=== PATIENT | female | born 1985 ===

== ENCOUNTER 2017-04-08 16:30 | Inpatient (IN) | payer OTHER ==
[2017-04-08 16:41] VITALS: BMI 35.6
[2017-04-08] MEDS ORDERED: Sodium Chloride 0.9% 1,000 ML IV STA ×2 (16:49→20:13)
--- NOTE | 2017-04-08 16:54 | ED PDOC ---
Arrival/HPI - General Chief Complaint: Abdominal Pain Time Seen by Provider: 04/08/17 16:32 Historian: Patient - History of Present Illness Narrative History of Present Illness (Text): 04/08/17 16:52 31 year old female whose past medical history includes diabetes, hypertension, and gastroparesis presents to the emergency department with abdominal pain and nausea, vomiting, diarrhea since this morning. Denies fevers. No other complaints. PMD: Dr. Wang Time/Duration: 24 hours Symptom Onset: Gradual Symptom Course: Unchanged Associated Symptoms (Text): None Past Medical History - Provider Review Nursing Documentation Reviewed: Yes - Infectious Disease Hx of Infectious Diseases: None - Cardiac Hx Cardiac Disorders: Yes Hx Hypertension: Yes - Pulmonary Hx Respiratory Disorders: Yes Hx Asthma: Yes - Neurological Hx Neurological Disorder: No - HEENT Hx HEENT Disorder: No - Renal Hx Renal Disorder: No - Endocrine/Metabolic Hx Endocrine Disorders: Yes Hx Diabetes Mellitus Type 2: Yes - Hematological/Oncological Hx Blood Disorders: No - Integumentary Hx Dermatological Disorder: No - Musculoskeletal/Rheumatological Hx Musculoskeletal Disorders: Yes Hx Falls: Yes (when having chest pain) - Gastrointestinal Hx Gastrointestinal Disorders: Yes Hx Pancreatitis: Yes Other/Comment: gastroparesis - Genitourinary/Gynecological Hx Genitourinary Disorders: No - Psychiatric Hx Psychophysiologic Disorder: No Hx Substance Use: No - Surgical History Other/Comment: bartholenes cyst I and D - Anesthesia Hx Anesthesia: No Hx Anesthesia Reactions: No Family/Social History - Physician Review Nursing Documentation Reviewed: Yes Family/Social History: Unknown Family HX Smoking Status: Current Some Days Smoker Hx Alcohol Use: No (social) Hx Substance Use: No Allergies/Home Meds Allergies/Adverse Reactions: Allergies No Known Allergies Allergy (Verified 05/12/13 09:32) Home Medications: Home Meds Medication Instructions Recorded Confirmed Insulin Human Regular [HumuLIN R] 0 units SC DAILY 08/06/16 04/08/17 Review of Systems - Physician Review All systems were reviewed & negative as marked: Yes - Review of Systems Constitutional: absent: Fevers Respiratory: absent: SOB Cardiovascular: absent: Chest Pain Gastrointestinal: Abdominal Pain, Diarrhea, Nausea, Vomiting Physical Exam Vital Signs Temp Pulse Resp BP Pulse Ox 04/08/17 20:25 98.3 F 97 H 18 133/89 97 04/08/17 17:20 84 18 128/86 100 Medical Decision Making ED Course and Treatment: Impression: 31 year old female whose past medical history includes diabetes, hypertension, and gastroparesis presents to the emergency department with abdominal pain and nausea, vomiting, diarrhea since this morning. Differential Diagnosis included but are not limited to: Plan: -- Zofran, Protonix -- Labs -- Reassess and disposition Prior Visits: Notes and results from previous visits were reviewed. Patient last seen in the ED on 11/03/16 for abdominal pain and discharged home. Progress Notes: 04/08/17 16:58 - Lab Interpretations Lab Results: 04/08/17 17:00 04/08/17 17:00 Lab Results 04/08/17 18:10: pCO2 31 L, pO2 116.0 H, HCO3 17.1 L, ABG pH 7.35, ABG Total CO2 18.1 L, ABG O2 Saturation 98.6 H, ABG Base Excess -7.4 L, ABG Potassium 3.5 L, Glucose 379 H, Lactate 1.1, FiO2 21.0, Sodium 136.0, Chloride 103.0, Arterial Blood Potassium 3.5 L 04/08/17 17:00: Serum Osmolality 300 H 04/08/17 17:00: Urine HCG, Qual Negative 04/08/17 17:00: Sodium 133, Potassium 4.6, Chloride 98, Carbon Dioxide 19 L, Anion Gap 21 H, BUN 7, Creatinine 0.5, Est GFR ( Amer) > 60, Est GFR (Non -Af Amer) > 60, Random Glucose 386 H* D, Calcium 9.1, Total Bilirubin 1.2, AST 29, ALT 34, Alkaline Phosphatase 151 H, Total Protein 8.4 H, Albumin 3.9, Globulin 4.4, Albumin/Globulin Ratio 0.9 L, Lipase 961 H 04/08/17 17:00: Urine Color Yellow, Urine Appearance Clear, Urine pH 6.0, Ur Specific [place] 1.020, Urine Protein Negative, Urine Glucose (UA) >=1000, Urine Ketones >=80, Urine Blood Trace-lysed H, Urine Nitrate Negative, Urine Bilirubin Negative, Urine Urobilinogen 0.2, Ur Leukocyte Esterase Negative, Urine RBC 1 - 3, Urine WBC 1 - 3, Ur Epithelial Cells 1 - 3, Urine Bacteria Few 04/08/17 17:00: PT Cancelled, INR Cancelled, APTT Cancelled 04/08/17 17:00: WBC 14.1 H D, RBC 4.59, Hgb 14.4, Hct 39.8, MCV 86.7, MCH 31.4, MCHC 36.2, RDW 12.6, Plt Count 263, MPV 12.2 H, Gran % 81.7 H, Lymph % (Auto) 13.9 L, [place] % (Auto) 3.3, Eos % (Auto) 0.8 L, Baso % (Auto) 0.3, Gran # 11.53 H , Lymph # 2.0, [place] # 0.5, Eos # 0.1, Baso # 0.04 - RAD Interpretation Radiology Orders: 04/08/17 17:37 ABD & PELVIS IV CONTRAST ONLY [CT] Stat - EKG Interpretation EKG Interpretation (Text): EKG shows sinus tachycardia at 101 BPM otherwise normal. Interpreted by me. Interpreted by ED Physician: Yes Type: 12 lead EKG - Medication Orders Current Medication Orders: Enoxaparin Sodium (Lovenox) 40 mg SC DAILY [facility] PRN Reason: Protocol Last Admin: 04/10/17 09:28 Dose: 40 mg Hydromorphone HCl (Dilaudid) 1 mg IVP Q4H PRN PRN Reason: Pain, severe (8-10) Last Admin: 04/10/17 04:47 Dose: 1 mg Metronidazole (Flagyl) 500 mg in 100 mls @ 100 mls/hr IVPB Q8 [facility] PRN Reason: Protocol Last Admin: 04/10/17 05:01 Dose: 100 mls/hr Ceftriaxone Sodium (Rocephin 1 Gram Ivpb) 1 gm in 100 mls @ 100 mls/hr IVPB DAILY [facility] PRN Reason: Protocol Last Admin: 04/10/17 09:28 Dose: 100 mls/hr Sodium Chloride (Sodium Chloride 0.45%) 1,000 mls @ 150 mls/hr IV .Q6H40M [facility] Last Admin: 04/10/17 05:00 Dose: 150 mls/hr Insulin Detemir (Levemir) 10 unit SC BID [facility] Last Admin: 04/10/17 09:28 Dose: 10 unit Insulin Human Lispro (Humalog Med) 0 units SC ACHS [facility] PRN Reason: Protocol Last Admin: 04/10/17 08:17 Dose: 3 units Ketorolac Tromethamine (Toradol) 30 mg IVP Q6H PRN PRN Reason: Pain, moderate (4-7) Last Admin: 04/10/17 08:17 Dose: 30 mg Ondansetron HCl (Zofran Inj) 4 mg IVP Q4H PRN PRN Reason: Nausea/Vomiting Last Admin: 04/09/17 00:01 Dose: 4 mg Pantoprazole Sodium (Protonix Inj) 40 mg IVP DAILY [facility] Last Admin: 04/10/17 09:28 Dose: 40 mg Discontinued Medications Acetaminophen (Tylenol 325mg Tab) Confirm Administered Dose 975 mg .ROUTE .STK- MED ONE Stop: 04/08/17 20:29 Last Admin: 04/08/17 20:31 Dose: Acetaminophen (Tylenol 325mg Tab) 975 mg PO STAT STA Stop: 04/08/17 20:32 Last Admin: 04/08/17 20:39 Dose: 975 mg Re-Assess: [facility] Pain/Vitals Document 04/08/17 21:39 RR (Rec: 04/08/17 23:34 RR [id number]) Pain Reassessment Is This A Pain ReAssessment? Yes Sleep Is patient sleeping during reassessment? No Presence of Pain Presence of Pain Yes Pain Scale Used Pain Scale Used Numeric Hydromorphone HCl (Dilaudid) 0.5 mg IVP STAT STA Stop: 04/09/17 00:19 Last Admin: 04/09/17 01:00 Dose: 0.5 mg Re-Assess: [facility] Pain Assessment Document 04/09/17 02:00 RR (Rec: 04/09/17 03:09 RR [id number]) Pain Reassessment Is this a pain reassessment? Yes Sleep Is patient sleeping during reassessment? Yes Pain Scale Used Pain Scale Used FLACC Sodium Chloride (Sodium Chloride 0.9%) 1,000 mls @ 1,000 mls/hr IV .Q1H STA Stop: 04/08/17 17:48 Last Admin: 04/08/17 17:07 Dose: 1,000 mls/hr Sodium Chloride (Sodium Chloride 0.9%) 1,000 mls @ 999 mls/hr IV .Q1H1M STA Stop: 04/08/17 21:13 Last Admin: 04/08/17 20:17 Dose: 999 mls/hr Sodium Chloride (Sodium Chloride 0.45%) 1,000 mls @ 80 mls/hr IV .[id number] [facility] Last Admin: 04/09/17 10:37 Dose: 80 mls/hr Insulin Human Regular (Humulin R) 6 units IV STAT STA Stop: 04/08/17 17:51 Last Admin: 04/08/17 18:00 Dose: 6 units Insulin Human Regular (Humulin R) 3 units IV STAT STA Stop: 04/08/17 20:33 Last Admin: 04/08/17 20:45 Dose: 3 units Insulin Human Regular (Humulin R Low) 0 units SC ACHS [facility] PRN Reason: Protocol Last Admin: 04/09/17 11:53 Dose: 4 units Iohexol (Omnipaque 350 100 Ml) Confirm Administered Dose 350 mg .ROUTE .STK-MED ONE Stop: 04/08/17 19:00 Ketorolac Tromethamine (Toradol) Confirm Administered Dose 30 mg .ROUTE .STK- MED ONE Stop: 04/08/17 17:45 Last Admin: 04/08/17 17:46 Dose: Ketorolac Tromethamine (Toradol) 30 mg IVP STAT STA Stop: 04/08/17 17:46 Ketorolac Tromethamine (Toradol) 30 mg IVP STAT STA Stop: 04/08/17 17:46 Last Admin: 04/08/17 17:57 Dose: 30 mg Re-Assess: [facility] Pain Assessment Document 04/08/17 18:57 RR (Rec: 04/08/17 23:34 RR [id number]) Pain Reassessment Is this a pain reassessment? Yes Sleep Is patient sleeping during reassessment? Yes Pain Scale Used Pain Scale Used FLACC Ketorolac Tromethamine (Toradol) 30 mg IVP STAT STA Stop: 04/09/17 03:01 Last Admin: 04/09/17 03:10 Dose: 30 mg Re-Assess: [facility] Pain Assessment Document 04/09/17 04:10 RR (Rec: 04/09/17 05:51 RR [id number]) Pain Reassessment Is this a pain reassessment? Yes Sleep Is patient sleeping during reassessment? Yes Pain Scale Used Pain Scale Used FLACC Ondansetron HCl (Zofran Inj) 4 mg IVP STAT STA Stop: 04/08/17 16:50 Last Admin: 04/08/17 17:07 Dose: 4 mg Ondansetron HCl (Zofran Inj) 4 mg IVP STAT STA Stop: 04/08/17 17:46 Last Admin: 04/08/17 17:57 Dose: 4 mg Ondansetron HCl (Zofran Inj) 4 mg IVP STAT STA Stop: 04/08/17 17:46 Last Admin: 04/08/17 17:46 Dose: Ondansetron HCl (Zofran Inj) 4 mg IVP STAT STA Stop: 04/09/17 00:38 Last Admin: 04/09/17 03:11 Dose: Pantoprazole Sodium (Protonix Inj) 40 mg IVP STAT STA Stop: 04/08/17 16:51 Last Admin: 04/08/17 17:07 Dose: 40 mg Pantoprazole Sodium (Protonix Inj) 40 mg IVP STAT STA Stop: 04/09/17 00:38 Last Admin: 04/09/17 01:01 Dose: 40 mg - Carole Statement The provider has reviewed the documentation as recorded by the Carole Castro Provider Scribe Attestation: All medical record entries made by the Carole were at my direction and personally dictated by me. I have reviewed the chart and agree that the record accurately reflects my personal performance of the history, physical exam, medical decision making, and the department course for this patient. I have also personally directed, reviewed, and agree with the discharge instructions and disposition. Disposition/Present on Arrival - Present on Arrival Any Indicators Present on Arrival: No History of DVT/PE: No History of Uncontrolled Diabetes: Yes Urinary Catheter: No History of Decub. Ulcer: No History Surgical Site Infection Following: None - Disposition Have Diagnosis and Disposition been Completed?: Yes Diagnosis: Pancreatitis, Hyperglycemia Disposition: HOSPITALIZED Disposition Time: 11:08 Condition: FAIR
[2017-04-08 17:17] LABS: ADD MANUAL DIFF? NO
[2017-04-08 17:28] LABS: ALB/GLOB RATIO 0.9 (1.1-1.8); ALKALINE PHOSPHATASE 151 U/L (38-133); ALT/SGPT 34 U/L (7-56); AST/SGOT 29 U/L (15-39); BILIRUBIN,TOTAL 1.2 mg/dL (0.2-1.3); BLOOD UREA NITROGEN 7 mg/dL (7-21); CALCIUM 9.1 mg/dL (8.4-10.5); CARBON DIOXIDE 19 mmol/L (21-33); CHLORIDE 98 mmol/L (98-107); GFR AFRICAN-AMERICAN > 60; LIPASE 961 U/L (23-300); POTASSIUM 4.6 mmol/L (3.6-5.0); SODIUM 133 mmol/L (132-148); TOTAL PROTEIN 8.4 g/dL (5.8-8.3); URINE BILIRUBIN NEGATIVE (NEGATIVE); URINE BLOOD TRACE-LYSED (NEGATIVE); URINE GLUCOSE (UA) >=1000 mg/dL (NEGATIVE); URINE KETONE >=80 mg/dL (NEGATIVE); URINE LEUKOCYTE ESTERASE NEGATIVE Leu/uL (NEGATIVE); URINE PROTEIN NEGATIVE mg/dL (<30 mg/dL); URINE UROBILINOGEN 0.2 E.U./dL (<1 E.U./dL)
[2017-04-08 17:34] LABS: BASO # 0.04 K/mm3 (0.0-2.0); BASO % 0.3 % (0.0-3.0); EOS # 0.1 (0.0-0.7); EOS % 0.8 % (1.5-5.0); GRAN # 11.53 (1.4-6.5); GRAN % 81.7 % (50.0-68.0); HEMATOCRIT 39.8 % (36.0-48.0); LYMPH % 13.9 % (22.0-35.0); MEAN CELL VOLUME 86.7 fL (80.0-105.0); MEAN CORPUSCULAR HEMOGLOBIN 31.4 pg (25.0-35.0); MEAN CORPUSCULAR HGB CONC 36.2 g/dl (31.0-37.0); MEAN PLATELET VOLUME 12.2 fl (7.0-11.0); MONO # 0.5 (0.1-0.6); MONO % 3.3 % (1.0-6.0); PLATELET COUNT 263 10^3/uL (120.0-450.0); RED CELL DISTRIBUTION WIDTH 12.6 % (11.5-14.5); WHITE BLOOD COUNT 14.1 10^3/ul (4.5-11.0)
[2017-04-08 17:37] LABS: URINE APPEARANCE CLEAR (CLEAR); URINE COLOR YELLOW (YELLOW)
[2017-04-08 17:48] LABS: GLUCOSE,RANDOM 386 mg/dL (70-110)
[2017-04-08] MEDS ORDERED: Insulin Regular 1 UNITS/0.01 ML ML IV STA ×2 (17:50→20:32)
[2017-04-08 17:57] LABS: URINE BACTERIA FEW (NEG)
[2017-04-08 18:18] LABS: ARTERIAL BLOOD GAS HCO3 17.1 mmol/L (21-28); ARTERIAL BLOOD GAS PH 7.35 (7.35-7.45)
[2017-04-08] MEDS ORDERED: Iohexol 350 MG/100 ML VIAL ONE (18:59)
[2017-04-08] MEDS: Insulin Reg-LOW-Coverage SC SCH (23:00)
--- NOTE | 2017-04-08 23:56 | CP.PCM.PN ---
Subjective - Date & Time of Evaluation Date of Evaluation: 04/08/17 Time of Evaluation: 23:53 - Subjective Subjective: Nurse Pedrito calls and tells me that She received toradol x 2,given one and half hour ago and 45 minutes ago, threw up,Toradol not helping for pain.(Patient) Did not want strong pain medicine before ,now ready to get medicine stronger than tylenol. I evaluated patient by bedside. She complains of left shoulder pain for one hour, burning pain, also has sharp pain in left side of abdomen which is radiating to back. Feels nauseous. Threw up a little. No sob , no sweating, no palpitation. States that she does not like morphine but will take little morphine. This 31 year old woman with history of DM, HTH, HLD, gastroparesis, obesity, asthma, Bartholin cyst I & D, is admitted with abdominal pain, nausea , vomiting/ pancreatitis. Objective - Vital Signs/Intake and Output Vital Signs (last 24 hours): Temp Pulse Resp BP Pulse Ox 98.8 F 104 H 20 126/86 97 04/08/17 22:31 04/08/17 22:31 04/08/17 22:31 04/08/17 22:31 04/08/17 20:25 - Medications Medications: Current Medications Sodium Chloride (Sodium Chloride 0.45%) 1,000 mls @ 80 mls/hr IV .[id number] [facility] Insulin Human Regular (Humulin R Low) 0 units SC ACHS [facility] PRN Reason: Protocol Ketorolac Tromethamine (Toradol) 30 mg IVP Q6H PRN PRN Reason: Pain, moderate (4-7) Ondansetron HCl (Zofran Inj) 4 mg IVP Q4H PRN PRN Reason: Nausea/Vomiting Pantoprazole Sodium (Protonix Inj) 40 mg IVP DAILY [facility] - Labs Labs: PT Cancelled 04/08/17 17:00 INR Cancelled 04/08/17 17:00 APTT Cancelled 04/08/17 17:00 - Constitutional Appears: Well, No Acute Distress - Head Exam Head Exam: ATRAUMATIC, NORMAL INSPECTION, NORMOCEPHALIC Additional comments: Obese person. - Eye Exam Eye Exam: Normal appearance - ENT Exam ENT Exam: Normal External Ear Exam - Neck Exam Neck Exam: Normal Inspection - Respiratory Exam Respiratory Exam: NORMAL BREATHING PATTERN. absent: Accessory Muscle Use, Rales , Rhonchi, Wheezes, Respiratory Distress, Stridor - Cardiovascular Exam Cardiovascular Exam: REGULAR RHYTHM, +S1 (Normal.), +S2 (Normal.). absent: JVD - GI/Abdominal Exam GI & Abdominal Exam: Tenderness (Mild LUQ tenderness positive.), Normal Bowel Sounds - Rectal Exam Rectal Exam: Deferred - Extremities Exam Extremities Exam: Normal Inspection - Back Exam Back Exam: NORMAL INSPECTION - Neurological Exam Neurological Exam: Alert, Oriented x3 - Psychiatric Exam Psychiatric exam: Normal Affect, Normal Mood - Skin Skin Exam: Normal Color Assessment and Plan - Assessment and Plan (Free Text) Assessment: Left shoulder pain. LUQ abdominal pain. Pancreatitis. DM II. Asthma. HTN. HLD. Obesity. Plan: Dilaudid 0.5 mg IV x 1. Continue present medications. Protonix 40 mg IV x 1. Zofrnan 4 mg IV x 1. If left shoulder pain and LUQ pain not subsided , will get EKG and cardiac enzymes. Will discuss with Dr.Saleeb bridges.
[2017-04-09] MEDS ORDERED: HYDROmorphone 0.5 mg/0.5 ml ISec IVP STA (00:18)
[2017-04-09] MEDS: HYDROmorphone 1 mg/ml ISec IVP PRN ×4 (06:08→19:53)
[2017-04-09] MEDS: Insulin Reg-LOW-Coverage SC SCH ×2 (08:37→11:53)
--- NOTE | 2017-04-09 08:45 | CT ---
PROCEDURE: CT Abdomen and Pelvis with contrast HISTORY: abd pain, vomiting COMPARISON: 11/03/2016 TECHNIQUE: Contrast dose: 100 cc of Omnipaque 300 Radiation dose: Total exam DLP = 848 mGy-cm. This CT exam was performed using one or more of the following dose reduction techniques: Automated exposure control, adjustment of the mA and/or kV according to patient size, and/or use of iterative reconstruction technique. FINDINGS: LOWER THORAX: Unremarkable. LIVER: Unremarkable. No gross lesion or ductal dilatation. GALLBLADDER AND BILE DUCTS: Unremarkable. PANCREAS: Pancreatic hypertrophy with peripancreatic edema and inflammation consistent with acute pancreatitis. SPLEEN: Unremarkable. ADRENALS: Unremarkable. No mass. KIDNEYS AND URETERS: Unremarkable. No hydronephrosis. No solid mass. VASCULATURE: Unremarkable. No aortic aneurysm. BOWEL: Unremarkable. No obstruction. No gross mural thickening. APPENDIX: Normal appendix. PERITONEUM: Unremarkable. No free fluid. No free air. LYMPH NODES: Unremarkable. No enlarged lymph nodes. BLADDER: Unremarkable. REPRODUCTIVE: Unremarkable. BONES: No acute fracture. OTHER FINDINGS: None. IMPRESSION: Acute uncomplicated pancreatitis.
[2017-04-09] MEDS: Insulin Detemir 100 units/ml Vial (Levemir) SC SCH ×2 (09:41→17:47)
[2017-04-09] MEDS: Sodium Chloride 0.45% 1,000 ML IV SCH ×4 (10:37→21:51)
[2017-04-09 12:12] LABS: HEMATOCRIT 40.4 % (36.0-48.0); MEAN CELL VOLUME 86.1 fL (80.0-105.0); MEAN CORPUSCULAR HEMOGLOBIN 30.3 pg (25.0-35.0); MEAN CORPUSCULAR HGB CONC 35.1 g/dl (31.0-37.0); MEAN PLATELET VOLUME 11.9 fl (7.0-11.0); RED CELL DISTRIBUTION WIDTH 12.9 % (11.5-14.5); WHITE BLOOD COUNT 8.3 10^3/ul (4.5-11.0)
--- NOTE | 2017-04-09 13:19 | CP.PCM.CON ---
History of Present Illness - History of Present Illness History of Present Illness: General Surgery Consult: Dr. Felton 31F w/ PMHx HTN, DM, duodenal ulcer, gastritis, presented to the ED on 04/08 w/ complaints of abdominal pain. Patient states abdominal pain began yesterday, she reports pain began along epigastric region and radiated to the back. Patient reports having 2 bouts of non-bloody emesis and diarrhea. Patient mentioned she experienced a similar type of pain about 2 weeks ago that was not as severe. Patient states she has experienced these types of symptoms before. At time of examination patient denied headache/dizziness, fever/chills, chest pain, dysuria. Denies sick contacts. PMHx: as stated above PSurgHx: x1 Social Hx: reports smoking 5 cigs/day for ~18 years. Denies EtOH use. Denies illicit drug use. Review of Systems - Review of Systems Review of Systems: 12pt ROS carried out, unremarkable; except as stated in HPI Past Patient History - Infectious Disease Hx of Infectious Diseases: None - Past Social History Smoking Status: Current Some Days Smoker - CARDIAC Hx Cardiac Disorders: Yes Hx Hypertension: Yes - PULMONARY Hx Respiratory Disorders: Yes Hx Asthma: Yes - NEUROLOGICAL Hx Neurological Disorder: No - HEENT Hx HEENT Problems: No - RENAL Hx Chronic Kidney Disease: No - ENDOCRINE/METABOLIC Hx Endocrine Disorders: Yes Hx Diabetes Mellitus Type 2: Yes - HEMATOLOGICAL/ONCOLOGICAL Hx Blood Disorders: No - INTEGUMENTARY Hx Dermatological Problems: No - MUSCULOSKELETAL/RHEUMATOLOGICAL Hx Musculoskeletal Disorders: Yes Hx Falls: Yes (Syncope Episodes) - GASTROINTESTINAL Hx Gastrointestinal Disorders: Yes Hx Pancreatitis: Yes Other/Comment: gastroparesis - GENITOURINARY/GYNECOLOGICAL Hx Genitourinary Disorders: No - PSYCHIATRIC Hx Psychophysiologic Disorder: No - SURGICAL HISTORY Other/Comment: bartholenes cyst I and D - ANESTHESIA Hx Anesthesia: No Hx Anesthesia Reactions: No Meds Allergies/Adverse Reactions: Allergies Allergy/AdvReac Type Severity Reaction Status Date / Time No Known Allergies Allergy Verified 05/12/13 09:32 - Medications Medications: Current Medications Enoxaparin Sodium (Lovenox) 40 mg SC DAILY [facility] PRN Reason: Protocol Hydromorphone HCl (Dilaudid) 1 mg IVP Q4H PRN PRN Reason: Pain, severe (8-10) Last Admin: 04/09/17 10:31 Dose: 1 mg Sodium Chloride (Sodium Chloride 0.45%) 1,000 mls @ 80 mls/hr IV .[id number] [facility] Last Admin: 04/09/17 10:37 Dose: 80 mls/hr Metronidazole (Flagyl) 500 mg in 100 mls @ 100 mls/hr IVPB Q8 [facility] PRN Reason: Protocol Ceftriaxone Sodium (Rocephin 1 Gram Ivpb) 1 gm in 100 mls @ 100 mls/hr IVPB DAILY [facility] PRN Reason: Protocol Insulin Detemir (Levemir) 10 unit SC BID [facility] Last Admin: 04/09/17 09:41 Dose: 10 unit Insulin Human Lispro (Humalog Med) 0 units SC ACHS [facility] PRN Reason: Protocol Ketorolac Tromethamine (Toradol) 30 mg IVP Q6H PRN PRN Reason: Pain, moderate (4-7) Last Admin: 04/09/17 00:00 Dose: 30 mg Ondansetron HCl (Zofran Inj) 4 mg IVP Q4H PRN PRN Reason: Nausea/Vomiting Last Admin: 04/09/17 00:01 Dose: 4 mg Pantoprazole Sodium (Protonix Inj) 40 mg IVP DAILY [facility] Last Admin: 04/09/17 09:41 Dose: 40 mg Physical Exam - Constitutional Appears: No Acute Distress - Head Exam Head Exam: NORMOCEPHALIC - Eye Exam Eye Exam: EOMI, Normal appearance - ENT Exam ENT Exam: Mucous Membranes Moist - Respiratory Exam Respiratory Exam: NORMAL BREATHING PATTERN - Cardiovascular Exam Cardiovascular Exam: +S1, +S2 - GI/Abdominal Exam GI & Abdominal Exam: Distended, Guarding, Tenderness. absent: Rigid Additional comments: +epigastric tenderness to palpation - Neurological Exam Neurological exam: Alert, Oriented x3 - Skin Skin Exam: Dry, Intact, Warm Results - Vital Signs Recent Vital Signs: Last Vital Signs Temp 98 F 04/09/17 08:06 Pulse 120 H 04/09/17 08:06 Resp 20 04/09/17 08:06 BP 130/85 04/09/17 08:06 Pulse Ox 97 04/09/17 08:06 - Labs Result Diagrams: 04/09/17 11:48 04/08/17 17:00 Labs: Laboratory Results - last 24 hr 04/08/17 04/09/17 04/09/17 22:05 07:09 11:13 WBC RBC Hgb Hct MCV MCH MCHC RDW Plt Count MPV POC Glucose (mg/dL) 298 H 296 H 307 H 04/09/17 11:48 WBC 8.3 D RBC 4.69 Hgb 14.2 Hct 40.4 MCV 86.1 MCH 30.3 MCHC 35.1 RDW 12.9 Plt Count 245 MPV 11.9 H POC Glucose (mg/dL) Assessment & Plan - Assessment and Plan (Free Text) Assessment: 31F w/ acute pancreatitis Plan: -NPO -IVF -Abx as per primary -Analgesic -Anti-emetic -DVT/GI ppx -F/u Abd U/S -Further recs per Dr. Felton
[2017-04-09] MEDS: Enoxaparin 40 mg Syringe SC SCH (13:36)
[2017-04-09] MEDS: cefTRIAXone 1 gm 1 GM/100 ML BAG IVPB SCH (13:36)
[2017-04-09] MEDS: metroNIDAZOLE IV 500 mg/100 ml 500 MG/100 ML BAG IVPB SCH ×2 (14:28→21:51)
[2017-04-09] MEDS: Insulin Lispro (humaLOG) MEDIUM Coverage SC SCH ×2 (17:46→22:56)
--- NOTE | 2017-04-09 18:53 | CARD ---
APPROVED REPORT EKG Measurement Heart [id number] CO 174P57 [id number] <Conclusion> Sinus tachycardia Possible Left atrial enlargement Borderline ECG
--- NOTE | 2017-04-09 21:28 | PN ---
DATE: 04/09/2017 The patient is lying supine in the bed, comfortable; however, when I wake her up, she wakes up and sh e complains of pain, but does not seem to be in pain at this time. No respiratory distress. No naus ea or vomiting. PHYSICAL EXAMINATION: VITAL SIGNS: Temperature 98, heart rate is 124, blood pressure 129/86, respirations 20, saturation 9 7% on room air. HEAD AND NECK: Normal. No JVD, no thyromegaly. CHEST: Clear, good entry. CARDIAC: First sound and second sound normal. ABDOMEN: There is tenderness all over, mainly in the upper. EXTREMITIES: No edema. NEUROLOGIC: Normal. LABORATORY DATA: Shows the following: CBC shows white count down, better at 8.3, hemoglobin 14.2, h ematocrit 40.4, platelets 245. Chemistry noted for sugar of 298. IMPRESSION AND PLAN: 1. Acute pancreatitis, idiopathic, unclear etiology. 2. Diabetes, insulin-dependent. We will increase her insulin coverage to moderate insulin coverage. The patient is n.p.o., give IV fluids, will increase IV fluids surgical consult on the case. 3. Abdominal pain. Unclear if she has gallstones. CT negative for stones; however, will cover the patient with IV antibiotic. Getting surgical consult, Dr. Felton and follow his recommendations . Also still waiting for GI, Dr. Polo, for his input. Continue hydration. Continue insulin the rapy. Continue Levemir. Follow up clinically. IV antibiotics. The patient currently getting IV Ro cephin and metronidazole. Eddi Wang MD cc: [phone] TT: 04/09/2017 21:27:05 Confirmation # [id number] Dictation # [id number] mn
--- NOTE | 2017-04-09 21:39 | HP ---
The patient seen on 04/08/2017. The patient seen in ER. Main complaint of abdominal pain, vomiting and diarrhea for 2 days. HISTORY OF PRESENT ILLNESS: This is a 31-year-old diabetic, insulin-dependent, obese female who came into the Emergency Room because of persistent pain and vomiting for the last 24-48 hours. She denie d any fever, any chills. She came in because of pain, could not take it, came to the ER for further evaluation. No vomiting blood. No melena. No other complaint. No history of similar symptoms in t he past. The patient does take insulin, otherwise no other meds. No history of any foods that she r ecently took. No other members have any illnesses like this. PAST MEDICAL HISTORY: As I mentioned, she is an insulin-dependent diabetic, questionable compliance. She is morbidly obese. ALLERGIES: No known allergy. SOCIAL HISTORY: She smokes some days on and off. No drugs. No alcohol. REVIEW OF SYSTEMS: Negative. PHYSICAL EXAMINATION: GENERAL: The patient seems to be in pain. She has no respiratory distress. She is able to talk, co mplained about her symptoms. VITAL SIGNS: Temperature 98.3, heart rate 97, blood pressure 133/89, respiration 18, saturation 97% on room air. HEAD AND NECK: Normal. No JVD, no thyromegaly. CHEST: Clear, good entry. CARDIAC: First sound and second sound normal. ABDOMEN: Obese. Generalized tenderness all over, more in the upper abdomen than lower. Bowel sound s intact. EXTREMITIES: No edema. NEUROLOGIC: Normal. LABORATORY DATA: Noted for white count of 14.1, hemoglobin 14.4, hematocrit 39.8, platelets 263. Ch emistry shows sodium 133, potassium 4.6, chloride 98, bicarb 19, BUN 7, creatinine 0.5, blood sugar i s 386. Liver function test is normal. Alk phos 151, total protein 8.4 and lipase is elevated at 961 . The patient also had a blood gas which shows pO2 of 116, pCO2 of 31, pH 7.35. Urinalysis was nega tive for any infection or any blood. test was negative. The patient also had a CAT scan o f the abdomen done in the Emergency Room, which was noted for acute uncomplicated pancreatitis. IMPRESSION AND PLAN: This is a 31-year-old obese female diabetic, who came in with abdominal pain an d acute pancreatitis. Admit the patient, IV fluid, IV Protonix, Dilaudid. GI consult, Dr. Polo, surgical, Dr. . Continue current therapy for now. Zofran for nausea and vomiting. Follow up clinically. Eddi Wang MD cc: [phone] TT: 04/09/2017 21:38:49 mn
[2017-04-10] MEDS: HYDROmorphone 1 mg/ml ISec IVP PRN ×5 (00:11→21:18)
[2017-04-10] MEDS: Sodium Chloride 0.45% 1,000 ML IV SCH ×3 (05:00→21:18)
[2017-04-10] MEDS: metroNIDAZOLE IV 500 mg/100 ml 500 MG/100 ML BAG IVPB SCH ×3 (05:01→21:19)
--- NOTE | 2017-04-10 07:23 | CON ---
DATE: 04/09/2017 This patient was seen and evaluated earlier today. This 31-year-old patient with a past medical hist ory of diabetes mellitus, hypertension, admitted with an abdominal pain for 1 day duration. She said pain was more severe in the epigastric and right upper quadrant area. Denies taking any alcohol. The patient she states only smokes; never had a drink of alcohol. Did discuss the patient as a const ant boring pain in the upper abdominal area. OTHER PAST MEDICAL HISTORY: Significant as above. History of diabetes mellitus since the age of 10. The patient had an endoscopy in 09/[address] [facility] by Dr. Henson; found to have acute gastri tis and duodenal ulcer which was clean based, and also H. pylori positive. SOCIAL HISTORY: ____. REVIEW OF SYSTEMS: Positive as above. Other systems reviewed. PHYSICAL EXAMINATION: GENERAL: The patient is lying on the bed, not in acute distress. VITAL SIGNS: Temperature is 98.5, blood pressure is 129/86, pulse 120, respirations 20. HEENT: Atraumatic, anicteric. NECK: Supple. HEART: S1, S2 heard. LUNGS: Bilateral air entry present. ABDOMEN: Soft. There is tenderness present in the epigastric and right upper quadrant area. EXTREMITIES: No edema. No cyanosis. LABORATORY DATA: Hemoglobin is 14.2, hematocrit 40.4, WBC is 8.3, platelets 249. Chemistries: Lexi line phosphatase 151, lipase 961. No repeat labs today. IMPRESSION: This 31-year-old patient with a long history of diabetes mellitus, peptic ulcer disease, history of Helicobacter pylori gastritis, admitted with acute onset of abdominal pain, has elevated pancreatic enzymes. CT also showed evidence of pancreatitis with peripancreatic inflammatory changes , especially body and tail area, clinically acute pancreatitis; the etiology is unclear. RECOMMENDATIONS: Would recommend at this point: 1. IV hydration. 2. Will consider MRI of the pancreas with and without contrast, with MRCP to further evaluate. 3. Will continue to closely follow up her care and suggest further management based on the clinical course. Bobby Polo MD cc: [id number] TT: 04/10/2017 07:22:30 Confirmation # [id number] Dictation # [id number] mn
--- NOTE | 2017-04-10 07:37 | CP.PCM.PN ---
Subjective - Date & Time of Evaluation Date of Evaluation: 04/10/17 Time of Evaluation: 06:40 - Subjective Subjective: Sagar Manuel D.O. PGY-1, General Surgery Progress Note: Dr. Felton 31 year old female with a PMH of HTN, DM, duodenal ulcer, and gastritis who presented to [facility] [place] [facility] on 04/08/17 with complaints of abdominal pain. Patient was seen and examined at bedside with surgical team. Patient at this time continues to complain of pain which her pain regimen is alleviating, states that she has not had any nausea or vomiting but currently does not have an appetite. Patient admits to passing gas and having a bowel movement. Currently her pain is still located in the epigastrium and radiates to her back. No other acute complaints. Objective - Vital Signs/Intake and Output Vital Signs (last 24 hours): Temp Pulse Resp BP Pulse Ox 98.5 F 124 H 20 129/86 96 04/09/17 17:29 04/09/17 17:29 04/09/17 17:29 04/09/17 17:29 04/09/17 17:29 Intake and Output: 04/10/17 04/10/17 06:59 18:59 Intake Total 3600 Balance 3600 - Medications Medications: Current Medications Enoxaparin Sodium (Lovenox) 40 mg SC DAILY [facility] PRN Reason: Protocol Last Admin: 04/09/17 13:36 Dose: 40 mg Hydromorphone HCl (Dilaudid) 1 mg IVP Q4H PRN PRN Reason: Pain, severe (8-10) Last Admin: 04/10/17 04:47 Dose: 1 mg Metronidazole (Flagyl) 500 mg in 100 mls @ 100 mls/hr IVPB Q8 [facility] PRN Reason: Protocol Last Admin: 04/10/17 05:01 Dose: 100 mls/hr Ceftriaxone Sodium (Rocephin 1 Gram Ivpb) 1 gm in 100 mls @ 100 mls/hr IVPB DAILY [facility] PRN Reason: Protocol Last Admin: 04/09/17 13:36 Dose: 100 mls/hr Sodium Chloride (Sodium Chloride 0.45%) 1,000 mls @ 150 mls/hr IV .Q6H40M [facility] Last Admin: 04/10/17 05:00 Dose: 150 mls/hr Insulin Detemir (Levemir) 10 unit SC BID [facility] Last Admin: 04/09/17 17:47 Dose: 10 unit Insulin Human Lispro (Humalog Med) 0 units SC ACHS [facility] PRN Reason: Protocol Last Admin: 04/09/17 22:56 Dose: Not Given Ketorolac Tromethamine (Toradol) 30 mg IVP Q6H PRN PRN Reason: Pain, moderate (4-7) Last Admin: 04/09/17 14:24 Dose: 30 mg Ondansetron HCl (Zofran Inj) 4 mg IVP Q4H PRN PRN Reason: Nausea/Vomiting Last Admin: 04/09/17 00:01 Dose: 4 mg Pantoprazole Sodium (Protonix Inj) 40 mg IVP DAILY [facility] Last Admin: 04/09/17 09:41 Dose: 40 mg - Labs Labs: 04/09/17 11:48 PT Cancelled 04/08/17 17:00 INR Cancelled 04/08/17 17:00 APTT Cancelled 04/08/17 17:00 - Constitutional Appears: Well, Non-toxic - Head Exam Head Exam: ATRAUMATIC, NORMOCEPHALIC - Eye Exam Eye Exam: EOMI, PERRL - ENT Exam ENT Exam: Mucous Membranes Moist - Neck Exam Neck Exam: Normal Inspection - Respiratory Exam Respiratory Exam: Clear to Ausculation Bilateral. absent: Accessory Muscle Use , Rales, Rhonchi, Wheezes - Cardiovascular Exam Cardiovascular Exam: RRR, +S1, +S2 - GI/Abdominal Exam GI & Abdominal Exam: Distended (mild), Soft, Tenderness (epigastric), Hypoactive Bowel Sounds - Extremities Exam Extremities Exam: absent: Tenderness - Neurological Exam Neurological Exam: Alert, Awake, Oriented x3 - Skin Skin Exam: Dry, Intact, Warm Assessment and Plan - Assessment and Plan (Free Text) Assessment: 31 year old female with a PMH of HTN, DM, duodenal ulcer, and gastritis who presented with complaints of abdominal pain, found to have acute pancreatitis. Plan: Acute pancreatitis Cont NS @ 150 Abd US pending official read, however appears to show some hepatomegaly likely 2 /2 obesity, no CBD dilation, no GB polyps or wall thickening Added IS Added SCDs GI ppx Encouraged OOB 2 chair, ambulation NPO Pending lipid panel Cont PRN pain regimen Discussed with attending physician. Thank you for the pleasure of participating in the care of this patient.
[2017-04-10 07:49] LABS: BLOOD UREA NITROGEN 8 mg/dL (7-21); CARBON DIOXIDE 16 mmol/L (21-33); CHLORIDE 103 mmol/L (98-107); GFR AFRICAN-AMERICAN > 60; GLUCOSE,RANDOM 207 mg/dL (70-110); POTASSIUM 3.6 mmol/L (3.6-5.0); SODIUM 131 mmol/L (132-148)
[2017-04-10] MEDS: Insulin Lispro (humaLOG) MEDIUM Coverage SC SCH ×4 (08:17→21:48)
[2017-04-10 08:42] LABS: CHOLESTEROL 429 mg/dL (130-200)
[2017-04-10] MEDS: Enoxaparin 40 mg Syringe SC SCH (09:28)
[2017-04-10] MEDS: Insulin Detemir 100 units/ml Vial (Levemir) SC SCH ×2 (09:28→17:16)
[2017-04-10] MEDS: cefTRIAXone 1 gm 1 GM/100 ML BAG IVPB SCH (09:28)
--- NOTE | 2017-04-10 10:36 | US ---
HISTORY: pancreatitis, r/o gallstones COMPARISON: CT abdomen and pelvis from 04/08/2017 TECHNIQUE: Grayscale imaging was performed. FINDINGS: LIVER: Measures 16.3 cm. There is diffuse increased echogenicity of the liver parenchyma. No mass. No intrahepatic bile duct dilatation. GALLBLADDER: Unremarkable. No gallstones. COMMON BILE DUCT: Measures 4.0 mm. No stones. No dilatation. PANCREAS: Unremarkable as visualized. No mass. No ductal dilatation. RIGHT KIDNEY: Measures 13.2cm. Normal echogenicity. No calculus, mass, or hydronephrosis. LEFT KIDNEY: Measures 12.5cm. Normal echogenicity. No calculus, mass, or hydronephrosis. SPLEEN: Normal in size and contour. No mass. AORTA: No aneurysmal dilatation. IVC: Unremarkable. OTHER FINDINGS: None. IMPRESSION: Mild hepatomegaly and hepatic steatosis. No evidence of cholelithiasis or biliary dilatation.
--- NOTE | 2017-04-10 12:10 | PN ---
DATE: 04/10/2017 GI FOLLOWUP NOTE Seen and examined at the bedside this morning. The patient complains still of abdominal pain and abd ominal distention. Remains n.p.o. She complains of lower abdominal pain that radiates to her back. No reports of any vomiting thus far. VITAL SIGNS: Temperature is 99.2, blood pressure 128/87, pulse rate 12____, respirations 20, 96 on r oom air. CURRENT LABORATORY DATA: BMP - her sodium is 131, K 3.6. BUN is 8, creatinine 0.6. She had lipid p kavita done. Triglyceride is 1231. Cholesterol is 429. LDL is less than 30, and HDL cholesterol is 3 2. Lipase is pending. Abdominal ultrasound was done yesterday, and that is negative for gallstones. The common bile duct m easures 4.0. No stones or dilatation. Mild hepatomegaly with hepatic steatosis. PHYSICAL EXAMINATION: HEENT: Sclerae are anicteric. NECK: Supple. CARDIAC: S1, S2. LUNGS: Lung sounds are clear. ABDOMEN: With bowel sounds, softly distended with positive tenderness to mid abdomen, mostly on righ t to back. EXTREMITIES: No edema. NEUROLOGIC: Awake, alert, and oriented. ASSESSMENT: A 31-year-old obese female with history of duodenal ulcers, hypertension, and diabetes, came in with complaints of abdominal pain, and found to have acute pancreatitis. The patient also wi th hyperlipidemia, fatty liver. PLAN: The patient remains n.p.o. Continue IV fluids. She is on normal saline at 150. Continue GI prophylaxis - Protonix. She is on Zofran p.r.n., Toradol for pain, and on Flagyl IV antibiotic, and DVT prophylaxis, as well as ceftriaxone. We will follow up the lipase and request for MRCP and MRI with and without contrast. Discussed with the patient, and ____. The patient is also being followed by surgery. The patient was seen and case discussed with Dr. Polo. Miranda Rupal SUPA cc: [id number] TT: 04/10/2017 12:09:13 Confirmation # [id number] Dictation # [id number] jn
[2017-04-10] MEDS ORDERED: Gadodiamide 287 MG/ML VIAL (20ML) IV ONE (17:12)
[2017-04-11] MEDS: Sodium Chloride 0.45% 1,000 ML IV SCH ×2 (00:48→05:29)
[2017-04-11] MEDS: HYDROmorphone 1 mg/ml ISec IVP PRN ×6 (00:48→22:13)
--- NOTE | 2017-04-11 05:03 | PN ---
DATE: 04/10/2017 ADDENDUM This is an addendum to the GI progress report dictated by Miranda Goldsmith APN. The patient still complains of abdominal discomfort. The patient has some increased abdominal distent ion. We will continue n.p.o. We will follow MRCP. Her triglyceride level is elevated a t 1231. This could be secondary hypertriglyceridemia. would also repeat the triglycerides whe n the acute episode of pancreatitis improves. Thank you very much for allowing us to participate in the care of the patient. Bobby Polo MD cc: [id number] TT: 04/11/2017 05:03:19 Confirmation # [id number] Dictation # [id number] tn
[2017-04-11] MEDS: metroNIDAZOLE IV 500 mg/100 ml 500 MG/100 ML BAG IVPB SCH (05:25)
[2017-04-11 07:12] LABS: ADD MANUAL DIFF? NO
[2017-04-11 07:22] LABS: BASO # 0.02 K/mm3 (0.0-2.0); BASO % 0.2 % (0.0-3.0); EOS # 0.3 (0.0-0.7); EOS % 2.6 % (1.5-5.0); GRAN # 8.82 (1.4-6.5); GRAN % 78.3 % (50.0-68.0); HEMATOCRIT 33.6 % (36.0-48.0); LYMPH # 1.6 (1.2-3.4); LYMPH % 14.1 % (22.0-35.0); MEAN CORPUSCULAR HEMOGLOBIN 29.5 pg (25.0-35.0); MEAN CORPUSCULAR HGB CONC 33.9 g/dl (31.0-37.0); MEAN PLATELET VOLUME 11.4 fl (7.0-11.0); MONO # 0.5 (0.1-0.6); MONO % 4.8 % (1.0-6.0); PLATELET COUNT 234 10^3/uL (120.0-450.0); RED CELL DISTRIBUTION WIDTH 13.1 % (11.5-14.5); WHITE BLOOD COUNT 11.3 10^3/ul (4.5-11.0)
--- NOTE | 2017-04-11 07:44 | CP.PCM.PN ---
Subjective - Date & Time of Evaluation Date of Evaluation: 04/11/17 Time of Evaluation: 07:30 - Subjective Subjective: General surgery progress note for Dr. Felton Patient seen and examined at bedside. No acute events overnight. Patient still complains of having epigastric and back pain, stating that the pain is no better than yesterday. Patient is aware of her high triglyceride level and was started on Fenofibrate yesterday. Patient started to ambulate from bed to restroom. Patient denies headache, dizziness, fever, chills, nausea, vomiting, or other complaints. Objective - Vital Signs/Intake and Output Vital Signs (last 24 hours): Temp Pulse Resp BP Pulse Ox 98.3 F 111 H 20 122/85 97 04/10/17 16:00 04/10/17 16:00 04/10/17 16:00 04/10/17 16:00 04/10/17 16:00 Intake and Output: 04/11/17 04/11/17 06:59 18:59 Intake Total 0 Output Total 200 Balance -200 - Medications Medications: Current Medications Enoxaparin Sodium (Lovenox) 40 mg SC DAILY [facility] PRN Reason: Protocol Last Admin: 04/10/17 09:28 Dose: 40 mg Fenofibrate (Tricor) 145 mg PO DAILY [facility] Last Admin: 04/10/17 21:18 Dose: 145 mg Hydromorphone HCl (Dilaudid) 1 mg IVP Q4H PRN PRN Reason: Pain, severe (8-10) Last Admin: 04/11/17 05:26 Dose: 1 mg Metronidazole (Flagyl) 500 mg in 100 mls @ 100 mls/hr IVPB Q8 [facility] PRN Reason: Protocol Last Admin: 04/11/17 05:25 Dose: 100 mls/hr Ceftriaxone Sodium (Rocephin 1 Gram Ivpb) 1 gm in 100 mls @ 100 mls/hr IVPB DAILY [facility] PRN Reason: Protocol Last Admin: 04/10/17 09:28 Dose: 100 mls/hr Sodium Chloride (Sodium Chloride 0.45%) 1,000 mls @ 150 mls/hr IV .Q6H40M [facility] Last Admin: 04/11/17 05:29 Dose: 150 mls/hr Insulin Detemir (Levemir) 10 unit SC BID [facility] Last Admin: 04/10/17 17:16 Dose: 10 unit Insulin Human Lispro (Humalog Med) 0 units SC ACHS [facility] PRN Reason: Protocol Last Admin: 04/10/17 21:48 Dose: Not Given Ketorolac Tromethamine (Toradol) 30 mg IVP Q6H PRN PRN Reason: Pain, moderate (4-7) Last Admin: 04/10/17 14:30 Dose: 30 mg Ondansetron HCl (Zofran Inj) 4 mg IVP Q4H PRN PRN Reason: Nausea/Vomiting Last Admin: 04/09/17 00:01 Dose: 4 mg Pantoprazole Sodium (Protonix Inj) 40 mg IVP DAILY [facility] Last Admin: 04/10/17 09:28 Dose: 40 mg - Labs Labs: 04/11/17 07:00 04/10/17 07:00 PT Cancelled 04/08/17 17:00 INR Cancelled 04/08/17 17:00 APTT Cancelled 04/08/17 17:00 - Constitutional Appears: Well, Non-toxic, No Acute Distress - Head Exam Head Exam: ATRAUMATIC, NORMAL INSPECTION - Eye Exam Eye Exam: EOMI, Normal appearance - ENT Exam ENT Exam: Mucous Membranes Moist - Neck Exam Neck Exam: Normal Inspection - Respiratory Exam Respiratory Exam: Clear to Ausculation Bilateral, NORMAL BREATHING PATTERN. absent: Respiratory Distress - Cardiovascular Exam Cardiovascular Exam: RRR, +S1, +S2 - GI/Abdominal Exam GI & Abdominal Exam: Distended, Tenderness (epicgastric tenderness) - Extremities Exam Extremities Exam: Normal Inspection. absent: Tenderness - Neurological Exam Neurological Exam: Alert, Awake, Oriented x3 - Psychiatric Exam Psychiatric exam: Normal Affect, Normal Mood - Skin Skin Exam: Dry, Intact, Warm Assessment and Plan - Assessment and Plan (Free Text) Assessment: 31 year old female with past medical history of HTN, DM, duodenal ulcer, and gastritis presents with abdominal pain and was found to have acute pancreatitis Plan: Acute pancreatitis -Likely secondary to hypertriglyceridemia -Ok to started diet from surgery standpoint -Start incentive spirometry -C/w IVF NS @150ml/hr -Pending MRCP results -C/w ISS med -Continue to OOB 2 chair, ambulation more -Cont PRN pain regimen -GI ppx, SCD ppx -d/w with attending
[2017-04-11] MEDS: Insulin Lispro (humaLOG) MEDIUM Coverage SC SCH ×3 (07:50→17:22)
--- NOTE | 2017-04-11 08:05 | PN ---
DATE: 04/10/2017 Admitted with acute abdominal pain, found to have pancreatitis. The patient is still having abdomina l pain, uncomfortable. No nausea, no vomiting. Nothing by mouth yet. She is otherwise stable. PHYSICAL EXAMINATION: VITAL SIGNS: Temperature 99.2, heart rate 123, blood pressure 128/87, respirations 20, saturation 96 %. HEAD AND NECK: Normal. No JVD, no thyromegaly. CHEST: Clear, good air entry. CARDIAC: First sound, second sound normal. ABDOMEN: Soft, tender all over, mainly epigastric. EXTREMITIES: No edema. NEUROLOGIC: Normal. LABORATORY DATA: White count is 8.3 on 04/09/2017, hemoglobin 14.2, hematocrit 40.4, platelets 245. Chemistry noted for her triglycerides 1231, cholesterol 425 and high lipase 624. Blood sugar 207. IMPRESSION AND PLAN: 1. Acute pancreatitis, probably secondary to hypertriglyceridemia. Will get a dietary consult for t he patient's better control of diabetes. I put her on Tricor 145 mg p.o. daily. Will follow up clin ically. 2. Uncontrolled diabetes. Continue insulin coverage. The patient is n.p.o. Blood sugar runs in th e 200s now. Will continue to monitor. Continue IV fluid. 3. Continue GI and DVT prophylaxis. The patient may try to discuss with the GI consult. She still has significant pain. We may try clear liquids and maybe will consider ID consult and repeat CT scan . She still has significant pain. Continue current treatment. Eddi Wang MD cc: [phone] TT: 04/11/2017 08:04:50 Confirmation # [id number] Dictation # [id number] mn
[2017-04-11 08:08] LABS: ALB/GLOB RATIO 0.9 (1.1-1.8); ALKALINE PHOSPHATASE 93 U/L (38-133); ALT/SGPT 23 U/L (7-56); AST/SGOT 40 U/L (15-39); BILIRUBIN,TOTAL 0.7 mg/dL (0.2-1.3); BLOOD UREA NITROGEN 10 mg/dL (7-21); CALCIUM 8.7 mg/dL (8.4-10.5); CARBON DIOXIDE 19 mmol/L (21-33); CHLORIDE 102 mmol/L (98-107); GFR AFRICAN-AMERICAN > 60; GLUCOSE,RANDOM 131 mg/dL (70-110); LIPASE 217 U/L (23-300); POTASSIUM 3.4 mmol/L (3.6-5.0); SODIUM 132 mmol/L (132-148); TOTAL PROTEIN 6.1 g/dL (5.8-8.3)
[2017-04-11] MEDS: Enoxaparin 40 mg Syringe SC SCH (09:26)
[2017-04-11] MEDS: Insulin Detemir 100 units/ml Vial (Levemir) SC SCH ×2 (09:27→17:22)
[2017-04-11] MEDS: cefTRIAXone 1 gm 1 GM/100 ML BAG IVPB SCH (09:28)
--- NOTE | 2017-04-11 10:53 | CT ---
PROCEDURE: CT Abdomen and Pelvis without intravenous contrast HISTORY: pancreatitis COMPARISON: 04/08/2017 TECHNIQUE: Without contrast. Contrast Dose: Radiation dose: Total exam DLP = 1187 mGy-cm. This CT exam was performed using one or more of the following dose reduction techniques: Automated exposure control, adjustment of the mA and/or kV according to patient size, and/or use of iterative reconstruction technique. FINDINGS: LOWER THORAX: Small pleural effusions and bibasilar atelectasis LIVER: Unremarkable. No gross lesion or ductal dilatation. GALLBLADDER AND BILE DUCTS: Contrast material excreted in the gallbladder PANCREAS: There is a slight increase in the fluid collections adjacent to the pancreas. There is now a moderate amount of fluid that surrounds the spleen. Fluid now extends into the pericolic gutter. There is a moderate amount of ascites in the pelvis. There is swelling and edema of the pancreas consistent with pancreatitis similar to the previous study. There is no evidence of pseudocyst formation. SPLEEN: Unremarkable. ADRENALS: Unremarkable. No mass. KIDNEYS AND URETERS: Unremarkable. No hydronephrosis. No solid mass. VASCULATURE: Unremarkable. No aortic aneurysm. BOWEL: Unremarkable. No obstruction. No gross mural thickening. APPENDIX: Unremarkable. Normal appendix. PERITONEUM: Unremarkable. No free fluid. No free air. LYMPH NODES: Unremarkable. No enlarged lymph nodes. BLADDER: Unremarkable. REPRODUCTIVE: Unremarkable. BONES: No acute fracture. OTHER FINDINGS: None. IMPRESSION: There is a slight increase in the fluid collections adjacent to the pancreas. There is now a moderate amount of fluid that surrounds the spleen. Fluid now extends into the pericolic gutter. There is a moderate amount of ascites in the pelvis. There is swelling and edema of the pancreas consistent with pancreatitis similar to the previous study. There is no evidence of pseudocyst formation.
--- NOTE | 2017-04-11 13:43 | MRI ---
PROCEDURE: Magnetic Resonance Cholangiopancreatography HISTORY: Pancreatitis COMPARISON: CT 04/08/2017. TECHNIQUE: Multiplanar, multisequence MR images of the abdomen were obtained, including heavily T2 weighted MRCP images of the biliary system. Rotating maximum intensity projection images of the biliary system were generated. FINDINGS: MRCP: The common bile duct is of a normal caliber. No evidence of choledocholithiasis. No intrahepatic biliary ductal dilatation. LIVER: Hepatomegaly and fatty infiltration of the liver GALLBLADDER: Small gallstones SPLEEN: Unremarkable. PANCREAS: There is swelling of the pancreas and peripancreatic fluid and infiltration. This was also seen on CT. ADRENALS: Unremarkable. KIDNEYS: Unremarkable. AORTA: No aneurysm. ASCITES: There is pelvic ascites OTHER FINDINGS: Bilateral pleural effusions and compressive atelectasis. The report concurs with the preliminary [facility] report IMPRESSION: Hepatomegaly with fatty infiltration. Normal caliber common duct with no obvious stones. Small gallstones Pancreatitis with adjacent mesenteric edema. Moderate ascites
--- NOTE | 2017-04-11 14:44 | CP.PCM.CON ---
History of Present Illness - History of Present Illness History of Present Illness: 31 year old female with PMH of HTN, DM, obesity with BMI 36, gastritis and duodenal ulcer initially came in to [facility] because of abdominal pain associated with nausea and vomiting. The pain was also noted to have radiation to the back area as well. The initial CT scan of the patient showed acute pancreatitis and is being treated for this. Currently the patient continues to have abdominal pain, and persistent leukocytosis. Infectious Diseases consult is requested to further evaluate and manage. Currently the patient denies fever or chills, has occasional nausea, no diarrhea, no SOB, no chest pain, no cough or colds, no dysphagia, no headache or dizziness. Review of Systems - Review of Systems All systems: reviewed and no additional remarkable complaints except (as per HPI ) Past Patient History - Infectious Disease Hx of Infectious Diseases: None - Past Social History Smoking Status: Current Some Days Smoker - CARDIAC Hx Cardiac Disorders: Yes Hx Hypertension: Yes - PULMONARY Hx Respiratory Disorders: Yes Hx Asthma: Yes - NEUROLOGICAL Hx Neurological Disorder: No - HEENT Hx HEENT Problems: No - RENAL Hx Chronic Kidney Disease: No - ENDOCRINE/METABOLIC Hx Endocrine Disorders: Yes Hx Diabetes Mellitus Type 2: Yes - HEMATOLOGICAL/ONCOLOGICAL Hx Blood Disorders: No - INTEGUMENTARY Hx Dermatological Problems: No - MUSCULOSKELETAL/RHEUMATOLOGICAL Hx Musculoskeletal Disorders: Yes Hx Falls: Yes (when having chest pain) - GASTROINTESTINAL Hx Gastrointestinal Disorders: Yes Hx Pancreatitis: Yes Other/Comment: gastroparesis - GENITOURINARY/GYNECOLOGICAL Hx Genitourinary Disorders: No - PSYCHIATRIC Hx Psychophysiologic Disorder: No Hx Substance Use: No - SURGICAL HISTORY Other/Comment: bartholenes cyst I and D - ANESTHESIA Hx Anesthesia: No Hx Anesthesia Reactions: No Meds Allergies/Adverse Reactions: Allergies Allergy/AdvReac Type Severity Reaction Status Date / Time No Known Allergies Allergy Verified 05/12/13 09:32 - Medications Medications: Current Medications Atorvastatin Calcium (Lipitor) 20 mg PO DIN [facility] Enoxaparin Sodium (Lovenox) 40 mg SC DAILY [facility] PRN Reason: Protocol Last Admin: 04/10/17 09:28 Dose: 40 mg Fenofibrate (Tricor) 145 mg PO DAILY [facility] Last Admin: 04/10/17 21:18 Dose: 145 mg Hydromorphone HCl (Dilaudid) 1 mg IVP Q4H PRN PRN Reason: Pain, severe (8-10) Last Admin: 04/11/17 05:26 Dose: 1 mg Metronidazole (Flagyl) 500 mg in 100 mls @ 100 mls/hr IVPB Q8 [facility] PRN Reason: Protocol Last Admin: 04/11/17 05:25 Dose: 100 mls/hr Ceftriaxone Sodium (Rocephin 1 Gram Ivpb) 1 gm in 100 mls @ 100 mls/hr IVPB DAILY [facility] PRN Reason: Protocol Last Admin: 04/10/17 09:28 Dose: 100 mls/hr Sodium Chloride (Sodium Chloride 0.45%) 1,000 mls @ 150 mls/hr IV .Q6H40M [facility] Last Admin: 04/11/17 05:29 Dose: 150 mls/hr Insulin Detemir (Levemir) 10 unit SC BID [facility] Last Admin: 04/10/17 17:16 Dose: 10 unit Insulin Human Lispro (Humalog Med) 0 units SC ACHS [facility] PRN Reason: Protocol Last Admin: 04/11/17 07:50 Dose: Not Given Ketorolac Tromethamine (Toradol) 30 mg IVP Q6H PRN PRN Reason: Pain, moderate (4-7) Last Admin: 04/10/17 14:30 Dose: 30 mg Ondansetron HCl (Zofran Inj) 4 mg IVP Q4H PRN PRN Reason: Nausea/Vomiting Last Admin: 04/09/17 00:01 Dose: 4 mg Pantoprazole Sodium (Protonix Inj) 40 mg IVP DAILY [facility] Last Admin: 04/10/17 09:28 Dose: 40 mg Physical Exam - Constitutional Appears: Non-toxic, No Acute Distress - Head Exam Head Exam: NORMAL INSPECTION - ENT Exam ENT Exam: Mucous Membranes Moist - Neck Exam Neck exam: Negative for: Lymphadenopathy, Meningismus - Respiratory Exam Respiratory Exam: Decreased Breath Sounds - Cardiovascular Exam Cardiovascular Exam: +S1, +S2 - GI/Abdominal Exam GI & Abdominal Exam: Soft, Tenderness (epigastric area). absent: Distended, Firm, Guarding, Rebound, Rigid Results - Vital Signs Recent Vital Signs: Last Vital Signs Temp 98.3 F 04/10/17 16:00 Pulse 111 H 04/10/17 16:00 Resp 20 04/10/17 16:00 BP 122/85 04/10/17 16:00 Pulse Ox 97 06/05/17 16:00 - Labs Result Diagrams: 04/11/17 07:00 04/11/17 07:00 Labs: Laboratory Results - last 24 hr 04/10/17 04/10/17 04/10/17 07:00 07:00 11:41 WBC RBC Hgb Hct MCV MCH MCHC RDW Plt Count MPV Gran % Lymph % (Auto) [place] % (Auto) Eos % (Auto) Baso % (Auto) Gran # Lymph # [place] # Eos # Baso # Sodium Potassium Chloride Carbon Dioxide Anion Gap BUN Creatinine Est GFR ( Amer) Est GFR (Non-Af Amer) POC Glucose (mg/dL) 212 H Random Glucose Calcium Total Bilirubin AST ALT Alkaline Phosphatase Total Protein Albumin Globulin Albumin/Globulin Ratio Triglycerides 1231 H Cholesterol 429 H LDL Cholesterol Direct < 30 HDL Cholesterol 32 Lipase 624 H 04/10/17 04/10/17 04/11/17 16:07 21:48 07:00 WBC 11.3 H D RBC 3.86 Hgb 11.4 L Hct 33.6 L MCV 87.0 MCH 29.5 MCHC 33.9 RDW 13.1 Plt Count 234 MPV 11.4 H Gran % 78.3 H Lymph % (Auto) 14.1 L [place] % (Auto) 4.8 Eos % (Auto) 2.6 Baso % (Auto) 0.2 Gran # 8.82 H Lymph # 1.6 [place] # 0.5 Eos # 0.3 Baso # 0.02 Sodium Potassium Chloride Carbon Dioxide Anion Gap BUN Creatinine Est GFR ( Amer) Est GFR (Non-Af Amer) POC Glucose (mg/dL) 167 H 147 H Random Glucose Calcium Total Bilirubin AST ALT Alkaline Phosphatase Total Protein Albumin Globulin Albumin/Globulin Ratio Triglycerides Cholesterol LDL Cholesterol Direct HDL Cholesterol Lipase 04/11/17 04/11/17 07:00 07:30 WBC RBC Hgb Hct MCV MCH MCHC RDW Plt Count MPV Gran % Lymph % (Auto) [place] % (Auto) Eos % (Auto) Baso % (Auto) Gran # Lymph # [place] # Eos # Baso # Sodium 132 Potassium 3.4 L Chloride 102 Carbon Dioxide 19 L Anion Gap 14 BUN 10 Creatinine 0.6 Est GFR ( Amer) > 60 Est GFR (Non-Af Amer) > 60 POC Glucose (mg/dL) 141 H Random Glucose 131 H Calcium 8.7 Total Bilirubin 0.7 AST 40 H ALT 23 Alkaline Phosphatase 93 Total Protein 6.1 Albumin 2.9 L Globulin 3.2 Albumin/Globulin Ratio 0.9 L Triglycerides Cholesterol LDL Cholesterol Direct HDL Cholesterol Lipase 217 Assessment & Plan - Assessment and Plan (Free Text) Plan: Assessment Systemic Inflammatory Response syndrome probably due to acute pancreatitis, possibly due to hypertriglyceridemia, R/O gallstone pancreatitis; patient with fluid collections around the pancreas, consider due to related edema from the pancreatitis R/O infectious collections HTN DM obesity with BMI 36 gastritis and duodenal ulcer Plan Follow up MRCP results; ordered blood cx today; patient had a repeat CT scan of the abdomen and pelvis which shows increased size of fluid collections - patient has been on Rocephin and Flagyl and we will change to Zosyn Will monitor clinically Follow up further GI recommendations
[2017-04-11] MEDS: Albuterol-Ipratrop 3 mg / 0.5 (3 ml) UD IH PRN (15:55)
[2017-04-11] MEDS: Piperacillin/Tazobact 3.375 gm 100 ML IVPB SCH (17:22)
--- NOTE | 2017-04-11 17:59 | CP.PCM.PN ---
Subjective - Date & Time of Evaluation Date of Evaluation: 04/11/17 Time of Evaluation: 10:50 - Subjective Subjective: Seen and examined earlier today. Still has abdominal pain and feels more distended. NPO with IVF at 150 cc/hr. No reports of vomiting. Went for Ct scan A &P and MRCP. ct scan A&P: increase fluid collection adjacent to pancreas, mod fluid around spleen, now extend to the pericolic gutter. MRCP: GB stones, no dilation CBD or stone, hepatomegaly with fatty infiltration , pancreatitis with mesenteric edema, moderate ascites Objective - Vital Signs/Intake and Output Vital Signs (last 24 hours): Temp Pulse Resp BP Pulse Ox 98.4 F 108 H 20 120/79 97 04/11/17 16:00 04/11/17 16:00 04/11/17 16:00 04/11/17 16:00 04/11/17 16:00 Intake and Output: 04/11/17 04/11/17 06:59 18:59 Intake Total 0 3600 Output Total 200 600 Balance -200 3000 - Medications Medications: Current Medications Albuterol/Ipratropium (Duoneb 3 Mg/0.5 Mg (3 Ml) Ud) 3 ml IH [id number] PRN PRN Reason: Shortness of Breath Last Admin: 04/11/17 15:55 Dose: 3 ml Atorvastatin Calcium (Lipitor) 20 mg PO DIN [facility] Last Admin: 04/11/17 17:22 Dose: 20 mg Enoxaparin Sodium (Lovenox) 40 mg SC DAILY [facility] PRN Reason: Protocol Last Admin: 04/11/17 09:26 Dose: 40 mg Fenofibrate (Tricor) 145 mg PO DAILY [facility] Last Admin: 04/11/17 09:26 Dose: 145 mg Hydromorphone HCl (Dilaudid) 1 mg IVP Q4H PRN PRN Reason: Pain, severe (8-10) Last Admin: 04/11/17 17:23 Dose: 1 mg Sodium Chloride (Sodium Chloride 0.45%) 1,000 mls @ 150 mls/hr IV .Q6H40M [facility] Last Admin: 04/11/17 05:29 Dose: 150 mls/hr Piperacillin Sod/Tazobactam Sod (Zosyn 3.375 In Ns 100ml) 100 mls @ 200 mls/hr IVPB Q6 [facility] PRN Reason: Protocol Stop: 04/18/17 18:01 Last Admin: 04/11/17 17:22 Dose: 200 mls/hr Insulin Detemir (Levemir) 10 unit SC BID [facility] Last Admin: 04/11/17 17:22 Dose: 10 unit Insulin Human Lispro (Humalog Med) 0 units SC ACHS [facility] PRN Reason: Protocol Last Admin: 04/11/17 17:22 Dose: 1 units Ketorolac Tromethamine (Toradol) 30 mg IVP Q6H PRN PRN Reason: Pain, moderate (4-7) Last Admin: 04/10/17 14:30 Dose: 30 mg Ondansetron HCl (Zofran Inj) 4 mg IVP Q4H PRN PRN Reason: Nausea/Vomiting Last Admin: 04/09/17 00:01 Dose: 4 mg Pantoprazole Sodium (Protonix Inj) 40 mg IVP DAILY [facility] Last Admin: 04/11/17 09:26 Dose: 40 mg - Labs Labs: 04/11/17 07:00 04/11/17 07:00 PT Cancelled 04/08/17 17:00 INR Cancelled 04/08/17 17:00 APTT Cancelled 04/08/17 17:00 - Constitutional Appears: No Acute Distress - Head Exam Head Exam: NORMOCEPHALIC - Eye Exam Eye Exam: Normal appearance. absent: Scleral icterus - ENT Exam ENT Exam: Mucous Membranes Moist - Neck Exam Neck Exam: Normal Inspection - Respiratory Exam Respiratory Exam: Clear to Ausculation Bilateral, NORMAL BREATHING PATTERN. absent: Respiratory Distress - Cardiovascular Exam Cardiovascular Exam: +S1, +S2 - GI/Abdominal Exam GI & Abdominal Exam: Distended, Soft, Tenderness (diffuse right upper quaderant) , Normal Bowel Sounds. absent: Guarding, Rebound - Extremities Exam Extremities Exam: absent: Calf Tenderness, Pedal Edema - Neurological Exam Neurological Exam: Alert, Awake, Oriented x3 - Skin Skin Exam: Dry, Warm Assessment and Plan - Assessment and Plan (Free Text) Assessment: ASSESSEMENT: Acute Pancreatitis maybe secondary to Hypertriglyceridemia Gallstones Obesity Fatty Liver DM PLAN: NPO, continue IVF 150 cc/hr reviewed ct scan and MRCP films w/ Dr. oPlo, discussed with patient PPI monitor electrolytes Zofran prn nausea pain mgt. DVT prophylaxsis on Liptor and Tricor Seen and discussed with Dr. Polo.
--- NOTE | 2017-04-11 19:31 | PN ---
DATE: 04/11/2017 SUBJECTIVE: This patient was seen and evaluated earlier today. The patient still complains of signi ficant abdominal distention and abdominal pain. PHYSICAL EXAMINATION: Abdomen appears to be distended. LABORATORY DATA: Were reviewed. A CT scan ad MRI were reviewed. The patient has a significant amou nt of pelvic ascites and also inflammatory changes in the tail and the body of the pancreas. I did r eview the MRI; there was no common bile duct stones . The questionable stones were suspected in the gallbladder; however, close evaluation of the ultrasound scan did not reveal any gallstones. Th e patient had 2 ultrasound scans done so far. In the system I could find one was in 09/2016, it show ed no stones and another ultrasound done was recently on admission and this also showed no stones. At the moment, will continue to closely the patient with IV fluid hydration and n.p.o. The pat ient has been seen by ID and now has been started on Zosyn. Follow up of the LFTs. Thank you very much for allowing us to participate in the care of the patient. Bobby Polo MD cc: [id number] TT: 04/11/2017 19:31:19 Confirmation # [id number] Dictation # [id number] dn
[2017-04-12] MEDS: Insulin Lispro (humaLOG) MEDIUM Coverage SC SCH ×5 (00:48→21:59)
[2017-04-12] MEDS: Piperacillin/Tazobact 3.375 gm 100 ML IVPB SCH ×4 (00:53→17:40)
[2017-04-12] MEDS: HYDROmorphone 1 mg/ml ISec IVP PRN ×4 (02:57→18:46)
--- NOTE | 2017-04-12 08:06 | CP.PCM.HP ---
Past Patient History - Infectious Disease Hx of Infectious Diseases: None - Past Social History Smoking Status: Current Some Days Smoker - CARDIAC Hx Cardiac Disorders: Yes Hx Hypertension: Yes - PULMONARY Hx Respiratory Disorders: Yes Hx Asthma: Yes - NEUROLOGICAL Hx Neurological Disorder: No - HEENT Hx HEENT Problems: No - RENAL Hx Chronic Kidney Disease: No - ENDOCRINE/METABOLIC Hx Endocrine Disorders: Yes Hx Diabetes Mellitus Type 2: Yes - HEMATOLOGICAL/ONCOLOGICAL Hx Blood Disorders: No - INTEGUMENTARY Hx Dermatological Problems: No - MUSCULOSKELETAL/RHEUMATOLOGICAL Hx Musculoskeletal Disorders: Yes Hx Falls: Yes (when having chest pain) - GASTROINTESTINAL Hx Gastrointestinal Disorders: Yes Hx Pancreatitis: Yes Other/Comment: gastroparesis - GENITOURINARY/GYNECOLOGICAL Hx Genitourinary Disorders: No - PSYCHIATRIC Hx Psychophysiologic Disorder: No Hx Substance Use: No - SURGICAL HISTORY Other/Comment: bartholenes cyst I and D - ANESTHESIA Hx Anesthesia: No Hx Anesthesia Reactions: No Meds Allergies/Adverse Reactions: Allergies Allergy/AdvReac Type Severity Reaction Status Date / Time No Known Allergies Allergy Verified 05/12/13 09:32 Results - Vital Signs Recent Vital Signs: Last Vital Signs Temp 98.4 F 04/11/17 16:00 Pulse 108 H 04/11/17 16:00 Resp 20 04/11/17 16:00 BP 120/79 04/11/17 16:00 Pulse Ox 97 04/11/17 16:00 - Labs Result Diagrams: 04/11/17 07:00 04/11/17 07:00 Labs: Laboratory Results - last 24 hr 04/11/17 04/11/17 04/11/17 07:00 11:30 16:24 Sodium 132 Potassium 3.4 L Chloride 102 Carbon Dioxide 19 L Anion Gap 14 BUN 10 Creatinine 0.6 Est GFR ( Amer) > 60 Est GFR (Non-Af Amer) > 60 POC Glucose (mg/dL) 163 H 158 H Random Glucose 131 H Calcium 8.7 Total Bilirubin 0.7 AST 40 H ALT 23 Alkaline Phosphatase 93 Total Protein 6.1 Albumin 2.9 L Globulin 3.2 Albumin/Globulin Ratio 0.9 L Lipase 217 04/11/17 04/12/17 21:07 07:31 Sodium Potassium Chloride Carbon Dioxide Anion Gap BUN Creatinine Est GFR ( Amer) Est GFR (Non-Af Amer) POC Glucose (mg/dL) 149 H 186 H Random Glucose Calcium Total Bilirubin AST ALT Alkaline Phosphatase Total Protein Albumin Globulin Albumin/Globulin Ratio Lipase
--- NOTE | 2017-04-12 08:11 | CP.PCM.PN ---
Subjective - Date & Time of Evaluation Date of Evaluation: 04/12/17 Time of Evaluation: 08:00 - Subjective Subjective: General surgery progress note for Dr. Felton Patient seen and examined at bedside. No acute events overnight. Patient reports her epigastric and back pain improved. Abdominal distention improved as well. Patient ambulated from bed to restroom. Patient denies headache, dizziness , fever, chills, nausea, vomiting, or other complaints. Objective - Vital Signs/Intake and Output Vital Signs (last 24 hours): Temp Pulse Resp BP Pulse Ox 98.4 F 108 H 20 120/79 97 04/11/17 16:00 04/11/17 16:00 04/11/17 16:00 04/11/17 16:00 04/11/17 16:00 Intake and Output: 04/12/17 04/12/17 06:59 18:59 Intake Total 0 0 Balance 0 0 - Medications Medications: Current Medications Albuterol/Ipratropium (Duoneb 3 Mg/0.5 Mg (3 Ml) Ud) 3 ml IH [id number] PRN PRN Reason: Shortness of Breath Last Admin: 04/11/17 15:55 Dose: 3 ml Atorvastatin Calcium (Lipitor) 20 mg PO DIN [facility] Last Admin: 04/11/17 17:22 Dose: 20 mg Enoxaparin Sodium (Lovenox) 40 mg SC DAILY [facility] PRN Reason: Protocol Last Admin: 04/11/17 09:26 Dose: 40 mg Fenofibrate (Tricor) 145 mg PO DAILY [facility] Last Admin: 04/11/17 09:26 Dose: 145 mg Hydromorphone HCl (Dilaudid) 1 mg IVP Q4H PRN PRN Reason: Pain, severe (8-10) Last Admin: 04/12/17 02:57 Dose: 1 mg Sodium Chloride (Sodium Chloride 0.45%) 1,000 mls @ 150 mls/hr IV .Q6H40M [facility] Last Admin: 04/11/17 05:29 Dose: 150 mls/hr Piperacillin Sod/Tazobactam Sod (Zosyn 3.375 In Ns 100ml) 100 mls @ 200 mls/hr IVPB Q6 [facility] PRN Reason: Protocol Stop: 04/18/17 18:01 Last Admin: 04/12/17 06:26 Dose: 200 mls/hr Insulin Detemir (Levemir) 10 unit SC BID [facility] Last Admin: 04/11/17 17:22 Dose: 10 unit Insulin Human Lispro (Humalog Med) 0 units SC ACHS [facility] PRN Reason: Protocol Last Admin: 04/12/17 00:48 Dose: Not Given Ketorolac Tromethamine (Toradol) 30 mg IVP Q6H PRN PRN Reason: Pain, moderate (4-7) Last Admin: 04/10/17 14:30 Dose: 30 mg Ondansetron HCl (Zofran Inj) 4 mg IVP Q4H PRN PRN Reason: Nausea/Vomiting Last Admin: 04/09/17 00:01 Dose: 4 mg Pantoprazole Sodium (Protonix Inj) 40 mg IVP DAILY [facility] Last Admin: 04/11/17 09:26 Dose: 40 mg - Labs Labs: 04/11/17 07:00 04/11/17 07:00 PT Cancelled 04/08/17 17:00 INR Cancelled 04/08/17 17:00 APTT Cancelled 04/08/17 17:00 - Constitutional Appears: Non-toxic, No Acute Distress - Head Exam Head Exam: ATRAUMATIC, NORMAL INSPECTION, NORMOCEPHALIC - Eye Exam Eye Exam: EOMI, Normal appearance - ENT Exam ENT Exam: Mucous Membranes Moist - Neck Exam Neck Exam: Normal Inspection - Respiratory Exam Respiratory Exam: Clear to Ausculation Bilateral, NORMAL BREATHING PATTERN. absent: Respiratory Distress - Cardiovascular Exam Cardiovascular Exam: REGULAR RHYTHM, +S1, +S2. absent: Murmur - GI/Abdominal Exam GI & Abdominal Exam: Distended (less distended compared to yesterday), Tenderness (epigastric). absent: Hernia, Mass - Extremities Exam Extremities Exam: Normal Capillary Refill, Normal Inspection. absent: Joint Swelling, Pedal Edema - Neurological Exam Neurological Exam: Alert, Awake, Oriented x3 - Psychiatric Exam Psychiatric exam: Normal Affect, Normal Mood - Skin Skin Exam: Dry, Normal Color, Warm Assessment and Plan - Assessment and Plan (Free Text) Assessment: 31 year old female with past medical history of HTN, DM, duodenal ulcer, and gastritis presents with abdominal pain and was found to have acute pancreatitis Plan: Acute pancreatitis -Likely secondary to hypertriglyceridemia -Ok to started diet from surgery standpoint -C/w ISS med -C/w IVF NS @150ml/hr -CT abd showed increased fluid collection adjacent to pancreas (see report) -MRCP showed GB stone, pancreatitis with mesenteric edema and ascities, no CBD dilation (see report) -Continue to OOB 2 chair, ambulation, incentive spirometrymore -Cont PRN pain regimen -GI ppx, SCD ppx -d/w with attending
[2017-04-12 08:23] LABS: CHOLESTEROL 272 mg/dL (130-200); LIPASE 393 U/L (23-300)
[2017-04-12] MEDS: Sodium Chloride 0.45% 1,000 ML IV SCH ×2 (08:35→17:39)
[2017-04-12] MEDS: Insulin Detemir 100 units/ml Vial (Levemir) SC SCH ×2 (09:57→17:39)
[2017-04-12] MEDS: Enoxaparin 40 mg Syringe SC SCH (09:57)
--- NOTE | 2017-04-12 10:22 | PN ---
DATE: 04/12/2017 GI FOLLOWUP NOTE Seen and examined at the bedside this morning. The patient denies nausea, vomiting, abdominal pain - she reports has improved today, is still there, but with some improvement. The patient ambulates t o bathroom. No acute overnight events reported. VITAL SIGNS: Stable. LABORATORY DATA: Triglycerides have improved to 350. Cholesterol is 272. Her lipase is 393. PHYSICAL EXAMINATION: HEENT: Sclerae are anicteric. NECK: Supple. CARDIAC: S1, S2. LUNGS: Clear. ABDOMEN: With bowel sounds, soft. It is distended. There is still tenderness to right quadrant, bu t there is some improvement. EXTREMITIES: No edema. NEUROLOGIC: Awake, alert, and oriented. ASSESSMENT: Acute pancreatitis may be secondary to hypertriglyceridemia. Her levels are improved. Gallstones, obesity, fatty liver, diabetes mellitus. PLAN: Discussed with the patient to continue n.p.o. status for today, do not recommend to start any clear liquids at this time. Continue IV hydration. She is getting half normal saline at 150 mL an h our. Continue GI prophylaxis. She is on Protonix. Getting Zofran p.r.n. and also on pain managemen t. Continue DVT prophylaxis. The patient is on Lovenox, and continues on Lipitor and fenofibrate. The patient was started on IV antibiotics of Zosyn per ID. The patient was seen and case discussed with Dr. Polo. Miranda COWART cc: [id number] TT: 04/12/2017 10:21:49 Confirmation # [id number] Dictation # [id number] jaida
--- NOTE | 2017-04-12 16:18 | CP.PCM.PN ---
Subjective - Date & Time of Evaluation Date of Evaluation: 04/12/17 Time of Evaluation: 10:20 - Subjective Subjective: Comfortable, still with epigastric pain but a little less, less nausea, no fevers overnight. Objective - Vital Signs/Intake and Output Vital Signs (last 24 hours): Temp Pulse Resp BP Pulse Ox 98.4 F 108 H 20 120/79 97 04/11/17 16:00 04/11/17 16:00 04/11/17 16:00 04/11/17 16:00 04/11/17 16:00 Intake and Output: 04/12/17 04/12/17 06:59 18:59 Intake Total 0 0 Balance 0 0 - Medications Medications: Current Medications Albuterol/Ipratropium (Duoneb 3 Mg/0.5 Mg (3 Ml) Ud) 3 ml IH [id number] PRN PRN Reason: Shortness of Breath Last Admin: 04/11/17 15:55 Dose: 3 ml Atorvastatin Calcium (Lipitor) 20 mg PO DIN [facility] Last Admin: 04/11/17 17:22 Dose: 20 mg Enoxaparin Sodium (Lovenox) 40 mg SC DAILY [facility] PRN Reason: Protocol Last Admin: 04/11/17 09:26 Dose: 40 mg Fenofibrate (Tricor) 145 mg PO DAILY [facility] Last Admin: 04/11/17 09:26 Dose: 145 mg Hydromorphone HCl (Dilaudid) 1 mg IVP Q4H PRN PRN Reason: Pain, severe (8-10) Last Admin: 04/12/17 02:57 Dose: 1 mg Sodium Chloride (Sodium Chloride 0.45%) 1,000 mls @ 150 mls/hr IV .Q6H40M [facility] Last Admin: 04/12/17 08:35 Dose: 150 mls/hr Piperacillin Sod/Tazobactam Sod (Zosyn 3.375 In Ns 100ml) 100 mls @ 200 mls/hr IVPB Q6 [facility] PRN Reason: Protocol Stop: 04/18/17 18:01 Last Admin: 04/12/17 06:26 Dose: 200 mls/hr Insulin Detemir (Levemir) 10 unit SC BID [facility] Last Admin: 04/11/17 17:22 Dose: 10 unit Insulin Human Lispro (Humalog Med) 0 units SC ACHS [facility] PRN Reason: Protocol Last Admin: 04/12/17 08:33 Dose: 1 units Ketorolac Tromethamine (Toradol) 30 mg IVP Q6H PRN PRN Reason: Pain, moderate (4-7) Last Admin: 04/10/17 14:30 Dose: 30 mg Ondansetron HCl (Zofran Inj) 4 mg IVP Q4H PRN PRN Reason: Nausea/Vomiting Last Admin: 04/09/17 00:01 Dose: 4 mg Pantoprazole Sodium (Protonix Inj) 40 mg IVP DAILY [facility] Last Admin: 04/11/17 09:26 Dose: 40 mg - Labs Labs: 04/11/17 07:00 04/11/17 07:00 PT Cancelled 04/08/17 17:00 INR Cancelled 04/08/17 17:00 APTT Cancelled 04/08/17 17:00 - Constitutional Appears: Non-toxic, No Acute Distress - Head Exam Head Exam: NORMAL INSPECTION - ENT Exam ENT Exam: Mucous Membranes Moist - Neck Exam Neck Exam: absent: Lymphadenopathy, Meningismus - Respiratory Exam Respiratory Exam: Decreased Breath Sounds - Cardiovascular Exam Cardiovascular Exam: +S1, +S2 - GI/Abdominal Exam GI & Abdominal Exam: Soft. absent: Tenderness Assessment and Plan - Assessment and Plan (Free Text) Plan: Assessment Systemic Inflammatory Response syndrome probably due to acute pancreatitis, possibly due to hypertriglyceridemia, R/O gallstone pancreatitis; patient with fluid collections around the pancreas, consider due to related edema from the pancreatitis R/O infectious collections HTN DM obesity with BMI 36 gastritis and duodenal ulcer Plan MRCP does not show common bile duct stones; follow up blood cx done yesterday; patient had a repeat CT scan of the abdomen and pelvis which shows increased size of fluid collections - will continue Zosyn (day 2) Will continue to monitor clinically Follow up further GI recommendations
--- NOTE | 2017-04-12 17:33 | PN ---
DATE: 04/11/2017 A 31-year-old female. Still complained of abdominal pain. The patient still kept n.p.o. Seen by GI and surgical consult. ID consult was requested. Currently, patient getting IV fluid, IV antibiotic s and will follow up clinically in here for now at the time being. PHYSICAL EXAMINATION: VITAL SIGNS: Temperature 98.6, heart rate is 108, blood pressure 120/79, respirations 20, saturating 97%. HEAD AND NECK: Normal. No JVD, no thyromegaly. CHEST: Clear, good air entry. CARDIAC: First sound, second sound normal. ABDOMEN: General tenderness all over. Bowel sounds are . EXTREMITIES: No edema. NEUROLOGIC: Normal. LABORATORY STUDIES: White count 11.3, hemoglobin 11.4, hematocrit 33.6, platelets 234. Her blood skinner gar 150s. Her repeat cholesterol 54, her triglycerides repeated 350 came down. Her chemistry shows sodium 132, potassium 3.4, chloride 102, bicarb 19, BUN 10, creatinine 0.6, blood sugar 131. Liver e nzymes seems normal except an AST 40, albumin 2.9, a little low, globulin 3.2 and lipase 217. IMPRESSION AND PLAN: 1. Abdominal pain, acute pancreatitis and patient on a CT shows acute pancreatitis. We will repeat her CAT scan because the symptoms she has more of diffuse abdominal pain. Concerned about any worsen ing of her pancreatitis and also going to get ID consultation with Dr. Rivas or Dr. Worthington and wi ll follow up with the GI consult and surgical consult. Continue pain medicine as it is. Continue IV fluid, insulin coverage and will follow up clinically. 2. Insulin-dependent diabetes. Continue insulin coverage. The patient's sugar 150s. She is still n.p.o. 3. Morbid obesity. Sleep apnea precautions. The patient ambulates. She is going to the bathroom f or urine. However, we will continue gastrointestinal and deep venous thrombosis prophylaxis, Lovenox and Protonix. Continue current treatment. Follow up clinically. Eddi Wang MD cc: 223 TT: 04/12/2017 17:33:17 Confirmation # [id number] Dictation # [id number] en
[2017-04-12] MEDS ORDERED: HYDROmorphone 2 mg/ml ISec IVP STA (20:19)
[2017-04-12] MEDS: Albuterol-Ipratrop 3 mg / 0.5 (3 ml) UD IH PRN (20:58)
[2017-04-13] MEDS: Piperacillin/Tazobact 3.375 gm 100 ML IVPB SCH ×4 (00:17→17:18)
[2017-04-13] MEDS: HYDROmorphone 1 mg/ml ISec IVP PRN ×6 (00:17→21:43)
--- NOTE | 2017-04-13 07:45 | PN ---
DATE: 04/12/2017 ADDENDUM: This is an addendum to the GI progress report dictated by Miranda Goldsmith APN. The patient had triglycer madeline come down. White cell count is elevated to 11.4. I do not find any chemistries today. The aryan ent's CT and the MRI were reviewed with radiologist. Presently on IV antibiotics. The patient's CBD in MR showed normal, questionable stones noticed in the MRI, but could not in the ultrasounds done i n the past, feels slightly improved clinically. On examination abdomen is softly distended. Some tenderness present in the left side of the abdomen and epigastric area. Would continue to follow the patient. We will continue to keep the patient n.p.o. The patient is pr esently on thrombosis prophylaxis. Repeat labs in a.m. Thank you very much for allowing us to participate in the care of the patient. Bobby Polo MD cc: [phone] TT: 04/12/2017 19:15:26 Confirmation # [id number] Dictation # [id number] jn
[2017-04-13] MEDS: Insulin Lispro (humaLOG) MEDIUM Coverage SC SCH ×4 (08:44→21:46)
[2017-04-13] MEDS: Sodium Chloride 0.45% 1,000 ML IV SCH ×2 (08:45→14:24)
[2017-04-13] MEDS: Enoxaparin 40 mg Syringe SC SCH (09:11)
[2017-04-13] MEDS: Insulin Detemir 100 units/ml Vial (Levemir) SC SCH ×2 (09:11→17:19)
--- NOTE | 2017-04-13 09:20 | PN ---
DATE: 04/12/2017 The patient has less pain. She wants to eat. She wants to go home. However, she is asking for more pain meds. There is no respiratory distress, no chest pain, no other complaints. PHYSICAL EXAMINATION: VITAL SIGNS: Temperature 98.1, heart rate 104, blood pressure 109/71, respirations 20, saturation 94 %. HEAD AND NECK: Normal. No JVD or thyromegaly. CHEST: Clear, good air entry. CARDIAC: First sound, second sound normal. ABDOMEN: Obese, decreased tenderness, still generalized tenderness, and bowel sounds intact. EXTREMITIES: No edema. NEUROLOGIC: Normal. IMPRESSION AND PLAN: 1. Acute pancreatitis, probably triglycerides related or poorly controlled diabetes secondary to hyp ertriglyceridemia is also a possibility. The patient clinically feels better, although CT finding sh ows collection of fluid. The patient currently on IV Zosyn. Seen by gastroenterology, Dr. Polo. Repeat triglyceride is 350. Her cholesterol is 272. The patient has poor compliance with diabetes and ____. Advised to follow up appropriately on her other risk factors including morbid obesity and poorly controlled diabetes. 2. Morbid obesity. Continue GI and DVT prophylaxis. 3. Diabetes, insulin dependent. Continue insulin coverage. Currently, she is n.p.o. Will try liqui d diet in the morning, see how she does, if okay with gastroenterology. At this time, continue curre nt treatment, continue GI and DVT prophylaxis, sleep apnea precautions, head of the bed at 45 degrees . Eddi Wang MD cc: 223 TT: 04/13/2017 09:19:31 Confirmation # [id number] Dictation # [id number] mn
--- NOTE | 2017-04-13 11:33 | CP.PCM.PN ---
Subjective - Date & Time of Evaluation Date of Evaluation: 04/13/17 Time of Evaluation: 09:35 - Subjective Subjective: General surgery progress note for Dr. Felton Patient seen and examined at bedside. No acute events overnight. Patient reports improving epigastric pain and her abdominal distention is improving as well. Patient states she is actively ambulating and using incentive spirometry. Patient denies headache, dizziness, fever, chills, nausea, vomiting, or other complaints. Objective - Vital Signs/Intake and Output Vital Signs (last 24 hours): Temp Pulse Resp BP Pulse Ox 98.1 F 91 H 20 128/84 95 04/13/17 08:44 04/13/17 08:44 04/13/17 08:44 04/13/17 08:44 04/13/17 08:44 Intake and Output: 04/13/17 04/13/17 06:59 18:59 Intake Total 0 Balance 0 - Medications Medications: Current Medications Albuterol/Ipratropium (Duoneb 3 Mg/0.5 Mg (3 Ml) Ud) 3 ml IH [id number] PRN PRN Reason: Shortness of Breath Last Admin: 04/12/17 20:58 Dose: 3 ml Atorvastatin Calcium (Lipitor) 20 mg PO DIN [facility] Last Admin: 04/12/17 18:46 Dose: 20 mg Enoxaparin Sodium (Lovenox) 40 mg SC DAILY [facility] PRN Reason: Protocol Last Admin: 04/13/17 09:11 Dose: 40 mg Fenofibrate (Tricor) 145 mg PO DAILY [facility] Last Admin: 04/13/17 09:11 Dose: 145 mg Hydromorphone HCl (Dilaudid) 1 mg IVP Q4H PRN PRN Reason: Pain, severe (8-10) Last Admin: 04/13/17 09:12 Dose: 1 mg Sodium Chloride (Sodium Chloride 0.45%) 1,000 mls @ 150 mls/hr IV .Q6H40M [facility] Last Admin: 04/13/17 08:45 Dose: 150 mls/hr Piperacillin Sod/Tazobactam Sod (Zosyn 3.375 In Ns 100ml) 100 mls @ 200 mls/hr IVPB Q6 [facility] PRN Reason: Protocol Stop: 04/18/17 18:01 Last Admin: 04/13/17 05:03 Dose: 200 mls/hr Insulin Detemir (Levemir) 10 unit SC BID [facility] Last Admin: 04/13/17 09:11 Dose: 10 unit Insulin Human Lispro (Humalog Med) 0 units SC ACHS [facility] PRN Reason: Protocol Last Admin: 04/13/17 08:44 Dose: 1 units Ketorolac Tromethamine (Toradol) 30 mg IVP Q6H PRN PRN Reason: Pain, moderate (4-7) Last Admin: 04/10/17 14:30 Dose: 30 mg Ondansetron HCl (Zofran Inj) 4 mg IVP Q4H PRN PRN Reason: Nausea/Vomiting Last Admin: 04/09/17 00:01 Dose: 4 mg Pantoprazole Sodium (Protonix Inj) 40 mg IVP DAILY [facility] Last Admin: 04/13/17 09:11 Dose: 40 mg - Labs Labs: 04/11/17 07:00 04/11/17 07:00 PT Cancelled 04/08/17 17:00 INR Cancelled 04/08/17 17:00 APTT Cancelled 04/08/17 17:00 - Constitutional Appears: Non-toxic, No Acute Distress - Head Exam Head Exam: ATRAUMATIC, NORMAL INSPECTION - Eye Exam Eye Exam: EOMI, Normal appearance - ENT Exam ENT Exam: Mucous Membranes Moist - Neck Exam Neck Exam: Normal Inspection - Respiratory Exam Respiratory Exam: Clear to Ausculation Bilateral, NORMAL BREATHING PATTERN. absent: Respiratory Distress - Cardiovascular Exam Cardiovascular Exam: REGULAR RHYTHM, +S1, +S2. absent: Murmur - GI/Abdominal Exam GI & Abdominal Exam: Distended (improving distention compared to yesterday), Soft, Normal Bowel Sounds. absent: Tenderness, Hernia, Rebound - Extremities Exam Extremities Exam: Normal Capillary Refill - Neurological Exam Neurological Exam: Alert, Awake, Oriented x3 - Psychiatric Exam Psychiatric exam: Normal Affect, Normal Mood - Skin Skin Exam: Dry, Intact, Normal Color, Warm Assessment and Plan - Assessment and Plan (Free Text) Assessment: 31 year old female with past medical history of HTN, DM, duodenal ulcer, and gastritis presents with abdominal pain and was found to have acute pancreatitis Plan: Acute pancreatitis -Likely secondary to hypertriglyceridemia -OK to start diet from surgery standpoint. Patient is currently NPO per GI, will consider PPN if patient reminds NPO -C/w ISS med -C/w IVF NS @150ml/hr -Continue to OOB 2 chair, ambulation, incentive spirometry -Cont PRN pain regimen -GI ppx, SCD ppx -d/w with attending
[2017-04-13 12:29] LABS: ALB/GLOB RATIO 0.9 (1.1-1.8); ALKALINE PHOSPHATASE 93 U/L (38-133); ALT/SGPT 19 U/L (7-56); AST/SGOT 22 U/L (15-39); BILIRUBIN,TOTAL 0.5 mg/dL (0.2-1.3); BLOOD UREA NITROGEN 5 mg/dL (7-21); CALCIUM 8.9 mg/dL (8.4-10.5); CARBON DIOXIDE 18 mmol/L (21-33); CHLORIDE 104 mmol/L (95-110); GFR AFRICAN-AMERICAN > 60; GLUCOSE,RANDOM 143 mg/dL (70-110); POTASSIUM 3.3 mmol/L (3.6-5.0); SODIUM 133 mmol/L (132-148); TOTAL PROTEIN 6.3 g/dL (5.8-8.3)
--- NOTE | 2017-04-13 12:57 | PN ---
DATE: 04/13/2017 Seen and examined at the bedside earlier this morning. Abdominal pain is better. No reports of naus ea, vomiting or acute overnight events. The patient is asking if she can eat. VITAL SIGNS: Temperature is 98.1, blood pressure 128/84, pulse rate 91, respirations 20, 95% room ai r. LABORATORIES: Her lipase today is 425. POC glucose 159. PHYSICAL EXAMINATION: HEENT: Sclera is anicteric. NECK: Supple. CARDIAC: S1, S2. LUNG SOUNDS: With decreased breath sounds, but good aeration, no rebound or guarding. EXTREMITIES: Positive pedal pulses, no edema or calf tenderness. NEUROLOGIC: Awake, alert, oriented. ABDOMEN: With bowel sounds, soft, still distended, but looks better. No rebound or guarding. ASSESSMENT: A 31-year-old female with history of hypertension, diabetes, duodenal ulcer, came to the Emergency Room with abdominal pain, found to have acute pancreatitis, likely secondary to hypertrigl yceridemia. PLAN: We will start clear liquid diet, see how patient tolerates this. She is on IV fluids of half normal saline at 150 mL an hour. The patient is on Lipitor and Tricor, on deep venous thrombosis pro phylaxis, Lovenox, is on Dilaudid for pain and continue PPI. The patient is also on IV antibiotics. Her blood cultures were negative. We will continue to follow closely. Repeat labs in a.m. The patient was seen and case discussed with Dr. Polo. Miranda COWART cc: [phone] TT: 04/13/2017 12:56:35 Confirmation # [id number] Dictation # [id number] en
--- NOTE | 2017-04-13 20:12 | PN ---
DATE: 04/13/2017 HISTORY OF PRESENT ILLNESS: The patient is in bed in no acute distress, nontoxic. PHYSICAL EXAMINATION: VITAL SIGNS: Temperature is 98, blood pressure is 128/80, respiratory rate of 20, heart rate of 104. HEENT: Unremarkable. NECK: Supple. LUNGS: Have decreased breath sounds. HEART: Normal S1, S2. ABDOMEN: Soft, nontender. LABORATORY DATA: Reveals a white count of 11,300, hemoglobin of 11, platelets of 234. Chemistries r eveal the BUN of 5, creatinine of 0.6. Lipase is 4.5. Urinalysis is noted. Microbiology reveals th e blood cultures are no growth at 48 hours. Review of the orders reveals the patient to be on Zosyn. ASSESSMENT AND PLAN: A 31-year-old female with SIRS (systemic inflammatory response syndrome), acute pancreatitis due to hypertriglyceridemia, currently on Zosyn day #3. Workup in progress. Dr. Celso valles's note is reviewed. Dr. Polo's note is reviewed. We will check on the final cultures. Ady Worthington MD cc: [phone] TT: 04/13/2017 20:11:17 Confirmation # [id number] Dictation # [id number] ln
[2017-04-13] MEDS ORDERED: Potassium Chloride 20 mEq ER Tab PO STA (21:01)
--- NOTE | 2017-04-13 22:56 | PN ---
DATE: 04/13/2017 ADDENDUM This is an addendum to the GI progress report dictated by Miranda Goldsmith APN. The patient was seen and evaluated earlier today. The patient is feeling better with regards to the pain symptoms. Her lipas e is still slightly on the higher side, but more concerning is the severity of the pancreatitis. It is reasonable to keep the patient again for n.p.o. today. We will start the patient on clear liquid diet in a.m. if the patient continues to show progress. I have discussed with Dr. Wang earlier latrice ay. The patient's triglycerides appear to be less likely the etiology for the pancreatitis in this p atient, as we have the baseline not elevated. The patient's hypertriglyceridemia may be secondary to the pancreatitis. The reasonable approach is to follow up the triglycerides once the acute episode resolves. The other etiology to be considered is biliary sludge. The patient's MRI reported as smal l stones. However, reviewed, it did not show any stones and the common bile duct also is jl l. Thank you very much for allowing us to participate in the care of the patient. Bobby Polo MD cc: [phone] TT: 04/13/2017 22:56:42 Confirmation # [id number] Dictation # [id number] ln
[2017-04-14] MEDS: Piperacillin/Tazobact 3.375 gm 100 ML IVPB SCH ×5 (00:53→23:11)
[2017-04-14] MEDS: HYDROmorphone 1 mg/ml ISec IVP PRN ×6 (02:17→22:37)
[2017-04-14 07:40] LABS: ADD MANUAL DIFF? NO
[2017-04-14 07:50] LABS: BASO # 0.03 K/mm3 (0.0-2.0); BASO % 0.3 % (0.0-3.0); EOS # 0.3 (0.0-0.7); EOS % 3.9 % (1.5-5.0); GRAN # 4.88 (1.4-6.5); GRAN % 56.8 % (50.0-68.0); HEMATOCRIT 34.2 % (36.0-48.0); LYMPH # 2.2 (1.2-3.4); LYMPH % 25.4 % (22.0-35.0); MEAN CELL VOLUME 87.2 fL (80.0-105.0); MEAN CORPUSCULAR HEMOGLOBIN 29.3 pg (25.0-35.0); MEAN CORPUSCULAR HGB CONC 33.6 g/dl (31.0-37.0); MEAN PLATELET VOLUME 10.3 fl (7.0-11.0); MONO # 1.2 (0.1-0.6); MONO % 13.6 % (1.0-6.0); PLATELET COUNT 324 10^3/uL (120.0-450.0); RED CELL DISTRIBUTION WIDTH 13.4 % (11.5-14.5); WHITE BLOOD COUNT 8.6 10^3/ul (4.5-11.0)
[2017-04-14 08:01] LABS: ALB/GLOB RATIO 0.9 (1.1-1.8); ALKALINE PHOSPHATASE 98 U/L (38-133); ALT/SGPT 25 U/L (7-56); AST/SGOT 17 U/L (15-39); BILIRUBIN,TOTAL 0.5 mg/dL (0.2-1.3); CALCIUM 9.1 mg/dL (8.4-10.5); CARBON DIOXIDE 22 mmol/L (21-33); CHLORIDE 102 mmol/L (95-110); GFR AFRICAN-AMERICAN > 60; GLUCOSE,RANDOM 172 mg/dL (70-110); LIPASE 420 U/L (23-300); SODIUM 137 mmol/L (132-148); TOTAL PROTEIN 6.5 g/dL (5.8-8.3)
[2017-04-14] MEDS: Insulin Lispro (humaLOG) MEDIUM Coverage SC SCH ×4 (08:14→22:23)
[2017-04-14 08:17] LABS: BLOOD UREA NITROGEN 4 mg/dL (7-21)
--- NOTE | 2017-04-14 08:33 | CP.PCM.PN ---
Subjective - Date & Time of Evaluation Date of Evaluation: 04/14/17 Time of Evaluation: 07:30 - Subjective Subjective: General surgery progress note for Dr. Felton Patient seen and examined at bedside. No acute events overnight. Patient complains of back pain, which she attributes to laying in bed for prolonged time. She reports her epigastric pain is improving. Patient tolerated liquid diet well. She has not pass any gas yet. Patient denies headache, dizziness, fever, chills, nausea, vomiting, or other complaints. Objective - Vital Signs/Intake and Output Vital Signs (last 24 hours): Temp Pulse Resp BP Pulse Ox 97.9 F 90 20 131/76 98 04/13/17 16:00 04/13/17 16:00 04/13/17 16:00 04/13/17 16:00 04/13/17 16:00 Intake and Output: 04/14/17 04/14/17 06:59 18:59 Intake Total 120 Output Total 1000 Balance -880 - Medications Medications: Current Medications Albuterol/Ipratropium (Duoneb 3 Mg/0.5 Mg (3 Ml) Ud) 3 ml IH [id number] PRN PRN Reason: Shortness of Breath Last Admin: 04/12/17 20:58 Dose: 3 ml Atorvastatin Calcium (Lipitor) 20 mg PO DIN [facility] Last Admin: 04/13/17 17:18 Dose: 20 mg Enoxaparin Sodium (Lovenox) 40 mg SC DAILY [facility] PRN Reason: Protocol Last Admin: 04/13/17 09:11 Dose: 40 mg Fenofibrate (Tricor) 145 mg PO DAILY [facility] Last Admin: 04/13/17 09:11 Dose: 145 mg Hydromorphone HCl (Dilaudid) 1 mg IVP Q4H PRN PRN Reason: Pain, severe (8-10) Last Admin: 04/14/17 06:43 Dose: 1 mg Sodium Chloride (Sodium Chloride 0.45%) 1,000 mls @ 150 mls/hr IV .Q6H40M [facility] Last Admin: 04/13/17 14:24 Dose: 150 mls/hr Piperacillin Sod/Tazobactam Sod (Zosyn 3.375 In Ns 100ml) 100 mls @ 200 mls/hr IVPB Q6 [facility] PRN Reason: Protocol Stop: 04/18/17 18:01 Last Admin: 04/14/17 05:53 Dose: 200 mls/hr Insulin Detemir (Levemir) 10 unit SC BID [facility] Last Admin: 04/13/17 17:19 Dose: 10 unit Insulin Human Lispro (Humalog Med) 0 units SC ACHS [facility] PRN Reason: Protocol Last Admin: 04/14/17 08:14 Dose: 3 units Ketorolac Tromethamine (Toradol) 30 mg IVP Q6H PRN PRN Reason: Pain, moderate (4-7) Last Admin: 04/10/17 14:30 Dose: 30 mg Ondansetron HCl (Zofran Inj) 4 mg IVP Q4H PRN PRN Reason: Nausea/Vomiting Last Admin: 04/09/17 00:01 Dose: 4 mg Pantoprazole Sodium (Protonix Inj) 40 mg IVP DAILY [facility] Last Admin: 04/13/17 09:11 Dose: 40 mg - Labs Labs: 04/14/17 07:00 04/13/17 07:30 PT Cancelled 04/08/17 17:00 INR Cancelled 04/08/17 17:00 APTT Cancelled 04/08/17 17:00 - Constitutional Appears: Non-toxic, No Acute Distress - Head Exam Head Exam: ATRAUMATIC, NORMAL INSPECTION - Eye Exam Eye Exam: EOMI, Normal appearance - ENT Exam ENT Exam: Mucous Membranes Moist - Neck Exam Neck Exam: Normal Inspection - Respiratory Exam Respiratory Exam: Clear to Ausculation Bilateral, NORMAL BREATHING PATTERN. absent: Respiratory Distress - Cardiovascular Exam Cardiovascular Exam: +S1, +S2. absent: Murmur - GI/Abdominal Exam GI & Abdominal Exam: Soft, Tenderness (epigastric tenderness) - Extremities Exam Extremities Exam: Full ROM, Normal Capillary Refill, Normal Inspection. absent : Joint Swelling, Pedal Edema - Neurological Exam Neurological Exam: Alert, Awake, Oriented x3 - Psychiatric Exam Psychiatric exam: Normal Affect, Normal Mood - Skin Skin Exam: Dry, Intact, Normal Color, Warm Assessment and Plan - Assessment and Plan (Free Text) Assessment: 31 year old female with past medical history of HTN, DM, duodenal ulcer, and gastritis presents with abdominal pain and was found to have acute pancreatitis Plan: Acute pancreatitis -Likely secondary to hypertriglyceridemia -Started liquid diet -C/w ISS med -C/w IVF NS @150ml/hr -Encouraged patient to ambulate more often -Continue to OOB to chair and incentive spirometry -Cont PRN pain regimen -GI ppx, SCD ppx -d/w with attending
[2017-04-14 08:58] LABS: POTASSIUM 2.9 mmol/L (3.6-5.0)
[2017-04-14] MEDS: Insulin Detemir 100 units/ml Vial (Levemir) SC SCH ×2 (09:29→17:59)
[2017-04-14] MEDS: Enoxaparin 40 mg Syringe SC SCH (09:29)
--- NOTE | 2017-04-14 10:59 | PN ---
DATE: 04/14/2017 Seen and examined at the bedside this morning. The patient reports she is tolerating the clear liqui ds. It does not contribute to her abdominal pain, but she is still requiring pain medication q. 4 ho urs, but is also complaining that her dose was supposed to be increased. No nausea, vomiting. Denie s shortness of breath, chest pain and is requesting for increase in diet. VITAL SIGNS: Temperature is 98.5, blood pressure 127/85, pulse 97, respirations 20, 98% room air. LABORATORIES: Today, sodium is 137, K 2.9, BUN is 4, creatinine is 0.6. LFTs are all within normal limits. Her lipase is 420. Not much change compared to yesterday. CBC: WBC is 8.6, white count is improved, H and H is 11.5 and 34.2, platelets is 324. PHYSICAL EXAMINATION: HEENT: Sclera is anicteric. NECK: Supple. CARDIAC: S1, S2. LUNG SOUNDS: Clear. ABDOMEN: With bowel sounds, soft, is distended. She does have some epigastric tenderness, but looks improved. No rebound or guarding. EXTREMITIES: Positive pedal pulses, no edema. NEUROLOGIC: Awake, alert, and oriented. ASSESSMENT: A 31-year-old female with past medical history of hypertension, diabetes mellitus, duode nal ulcer, came with abdominal pain, found to have acute pancreatitis. She also had mild leukocytosi s, which is improved. Her blood cultures were negative. She is now hypokalemic. PLAN: We are replacing her potassium. Discussed with the patient that we will keep on clear liquids at this point. She is still requiring frequent pain medication and is actually requesting increase in her pain medication. She is already on IV antibiotics. Continue PPI. She is on IV fluids of fredy f normal saline at 150 mL an hour. She is also on Tricor and Lipitor. She has hypertriglyceridemia, which is thought may be causing the pancreatitis. She did go for MRCP, which was negative for any c ommon bile duct stones or dilatation, did show fatty liver and small gallstones. The pancreas was in flamed with mesenteric edema. We will continue to follow closely. Repeat labs in the a.m. and follo w up the magnesium level today. The patient was seen and case discussed with Dr. Polo. ADDENDUM: The patient is on deep venous thrombosis prophylaxis, Lovenox, but states that she is ambu lating and getting out of bed. Miranda COWART cc: [phone] TT: 04/14/2017 10:58:42 Confirmation # [id number] Dictation # [id number] en
--- NOTE | 2017-04-14 12:25 | CP.PCM.PN ---
Subjective - Date & Time of Evaluation Date of Evaluation: 04/14/17 Time of Evaluation: 09:45 - Subjective Subjective: Still with some abdominal pain but a little better, no fevers overnight, tolerating liquids. Objective - Vital Signs/Intake and Output Vital Signs (last 24 hours): Temp Pulse Resp BP Pulse Ox 97.9 F 90 20 131/76 98 04/13/17 16:00 04/13/17 16:00 04/13/17 16:00 04/13/17 16:00 04/13/17 16:00 Intake and Output: 04/14/17 04/14/17 06:59 18:59 Intake Total 120 Output Total 1000 Balance -880 - Medications Medications: Current Medications Albuterol/Ipratropium (Duoneb 3 Mg/0.5 Mg (3 Ml) Ud) 3 ml IH [id number] PRN PRN Reason: Shortness of Breath Last Admin: 04/12/17 20:58 Dose: 3 ml Atorvastatin Calcium (Lipitor) 20 mg PO DIN [facility] Last Admin: 04/13/17 17:18 Dose: 20 mg Enoxaparin Sodium (Lovenox) 40 mg SC DAILY [facility] PRN Reason: Protocol Last Admin: 04/13/17 09:11 Dose: 40 mg Fenofibrate (Tricor) 145 mg PO DAILY [facility] Last Admin: 04/13/17 09:11 Dose: 145 mg Hydromorphone HCl (Dilaudid) 1 mg IVP Q4H PRN PRN Reason: Pain, severe (8-10) Last Admin: 04/14/17 06:43 Dose: 1 mg Sodium Chloride (Sodium Chloride 0.45%) 1,000 mls @ 150 mls/hr IV .Q6H40M [facility] Last Admin: 04/13/17 14:24 Dose: 150 mls/hr Piperacillin Sod/Tazobactam Sod (Zosyn 3.375 In Ns 100ml) 100 mls @ 200 mls/hr IVPB Q6 [facility] PRN Reason: Protocol Stop: 04/18/17 18:01 Last Admin: 04/14/17 05:53 Dose: 200 mls/hr Insulin Detemir (Levemir) 10 unit SC BID [facility] Last Admin: 04/13/17 17:19 Dose: 10 unit Insulin Human Lispro (Humalog Med) 0 units SC ACHS [facility] PRN Reason: Protocol Last Admin: 04/14/17 08:14 Dose: 3 units Ketorolac Tromethamine (Toradol) 30 mg IVP Q6H PRN PRN Reason: Pain, moderate (4-7) Last Admin: 04/10/17 14:30 Dose: 30 mg Ondansetron HCl (Zofran Inj) 4 mg IVP Q4H PRN PRN Reason: Nausea/Vomiting Last Admin: 04/09/17 00:01 Dose: 4 mg Pantoprazole Sodium (Protonix Inj) 40 mg IVP DAILY [facility] Last Admin: 04/13/17 09:11 Dose: 40 mg - Labs Labs: 04/14/17 07:00 04/13/17 07:30 PT Cancelled 04/08/17 17:00 INR Cancelled 04/08/17 17:00 APTT Cancelled 04/08/17 17:00 - Constitutional Appears: Non-toxic, No Acute Distress - Head Exam Head Exam: NORMAL INSPECTION - Respiratory Exam Respiratory Exam: Decreased Breath Sounds - Cardiovascular Exam Cardiovascular Exam: +S1, +S2 - GI/Abdominal Exam GI & Abdominal Exam: Soft. absent: Tenderness Assessment and Plan - Assessment and Plan (Free Text) Plan: Assessment Systemic Inflammatory Response syndrome probably due to acute pancreatitis, R/O gallstone pancreatitis (although no stone was found in the CBD on MRCP); patient with fluid collections around the pancreas, consider due to related edema from the pancreatitis R/O infectious collections HTN DM obesity with BMI 36 gastritis and duodenal ulcer Plan MRCP does not show common bile duct stones; patient had a repeat CT scan of the abdomen and pelvis which shows increased size of fluid collections - will continue Zosyn (day 4) Will continue to monitor clinically Follow up further GI recommendations
--- NOTE | 2017-04-14 13:07 | PN ---
DATE: 04/13/2017 A 31-year-old female who admitted with acute pancreatitis today. She still complains of pain, but sh e feels less pain than before. Seen by gastroenterology, Dr. Polo. She has no nausea and no vom iting. She does have a bowel movement before, but no diarrhea. PHYSICAL EXAMINATION: VITAL SIGNS: Her temperature 98.1, heart rate 91, blood pressure 128/84, respirations 20, saturation 95% on room air. HEAD AND NECK: Normal. No JVD, no thyromegaly. CHEST: Clear, good air entry. CARDIAC: First sound, second sound normal. ABDOMEN: Soft. There is decreased general tenderness in the abdomen. EXTREMITIES: No edema. NEUROLOGIC: Normal. LABORATORY STUDIES: Shows last white count 11.3, hemoglobin 11.4, hematocrit 33.6, platelets 234. C hemistry noted for sodium 133, potassium 3.3, chloride 104, bicarb 18, BUN 5, creatinine 0.6, blood s ugar 143. AST, ALT is normal. Lipase has come down 425. IMPRESSION AND PLAN: 1. Acute pancreatitis with fluid collections in the pelvis. At this time, continue pain management. Continue IV fluid. Keep n.p.o. Discuss with Dr. Polo. He may start liquid tomorrow on 017. At this time, continue current therapy. 2. Morbid obesity, diabetes. Continue insulin. Discussed with the patient about outpatient managem ent for her underlying diabetes and obesity. 3. Hypertriglyceridemia, which could be secondary to acute pancreatitis. Her repeat triglycerides c richard down significantly. At this time, we will continue to observe. We will put on Tricor anyway and continue current therapy. Continue gastrointestinal and deep venous thrombosis prophylaxis. Keep the head elevated at 45 degre es. Eddi Wang MD cc: [phone] TT: 04/14/2017 13:07:40 Confirmation # [id number] Dictation # [id number] en
[2017-04-14] MEDS: Magnesium Oxide 400 mg Tab UD PO SCH (17:59)
--- NOTE | 2017-04-14 23:31 | PN ---
DATE: 04/14/2017 ADDENDUM: SUBJECTIVE: This patient was seen and evaluated earlier. This is an addendum to the GI progress rep ort dictated by Miranda Goldsmith APN. The patient is feeling slightly better, still complains of the abd ominal discomfort. The patient has been on IV hydration. Will slowly cut the dose down of the fluid . The patient has an ascites. PHYSICAL EXAMINATION: He has tenderness present in the epigastric and left upper quadrant area. IMPRESSION: The patient has been on the clear liquid diet. The patient would benefit from the endos copic ultrasound to further evaluate. The patient did have . Previous studies were reviewed an d nonconclusive of the etiology of the pancreatitis. We will consider repeating the ultrasound of th e abdomen. Thank you very much for allowing me to participate in the care of the patient. Bobby Polo MD cc: [phone] TT: 04/14/2017 23:30:25 Confirmation # [id number] Dictation # [id number] mn
[2017-04-15] MEDS: HYDROmorphone 1 mg/ml ISec IVP PRN ×2 (02:36→06:26)
[2017-04-15] MEDS: Piperacillin/Tazobact 3.375 gm 100 ML IVPB SCH ×3 (06:24→17:58)
[2017-04-15 07:47] LABS: ALB/GLOB RATIO 0.9 (1.1-1.8); ALKALINE PHOSPHATASE 85 U/L (38-133); ALT/SGPT 22 U/L (7-56); AST/SGOT 17 U/L (15-39); BILIRUBIN,TOTAL 0.5 mg/dL (0.2-1.3); BLOOD UREA NITROGEN 2 mg/dL (7-21); CALCIUM 8.6 mg/dL (8.4-10.5); CARBON DIOXIDE 24 mmol/L (21-33); CHLORIDE 101 mmol/L (95-110); GFR AFRICAN-AMERICAN > 60; GLUCOSE,RANDOM 187 mg/dL (70-110); LIPASE 423 U/L (23-300); SODIUM 137 mmol/L (132-148); TOTAL PROTEIN 6.5 g/dL (5.8-8.3)
[2017-04-15 08:00] LABS: POTASSIUM 2.9 mmol/L (3.6-5.0)
[2017-04-15] MEDS: Insulin Lispro (humaLOG) MEDIUM Coverage SC SCH ×4 (08:37→22:07)
[2017-04-15] MEDS ORDERED: SODIUM CHLORIDE IV SCH (08:45)
[2017-04-15] MEDS ORDERED: D5W IV SCH (08:45)
[2017-04-15] MEDS ORDERED: POTASSIUM CH IV SCH (08:45)
[2017-04-15] MEDS: Insulin Detemir 100 units/ml Vial (Levemir) SC SCH ×2 (10:22→17:56)
[2017-04-15] MEDS: Enoxaparin 40 mg Syringe SC SCH (10:22)
[2017-04-15] MEDS: Potassium Chloride 20 mEq ER Tab PO SCH (10:23)
[2017-04-15] MEDS: Magnesium Oxide 400 mg Tab UD PO SCH ×2 (10:23→17:57)
[2017-04-15] MEDS: HYDROmorphone 2 mg/ml ISec IVP PRN ×3 (10:56→20:18)
--- NOTE | 2017-04-15 18:00 | PN ---
DATE: 04/15/2017 SUBJECTIVE: This patient is feeling clinically better, but she states pain is still there and recent ly her pain medication has been increased. She wants to increase her diet and she wants to eat solid food. PHYSICAL EXAMINATION: VITAL SIGNS: Temperature is 98.4, pulse 87, blood pressure 126/83. HEENT: Atraumatic, anicteric. NECK: Supple. HEART: S1, S2 heard. LUNGS: Bilateral air entry present. ABDOMEN: Soft. Distended. There is tenderness present in the epigastric area. EXTREMITIES: No cyanosis, no clubbing. LABORATORY DATA: Hemoglobin 11.5, hematocrit 34.2, WBC is 8.6, platelets 324. Sodium 137, potassium 2.9, BUN 2, creatinine 0.5. Chemistry, LFTs normal. Lipase is 423. IMPRESSION: Acute pancreatitis with CT grade III-IV pancreatitis. There is a large amount of ascites present. T he etiology is unclear. The MRCP showed normal common bile duct. Questionable stones on one of the CAT scans . However, the repeat ultrasound was negative. The real concern is the patient is r equiring increased pain medication. Abdomen has significant abdominal tenderness present. The reaso nable approach in this patient is to do a CT with pancreatic protocol before increasing the diet. Th is was explained to the patient who fully understood. We will also consider endoscopic ultrasound to further evaluate on Monday. Thank you very much for allowing us to participate in the care of the patient. Bobby Polo MD cc: [phone] TT: 04/15/2017 17:59:13 Confirmation # [id number] Dictation # [id number] dn
--- NOTE | 2017-04-15 18:33 | PN ---
DATE: 04/15/2017 The patient is in bed in no acute distress, nontoxic. PHYSICAL EXAMINATION: VITAL SIGNS: Temperature is 98, blood pressure is 126/80, respiratory rate of 18. HEENT: Unremarkable. NECK: Supple. LUNGS: Have decreased breath sounds. HEART: Normal S1, S2. ABDOMEN: Soft, nontender. LABORATORY DATA: Reveals the patient's white count is 8.6 and hemoglobin is noted. Chemistries are reviewed. Lipase is 423. Blood cultures are negative. Dr. Polo's note is reviewed from yesterday. ASSESSMENT AND PLAN: This is a 31-year-old female with systemic inflammatory response syndrome, acut e pancreatitis. The patient with fluid collection around the pancreas and currently on day #5 of Zos yn, appears to be somewhat improving. GI workup in progress. The Zosyn is active in the orders. Ady Worthington MD cc: [id number] TT: 04/15/2017 18:32:21 Confirmation # [id number] Dictation # [id number] jn
[2017-04-15] MEDS ORDERED: Iohexol 240 (50 ml) ONE (18:51)
[2017-04-15] MEDS ORDERED: Potassium Chloride 20 mEq ER Tab PO ONE ×2 (19:25→20:03)
[2017-04-15] MEDS ORDERED: Iohexol 350 MG/100 ML VIAL ONE (21:11)
--- NOTE | 2017-04-15 22:37 | CT ---
EXAM: CT Abdomen and Pelvis With Intravenous Contrast CLINICAL HISTORY: 31 years old, female; Pain; Abdominal pain; Patient HX: Pancreatic protocol-acute pancreatitis followup TECHNIQUE: Axial computed tomography images of the abdomen and pelvis with intravenous contrast. This CT exam was performed using one or more of the following dose reduction techniques: automated exposure control, adjustment of the mA and/or kV according to patient size, and/or use of iterative reconstruction technique. Coronal and sagittal reformatted images were created and reviewed. CONTRAST: 96 mL of OMNIPAQUE 350 administered intravenously. COMPARISON: CT - ABDOMEN PELVIS W/O CONT (DIRECTOR OF CORPORATE STRATEGY) 04/11/2017 8:13:56 AM FINDINGS: Lower thorax: There is small left and trace right pleural effusions. There is dependent air space opacity at both bases which most probably reflects atelectasis. It is difficult to exclude a component of pneumonia or aspiration, particularly at the left base. ABDOMEN: Liver: There is a diffuse decrease in hepatic parenchymal density, consistent with fatty infiltration. Gallbladder and bile ducts: Gallbladder demonstrates dependent increased density which may represent sludge or tiny stones. No ductal dilation. Pancreas: There is peripancreatic fluid and stranding most compatible with acute pancreatitis. This appears slightly improved as compared with 04/11/2017. Spleen: The spleen is normal. Adrenals: The adrenal glands are normal. Kidneys and ureters: The kidneys are normal. No hydronephrosis. Stomach and bowel: Stomach is predominantly decompressed. There is no evidence of intestinal obstruction. No mucosal thickening. Appendix: A normal appendix is identified. PELVIS: Bladder: Bladder is predominantly decompressed. Reproductive: The uterus is normal. ABDOMEN and PELVIS: Intraperitoneal space: There is small pelvic ascites, nonspecific. There is no free intraperitoneal air. Bones/joints: There are mild degenerative changes present. No acute fracture. No dislocation. Soft tissues: Unremarkable. Vasculature: The aorta is normal. No abdominal aortic aneurysm. Lymph nodes: There is no evidence of lymphadenopathy. There are some borderline bilateral inguinal nodes without gogo adenopathy. IMPRESSION: 1. There is small left and trace right pleural effusions. 2. There is dependent air space opacity at both bases which most probably reflects atelectasis. It is difficult to exclude a component of pneumonia or aspiration, particularly at the left base. 3. There is peripancreatic fluid and stranding most compatible with acute pancreatitis. This appears slightly improved as compared with 04/11/2017.
[2017-04-16] MEDS: Piperacillin/Tazobact 3.375 gm 100 ML IVPB SCH ×5 (00:12→23:03)
[2017-04-16] MEDS: HYDROmorphone 2 mg/ml ISec IVP PRN ×6 (00:12→21:24)
--- NOTE | 2017-04-16 07:32 | PN ---
DATE: 04/14/2017 The patient complained of insomnia, could not sleep. She still complained of pain. However, she sta rted eating liquid diet, tolerated. No vomiting. Also, patient seems according to her, she does hav e bipolar and she takes medication like Depakote. PHYSICAL EXAMINATION: VITAL SIGNS: Temperature is 98.2, heart rate 93, blood pressure 117/80, respirations 20, saturation 98%. HEAD AND NECK: Normal. No JVD, no thyromegaly. CHEST: Clear, good air entry. CARDIAC: First sound, second sound normal. ABDOMEN: Soft, tender, less tender than before. Bowel sounds intact. EXTREMITIES: No edema. NEUROLOGIC: Normal. LABORATORY STUDIES: Shows white count 8.6, hemoglobin 11.5, hematocrit 34.2, platelets 324. Line O Scribe Operator ry: Sodium 137, potassium 2.9, chloride 102, bicarb 22, BUN 4, creatinine 0.6, blood sugar ____. Li cassidy function test is normal. IMPRESSION AND PLAN: 1. Acute pancreatitis with fluid collections in the pelvis. The patient is clinically better. Tole rated diet. Her pain level still there but she is less tender and she is asking for ____. She still complains of pain. No vomiting. Tolerating diet well. We will continue followup. Advance diet as tolerated, as per gastrointestinal consult. 2. Bipolar disorder. The patient takes Depakote. Has complained of insomnia, we will give her Ambi en every night p.r.n. The patient is obese, may have obstructive sleep apnea. Keep the head of the bed at 45 degree. Advised for weight reduction, sleep studies as outpatient. 3. Insulin-dependent diabetes. The patient poorly controlled. Continue insulin coverage here. Blo od sugar 180, 172. Will follow up clinically. Continue gastrointestinal and deep venous thrombosis prophylaxis. Follow up clinically. 4. Electrolyte abnormalities. Potassium 2.9. Continue magnesium. Replace potassium. Repeat lab i n the morning. Eddi Wang MD cc: [phone] TT: 04/16/2017 07:31:21 Confirmation # [id number] Dictation # [id number] sn
--- NOTE | 2017-04-16 07:47 | PN ---
DATE: 04/15/2017 The patient tolerating breakfast/liquid diet today well. No vomiting. She still complained of abdom inal pain, although she seems to look better. She slept well. No other complaints. PHYSICAL EXAMINATION: VITAL SIGNS: Temperature 98.6, heart rate 90, blood pressure 118/77, respirations 20, saturation 96% on room air. HEAD AND NECK: Normal. No JVD, no thyromegaly. CHEST: Clear, good air entry. CARDIAC: First sound, second sound normal. ABDOMEN: Soft. There is tenderness (less tender in the lower abdomen) only on the epigastric/upper abdomen area. Bowel sounds intact. NEUROLOGIC: Normal. LABORATORY DATA: 04/15/2017. Sodium 137, potassium 2.9, chloride 101, bicarb 24, BUN 2, creatinine 0.5, blood sugar 187. Liver enzymes are normal. IMPRESSION AND PLAN: 1. Acute pancreatitis with pelvic fluid collections. Clinically, patient better. Tolerated diet. Will advance diet as per GI. Continue current therapy. 2. Bipolar disorder, insomnia. Continue Ambien. Depakote will be resumed; however we are going to check the medicine for drug-induced pancreatitis. 3. Hypokalemia. Will continue replacement. ____ will give 40 mEq potassium. Will give IV fluids w ith potassium and extra potassium later on. Repeat labs in the morning. Continue current therapy. 4. Diabetes, insulin-dependent. Continue insulin coverage. Follow up clinically. 5. Continue GI and DVT prophylaxis. Sleep apnea precautions. The patient advised about compliance with diabetes and weight reduction for triglycerides control and diabetes control and reduce risk mor bidity and mortality. Eddi Wang MD cc: [phone] TT: 04/16/2017 07:46:35 Confirmation # [id number] Dictation # [id number] mn
[2017-04-16] MEDS: Insulin Lispro (humaLOG) MEDIUM Coverage SC SCH ×4 (07:51→22:30)
[2017-04-16 08:13] LABS: ALB/GLOB RATIO 0.9 (1.1-1.8); ALKALINE PHOSPHATASE 77 U/L (38-133); ALT/SGPT 27 U/L (7-56); AST/SGOT 18 U/L (15-39); BILIRUBIN,TOTAL 0.3 mg/dL (0.2-1.3); BLOOD UREA NITROGEN < 2 mg/dL (7-21); CALCIUM 8.2 mg/dL (8.4-10.5); CARBON DIOXIDE 27 mmol/L (21-33); CHLORIDE 101 mmol/L (95-110); GFR AFRICAN-AMERICAN > 60; GLUCOSE,RANDOM 163 mg/dL (70-110); POTASSIUM 3.4 mmol/L (3.6-5.0); SODIUM 137 mmol/L (132-148); TOTAL PROTEIN 5.8 g/dL (5.8-8.3)
[2017-04-16] MEDS: Enoxaparin 40 mg Syringe SC SCH ×2 (10:28→10:34)
[2017-04-16] MEDS: Potassium Chloride 20 mEq ER Tab PO SCH (10:28)
[2017-04-16] MEDS: Magnesium Oxide 400 mg Tab UD PO SCH ×2 (10:28→17:07)
[2017-04-16] MEDS: Insulin Detemir 100 units/ml Vial (Levemir) SC SCH ×2 (12:11→17:06)
--- NOTE | 2017-04-16 17:26 | PN ---
DATE: 04/16/2017 SUBJECTIVE: This patient feels slightly better. PHYSICAL EXAMINATION: VITAL SIGNS: Temperature is 98.1, pulse 90, blood pressure 110/73. HEENT: Atraumatic, anicteric. NECK: Supple. HEART: S1, S2 heard. LUNGS: Bilateral air entry present. ABDOMEN: Softly distended. There was tenderness present in the epigastric and left upper quadrant a ike. There is no rebound or guarding. LABORATORY DATA: Hemoglobin 11. The potassium is 3.4, sodium 137. The patient did have a CT scan o f the abdomen and pelvis which was reviewed. Sludge in the gallbladder and mild pleural effusion pre sent. There is dependent airspace opacity at both bases. There is also a peripancreatic fluid colle ction noticed. The likely cause in her case to be considered is also gallstone pancreatitis. Becaus e of significant sludge, patient is also now n. p.o. The sludge could be also partially related to t he fasting state. The patient is very adamant to have diet increased to a soft diet, but however, will increase to low fat, so full liquid diet now. The patient is scheduled for an with examination in a.m. tomorro w. We will continue to closely follow up her care and also recommend to supplement the potassium. W e will cut down the IV fluids also. The patient has been on Zosyn now. Thank you very much for allowing us to participate in the care of the patient. Bobby Polo MD cc: [phone] TT: 04/16/2017 17:25:17 Confirmation # [id number] Dictation # [id number] marce
--- NOTE | 2017-04-16 17:38 | PN ---
DATE: 04/16/2017 The patient is in bed in no acute distress, nontoxic. PHYSICAL EXAMINATION: VITAL SIGNS: Temperature is 98, blood pressure is 110/70, respiratory rate of 18. HEENT: Unremarkable. NECK: Supple. LUNGS: Have decreased breath sounds. HEART: Normal S1, S2. ABDOMEN: Soft, nontender. LABORATORY DATA: Reveals the patient to have a white count of 8.6, hemoglobin of 11, platelets of 32 4. Chemistries reveals the BUN of less than 2, creatinine of 0.6. Urinalysis is noted. Microbiolog y reveals the blood cultures are no growth. Review of orders reveals the patient to be on Zosyn, whi ch requires renewal, which we will do so. ASSESSMENT AND PLAN: A 31-year-old female seen earlier this morning in room 370 with systemic inflam matory response syndrome, acute pancreatitis, questionable fluid collection on the CAT scan. On day #6 of Zosyn, which I will reorder. The patient had a repeat CAT scan of the abdomen and pelvis yeste rday, which is described peripancreatic fluid and stranding compatible with acute pancreatitis and ap pears slightly improved. Will review the CAT scan and if no fluid collection may consider discontinu ing the Zosyn. Awaiting for further GI input. Ady Worthington MD cc: [phone] TT: 04/16/2017 17:37:19 Confirmation # [id number] Dictation # [id number] mn
[2017-04-17] MEDS: HYDROmorphone 2 mg/ml ISec IVP PRN ×4 (02:17→17:56)
[2017-04-17] MEDS: Piperacillin/Tazobact 3.375 gm 100 ML IVPB SCH ×3 (05:56→18:01)
[2017-04-17] MEDS: Insulin Lispro (humaLOG) MEDIUM Coverage SC SCH ×3 (08:34→17:33)
--- NOTE | 2017-04-17 09:02 | PN ---
DATE: 04/16/2017 SUBJECTIVE: The patient is stable. She is tolerating soft diet. No vomiting. The patient going fo r EUS tomorrow morning. PHYSICAL EXAMINATION: VITAL SIGNS: Today, temperature 98.2, heart rate 90, blood pressure 109/71, respirations 19, saturat ion 95%. HEAD AND NECK: Normal. No JVD, no thyromegaly. CHEST: Clear, good entry. CARDIAC: First sound, second sound normal. ABDOMEN: Soft, tender in the epigastric area only. EXTREMITIES: No edema. NEUROLOGIC: Normal. LABORATORY DATA: I have sodium 137, potassium 3.4, chloride 101, bicarb 27, BUN 12, creatinine 0.6, BUN less than 2, creatinine 0.6, blood sugar 163, calcium 8.2. Liver function test is normal, includ ing alk phos. IMPRESSION AND PLAN: 1. Acute pancreatitis with fluid collection in the pelvis, probably secondary to sludge or possible drug . Will discuss with Dr. Polo. Going for endoscopic ultrasound tomorrow to evaluate any ston es in the common bile duct. If it is negative, Dr. Polo recommends to remove the gallbladder bec ause of the presence of the sludge on the previous studies. 2. Diabetes, poorly controlled. Continue insulin. Continue current therapy. The patient noncompli ant with a diet. 3. Morbid obesity. Spoke with the patient about diet at length and weight loss, and possibly also g astric surgery. 4. Continue obstructive sleep apnea precautions. 5. Continue pain management as it is. The patient currently getting Dilaudid p.r.n. 6. Continue gastrointestinal and deep venous thrombosis prophylaxis. 7. Hypertriglyceridemia, probably related to her poor diabetes control. Continue TriCor for now, Li pitor 20, and potassium every day, 40 mEq. Continue IV Zosyn. Eddi Wang MD cc: [phone] TT: 04/17/2017 00:26:08 Confirmation # [id number] Dictation # [id number] carmenza
[2017-04-17 10:39] LABS: INR 1.07 (0.93-1.08); PARTIAL THROMBOPLASTIN TIME 27.4 Seconds (23.7-30.8)
[2017-04-17 10:41] LABS: ALB/GLOB RATIO 0.9 (1.1-1.8); ALKALINE PHOSPHATASE 70 U/L (38-133); ALT/SGPT 29 U/L (7-56); AST/SGOT 31 U/L (15-39); BILIRUBIN,TOTAL 0.3 mg/dL (0.2-1.3); BLOOD UREA NITROGEN < 2 mg/dL (7-21); CALCIUM 8.3 mg/dL (8.4-10.5); CARBON DIOXIDE 29 mmol/L (21-33); CHLORIDE 102 mmol/L (98-107); GFR AFRICAN-AMERICAN > 60; GLUCOSE,RANDOM 128 mg/dL (70-110); POTASSIUM 3.7 mmol/L (3.6-5.0); SODIUM 137 mmol/L (132-148); TOTAL PROTEIN 5.8 g/dL (5.8-8.3)
[2017-04-17] MEDS: Insulin Detemir 100 units/ml Vial (Levemir) SC SCH ×2 (12:23→17:48)
[2017-04-17] MEDS ORDERED: Lactated Ringer's 1,000 ML IV SCH (15:26)
[2017-04-17 15:30] VITALS: RESP 16; TEMP 98.4
[2017-04-17] MEDS ORDERED: Propofol 10 mg/ml Inj (20 ML) ONE (15:34)
[2017-04-17] MEDS ORDERED: Midazolam 2 MG/2 ML VIAL ONE (15:35)
[2017-04-17] MEDS ORDERED: Albuterol HFA 90 mcg/actuation (8 g) ONE (15:40)
[2017-04-17 16:49] VITALS: PULSE 81; O2SAT 94
[2017-04-17 17:05] VITALS: BP 147/90
--- NOTE | 2017-04-17 17:32 | CP.PCM.PN ---
Subjective - Date & Time of Evaluation Date of Evaluation: 04/17/17 Time of Evaluation: 11:35 - Subjective Subjective: Comfortable in bed, not in distress, less abdominal pain. Objective - Vital Signs/Intake and Output Vital Signs (last 24 hours): Temp Pulse Resp BP Pulse Ox 98.2 F 90 19 109/71 95 04/16/17 17:00 04/16/17 17:00 04/16/17 17:00 04/16/17 17:00 04/16/17 16:47 Intake and Output: 04/17/17 04/17/17 06:59 18:59 Intake Total 1460 Balance 1460 - Medications Medications: Current Medications Albuterol/Ipratropium (Duoneb 3 Mg/0.5 Mg (3 Ml) Ud) 3 ml IH [id number] PRN PRN Reason: Shortness of Breath Last Admin: 04/12/17 20:58 Dose: 3 ml Atorvastatin Calcium (Lipitor) 20 mg PO DIN [facility] Last Admin: 04/16/17 17:06 Dose: 20 mg Enoxaparin Sodium (Lovenox) 40 mg SC DAILY [facility] PRN Reason: Protocol Last Admin: 04/16/17 10:34 Dose: Not Given Fenofibrate (Tricor) 145 mg PO DAILY [facility] Last Admin: 04/16/17 10:27 Dose: 145 mg Hydromorphone HCl (Dilaudid) 1.5 mg IVP Q4H PRN PRN Reason: Pain, severe (8-10) Last Admin: 04/17/17 06:12 Dose: 1.5 mg Piperacillin Sod/Tazobactam Sod (Zosyn 3.375 In Ns 100ml) 100 mls @ 200 mls/hr IVPB Q6 [facility] PRN Reason: Protocol Stop: 04/18/17 18:01 Last Admin: 04/17/17 05:56 Dose: 200 mls/hr Potassium Chloride 20 meq/ (Sodium Chloride) 1,010 mls @ 100 mls/hr IV .Q10H6M [facility] Last Admin: 04/16/17 00:15 Dose: 100 mls/hr Insulin Detemir (Levemir) 10 unit SC BID [facility] Last Admin: 04/16/17 17:06 Dose: 10 unit Insulin Human Lispro (Humalog Med) 0 units SC ACHS [facility] PRN Reason: Protocol Last Admin: 04/17/17 08:34 Dose: Not Given Magnesium Oxide (Mag-Ox) 400 mg PO BID [facility] Last Admin: 04/16/17 17:07 Dose: 400 mg Ondansetron HCl (Zofran Inj) 4 mg IVP Q4H PRN PRN Reason: Nausea/Vomiting Last Admin: 04/09/17 00:01 Dose: 4 mg Pantoprazole Sodium (Protonix Inj) 40 mg IVP DAILY [facility] Last Admin: 04/16/17 10:27 Dose: 40 mg Potassium Chloride (K-Dur 20 Meq Er Tab) 40 meq PO DAILY [facility] Last Admin: 04/16/17 10:28 Dose: 40 meq Zolpidem Tartrate (Ambien) 5 mg PO HS PRN; Protocol PRN Reason: Insomnia Last Admin: 04/16/17 22:47 Dose: 5 mg - Labs Labs: 04/14/17 07:00 04/16/17 07:10 PT Cancelled 04/08/17 17:00 INR Cancelled 04/08/17 17:00 APTT Cancelled 04/08/17 17:00 - Constitutional Appears: Non-toxic, No Acute Distress - Head Exam Head Exam: NORMAL INSPECTION - ENT Exam ENT Exam: Mucous Membranes Moist - Neck Exam Neck Exam: absent: Lymphadenopathy, Meningismus - Respiratory Exam Respiratory Exam: Decreased Breath Sounds - Cardiovascular Exam Cardiovascular Exam: +S1, +S2 - GI/Abdominal Exam GI & Abdominal Exam: Soft. absent: Tenderness Assessment and Plan - Assessment and Plan (Free Text) Plan: Assessment Systemic Inflammatory Response syndrome probably due to acute pancreatitis, R/O gallstone pancreatitis (although no stone was found in the CBD on MRCP); patient with fluid collections around the pancreas, consider due to related edema from the pancreatitis R/O infectious collections HTN DM obesity with BMI 36 gastritis and duodenal ulcer Plan MRCP does not show common bile duct stones; patient had a repeat CT scan of the abdomen and pelvis which shows decreased size of peripancreatic fluid will continue Zosyn (day 7) but should be able to d/c in the next 24-48 hours Will continue to monitor clinically Follow up further GI recommendations
[2017-04-17] MEDS: Magnesium Oxide 400 mg Tab UD PO SCH ×2 (17:35→17:48)
[2017-04-17] MEDS: Potassium Chloride 20 mEq ER Tab PO SCH (17:48)
[2017-04-17] MEDS: Enoxaparin 40 mg Syringe SC SCH (17:59)
--- NOTE | 2017-04-17 19:55 | CP.PCM.PN ---
Subjective - Date & Time of Evaluation Date of Evaluation: 04/17/17 Time of Evaluation: 19:53 - Subjective Subjective: Patient was seen at bedside. she wants to sign out AMA. was called and notified as per whom patient should go to see him tomorrow in his office. Patient has no complaints. Medical record was reviewed. This 31 year old woman was admitted abdominal pain and vomiting Has PMH of obesity, IDDM, non compliance. Objective - Vital Signs/Intake and Output Vital Signs (last 24 hours): Temp Pulse Resp BP Pulse Ox 98.4 F 81 16 147/90 94 L 04/17/17 17:02 04/17/17 17:02 04/17/17 17:02 04/17/17 17:02 04/17/17 17:02 Intake and Output: 04/17/17 04/18/17 18:59 06:59 Intake Total 0 Balance 0 - Medications Medications: Current Medications Albuterol/Ipratropium (Duoneb 3 Mg/0.5 Mg (3 Ml) Ud) 3 ml IH [id number] PRN PRN Reason: Shortness of Breath Last Admin: 04/12/17 20:58 Dose: 3 ml Atorvastatin Calcium (Lipitor) 20 mg PO DIN [facility] Last Admin: 04/17/17 17:48 Dose: 20 mg Fenofibrate (Tricor) 145 mg PO DAILY [facility] Last Admin: 04/17/17 17:47 Dose: 145 mg Hydromorphone HCl (Dilaudid) 1.5 mg IVP Q4H PRN PRN Reason: Pain, severe (8-10) Last Admin: 04/17/17 17:56 Dose: 1.5 mg Piperacillin Sod/Tazobactam Sod (Zosyn 3.375 In Ns 100ml) 100 mls @ 200 mls/hr IVPB Q6 [facility] PRN Reason: Protocol Stop: 04/18/17 18:01 Last Admin: 04/17/17 18:01 Dose: 200 mls/hr Potassium Chloride 20 meq/ (Sodium Chloride) 1,010 mls @ 100 mls/hr IV .Q10H6M [facility] Last Admin: 04/17/17 12:23 Dose: 100 mls/hr Insulin Detemir (Levemir) 10 unit SC BID [facility] Last Admin: 04/17/17 17:48 Dose: 10 unit Insulin Human Lispro (Humalog Med) 0 units SC ACHS [facility] PRN Reason: Protocol Last Admin: 04/17/17 17:33 Dose: Not Given Magnesium Oxide (Mag-Ox) 400 mg PO BID [facility] Last Admin: 04/17/17 17:48 Dose: 400 mg Ondansetron HCl (Zofran Inj) 4 mg IVP Q4H PRN PRN Reason: Nausea/Vomiting Last Admin: 04/09/17 00:01 Dose: 4 mg Pantoprazole Sodium (Protonix Inj) 40 mg IVP DAILY [facility] Last Admin: 04/17/17 12:18 Dose: 40 mg Potassium Chloride (K-Dur 20 Meq Er Tab) 40 meq PO DAILY [facility] Last Admin: 04/17/17 17:48 Dose: 40 meq Zolpidem Tartrate (Ambien) 5 mg PO HS PRN; Protocol PRN Reason: Insomnia Last Admin: 04/16/17 22:47 Dose: 5 mg - Labs Labs: 04/14/17 07:00 04/17/17 10:00 PT 11.6 Seconds (9.9-11.8) 04/17/17 10:00 INR 1.07 (0.93-1.08) 04/17/17 10:00 APTT 27.4 Seconds (23.7-30.8) 04/17/17 10:00 - Constitutional Appears: Well, No Acute Distress - Head Exam Head Exam: ATRAUMATIC, NORMAL INSPECTION, NORMOCEPHALIC Additional comments: Obese. - Eye Exam Eye Exam: Normal appearance - ENT Exam ENT Exam: Normal External Ear Exam - Neck Exam Neck Exam: Normal Inspection - Respiratory Exam Respiratory Exam: NORMAL BREATHING PATTERN - Cardiovascular Exam Cardiovascular Exam: absent: JVD - GI/Abdominal Exam GI & Abdominal Exam: absent: Distended - Rectal Exam Rectal Exam: Deferred - Extremities Exam Extremities Exam: Normal Inspection - Back Exam Back Exam: NORMAL INSPECTION - Neurological Exam Neurological Exam: Alert, Oriented x3 - Psychiatric Exam Psychiatric exam: Normal Affect, Normal Mood - Skin Skin Exam: Normal Color Assessment and Plan - Assessment and Plan (Free Text) Assessment: Left against medical advice. Non compliance. Insulin dependent diabetes mellitus. Obesity. Acute pancreatitis. Plan: Patient signed AMA form in presence of primary nurse who witnessed her signing refusal form. She will go to see tomorrow.
--- NOTE | 2017-04-18 08:13 | PN ---
DATE: 04/17/2017 ADDENDUM: This is an addendum to the GI progress report dictated by Miranda Goldsmith APN. SUBJECTIVE: This patient was seen and evaluated earlier, still complains of some mild abdominal pain , abdominal pain . PHYSICAL EXAMINATION: VITAL SIGNS: Temperature is afebrile, pulse 101, blood pressure 116/ , respirations 16, O2 satur ation %. HEENT: Atraumatic, anicteric. NECK: Supple. HEART: S1, S2 heard. LUNGS: Slightly reduced in the base air entry. ABDOMEN: Soft. There was diffuse tenderness present in the epigastric and right upper quadrant area . There is no rebound or guarding. LABORATORY DATA: Hemoglobin 11.5, hematocrit 34.2. Review of the labs showed the chemistry is essen tially unremarkable, except glucose is 128. LFTs normal. IMPRESSION: This is a 31-year-old patient with acute pancreatitis, history of diabetes mellitus, fou nd to have questionable stones on the MRI in the gallbladder, CBD was normal. The patient is schedul ed for an EGD, it was today. The patient underwent an upper GI endoscopy today and was found to have duodenitis, antral biopsies were taken to rule out H. pylori. The patient revealed a normal c ommon bile duct. There are no stones. Gallbladder has sludge. Pancreas has peripancreatic fluid, o therwise no focal pancreatic lesion noticed. RECOMMENDATIONS: 1. The patient can be started on Actigall. 2. The patient will be followed up for surgical followup for possible cholecystectomy. I have discussed with Dr. Wang regarding the patient post-procedure and also with the patient at [facility]. The patient will be advanced the diet to low fat, diabetic diet. Thank you very much for allowing us to participate in the care of the patient. Bobby Polo MD cc: [id number] TT: 04/17/2017 19:08:51 Confirmation # [id number] Dictation # [id number] mn
== END 2017-04-17 19:55 | disposition left against medical advice (07) | DRG 557 ==
LOC: ED 16:30 → ERH 20:27 → 3RSO 21:04
PROVIDERS: ADMIT Internal Medicine; ATTEND Internal Medicine
PROC: 0DJ08ZZ Inspection of Upper Intestinal Tract, Via Natural or Artificial Opening Endoscopic (ICD-10-PCS; principal; 2017-04-17 14:30)
PROC: 0DB68ZX Excision of Stomach, Via Natural or Artificial Opening Endoscopic, Diagnostic (ICD-10-PCS; 2017-04-17 14:30)
DX: K85.90 Acute pancreatitis without necrosis or infection, unspecified (principal); R65.10 Systemic inflammatory response syndrome (SIRS) of non-infectious origin without acute organ dysfunction; R18.8 Other ascites; K31.84 Gastroparesis; K26.9 Duodenal ulcer, unspecified as acute or chronic, without hemorrhage or perforation; E11.65 Type 2 diabetes mellitus with hyperglycemia; K76.0 Fatty (change of) liver, not elsewhere classified; E11.43 Type 2 diabetes mellitus with diabetic autonomic (poly)neuropathy; E87.6 Hypokalemia; K80.20 Calculus of gallbladder without cholecystitis without obstruction; E66.01 Morbid (severe) obesity due to excess calories; K29.80 Duodenitis without bleeding; K29.70 Gastritis, unspecified, without bleeding; E78.1 Pure hyperglyceridemia; E78.5 Hyperlipidemia, unspecified; F17.200 Nicotine dependence, unspecified, uncomplicated; F31.9 Bipolar disorder, unspecified; G47.00 Insomnia, unspecified; I10 Essential (primary) hypertension; J45.909 Unspecified asthma, uncomplicated; Z68.36 Body mass index [BMI] 36.0-36.9, adult; Z79.4 Long term (current) use of insulin; Z86.19 Personal history of other infectious and parasitic diseases; Z91.11 Patient's noncompliance with dietary regimen; R00.0 Tachycardia, unspecified; Z91.81 History of falling; M54.9 Dorsalgia, unspecified

== ENCOUNTER 2017-06-08 00:29 | Observation (INO) | payer OTHER ==
[2017-06-08] MEDS ORDERED: Sodium Chloride 0.9% 1,000 ML IV STA ×2 (00:44→01:59)
[2017-06-08] MEDS ORDERED: Pantoprazole 40 MG in Sodium Chloride 0.9% 100 ML IV STA (00:44)
--- NOTE | 2017-06-08 00:48 | ED PDOC ---
Arrival/HPI - General Chief Complaint: Abdominal Pain Time Seen by Provider: 06/08/17 00:36 Historian: Patient - History of Present Illness Narrative History of Present Illness (Text): 06/08/17 00:44 Bethanie Bettencourt is a 31 year old female, whose past medical history includes hypertension, asthma, diabetes, gastritis, gastroparesis, and pancreatitis, who presents to the Emergency department complaining of epigastric/RUQ pain for 1 week. Patient states symptoms are similar to previous episodes of pancreatitis. Patient states she originally attributed symptoms to gas but states pain has gradually worsened. Patient denies any fever, chills, chest pain, shortness of breath, urinary symptoms, back pain, neck pain, headache, dizziness, or any other complaints. Time/Duration: 1 week Symptom Onset: Gradual Symptom Course: Unchanged Quality: Gas Like Activities at Onset: Light Context: Home Past Medical History - Provider Review Nursing Documentation Reviewed: Yes - Infectious Disease Hx of Infectious Diseases: None - Cardiac Hx Cardiac Disorders: Yes Hx Hypertension: Yes - Pulmonary Hx Respiratory Disorders: Yes Hx Asthma: Yes - Neurological Hx Neurological Disorder: No - HEENT Hx HEENT Disorder: No - Renal Hx Renal Disorder: No - Endocrine/Metabolic Hx Endocrine Disorders: Yes Hx Diabetes Mellitus Type 2: Yes - Hematological/Oncological Hx Blood Disorders: No Hx Blood Transfusions: No Hx Blood Transfusion Reaction: No - Integumentary Hx Dermatological Disorder: No - Musculoskeletal/Rheumatological Hx Musculoskeletal Disorders: Yes - Gastrointestinal Hx Gastrointestinal Disorders: Yes Hx Pancreatitis: Yes Other/Comment: gastroparesis - Genitourinary/Gynecological Hx Genitourinary Disorders: No - Psychiatric Hx Psychophysiologic Disorder: No Hx Substance Use: No - Surgical History Other/Comment: bartholenes cyst I and D - Anesthesia Hx Anesthesia Reactions: No Hx Malignant Hyperthermia: No Family/Social History - Physician Review Nursing Documentation Reviewed: Yes Family/Social History: Unknown Family HX Smoking Status: Current Some Days Smoker Hx Alcohol Use: No (social) Hx Substance Use: No Allergies/Home Meds Allergies/Adverse Reactions: Allergies No Known Allergies Allergy (Verified 06/08/17 00:44) Home Medications: Home Meds Medication Instructions Recorded Confirmed Osseo Citrate [Osseo] 25 mg PO BID 06/08/17 06/08/17 Sertraline [Zoloft] 50 mg PO BID 08/03/17 08/03/17 Review of Systems - Physician Review All systems were reviewed & negative as marked: Yes - Review of Systems Constitutional: Normal. absent: Fevers Eyes: Normal ENT: Normal Respiratory: Normal. absent: SOB, Cough Cardiovascular: Normal. absent: Chest Pain Gastrointestinal: Abdominal Pain Genitourinary Female: Normal. absent: Dysuria, Frequency, Hematuria, Urine Output Changes Musculoskeletal: Normal. absent: Back Pain, Neck Pain Skin: Normal. absent: Rash Neurological: Normal. absent: Headache, Dizziness Endocrine: Normal Hemo/Lymphatic: Normal Psychiatric: Normal Physical Exam Vital Signs Reviewed: Yes Vital Signs Temp Pulse Resp BP Pulse Ox 06/08/17 03:03 81 14 126/70 98 06/08/17 00:45 102 H 16 122/79 99 06/08/17 00:40 98.2 F 112 H 20 98 Temperature: Afebrile Blood Pressure: Normal Pulse: Regular Respiratory Rate: Normal Appearance: Positive for: Well-Appearing, Non-Toxic, Comfortable Pain Distress: None Mental Status: Positive for: Alert and Oriented X 3 - Systems Exam Head: Present: Atraumatic, Normocephalic Pupils: Present: PERRL Extroacular Muscles: Present: EOMI Conjunctiva: Present: Normal Mouth: Present: Moist Mucous Membranes Neck: Present: Normal Range of Motion Respiratory/Chest: Present: Clear to Auscultation, Good Air Exchange. No: Respiratory Distress, Accessory Muscle Use Cardiovascular: Present: Regular Rate and Rhythm, Normal S1, S2. No: Murmurs Abdomen: Present: Tenderness (RUQ tenderness), Normal Bowel Sounds. No: Distention, Peritoneal Signs Back: Present: Normal Inspection Upper Extremity: Present: Normal Inspection. No: Cyanosis, Edema Lower Extremity: Present: Normal Inspection. No: Edema Neurological: Present: GCS=15, CN II-XII Intact, Speech Normal Skin: Present: Warm, Dry, Normal Color. No: Rashes Psychiatric: Present: Alert, Oriented x 3, Normal Insight, Normal Concentration Medical Decision Making ED Course and Treatment: 06/08/17 00:44 Impression: 31 year old female complaining of epigastric/RUQ abdominal pain for 1 week. Differential Diagnosis included but are not limited to: pancreatitis vs. biliary colic vs. gastritis vs. gastroparesis vs. abdominal pain Plan: -- CT Abdomen and Pelvis w/o contrast -- EKG -- Labs, cardiac enzymes, amylase, lipase, blood cultures -- Urinalysis -- IV fluids -- Zofran -- Protonix -- Reassess and disposition Prior Visits: Notes and results from previous visits were reviewed. On 04/08/2017, pt was seen in the Emergency department for abdominal pain, nausea, vomiting, and diarrhea. Pt was admitted to the hospital for further evaluation. Progress Notes: 06/08/17 01:13 Reviewed EKG, sinus tachycardia at 101 bpm. Non-specific ST/T wave changes. 06/08/17 01:52 Reviewed radiology, CT Abdomen and Pelvis shows: No acute findings. 06/08/17 01:[address] Wang, who is aware and agrees with plan. Accepts pt in to his service. Pt will go to [facility] observation for abdominal pain. Pt is no acute distress. Discussed results and hospital observation plan with pt , who is aware and verbalizes understanding. - Lab Interpretations Microbiology Results: Microbiology Results 06/08/17 01:25 Blood-Venous Blood Culture - Preliminary NO GROWTH AFTER 3 DAYS 06/08/17 01:08 Blood-Venous Blood Culture - Preliminary NO GROWTH AFTER 3 DAYS Lab Results: 06/08/17 00:58 06/08/17 00:58 Lab Results 06/08/17 01:08: Urine Color Yellow, Urine Appearance Sl cloudy, Urine pH 6.0, Ur Specific [place] 1.015, Urine Protein 30 H, Urine Glucose (UA) >=1000, Urine Ketones Negative, Urine Blood Large H, Urine Nitrate Negative, Urine Bilirubin Negative, Urine Urobilinogen 0.2, Ur Leukocyte Esterase Negative, Urine RBC 2 - 5, Urine WBC 0 - 2, Ur Epithelial Cells 3 - 4 06/08/17 00:58: Sodium 133, Potassium 4.1, Chloride 95 L, Carbon Dioxide 22, Anion Gap 20, BUN 12, Creatinine 0.7, Est GFR ( Amer) > 60, Est GFR (Non- Af Amer) > 60, Random Glucose 468 H* D, Calcium 9.7, Total Bilirubin 0.7, AST 18 , ALT 20, Alkaline Phosphatase 141 H, Lactate Dehydrogenase 429, Total Creatine Kinase 43, Troponin I < 0.01 D, Total Protein 8.3, Albumin 4.1, Globulin 4.1, Albumin/Globulin Ratio 1.0 L, Amylase 77, Lipase 184 06/08/17 00:58: PT 10.6, INR 0.98, APTT 27.2 06/08/17 00:58: WBC 10.7 D, RBC 4.34, Hgb 13.3, Hct 37.3, MCV 85.9, MCH 30.6, MCHC 35.7, RDW 12.4, Plt Count 303, MPV 11.5 H, Gran % 58.0, Lymph % (Auto) 32.0 , [place] % (Auto) 5.4, Eos % (Auto) 4.3, Baso % (Auto) 0.3, Gran # 6.19, Lymph # 3.4, [place] # 0.6, Eos # 0.5, Baso # 0.03 I have reviewed the lab results: Yes - RAD Interpretation Narrative RAD Interpretations (Text): CT Abdomen and Pelvis shows: Lower thorax: No acute findings. ABDOMEN: Liver: No acute findings. Gallbladder and bile ducts: No acute findings. No calcified stones. No ductal dilation. Pancreas: No acute findings. No ductal dilation. Spleen: No acute findings. No splenomegaly. Adrenals: No acute findings. No mass. Kidneys and ureters: No acute findings. No obstructing stones. No hydronephrosis. Stomach and bowel: No acute findings. No obstruction. No mucosal thickening. Appendix: No findings to suggest acute appendicitis. PELVIS: Bladder: No acute findings. No stones. Reproductive: No acute findings. ABDOMEN and PELVIS: Intraperitoneal space: No acute findings. No free air. No significant fluid collection. Bones/joints: No acute fracture. No dislocation. Soft tissues: No acute findings. Vasculature: No acute findings. No abdominal aortic aneurysm. Lymph nodes: No acute findings. No enlarged lymph nodes. IMPRESSION: No acute findings. Radiology Orders: 06/08/17 00:44 ABD & PELVIS W/O PO OR IV CONT [CT] Stat Commercial Intelligence Manager: Radiologist - EKG Interpretation Interpreted by ED Physician: Yes Type: 12 lead EKG - Medication Orders Current Medication Orders: Discontinued Medications Diphenhydramine HCl (Benadryl) 25 mg PO Q6 PRN PRN Reason: Itching / Pruritus Last Admin: 06/10/17 16:55 Dose: 25 mg Fenofibrate (Tricor) 145 mg PO HS LILIANA Hydromorphone HCl (Dilaudid) 2 mg IVP STAT STA Stop: 06/08/17 01:15 Last Admin: 06/08/17 01:41 Dose: 2 mg Hydromorphone HCl (Dilaudid) 1 mg IVP Q4H PRN PRN Reason: Pain, moderate (4-7) Last Admin: 06/10/17 16:54 Dose: 1 mg Hydroxyzine Pamoate (Vistaril) 25 mg PO Q8 STA PRN Reason: Protocol Stop: 06/08/17 23:08 Last Admin: 06/08/17 23:15 Dose: 25 mg Re-Assess: Reassess Psych Meds Document 06/09/17 00:15 (Rec: 06/09/17 03:53 KP [id number]) Reassess Psych Med Effective Sodium Chloride (Sodium Chloride 0.9%) 1,000 mls @ 100 mls/hr IV .Q10H STA Stop: 06/08/17 10:43 Last Admin: 06/08/17 01:42 Dose: 100 mls/hr Sodium Chloride (Sodium Chloride 0.9%) 1,000 mls @ 100 mls/hr IV .Q10H STA Stop: 06/08/17 11:58 Last Admin: 06/08/17 02:09 Dose: Sodium Chloride (Sodium Chloride 0.9%) 1,000 mls @ 150 mls/hr IV .Q6H40M [facility] Last Admin: 06/09/17 15:23 Dose: 150 mls/hr Sodium Chloride (Sodium Chloride 0.9%) 1,000 mls @ 100 mls/hr IV .Q10H [facility] Last Admin: 06/10/17 13:55 Dose: 100 mls/hr Insulin Detemir (Levemir) 10 unit SC HS [facility] Insulin Detemir (Levemir) 12 unit SC Q12H [facility] Last Admin: 06/09/17 22:44 Dose: 12 unit Insulin Detemir (Levemir) 20 unit SC HS LILIANA Insulin Human Lispro (Humalog) 6 units SC AC [facility] Last Admin: 06/10/17 16:56 Dose: Insulin Human Lispro (Humalog Low) 0 units SC ACHS LILIANA PRN Reason: Protocol Last Admin: 06/10/17 16:56 Dose: Not Given Non-Admin Reason: Blood Sugar Parameter Insulin Human Regular (Humulin R) 8 units SC STAT STA Stop: 06/08/17 01:51 Last Admin: 06/08/17 02:58 Dose: Not Given Non-Admin Reason: Blood Sugar Parameter Comments: BS 350, patient NPO. notified and cancelled insulin. Insulin Human Regular (Humulin R) Confirm Administered Dose 8 units .ROUTE .STK- MED ONE Stop: 06/08/17 01:56 Last Admin: 06/08/17 02:09 Dose: Insulin Human Regular (Humulin R Low) 0 units SC ACHS [facility] PRN Reason: Protocol Last Admin: 06/10/17 08:55 Dose: 3 units Iohexol (Omnipaque 350 150 Ml) Confirm Administered Dose 150 ml .ROUTE .STK-MED ONE Stop: 06/09/17 09:47 Iohexol (Omnipaque 240 (50 Ml)) Confirm Administered Dose 50 ml .ROUTE .[facility]-MED ONE Stop: 06/09/17 10:00 Magnesium Citrate (Citrate Of Mag) 300 ml PO ONCE ONE Stop: 06/09/17 16:48 Last Admin: 06/09/17 16:55 Dose: 300 ml Magnesium Citrate (Citrate Of Mag) 300 ml PO ONCE ONE Stop: 06/10/17 06:01 Last Admin: 06/10/17 05:48 Dose: Not Given Non-Admin Reason: Patient Refused Morphine Sulfate (Morphine) 2 mg SC Q4H PRN PRN Reason: Pain, moderate (4-7) Morphine Sulfate (Morphine) 2 mg IVP Q4H PRN PRN Reason: Pain, moderate (4-7) Last Admin: 06/08/17 03:25 Dose: 2 mg Morphine Sulfate (Morphine) 2 mg IVP STAT STA Stop: 06/08/17 05:53 Last Admin: 06/08/17 06:00 Dose: 2 mg Non-Formulary Medication (Osseo Citrate [Osseo]) 25 mg PO BID [facility] Last Admin: 06/09/17 01:27 Dose: Kiacr-2-Ustq Ethyl Esters (Lovaza) 1 gm PO BID [facility] Ondansetron HCl (Zofran Inj) 4 mg IVP STAT STA Stop: 06/08/17 00:45 Last Admin: 06/08/17 01:41 Dose: 4 mg Ondansetron HCl (Zofran Inj) 4 mg IVP Q6H PRN PRN Reason: Nausea/Vomiting Last Admin: 06/09/17 17:49 Dose: 4 mg Pantoprazole Sodium (Protonix Inj) 40 mg IVP STAT STA Stop: 06/08/17 00:53 Last Admin: 06/08/17 01:41 Dose: 40 mg Pantoprazole Sodium (Protonix Inj) 40 mg IVP DAILY [facility] Last Admin: 06/10/17 10:50 Dose: 40 mg Polyethylene Glycol (Miralax) 17 gm PO BID LILIANA Polyethylene Glycol (Miralax) 17 gm PO QID [facility] Last Admin: 06/10/17 13:55 Dose: 17 gm Sertraline HCl (Zoloft) 50 mg PO BID [facility] Last Admin: 06/10/17 10:50 Dose: 50 mg - Scribe Statement The provider has reviewed the documentation as recorded by the Carole Horn Provider Scribe Attestation: All medical record entries made by the Scribe were at my direction and personally dictated by me. I have reviewed the chart and agree that the record accurately reflects my personal performance of the history, physical exam, medical decision making, and the department course for this patient. I have also personally directed, reviewed, and agree with the discharge instructions and disposition. Disposition/Present on Arrival - Present on Arrival Any Indicators Present on Arrival: No History of DVT/PE: No History of Uncontrolled Diabetes: Yes Urinary Catheter: No History of Decub. Ulcer: No History Surgical Site Infection Following: None - Disposition Have Diagnosis and Disposition been Completed?: Yes Diagnosis: Abdominal pain Disposition: HOSPITALIZED Disposition Time: :55 Condition: GOOD
[2017-06-08] MEDS ORDERED: HYDROmorphone 2 mg/ml ISec IVP STA (01:14)
[2017-06-08 01:23] LABS: BASO # 0.03 K/mm3 (0.0-2.0); BASO % 0.3 % (0.0-3.0); EOS # 0.5 (0.0-0.7); EOS % 4.3 % (1.5-5.0); GRAN # 6.19 (1.4-6.5); HEMOGLOBIN 13.3 gm/dL (12.0-16.0); LYMPH # 3.4 (1.2-3.4); MEAN CELL VOLUME 85.9 fL (80.0-105.0); MEAN CORPUSCULAR HEMOGLOBIN 30.6 pg (25.0-35.0); MEAN CORPUSCULAR HGB CONC 35.7 g/dl (31.0-37.0); MEAN PLATELET VOLUME 11.5 fl (7.0-11.0); MONO # 0.6 (0.1-0.6); MONO % 5.4 % (1.0-6.0); PLATELET COUNT 303 10^3/uL (120.0-450.0); RBC 4.34 10^6/uL (3.5-6.1); RED CELL DISTRIBUTION WIDTH 12.4 % (11.5-14.5); WHITE BLOOD COUNT 10.7 10^3/ul (4.5-11.0)
[2017-06-08 01:31] LABS: INR 0.98 (0.93-1.08); PARTIAL THROMBOPLASTIN TIME 27.2 Seconds (23.7-30.8); PROTHROMBIN TIME 10.6 Seconds (9.9-11.8)
[2017-06-08 01:32] LABS: ALBUMIN 4.1 g/dL (3.0-4.8); ALT/SGPT 20 U/L (7-56); AMYLASE 77 U/L (35-125); AST/SGOT 18 U/L (15-39); BLOOD UREA NITROGEN 12 mg/dL (7-21); CALCIUM 9.7 mg/dL (8.4-10.5); GFR AFRICAN-AMERICAN > 60; GFR NON-AFRICAN AMERICAN > 60; LIPASE 184 U/L (23-300)
[2017-06-08 01:39] LABS: URINE APPEARANCE SL CLOUDY (CLEAR); URINE BILIRUBIN NEGATIVE (NEGATIVE); URINE BLOOD LARGE (NEGATIVE); URINE COLOR YELLOW (YELLOW); URINE GLUCOSE (UA) >=1000 mg/dL (NEGATIVE); URINE LEUKOCYTE ESTERASE NEGATIVE Leu/uL (NEGATIVE); URINE NITRATE NEGATIVE (NEGATIVE); URINE PROTEIN 30 mg/dL (<30 mg/dL); URINE UROBILINOGEN 0.2 E.U./dL (<1 E.U./dL)
[2017-06-08 01:42] LABS: URINE WBC 0 - 2 /hpf (0-6)
[2017-06-08 01:44] LABS: TROPONIN I < 0.01 ng/mL
[2017-06-08] MEDS ORDERED: Insulin Regular 1 UNITS/0.01 ML ML SC STA (01:50)
[2017-06-08] MEDS ORDERED: Insulin Regular 1 UNITS/0.01 ML ML ONE (01:55)
[2017-06-08] MEDS ORDERED: Morphine 2 mg/ml ISec SC PRN (02:00)
[2017-06-08 02:31] LABS: ALBUMIN 3.8 g/dL (3.0-4.8); ALT/SGPT 23 U/L (7-56); AST/SGOT 16 U/L (15-39); BLOOD UREA NITROGEN 11 mg/dL (7-21); CALCIUM 9.2 mg/dL (8.4-10.5); GFR AFRICAN-AMERICAN > 60; GFR NON-AFRICAN AMERICAN > 60
[2017-06-08] MEDS ORDERED: Morphine 2 mg/ml ISec IVP PRN (02:33)
[2017-06-08 05:26] VITALS: RESP 20; BMI 32.1
[2017-06-08] MEDS ORDERED: Morphine 2 mg/ml ISec IVP STA (05:52)
--- NOTE | 2017-06-08 06:01 | CP.PCM.PN ---
Subjective - Date & Time of Evaluation Date of Evaluation: 06/08/17 Time of Evaluation: 05:58 - Subjective Subjective: Patient was seen at bedside for abdominal pain. She has epigastric and LUQ pain. Has no other complaints now. Denies chest pain, nausea, vomiting ,diarrhoea,constipation. Medical record was reviewed. This 31 year old woman was admitted with epigastric and RUQ pain of one week duration. Has PMH of Asthma,obesity,DM, HTN,gastritis,gastroparesis, pancreatitis. She received Morphine 2 mg IV about 3:30 -4 AM. Objective - Vital Signs/Intake and Output Vital Signs (last 24 hours): Temp Pulse Resp BP Pulse Ox 97.7 F 96 H 20 121/89 98 06/08/17 05:01 06/08/17 05:01 06/08/17 05:01 06/08/17 05:01 06/08/17 03:03 Intake and Output: 06/07/17 06/08/17 18:59 06:59 Intake Total 0 Balance 0 - Medications Medications: Current Medications Sodium Chloride (Sodium Chloride 0.9%) 1,000 mls @ 100 mls/hr IV .Q10H STA Stop: 06/08/17 10:43 Last Admin: 06/08/17 01:42 Dose: 100 mls/hr Sodium Chloride (Sodium Chloride 0.9%) 1,000 mls @ 100 mls/hr IV .Q10H STA Stop: 06/08/17 11:58 Last Admin: 06/08/17 02:09 Dose: Not Given Insulin Human Regular (Humulin R Low) 0 units SC ACHS LILIANA PRN Reason: Protocol Morphine Sulfate (Morphine) 2 mg IVP Q4H PRN PRN Reason: Pain, moderate (4-7) Last Admin: 06/08/17 03:25 Dose: 2 mg - Labs Labs: 06/08/17 02:03 PT 10.6 Seconds (9.9-11.8) 06/08/17 00:58 INR 0.98 (0.93-1.08) 06/08/17 00:58 APTT 27.2 Seconds (23.7-30.8) 06/08/17 00:58 Laboratory Last Values WBC 10.7 10^3/ul (4.5-11.0) D 06/08/17 00:58 RBC 4.34 10^6/uL (3.5-6.1) 06/08/17 00:58 Hgb 13.3 gm/dL (12.0-16.0) 06/08/17 00:58 Hct 37.3 % (36.0-48.0) 06/08/17 00:58 MCV 85.9 fL (80.0-105.0) 06/08/17 00:58 MCH 30.6 pg (25.0-35.0) 06/08/17 00:58 MCHC 35.7 g/dl (31.0-37.0) 06/08/17 00:58 RDW 12.4 % (11.5-14.5) 06/08/17 00:58 Plt Count 303 10^3/uL (120.0-450.0) 06/08/17 00:58 MPV 11.5 fl (7.0-11.0) H 06/08/17 00:58 Gran % 58.0 % (50.0-68.0) 06/08/17 00:58 Lymph % (Auto) 32.0 % (22.0-35.0) 06/08/17 00:58 [place] % (Auto) 5.4 % (1.0-6.0) 06/08/17 00:58 Eos % (Auto) 4.3 % (1.5-5.0) 06/08/17 00:58 Baso % (Auto) 0.3 % (0.0-3.0) 06/08/17 00:58 Gran # 6.19 (1.4-6.5) 06/08/17 00:58 Lymph # 3.4 (1.2-3.4) 06/08/17 00:58 [place] # 0.6 (0.1-0.6) 06/08/17 00:58 Eos # 0.5 (0.0-0.7) 06/08/17 00:58 Baso # 0.03 K/mm3 (0.0-2.0) 06/08/17 00:58 PT 10.6 Seconds (9.9-11.8) 06/08/17 00:58 INR 0.98 (0.93-1.08) 06/08/17 00:58 APTT 27.2 Seconds (23.7-30.8) 06/08/17 00:58 Sodium 134 mmol/L (132-148) 06/08/17 02:03 Potassium 4.0 mmol/L (3.6-5.0) 06/08/17 02:03 Chloride 99 mmol/L (98-107) 06/08/17 02:03 Carbon Dioxide 22 mmol/L (21-33) 06/08/17 02:03 Anion Gap 17 (10-20) 06/08/17 02:03 BUN 11 mg/dL (7-21) 06/08/17 02:03 Creatinine 0.6 mg/dL (0.5-1.4) 06/08/17 02:03 Est GFR ( Amer) > 60 06/08/17 02:03 Est GFR (Non-Af Amer) > 60 06/08/17 02:03 POC Glucose (mg/dL) 324 mg/dL (65-110) H 06/08/17 01:58 Random Glucose 354 mg/dL (70-110) H* D 06/08/17 02:03 Calcium 9.2 mg/dL (8.4-10.5) 06/08/17 02:03 Total Bilirubin 0.5 mg/dL (0.2-1.3) 06/08/17 02:03 AST 16 U/L (15-39) 06/08/17 02:03 ALT 23 U/L (7-56) 06/08/17 02:03 Alkaline Phosphatase 130 U/L (38-133) 06/08/17 02:03 Lactate Dehydrogenase 429 U/L (333-699) 06/08/17 00:58 Total Creatine Kinase 43 U/L (35-230) 06/08/17 00:58 Troponin I < 0.01 ng/mL D 06/08/17 00:58 Total Protein 7.7 g/dL (5.8-8.3) 06/08/17 02:03 Albumin 3.8 g/dL (3.0-4.8) 06/08/17 02:03 Globulin 3.9 gm/dL 06/08/17 02:03 Albumin/Globulin Ratio 1.0 (1.1-1.8) L 06/08/17 02:03 Amylase 77 U/L (35-125) 06/08/17 00:58 Lipase 184 U/L (23-300) 06/08/17 00:58 Urine Color Yellow (YELLOW) 06/08/17 01:08 Urine Appearance Sl cloudy (CLEAR) 06/08/17 01:08 Urine pH 6.0 (4.7-8.0) 06/08/17 01:08 Ur Specific [place] 1.015 (1.005-1.035) 06/08/17 01:08 Urine Protein 30 mg/dL (<30 mg/dL) H 06/08/17 01:08 Urine Glucose (UA) >=1000 mg/dL (NEGATIVE) 06/08/17 01:08 Urine Ketones Negative mg/dL (NEGATIVE) 06/08/17 01:08 Urine Blood Large (NEGATIVE) H 06/08/17 01:08 Urine Nitrate Negative (NEGATIVE) 06/08/17 01:08 Urine Bilirubin Negative (NEGATIVE) 06/08/17 01:08 Urine Urobilinogen 0.2 E.U./dL (<1 E.U./dL) 06/08/17 01:08 Ur Leukocyte Esterase Negative [place]/uL (NEGATIVE) 06/08/17 01:08 Urine RBC 2 - 5 /hpf (0-2) 06/08/17 01:08 Urine WBC 0 - 2 /hpf (0-6) 06/08/17 01:08 Ur Epithelial Cells 3 - 4 /hpf (0-5) 06/08/17 01:08 - Constitutional Appears: Well, No Acute Distress - Head Exam Head Exam: ATRAUMATIC, NORMAL INSPECTION, NORMOCEPHALIC - Eye Exam Eye Exam: Normal appearance - ENT Exam ENT Exam: Mucous Membranes Dry - Neck Exam Neck Exam: Normal Inspection - Respiratory Exam Respiratory Exam: NORMAL BREATHING PATTERN - Cardiovascular Exam Cardiovascular Exam: absent: JVD - GI/Abdominal Exam GI & Abdominal Exam: Soft (Yes.), Tenderness (Mild in epigastric and LUQ area.RUQ is non tender.), Normal Bowel Sounds. absent: Bruit, Distended, Firm, Guarding, Rigid, Hernia, Mass, Organomegaly, Pulsatile Mass, Rebound - Rectal Exam Rectal Exam: Deferred - Exam Additional comments: Deferred. - Extremities Exam Extremities Exam: Normal Inspection - Back Exam Back Exam: NORMAL INSPECTION - Neurological Exam Neurological Exam: Alert, Oriented x3 - Psychiatric Exam Psychiatric exam: Normal Affect, Normal Mood - Skin Skin Exam: Normal Color Assessment and Plan - Assessment and Plan (Free Text) Assessment: Epigastric/LUQ pain. Gastritis. Gastroparesis. DM II. HTN. Obesity. History of pancreatitis. Hyperglycemia. Elevated alkaline phosphatase level. Plan: Morphine 2 mg IV stat. Continue present management as per PMD.
[2017-06-08] MEDS: Insulin Reg-LOW-Coverage SC SCH ×5 (08:09→23:36)
--- NOTE | 2017-06-08 09:28 | CT ---
PROCEDURE: CT Abdomen and Pelvis without intravenous contrast HISTORY: abd pain COMPARISON: None. TECHNIQUE: Without contrast.. Contrast Dose: Radiation dose: Total exam DLP = 801 mGy-cm. This CT exam was performed using one or more of the following dose reduction techniques: Automated exposure control, adjustment of the mA and/or kV according to patient size, and/or use of iterative reconstruction technique. FINDINGS: LOWER THORAX: Unremarkable. LIVER: Unremarkable. No gross lesion or ductal dilatation. GALLBLADDER AND BILE DUCTS: Unremarkable. PANCREAS: Unremarkable. No gross lesion or ductal dilatation. SPLEEN: Unremarkable. ADRENALS: Unremarkable. No mass. KIDNEYS AND URETERS: Unremarkable. No hydronephrosis. No solid mass. VASCULATURE: Unremarkable. No aortic aneurysm. BOWEL: Unremarkable. No obstruction. No gross mural thickening. APPENDIX: Unremarkable. Normal appendix. PERITONEUM: Unremarkable. No free fluid. No free air. LYMPH NODES: Unremarkable. No enlarged lymph nodes. BLADDER: Unremarkable. REPRODUCTIVE: Unremarkable. BONES: No acute fracture. OTHER FINDINGS: None. IMPRESSION: No acute intra-abdominal findings
--- NOTE | 2017-06-08 09:54 | CARD ---
APPROVED REPORT EKG Measurement Heart [id number] MA [id number] <Conclusion> Sinus tachycardia Q in 3 No change
[2017-06-08] MEDS: HYDROmorphone 1 mg/ml ISec IVP PRN ×3 (10:36→20:41)
[2017-06-08] MEDS: Sodium Chloride 0.9% 1,000 ML IV SCH (10:37)
--- NOTE | 2017-06-08 10:42 | CP.PCM.HP ---
History of Present Illness - History of Present Illness History of Present Illness: Patient is a 31 yo F with a PMHx of asthma,obesity, DM, htn, gastritis, gastroparesis, pancreatitis who is being evaluated and treated for epigastric pain of one week duration with no provoking event. The pain is characterized as a pressure which radiates to her back and intermittently becomes sharp while radiating to her legs. Admits to approximately ten bouts of nonbloody diarrhea and ten bouts of nonbloody emesis in the past 24 hours. Admits to her abdomen being more distended then normal. Admits to 3 months ago and has followed up with her weigher alloy thereafter. Denies fever, chills, chest pain, SOB, and urinary symptoms. PMHx: of Asthma,obesity,DM, HTN,gastritis,gastroparesis, pancreatitis PSHx: none Allergies: NKDA Family Hx: Both parents- AIDS, maternal grandmother- pancreatic cancer, sister- cervical cancer, cousin- breast cancer Present on Admission - Present on Admission Any Indicators Present on Admission: No Review of Systems - Review of Systems Review of Systems: 12 point review of systems negative except as indicated in HPI. Past Patient History - Infectious Disease Hx of Infectious Diseases: None - Past Social History Smoking Status: Light Smoker < 10 Cigarettes Daily - CARDIAC Hx Cardiac Disorders: Yes Hx Hypertension: Yes - PULMONARY Hx Respiratory Disorders: Yes Hx Asthma: Yes - NEUROLOGICAL Hx Neurological Disorder: No - HEENT Hx HEENT Problems: No - RENAL Hx Chronic Kidney Disease: No - ENDOCRINE/METABOLIC Hx Endocrine Disorders: Yes Hx Diabetes Mellitus Type 2: Yes - HEMATOLOGICAL/ONCOLOGICAL Hx Blood Disorders: No - INTEGUMENTARY Hx Dermatological Problems: No - MUSCULOSKELETAL/RHEUMATOLOGICAL Hx Musculoskeletal Disorders: Yes Hx Falls: No - GASTROINTESTINAL Hx Gastrointestinal Disorders: Yes Hx Pancreatitis: Yes Other/Comment: gastroparesis - GENITOURINARY/GYNECOLOGICAL Hx Genitourinary Disorders: No - PSYCHIATRIC Hx Psychophysiologic Disorder: No Hx Substance Use: No - SURGICAL HISTORY Other/Comment: bartholenes cyst I and D - ANESTHESIA Hx Anesthesia Reactions: No Hx Malignant Hyperthermia: No Meds Allergies/Adverse Reactions: Allergies Allergy/AdvReac Type Severity Reaction Status Date / Time No Known Allergies Allergy Verified 06/08/17 00:44 Physical Exam - Constitutional Appears: Well, No Acute Distress - Head Exam Head Exam: ATRAUMATIC, NORMAL INSPECTION - Eye Exam Eye Exam: EOMI, Normal appearance - ENT Exam ENT Exam: Mucous Membranes Moist - Neck Exam Neck exam: Positive for: Normal Inspection, Tenderness - Respiratory Exam Respiratory Exam: Clear to Auscultation Bilateral, NORMAL BREATHING PATTERN. absent: Rales, Rhonchi, Wheezes - Cardiovascular Exam Cardiovascular Exam: +S1, +S2 - GI/Abdominal Exam GI & Abdominal Exam: Soft. absent: Guarding, Rebound, Rigid - Back Exam Back exam: CVA tenderness (L), CVA tenderness (R) - Neurological Exam Neurological exam: CN II-XII Intact, Oriented x3 - Psychiatric Exam Psychiatric exam: Normal Affect, Normal Mood - Skin Skin Exam: Normal Color, Warm Results - Vital Signs Recent Vital Signs: Last Vital Signs Temp 97.7 F 06/08/17 07:52 Pulse 94 H 06/08/17 07:52 Resp 20 06/08/17 07:52 BP 109/71 06/08/17 07:52 Pulse Ox 94 L 06/08/17 07:52 - Labs Result Diagrams: 06/08/17 00:58 06/08/17 02:03 Labs: Laboratory Results - last 24 hr 06/08/17 06/08/17 06/08/17 02:03 03:13 07:09 Sodium 134 Potassium 4.0 Chloride 99 Carbon Dioxide 22 Anion Gap 17 BUN 11 Creatinine 0.6 Est GFR ( Amer) > 60 Est GFR (Non-Af Amer) > 60 POC Glucose (mg/dL) 288 H 235 H Random Glucose 354 H* D Calcium 9.2 Total Bilirubin 0.5 AST 16 ALT 23 Alkaline Phosphatase 130 Total Protein 7.7 Albumin 3.8 Globulin 3.9 Albumin/Globulin Ratio 1.0 L Assessment & Plan - Assessment and Plan (Free Text) Assessment: Patient is a 31 yo F with a PMHx of asthma,obesity, DM, htn, gastritis, gastroparesis, pancreatitis who is being evaluated and treated for epigastric pain. 1. Abdominal Pain - NPO - IVF - Zofran - Pain control - Rule out nephrolithiasis - recommend consulting urology - recommend repeating TAGs
--- NOTE | 2017-06-08 17:11 | CP.PCM.CON ---
<Miranda Goldsmith - Last Filed: 06/08/17 17:14> History of Present Illness - History of Present Illness History of Present Illness: Seen and examined and chart reviewed. Request for consult is for abdominal pain. HPI: This is a 31 year old obses female with PMH of pancreatitis, obesity, asthma, came to the hospital with c/o worsening epigastric pain. 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 During admission had EGD/EUS and found to have duodenitis, gastritis and sludge in CBD, no bilairy dilation (see full report in [facility]). Also had MRCP on 04/10/2017 and report fatty liver, CBD was ok, no stone, saw small gallstone, pancratitis. She reports that she has been having abdominal pain for a week and was getting worse, felt more lie a "pressure", most pain is in the epigastric and radiates to her back. She did have nausea, no fever or chills. She was able to eat at one point but ended up vomiting, no bleeding. She had BM but had multiple loose, prior was having formed stool. Denies post prandial pain, denies contributing foods, has been watching her diet. Denies hematuria, frequency, hematuriaShe was taking tylenol for the pain. Had ct scan A7P w/no contrast and was negative for acute findings. 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 FHX: Grandmother: pancreatic cancer, sister: cervical cancer, parents: AIDS Social HX: denies smoking, etoh, drugs MEDS: reviewed as per MAR ROS: systems reviewed with positive findings, see HPI Past Patient History - Infectious Disease Hx of Infectious Diseases: None - Past Social History Smoking Status: Light Smoker < 10 Cigarettes Daily - CARDIAC Hx Cardiac Disorders: Yes Hx Hypertension: Yes - PULMONARY Hx Respiratory Disorders: Yes Hx Asthma: Yes - NEUROLOGICAL Hx Neurological Disorder: No - HEENT Hx HEENT Problems: No - RENAL Hx Chronic Kidney Disease: No - ENDOCRINE/METABOLIC Hx Endocrine Disorders: Yes Hx Diabetes Mellitus Type 2: Yes - HEMATOLOGICAL/ONCOLOGICAL Hx Blood Disorders: No - INTEGUMENTARY Hx Dermatological Problems: No - MUSCULOSKELETAL/RHEUMATOLOGICAL Hx Musculoskeletal Disorders: Yes Hx Falls: No - GASTROINTESTINAL Hx Gastrointestinal Disorders: Yes Hx Pancreatitis: Yes Other/Comment: gastroparesis - GENITOURINARY/GYNECOLOGICAL Hx Genitourinary Disorders: No - PSYCHIATRIC Hx Psychophysiologic Disorder: No Hx Substance Use: No - SURGICAL HISTORY Other/Comment: bartholenes cyst I and D - ANESTHESIA Hx Anesthesia Reactions: No Hx Malignant Hyperthermia: No Meds Allergies/Adverse Reactions: Allergies Allergy/AdvReac Type Severity Reaction Status Date / Time No Known Allergies Allergy Verified 06/08/17 00:44 - Medications Medications: Current Medications Diphenhydramine HCl (Benadryl) 25 mg PO Q6 PRN PRN Reason: Itching / Pruritus Last Admin: 06/08/17 16:14 Dose: 25 mg Hydromorphone HCl (Dilaudid) 1 mg IVP Q4H PRN PRN Reason: Pain, moderate (4-7) Last Admin: 06/08/17 15:05 Dose: 1 mg Sodium Chloride (Sodium Chloride 0.9%) 1,000 mls @ 150 mls/hr IV .Q6H40M COUNT INCLUDES THE [facility] Last Admin: 06/08/17 10:37 Dose: 150 mls/hr Insulin Detemir (Levemir) 12 unit SC Q12H [facility] Insulin Human Regular (Humulin R Low) 0 units SC ACHS [facility] PRN Reason: Protocol Last Admin: 06/08/17 12:06 Dose: Not Given Ondansetron HCl (Zofran Inj) 4 mg IVP Q6H PRN PRN Reason: Nausea/Vomiting Pantoprazole Sodium (Protonix Inj) 40 mg IVP DAILY COUNT INCLUDES THE [facility] Physical Exam - Constitutional Appears: No Acute Distress - Head Exam Head Exam: NORMOCEPHALIC - Eye Exam Eye Exam: Normal appearance. absent: Scleral icterus - ENT Exam ENT Exam: Mucous Membranes Moist - Neck Exam Neck exam: Positive for: Normal Inspection - Respiratory Exam Respiratory Exam: NORMAL BREATHING PATTERN. absent: Respiratory Distress - Cardiovascular Exam Cardiovascular Exam: +S1, +S2 - GI/Abdominal Exam GI & Abdominal Exam: Distended, Normal Bowel Sounds, Soft, Tenderness ( epigastric diffuse to RUQ). absent: Guarding, Rebound - Extremities Exam Extremities exam: Positive for: pedal pulses present. Negative for: calf tenderness, pedal edema - Neurological Exam Neurological exam: Alert, Oriented x3 - Skin Skin Exam: Dry, Warm Results - Vital Signs Recent Vital Signs: Last Vital Signs Temp 97.7 F 06/08/17 07:52 Pulse 94 H 06/08/17 07:52 Resp 20 06/08/17 07:52 BP 109/71 06/08/17 07:52 Pulse Ox 94 L 06/08/17 07:52 - Labs Result Diagrams: 06/08/17 00:58 06/08/17 02:03 Labs: Laboratory Results - last 24 hr 06/08/17 06/08/17 06/08/17 02:03 03:13 07:09 Sodium 134 Potassium 4.0 Chloride 99 Carbon Dioxide 22 Anion Gap 17 BUN 11 Creatinine 0.6 Est GFR ( Amer) > 60 Est GFR (Non-Af Amer) > 60 POC Glucose (mg/dL) 288 H 235 H Random Glucose 354 H* D Calcium 9.2 Total Bilirubin 0.5 AST 16 ALT 23 Alkaline Phosphatase 130 Total Protein 7.7 Albumin 3.8 Globulin 3.9 Albumin/Globulin Ratio 1.0 L Assessment & Plan - Assessment and Plan (Free Text) Assessment: ASSESSMENT: Abdominal pain, mainly epigastric/RUQ, unclear etiology, had recent EGD 04/2017 Gallstone H/O Pancreatitis Uncontrolled DM Obesity Gastritis PLAN: clears as tolerated continue PPI abdominal US continue IVF hydration , consider pancreatic protocol after hydration, FU in AM surgical FU endocrinology eval Thank you for this consult and for allowing us to participate in your patient , will make further recommendation based upon clinical course. Seen and discussed w/ Dr. Polo. <Bobby Polo V - Last Filed: 06/08/17 23:24> Meds - Medications Medications: Current Medications Diphenhydramine HCl (Benadryl) 25 mg PO Q6 PRN PRN Reason: Itching / Pruritus Last Admin: 06/08/17 20:49 Dose: 25 mg Hydromorphone HCl (Dilaudid) 1 mg IVP Q4H PRN PRN Reason: Pain, moderate (4-7) Last Admin: 06/08/17 20:41 Dose: 1 mg Sodium Chloride (Sodium Chloride 0.9%) 1,000 mls @ 150 mls/hr IV .Q6H40M [facility] Last Admin: 06/08/17 10:37 Dose: 150 mls/hr Insulin Detemir (Levemir) 12 unit SC Q12H [facility] Insulin Human Regular (Humulin R Low) 0 units SC ACHS [facility] PRN Reason: Protocol Last Admin: 06/08/17 22:24 Dose: Not Given Non-Formulary Medication (Winigan Citrate [Winigan]) 25 mg PO BID [facility] Ondansetron HCl (Zofran Inj) 4 mg IVP Q6H PRN PRN Reason: Nausea/Vomiting Pantoprazole Sodium (Protonix Inj) 40 mg IVP DAILY [facility] Sertraline HCl (Zoloft) 50 mg PO BID [facility] Last Admin: 06/08/17 21:00 Dose: 50 mg Results - Vital Signs Recent Vital Signs: Last Vital Signs Temp 97.7 F 06/08/17 16:00 Pulse 74 06/08/17 16:00 Resp 20 06/08/17 16:00 BP 117/85 06/08/17 16:00 Pulse Ox 98 06/08/17 16:00 - Labs Result Diagrams: 06/08/17 00:58 06/08/17 02:03 Labs: Laboratory Results - last 24 hr 06/08/17 06/08/17 06/08/17 02:03 03:13 07:09 Sodium 134 Potassium 4.0 Chloride 99 Carbon Dioxide 22 Anion Gap 17 BUN 11 Creatinine 0.6 Est GFR ( Amer) > 60 Est GFR (Non-Af Amer) > 60 POC Glucose (mg/dL) 288 H 235 H Random Glucose 354 H* D Calcium 9.2 Total Bilirubin 0.5 AST 16 ALT 23 Alkaline Phosphatase 130 Total Protein 7.7 Albumin 3.8 Globulin 3.9 Albumin/Globulin Ratio 1.0 L Attending/Attestation - Attestation I have personally seen and examined this patient.: Yes I have fully participated in the care of the patient.: Yes I have reviewed all pertinent clinical information: Yes Notes (Text): this is an addendum to the GI consultation report dictated by Miranda Goldsmith APN. CT scan reviewed previous records reviewed. Would encourage weight, close monitoring of the intake output IV hydration and repeat CAT scan with pancreatic protocol.
[2017-06-08] MEDS ORDERED: LITHIUM CITRATE PO SCH (20:15)
--- NOTE | 2017-06-08 20:15 | CP.PCM.HP ---
History of Present Illness - History of Present Illness History of Present Illness: c/o abdominal pain x 1 week 31 y female c/o abdominal pain similar to prvious admission with pancreatitis x 1 week getting worse in epigastric and right upper abdomen , no fever. no vomiting Present on Admission - Present on Admission Any Indicators Present on Admission: No History of Uncontrolled Diabetes: No Urinary Catheter: No History Surgical Site Infection Following: None Past Patient History - Infectious Disease Hx of Infectious Diseases: None - Past Social History Smoking Status: Light Smoker < 10 Cigarettes Daily - CARDIAC Hx Cardiac Disorders: Yes Hx Hypertension: Yes - PULMONARY Hx Respiratory Disorders: Yes Hx Asthma: Yes - NEUROLOGICAL Hx Neurological Disorder: No - HEENT Hx HEENT Problems: No - RENAL Hx Chronic Kidney Disease: No - ENDOCRINE/METABOLIC Hx Endocrine Disorders: Yes Hx Diabetes Mellitus Type 2: Yes - HEMATOLOGICAL/ONCOLOGICAL Hx Blood Disorders: No - INTEGUMENTARY Hx Dermatological Problems: No - MUSCULOSKELETAL/RHEUMATOLOGICAL Hx Musculoskeletal Disorders: Yes Hx Falls: No - GASTROINTESTINAL Hx Gastrointestinal Disorders: Yes Hx Pancreatitis: Yes Other/Comment: gastroparesis - GENITOURINARY/GYNECOLOGICAL Hx Genitourinary Disorders: No - PSYCHIATRIC Hx Psychophysiologic Disorder: No Hx Substance Use: No - SURGICAL HISTORY Other/Comment: bartholenes cyst I and D - ANESTHESIA Hx Anesthesia Reactions: No Hx Malignant Hyperthermia: No Meds Allergies/Adverse Reactions: Allergies Allergy/AdvReac Type Severity Reaction Status Date / Time No Known Allergies Allergy Verified 06/08/17 00:44 Physical Exam - Constitutional Appears: Well - Head Exam Head Exam: ATRAUMATIC, NORMAL INSPECTION, NORMOCEPHALIC - Eye Exam Eye Exam: EOMI, Normal appearance, PERRL Pupil Exam: NORMAL ACCOMODATION, PERRL - ENT Exam ENT Exam: Mucous Membranes Moist, Normal Exam - Neck Exam Neck exam: Positive for: Normal Inspection - Respiratory Exam Respiratory Exam: Clear to Auscultation Bilateral, NORMAL BREATHING PATTERN - Cardiovascular Exam Cardiovascular Exam: REGULAR RHYTHM - GI/Abdominal Exam GI & Abdominal Exam: Tenderness Additional comments: epigastric and ruq tender very sensitive to touch - Rectal Exam Rectal Exam: Deferred - Extremities Exam Extremities exam: Positive for: normal inspection - Back Exam Back exam: NORMAL INSPECTION - Neurological Exam Neurological exam: Alert, Altered, CN II-XII Intact, Normal Gait, Oriented x3, Reflexes Normal - Psychiatric Exam Psychiatric exam: Normal Affect, Normal Mood - Skin Skin Exam: Dry, Intact, Normal Color, Warm Results - Vital Signs Recent Vital Signs: Last Vital Signs Temp 97.7 F 06/08/17 16:00 Pulse 74 06/08/17 16:00 Resp 20 06/08/17 16:00 BP 117/85 06/08/17 16:00 Pulse Ox 98 06/08/17 16:00 - Labs Result Diagrams: 06/08/17 00:58 06/08/17 02:03 Labs: Laboratory Results - last 24 hr 06/08/17 06/08/17 06/08/17 02:03 03:13 07:09 Sodium 134 Potassium 4.0 Chloride 99 Carbon Dioxide 22 Anion Gap 17 BUN 11 Creatinine 0.6 Est GFR ( Amer) > 60 Est GFR (Non-Af Amer) > 60 POC Glucose (mg/dL) 288 H 235 H Random Glucose 354 H* D Calcium 9.2 Total Bilirubin 0.5 AST 16 ALT 23 Alkaline Phosphatase 130 Total Protein 7.7 Albumin 3.8 Globulin 3.9 Albumin/Globulin Ratio 1.0 L Assessment & Plan (1) Abdominal pain Status: Acute (2) Hyperglycemia Status: Acute (3) Morbid obesity Status: Acute (4) Bipolar 1 disorder Status: Acute - Assessment and Plan (Free Text) Plan: admitt . gi,surgery , consults , iv fluid, insulin, endocrine consult , non compliance, morbid obese diabetes uncontrolled. bipolar see orders resume psych meds.
--- NOTE | 2017-06-08 20:36 | US ---
EXAM: US Abdomen Complete CLINICAL HISTORY: The patient age is 31 years old and is female; Pain; Abdominal pain; Epigastric; Additional info: Abd pain, h/o gallstones Facility exam id and description: Us abd abdomen complete TECHNIQUE: Real-time ultrasound of the abdomen (complete) with image documentation. EXAM DATE/TIME: 06/08/2017 3:59 PM COMPARISON: CT - ABD PELVIS W/O PO OR IV CONT 06/08/2017 1:14:08 AM FINDINGS: Liver: The liver is increased in echogenicity, most commonly due to fatty infiltration, but other chronic liver diseases may have a similar appearance. The liver measures 16.2 x 14.5 cm. Gallbladder: No discrete gallstones are visualized. There is no significant gallbladder wall thickening. The sonographic Casey sign is negative. Common bile duct: The common bile duct measures 0.4 cm in diameter, which is within normal limits. Pancreas: There is a limited evaluation of the pancreas. Kidneys: The right kidney measures 11.8 x 4.3 x 5.8 cm. The left kidney measures 11.7 x 6.0 x 6.1 cm. There is no hydronephrosis or shadowing nephrolithiasis of the kidneys bilaterally. Spleen: There is a limited evaluation of the spleen. The spleen measures approximately 9.5 cm in length. Aorta: There is a limited evaluation of the abdominal aorta. The proximal abdominal aorta is patent. Inferior vena cava: The visualized segment of the IVC is patent. IMPRESSION: 1. The liver is increased in echogenicity, most commonly due to fatty infiltration, but other chronic liver diseases may have a similar appearance. 2. No sonographic evidence of cholecystitis. 3. Additional findings described above.
[2017-06-08] MEDS ORDERED: Insulin Detemir 100 units/ml Vial (Levemir) SC SCH (22:00)
[2017-06-08] MEDS: Insulin Detemir 100 units/ml Vial (Levemir) SC SCH (23:37)
--- NOTE | 2017-06-09 01:22 | CP.PCM.PN ---
Subjective - Date & Time of Evaluation Date of Evaluation: 06/09/17 Time of Evaluation: 01:21 - Subjective Subjective: Patient was seen at bedside. She has an order of benadryl which was given. Still has itching. Itching is generalized, mostly in upper left breast area and posterior aspect of chest wall on left side. Has no other complaints. ROS:Negative except as mentioned above. 31 year old woman was admitted with RUQ pain and epigastric pain of one week duration. PMH of DM, HTN, asthma,obesity,gastritis,gastroparesis, pancreatitis. Objective - Vital Signs/Intake and Output Vital Signs (last 24 hours): Temp Pulse Resp BP Pulse Ox 97.7 F 74 20 117/85 98 06/08/17 16:00 06/08/17 16:00 06/08/17 16:00 06/08/17 16:00 06/08/17 16:00 Intake and Output: 06/08/17 06/09/17 18:59 06:59 Intake Total 0 360 Output Total 0 Balance 0 360 - Medications Medications: Current Medications Diphenhydramine HCl (Benadryl) 25 mg PO Q6 PRN PRN Reason: Itching / Pruritus Last Admin: 06/08/17 20:49 Dose: 25 mg Hydromorphone HCl (Dilaudid) 1 mg IVP Q4H PRN PRN Reason: Pain, moderate (4-7) Last Admin: 06/08/17 20:41 Dose: 1 mg Sodium Chloride (Sodium Chloride 0.9%) 1,000 mls @ 150 mls/hr IV .Q6H40M [facility] Last Admin: 06/08/17 10:37 Dose: 150 mls/hr Insulin Detemir (Levemir) 12 unit SC Q12H [facility] Last Admin: 06/08/17 23:37 Dose: 12 unit Insulin Human Regular (Humulin R Low) 0 units SC ACHS [facility] PRN Reason: Protocol Last Admin: 06/08/17 23:36 Dose: 4 units Non-Formulary Medication (Rose[place]ad Citrate [Rose[place]ad]) 25 mg PO BID [facility] Ondansetron HCl (Zofran Inj) 4 mg IVP Q6H PRN PRN Reason: Nausea/Vomiting Pantoprazole Sodium (Protonix Inj) 40 mg IVP DAILY [facility] Sertraline HCl (Zoloft) 50 mg PO BID [facility] Last Admin: 06/08/17 21:00 Dose: 50 mg - Labs Labs: 06/08/17 02:03 PT 10.6 Seconds (9.9-11.8) 06/08/17 00:58 INR 0.98 (0.93-1.08) 06/08/17 00:58 APTT 27.2 Seconds (23.7-30.8) 06/08/17 00:58 Microbiology Studies 06/08/17 01:25 Blood Culture - Preliminary Blood-Venous NO GROWTH AFTER 24 HOURS 06/08/17 01:08 Blood Culture - Preliminary Blood-Venous NO GROWTH AFTER 24 HOURS Lab Studies 06/08/17 06/08/17 06/08/17 Range/Units 21:38 11:44 07:09 POC Glucose (mg/dL) 160 H 247 H 235 H (65-110) mg/dL 06/08/17 Range/Units 03:13 POC Glucose (mg/dL) 288 H (65-110) mg/dL Laboratory Last Values WBC 10.7 10^3/ul (4.5-11.0) D 06/08/17 00:58 RBC 4.34 10^6/uL (3.5-6.1) 06/08/17 00:58 Hgb 13.3 gm/dL (12.0-16.0) 06/08/17 00:58 Hct 37.3 % (36.0-48.0) 06/08/17 00:58 MCV 85.9 fL (80.0-105.0) 06/08/17 00:58 MCH 30.6 pg (25.0-35.0) 06/08/17 00:58 MCHC 35.7 g/dl (31.0-37.0) 06/08/17 00:58 RDW 12.4 % (11.5-14.5) 06/08/17 00:58 Plt Count 303 10^3/uL (120.0-450.0) 06/08/17 00:58 MPV 11.5 fl (7.0-11.0) H 06/08/17 00:58 Gran % 58.0 % (50.0-68.0) 06/08/17 00:58 Lymph % (Auto) 32.0 % (22.0-35.0) 06/08/17 00:58 Hood % (Auto) 5.4 % (1.0-6.0) 06/08/17 00:58 Eos % (Auto) 4.3 % (1.5-5.0) 06/08/17 00:58 Baso % (Auto) 0.3 % (0.0-3.0) 06/08/17 00:58 Gran # 6.19 (1.4-6.5) 06/08/17 00:58 Lymph # 3.4 (1.2-3.4) 06/08/17 00:58 Hood # 0.6 (0.1-0.6) 06/08/17 00:58 Eos # 0.5 (0.0-0.7) 06/08/17 00:58 Baso # 0.03 K/mm3 (0.0-2.0) 06/08/17 00:58 PT 10.6 Seconds (9.9-11.8) 06/08/17 00:58 INR 0.98 (0.93-1.08) 06/08/17 00:58 APTT 27.2 Seconds (23.7-30.8) 06/08/17 00:58 Sodium 134 mmol/L (132-148) 06/08/17 02:03 Potassium 4.0 mmol/L (3.6-5.0) 06/08/17 02:03 Chloride 99 mmol/L (98-107) 06/08/17 02:03 Carbon Dioxide 22 mmol/L (21-33) 06/08/17 02:03 Anion Gap 17 (10-20) 06/08/17 02:03 BUN 11 mg/dL (7-21) 06/08/17 02:03 Creatinine 0.6 mg/dL (0.5-1.4) 06/08/17 02:03 Est GFR ( Amer) > 60 06/08/17 02:03 Est GFR (Non-Af Amer) > 60 06/08/17 02:03 POC Glucose (mg/dL) 160 mg/dL (65-110) H 06/08/17 21:38 Random Glucose 354 mg/dL (70-110) H* D 06/08/17 02:03 Calcium 9.2 mg/dL (8.4-10.5) 06/08/17 02:03 Total Bilirubin 0.5 mg/dL (0.2-1.3) 06/08/17 02:03 AST 16 U/L (15-39) 06/08/17 02:03 ALT 23 U/L (7-56) 06/08/17 02:03 Alkaline Phosphatase 130 U/L (38-133) 06/08/17 02:03 Lactate Dehydrogenase 429 U/L (333-699) 06/08/17 00:58 Total Creatine Kinase 43 U/L (35-230) 06/08/17 00:58 Troponin I < 0.01 ng/mL D 06/08/17 00:58 Total Protein 7.7 g/dL (5.8-8.3) 06/08/17 02:03 Albumin 3.8 g/dL (3.0-4.8) 06/08/17 02:03 Globulin 3.9 gm/dL 06/08/17 02:03 Albumin/Globulin Ratio 1.0 (1.1-1.8) L 06/08/17 02:03 Amylase 77 U/L (35-125) 06/08/17 00:58 Lipase 184 U/L (23-300) 06/08/17 00:58 Urine Color Yellow (YELLOW) 06/08/17 01:08 Urine Appearance Sl cloudy (CLEAR) 06/08/17 01:08 Urine pH 6.0 (4.7-8.0) 06/08/17 01:08 Ur Specific Norman 1.015 (1.005-1.035) 06/08/17 01:08 Urine Protein 30 mg/dL (<30 mg/dL) H 06/08/17 01:08 Urine Glucose (UA) >=1000 mg/dL (NEGATIVE) 06/08/17 01:08 Urine Ketones Negative mg/dL (NEGATIVE) 06/08/17 01:08 Urine Blood Large (NEGATIVE) H 06/08/17 01:08 Urine Nitrate Negative (NEGATIVE) 06/08/17 01:08 Urine Bilirubin Negative (NEGATIVE) 06/08/17 01:08 Urine Urobilinogen 0.2 E.U./dL (<1 E.U./dL) 06/08/17 01:08 Ur Leukocyte Esterase Negative Bernard/uL (NEGATIVE) 06/08/17 01:08 Urine RBC 2 - 5 /hpf (0-2) 06/08/17 01:08 Urine WBC 0 - 2 /hpf (0-6) 06/08/17 01:08 Ur Epithelial Cells 3 - 4 /hpf (0-5) 06/08/17 01:08 - Constitutional Appears: Well, No Acute Distress - Head Exam Head Exam: ATRAUMATIC, NORMAL INSPECTION, NORMOCEPHALIC - Eye Exam Eye Exam: Normal appearance - Neck Exam Neck Exam: Normal Inspection - Respiratory Exam Respiratory Exam: NORMAL BREATHING PATTERN - Cardiovascular Exam Cardiovascular Exam: absent: JVD - GI/Abdominal Exam GI & Abdominal Exam: absent: Distended - Rectal Exam Rectal Exam: Deferred - Exam Additional comments: Deferred. - Extremities Exam Extremities Exam: Normal Inspection - Back Exam Additional comments: multiple erythematous patches on posterior aspect of left side of chest wall. - Neurological Exam Neurological Exam: Alert, Oriented x3 - Psychiatric Exam Psychiatric exam: Normal Affect, Normal Mood - Skin Additional comments: Left breast upper aspect has multiple erythematous lesions. Assessment and Plan - Assessment and Plan (Free Text) Assessment: Skin rash. Itching. DM. HTN. Asthma. Obesity. Gastritis. Gastroparesis. Plan: Vistaril 25 mg PO stat. Continue present management.
[2017-06-09] MEDS: HYDROmorphone 1 mg/ml ISec IVP PRN ×6 (01:30→22:44)
--- NOTE | 2017-06-09 02:01 | CON ---
ENDOCRINOLOGY CONSULTATION LOCATION: Room 574. HISTORY OF PRESENT ILLNESS: This is a 31-year-old female with known history of type 2 insulin-requiring diabetes presenting here with intractable vomiting and diarrhea with diffuse abdominal pain and is now being admitted for further GI workup and management and is also being referred for diabetic evaluation and management. PAST MEDICAL HISTORY: As mentioned above, history of type 2 insulin-requiring diabetes on a combination of Levemir taken as 15 units subcutaneously at bedtime daily with metformin at 500 mg b.i.d., history of hypertension and dyslipidemia, history of generalized anxiety and depression, currently on lithium and Zoloft medications, history of diabetic polyneuropathy with painful lower extremity paresthesias. FAMILY HISTORY: Positive for parents having both AIDS and also possible hypertension and diabetes. SOCIAL HISTORY: The patient has a supportive family. No known substance use. REVIEW OF SYSTEMS: As mentioned above admits to generalized body weakness with easy fatigability and tiredness and suboptimal energy level. No chest pain, palpitations, or PND. Her oral intake is variable and suboptimal with nausea, dyspepsia, and diffuse abdominal pain and supervening intractable vomiting episodes with loose watery diarrhea, and also admits to painful lower extremity paresthesias. PHYSICAL EXAMINATION: GENERAL: This is an overweight female, in no apparent distress. VITAL SIGNS: Blood pressure of 150/90, pulse of 70 beats per minute and regular, temperature 98, and respirations of 20, height is 5 feet 1 inches, and weight is 170 pounds. HEENT: Head is normocephalic. Eyes; anicteric with pink conjunctivae. Funduscopy not possible at this time. Ears, nose and throat otherwise normal. NECK: Supple. Thyroid gland is normal in size. No carotid bruits or any cervical adenopathy. CARDIOPULMONARY: Adynamic precordium. S1 and S2 is rapid and regular. LUNGS: Show scattered rhonchi. ABDOMEN: Flat and soft with positive bowel sounds. There is positive direct tenderness, no evidence of rebound tenderness. Bowel sounds are present. EXTREMITIES: No peripheral edema. Pulses are +2 bilaterally. LABORATORY DATA: The initial chemistry shows a BUN of 12, sodium 133, potassium 4.1, chloride 95, CO2 of 22, glucose 468, and creatinine 0.7. Her LDH is 429. ASSESSMENT: This is a 31-year-old female with uncontrolled and decompensated type 2 insulin-requiring diabetes, presenting here with diffuse abdominal pain and associated intractable vomiting and diarrhea and currently undergoing gastrointestinal workup to ascertain the exact etiology of the above and is now also being followed closely and is now being referred for diabetic evaluation and management. PLAN OF MANAGEMENT: She is n.p.o. at this time. We will start her on basal insulin with Levemir given as 12 units subcutaneously at the 12 hours at 10 a.m. and 10 p.m. daily to start tonight. We will continue the low-dose correction scale using regular insulin as given. We will obtain hemoglobin A1c to confirm her glycemic control and baseline thyroid function studies will be ordered. We will obtain lipid and lipase level also at this time. We will obtain baseline thyroid studies and serum cortisol level also as ordered. We will continue IV hydration as given and once the GI workup is completed, then we will switch her over to basal and bolus insulin regimen to optimize metabolic control. We will follow. Cecilia Neumann MD
[2017-06-09] MEDS: Sodium Chloride 0.9% 1,000 ML IV SCH ×2 (06:47→15:23)
[2017-06-09] MEDS: Insulin Reg-LOW-Coverage SC SCH ×4 (07:48→22:44)
[2017-06-09] MEDS: Insulin Detemir 100 units/ml Vial (Levemir) SC SCH ×2 (09:00→22:44)
[2017-06-09] MEDS ORDERED: Iohexol 240 (50 ml) ONE (09:59)
[2017-06-09 11:16] LABS: BASO # 0.01 K/mm3 (0.0-2.0); BASO % 0.1 % (0.0-3.0); EOS # 0.2 (0.0-0.7); EOS % 2.4 % (1.5-5.0); GRAN # 3.16 (1.4-6.5); HEMOGLOBIN 11.8 gm/dL (12.0-16.0); MEAN CELL VOLUME 87.2 fL (80.0-105.0); MEAN CORPUSCULAR HEMOGLOBIN 29.6 pg (25.0-35.0); MEAN CORPUSCULAR HGB CONC 33.9 g/dl (31.0-37.0); MEAN PLATELET VOLUME 10.9 fl (7.0-11.0); MONO # 0.4 (0.1-0.6); MONO % 5.5 % (1.0-6.0); PLATELET COUNT 251 10^3/uL (120.0-450.0); RBC 3.99 10^6/uL (3.5-6.1); RED CELL DISTRIBUTION WIDTH 12.5 % (11.5-14.5); WHITE BLOOD COUNT 6.7 10^3/ul (4.5-11.0)
[2017-06-09 11:28] LABS: ALBUMIN 3.3 g/dL (3.0-4.8); ALT/SGPT 25 U/L (7-56); AST/SGOT 16 U/L (15-39); BLOOD UREA NITROGEN 9 mg/dL (7-21); CALCIUM 8.5 mg/dL (8.4-10.5); GFR AFRICAN-AMERICAN > 60; GFR NON-AFRICAN AMERICAN > 60
--- NOTE | 2017-06-09 12:20 | CT ---
PROCEDURE: CT Abdomen with and without intravenous contrast HISTORY: abdominal pain/h/o pancreatitis COMPARISON: None. TECHNIQUE: Axial images of the abdomen from lung bases to iliac crest with and without intravenous contrast enhancement. Coronal and sagittal reformats generated. Oral contrast also administered. This CT exam was performed using one or more of the following dose reduction techniques: Automated exposure control, adjustment of the mA and/or kV according to patient size, and/or use of iterative reconstruction technique. Contrast dose: 150 cc of Omni 350 Radiation dose: Total exam DLP = 2189 mGy-cm. FINDINGS: LOWER THORAX: Unremarkable. LIVER: Unremarkable. No gross lesion or ductal dilatation. GALLBLADDER AND BILE DUCTS: Unremarkable. PANCREAS: Unremarkable. No gross lesion or ductal dilatation. SPLEEN: Unremarkable. ADRENALS: Unremarkable. No mass. KIDNEYS AND URETERS: Unremarkable. No hydronephrosis. No solid mass. VASCULATURE: Unremarkable. No aortic aneurysm. BOWEL: Unremarkable. No obstruction. No gross mural thickening. APPENDIX: Normal appendix. PERITONEUM: Unremarkable. No free fluid. No free air. LYMPH NODES: Unremarkable. No enlarged lymph nodes. BONES: No acute fracture. OTHER FINDINGS: None. IMPRESSION: Unremarkable pre and post contrast enhanced CT of the abdomen.
--- NOTE | 2017-06-09 15:51 | CP.PCM.PN ---
<Miranda Goldsmith - Last Filed: 06/09/17 16:42> Subjective - Date & Time of Evaluation Date of Evaluation: 06/09/17 Time of Evaluation: 09:40 - Subjective Subjective: Seen and examined at bedside earlier today.patient still complains of abdominal pain, nausea is getting pain medication although has been complaining of feeling itchy and getting Benadryl. Denies any shortness of breath chest pain, no fever, no chills. He hasn't had a bowel movement for a few days now. Able to take some clear liquid. Objective - Vital Signs/Intake and Output Vital Signs (last 24 hours): Temp Pulse Resp BP Pulse Ox 97.6 F 59 L 20 160/88 H 97 06/09/17 08:00 06/09/17 08:00 06/09/17 08:00 06/09/17 08:00 06/09/17 08:00 Intake and Output: 06/09/17 06/09/17 06:59 18:59 Intake Total 600 720 Balance 600 720 - Medications Medications: Current Medications Diphenhydramine HCl (Benadryl) 25 mg PO Q6 PRN PRN Reason: Itching / Pruritus Last Admin: 06/09/17 10:54 Dose: 25 mg Hydromorphone HCl (Dilaudid) 1 mg IVP Q4H PRN PRN Reason: Pain, moderate (4-7) Last Admin: 06/09/17 15:21 Dose: 1 mg Sodium Chloride (Sodium Chloride 0.9%) 1,000 mls @ 150 mls/hr IV .Q6H40M [facility] Last Admin: 06/09/17 15:23 Dose: 150 mls/hr Insulin Detemir (Levemir) 12 unit SC Q12H [facility] Last Admin: 06/08/17 23:37 Dose: 12 unit Insulin Human Regular (Humulin R Low) 0 units SC ACHS [facility] PRN Reason: Protocol Last Admin: 06/09/17 07:48 Dose: Not Given Non-Formulary Medication (Manter Citrate [Manter]) 25 mg PO BID [facility] Last Admin: 06/09/17 01:27 Dose: Not Given Ondansetron HCl (Zofran Inj) 4 mg IVP Q6H PRN PRN Reason: Nausea/Vomiting Pantoprazole Sodium (Protonix Inj) 40 mg IVP DAILY [facility] Last Admin: 06/09/17 10:54 Dose: 40 mg Sertraline HCl (Zoloft) 50 mg PO BID [facility] Last Admin: 06/09/17 10:54 Dose: 50 mg - Labs Labs: 06/09/17 11:00 06/09/17 11:00 PT 10.6 Seconds (9.9-11.8) 06/08/17 00:58 INR 0.98 (0.93-1.08) 06/08/17 00:58 APTT 27.2 Seconds (23.7-30.8) 06/08/17 00:58 - Constitutional Appears: No Acute Distress - Eye Exam Eye Exam: Normal appearance (11). absent: Scleral icterus - Respiratory Exam Respiratory Exam: NORMAL BREATHING PATTERN. absent: Respiratory Distress - Cardiovascular Exam Cardiovascular Exam: +S1, +S2 - GI/Abdominal Exam GI & Abdominal Exam: Distended, Soft, Tenderness, Normal Bowel Sounds. absent: Guarding, Rebound - Neurological Exam Neurological Exam: Alert, Awake, Oriented x3 - Skin Skin Exam: Dry, Warm Assessment and Plan - Assessment and Plan (Free Text) Assessment: ASSESSMENT: Abdominal pain, mainly epigastric/RUQ, unclear etiology, had recent EGD 04/2017 Gallstone/Sludge H/O Pancreatitis Uncontrolled DM Obesity Gastritis Constipation PLAN: clears as tolerated continue PPI pancreatic protocol continue IVF hydration Miralax BID surgical FU endocrinology FU Seen and discussed w/ Dr. Polo. <Bobby Polo V - Last Filed: 06/09/17 23:51> Objective - Vital Signs/Intake and Output Vital Signs (last 24 hours): Temp Pulse Resp BP Pulse Ox 98.1 F 80 20 127/86 97 06/09/17 16:00 06/09/17 16:00 06/09/17 16:00 06/09/17 16:00 06/09/17 16:00 Intake and Output: 06/09/17 06/10/17 18:59 06:59 Intake Total 720 120 Balance 720 120 - Medications Medications: Current Medications Diphenhydramine HCl (Benadryl) 25 mg PO Q6 PRN PRN Reason: Itching / Pruritus Last Admin: 06/09/17 19:14 Dose: 25 mg Hydromorphone HCl (Dilaudid) 1 mg IVP Q4H PRN PRN Reason: Pain, moderate (4-7) Last Admin: 06/09/17 22:44 Dose: 1 mg Sodium Chloride (Sodium Chloride 0.9%) 1,000 mls @ 150 mls/hr IV .Q6H40M [facility] Last Admin: 06/09/17 15:23 Dose: 150 mls/hr Insulin Detemir (Levemir) 12 unit SC Q12H [facility] Last Admin: 06/09/17 22:44 Dose: 12 unit Insulin Human Regular (Humulin R Low) 0 units SC ACHS [facility] PRN Reason: Protocol Last Admin: 06/09/17 22:44 Dose: 2 units Magnesium Citrate (Citrate Of Mag) 300 ml PO ONCE ONE Stop: 06/10/17 06:01 Non-Formulary Medication (Manter Citrate [Manter]) 25 mg PO BID [facility] Last Admin: 06/09/17 01:27 Dose: Not Given Ondansetron HCl (Zofran Inj) 4 mg IVP Q6H PRN PRN Reason: Nausea/Vomiting Last Admin: 06/09/17 17:49 Dose: 4 mg Pantoprazole Sodium (Protonix Inj) 40 mg IVP DAILY [facility] Last Admin: 06/09/17 10:54 Dose: 40 mg Polyethylene Glycol (Miralax) 17 gm PO QID [facility] Last Admin: 06/09/17 22:35 Dose: Not Given Sertraline HCl (Zoloft) 50 mg PO BID [facility] Last Admin: 06/09/17 20:46 Dose: 50 mg - Labs Labs: 06/09/17 11:00 06/09/17 11:00 PT 10.6 Seconds (9.9-11.8) 06/08/17 00:58 INR 0.98 (0.93-1.08) 06/08/17 00:58 APTT 27.2 Seconds (23.7-30.8) 06/08/17 00:58 Assessment and Plan - Assessment and Plan (Free Text) Plan: p
[2017-06-09] MEDS ORDERED: Magnesium Citrate Oral SOL (300 ml) PO ONE (16:47)
--- NOTE | 2017-06-09 17:05 | PN ---
ENDO FOLLOWUP NOTE LOCATION: Room 574. This is a 31-year-old female with known history of type 2 insulin-requiring diabetes and previous history of pancreatitis and gastroparesis, who is present here with intractable nausea, dyspepsia, and vomiting, and supervening diffuse abdominal pain and is now undergoing GI workup as noted thereof. She is still on the clear liquid diet as noted today and the latest glucose levels have ranged from 160 to 247 mg/dL. The latest chemistry showed a BUN of 9, sodium 133, potassium 3.9, chloride 99, CO2 of 25, glucose 206, creatinine 0.6. So at this time, we will continue the basal insulin given at the low dose level of 12 units subQ at 12 hours for the Levemir to be given at 10 a.m and 10 p.m. daily as ordered. We will continue the low dose correction scale using regular insulin as ordered. After the completion of the GI workup, then we will switch over to a more physiologic basal and bolus insulin regimen as indicated. We will obtain serial chemistries and supplement accordingly as needed. We will follow with you. Cecilia Neumann MD
[2017-06-09] MEDS ORDERED: POLYETHYLENE GLYCOL 3350 17 GM/Dose PACKET PO SCH (18:00)
[2017-06-09] MEDS: POLYETHYLENE GLYCOL 3350 17 GM/Dose PACKET PO SCH ×2 (19:14→22:35)
[2017-06-10] MEDS: HYDROmorphone 1 mg/ml ISec IVP PRN ×4 (04:04→16:54)
[2017-06-10] MEDS ORDERED: Magnesium Citrate Oral SOL (300 ml) PO ONE (06:00)
[2017-06-10 08:20] VITALS: BP 121/85; PULSE 84; TEMP 98.2; O2SAT 95
[2017-06-10] MEDS: Insulin Reg-LOW-Coverage SC SCH (08:55)
[2017-06-10] MEDS ORDERED: Sodium Chloride 0.9% 1,000 ML IV SCH (10:30)
[2017-06-10] MEDS: POLYETHYLENE GLYCOL 3350 17 GM/Dose PACKET PO SCH ×2 (10:49→13:55)
--- NOTE | 2017-06-10 11:50 | PN ---
DATE: ENDO FOLLOWUP NOTE LOCATION: Room 574. SUBJECTIVE: This is a 31-year-old female with recent uncontrolled type 2 insulin-requiring diabetes presenting here with severe diffuse upper abdominal pain, and was initially n.p.o. and on a liquid diet, and then has been advanced now to solid food as noted. Her glycemic levels are fluctuating, but improved and she asks been only by taking a small suboptimal portions of her meals as per the nursing staff. She continues to have nausea and dyspepsia and also abdominal pain, and IV Dilaudid p.r.n. for pain relief as noted. LABORATORY DATA: Her glycemic levels to be have ranged from 238 to 269 mg/dL. 373 at bedtime last night. The latest chemistry shows a BUN of 9, sodium 133, potassium 3.9, chloride 99, CO2 of 25, glucose 206 and creatinine is 0.6. Her triglyceride levels are extremely elevated at 1304. ASSESSMENT AND PLAN: So at this time, we will modify once again her basal and bolus insulin regimen and increase the basal insulin with Levemir to be given as 20 units subcutaneous at bedtime daily to start tonight. We will discontinue the morning Levemir as she is now taking a solid food as noted. So, we will also add Humalog, given as a small dose of 6 units subcutaneous q.i.d. before meals to start at lunchtime today as ordered. We will modify the coverage scale to avoid hypoglycemia and detailed orders have been given, and now, we have given a very low dose Humalog coverage scale as ordered. We will also modify the IV infusion rate and lower the normal saline infusion to 100 mL per hour as ordered. We will obtain serial chemistries and supplement accordingly as needed. We will also be adding fenofibrate given as 145 mg at bedtime daily to start tonight. We will titrate incrementally as indicated to optimize metabolic control. We will also be adding [place]-3 fatty acids with a dose of 1 g b.i.d. as ordered. We will titrate incrementally as indicated to optimize metabolic control. We will follow and advice accordingly. Cecilia Neumann MD
[2017-06-10] MEDS: Insulin Lispro (humaLOG) LOW Coverage SC SCH ×2 (12:30→16:56)
[2017-06-10] MEDS: Insulin Lispro 1 UNITS/0.01 ML SC SCH ×2 (12:30→16:56)
[2017-06-10] MEDS ORDERED: Omega-3-Acid Ethyl Esters 1 GM Cap PO SCH (18:00)
[2017-06-10] MEDS ORDERED: Insulin Detemir 100 units/ml Vial (Levemir) SC SCH (22:00)
== END 2017-06-10 18:24 | disposition home or self-care (01) ==
LOC: ED 00:29 → ERH 01:58 → 5RSO 03:07
PROVIDERS: ADMIT Internal Medicine; ATTEND Internal Medicine
DX: R10.11 Right upper quadrant pain (principal); R10.13 Epigastric pain; E11.43 Type 2 diabetes mellitus with diabetic autonomic (poly)neuropathy; K31.84 Gastroparesis; K29.70 Gastritis, unspecified, without bleeding; I10 Essential (primary) hypertension; F31.9 Bipolar disorder, unspecified; E11.65 Type 2 diabetes mellitus with hyperglycemia; K80.20 Calculus of gallbladder without cholecystitis without obstruction; Z79.4 Long term (current) use of insulin; E78.5 Hyperlipidemia, unspecified; E11.42 Type 2 diabetes mellitus with diabetic polyneuropathy; F41.9 Anxiety disorder, unspecified; J45.909 Unspecified asthma, uncomplicated; R21 Rash and other nonspecific skin eruption; K59.00 Constipation, unspecified; K86.1 Other chronic pancreatitis; E66.01 Morbid (severe) obesity due to excess calories; Z83.0 Family history of human immunodeficiency virus [HIV] disease; Z80.49 Family history of malignant neoplasm of other genital organs; Z80.0 Family history of malignant neoplasm of digestive organs
CPT/HCPCS: 36415; 74176; 74177; 76700; 80053; 81001; 82150; 82550; 82948; 83615; 83690; 84478; 84484; 85025; 85610; 85730; 87040; 93005; 96374; 96375; 96376; 99284; C9113; G0378; J1170; J2270; J2405; J7040; Q0177; Q9966; Q9967

== ENCOUNTER 2017-10-19 22:16 | Emergency (ER) | payer OTHER ==
[2017-10-19 22:19] VITALS: BMI 34.0
[2017-10-19] MEDS ORDERED: Albuterol-Ipratrop 3 mg / 0.5 (3 ml) UD IH STA ×2 (22:22→22:27)
--- NOTE | 2017-10-19 22:23 | ED PDOC ---
Arrival/HPI - General Time Seen by Provider: 10/19/17 22:19 Historian: Patient - History of Present Illness Narrative History of Present Illness (Text): 10/19/17 22:19 32 y/o female, pmh including asthma/pancreatitis/dm, psychiatric history including bipolar/anxiety, nkda, biba c/o coughing and shortness of breath started tonight. Pt stated that she was coughing tonight, suddenly she feel shortness of breath with anxiety, use advair diskus with limited relief, no chest pain, no palpitation, no numbness or tingling, no rash, no night sweat, no change in vision, no other medical or psychological complaints. Pt. has no headache or sore throat which the patient disagreed with the triage. Past Medical History - Provider Review Nursing Documentation Reviewed: Yes - Infectious Disease Hx of Infectious Diseases: None - Cardiac Hx Cardiac Disorders: Yes Hx Hypertension: Yes - Pulmonary Hx Respiratory Disorders: Yes Hx Asthma: Yes - Neurological Hx Neurological Disorder: No - HEENT Hx HEENT Disorder: No - Renal Hx Renal Disorder: No - Endocrine/Metabolic Hx Endocrine Disorders: Yes Hx Diabetes Mellitus Type 2: Yes - Hematological/Oncological Hx Blood Disorders: No Hx Blood Transfusions: No Hx Blood Transfusion Reaction: No - Integumentary Hx Dermatological Disorder: No - Musculoskeletal/Rheumatological Hx Musculoskeletal Disorders: Yes - Gastrointestinal Hx Gastrointestinal Disorders: Yes Hx Pancreatitis: Yes Other/Comment: gastroparesis - Genitourinary/Gynecological Hx Genitourinary Disorders: No - Psychiatric Hx Psychophysiologic Disorder: No Hx Substance Use: No - Surgical History Other/Comment: bartholenes cyst I and D - Anesthesia Hx Anesthesia Reactions: No Hx Malignant Hyperthermia: No Family/Social History - Physician Review Nursing Documentation Reviewed: Yes Family/Social History: Unknown Family HX Smoking Status: Current Some Days Smoker Hx Alcohol Use: No (social) Hx Substance Use: No Allergies/Home Meds Allergies/Adverse Reactions: Allergies No Known Allergies Allergy (Verified 10/19/17 22:19) Home Medications: Home Meds Medication Instructions Recorded Confirmed Sertraline [Zoloft] 50 mg PO BID 06/08/17 10/19/17 Albuterol HFA [Ventolin HFA 90 1 puff IH DAILY 10/19/17 10/19/17 mcg/actuation (8 g)] Clonazepam [Klonopin] 0.5 mg PO PRN PRN 10/19/17 10/19/17 MetFORMIN [glucOPHAGE] 850 mg PO BID 10/19/17 10/19/17 Ranitidine HCl [Zantac 300] 300 mg PO DAILY 10/19/17 10/19/17 traZODone [trazodone Hydrochloride] 100 mg PO DAILY 10/19/17 10/19/17 Review of Systems - Review of Systems Constitutional: absent: Fatigue, Fevers Eyes: absent: Vision Changes ENT: absent: Hearing Changes Respiratory: SOB, Cough. absent: Sputum, Wheezing Cardiovascular: absent: Chest Pain Gastrointestinal: absent: Abdominal Pain, Nausea, Vomiting Musculoskeletal: absent: Arthralgias, Back Pain Skin: absent: Rash, Pruritis Neurological: absent: Headache, Dizziness Psychiatric: Anxiety. absent: Depression, Suicidal Ideation Physical Exam Vital Signs Temp Pulse Resp BP Pulse Ox 10/20/17 01:11 96 H 18 116/72 99 10/19/17 23:14 22 98 10/19/17 22:37 98.2 F 111 H 20 124/87 97 - Systems Exam Head: Present: Atraumatic, Normocephalic. No: Tenderness, Contusion, Swelling, Ecchymosis, Abrasion, Laceration Pupils: Present: PERRL Extroacular Muscles: Present: EOMI Conjunctiva: Present: Normal Ears: Present: NORMAL TM, Normal Canal. No: Erythema Mouth: Present: Moist Mucous Membranes Pharnyx: No: ERYTHEMA, EXUDATE, TONSILS ENLARGED, Peritonsilar Swelling, Uvular Deviation, Muffled/Hoarse Voice, Strider, Soft Palate/Uvular Edema Neck: Present: Normal Range of Motion Respiratory/Chest: Present: Clear to Auscultation, Decreased Breath Sounds ( bilaterally). No: Respiratory Distress, Accessory Muscle Use, Wheezes, Rales, Retracting, Rhonchi, Tachypneic Cardiovascular: Present: Regular Rate and Rhythm, Normal S1, S2. No: Murmurs Abdomen: Present: Normal Bowel Sounds. No: Tenderness, Distention, Peritoneal Signs Back: Present: Normal Inspection Upper Extremity: Present: Normal Inspection. No: Cyanosis, Edema Lower Extremity: Present: Normal Inspection. No: Edema Neurological: Present: GCS=15, Speech Normal, Motor Func Grossly Intact, Gait Normal, Memory Normal Skin: Present: Warm, Dry, Normal Color. No: Rashes Psychiatric: Present: Alert, Oriented x 3, Normal Insight, Normal Concentration Medical Decision Making ED Course and Treatment: 10/19/17 22:23 -labs -ekg -chest xray -IVF/ativan/duoneb -Observe and reassess 10/20/17 00:14 -Pt. complaining about lower back pain due to the sitting position, toradol IV 30mg ordered. Pt. has no midline tenderness or step off/paraspinal tenderness from cervical to the lumbar spine. 10/20/17 01:12 -Urine hcg negative. -EKG: Sinus Tachycardia @ 108 BPM, no ST elevation or depression, no T wave inversion. -Labs are non-significant except Glucose 411 (IVF ordered), Mg 1.3 (magnesium IV ordered). -Negative d-dimer. -Pt. feels relief, asymptomatic now, bilateral is clear to auscultate. -Discharge home with albuterol MDI, prednisone, stay hydrated, bed rest, follow up with your own pmd and pulmonlogist within 2 days, return to the ER for any new or worsening signs or symptoms. - Lab Interpretations Lab Results: 10/19/17 22:55 10/19/17 22:55 Lab Results 10/19/17 23:44: Urine Color Yellow, Urine Appearance Clear, Urine pH 6.0, Ur Specific [place] 1.010, Urine Protein Negative, Urine Glucose (UA) >=1000, Urine Ketones Negative, Urine Blood Negative, Urine Nitrate Negative, Urine Bilirubin Negative, Urine Urobilinogen 0.2, Ur Leukocyte Esterase Negative 10/19/17 23:28: POC Glucose (mg/dL) 292 H 10/19/17 22:55: Beta HCG, Quant < 2.39 10/19/17 22:55: D-Dimer, Quantitative < 200 10/19/17 22:55: WBC 9.4 D, RBC 4.33, Hgb 13.4, Hct 38.2, MCV 88.2, MCH 30.9, MCHC 35.1, RDW 12.2, Plt Count 280, MPV 11.1 H, Gran % 53.3, Lymph % (Auto) 34.4 , Parmer % (Auto) 6.1 H, Eos % (Auto) 5.9 H, Baso % (Auto) 0.3, Gran # 5.02, Lymph # 3.2, [place]mer # 0.6, Eos # 0.6, Baso # 0.03 10/19/17 22:55: Sodium 132, Potassium 4.2, Chloride 96 L, Carbon Dioxide 25, Anion Gap 15, BUN 9, Creatinine 0.7, Est GFR ( Amer) > 60, Est GFR (Non- Af Amer) > 60, Random Glucose 411 H* D, Calcium 10.2, Magnesium 1.3 L, Total Bilirubin 0.4, AST 21, ALT 33, Alkaline Phosphatase 139 H, Total Protein 7.5, Albumin 4.1, Globulin 3.4, Albumin/Globulin Ratio 1.2 I have reviewed the lab results: Yes - RAD Interpretation Radiology Orders: 10/19/17 22:22 CHEST PORTABLE [RAD] Stat no active disease Site Physician: Radiologist - EKG Interpretation EKG Interpretation (Text): 10/19/17 22:37 -EKG: Sinus Tachycardia @ 108 BPM, no ST elevation or depression, no T wave inversion. Interpreted by ED Physician: Yes Type: 12 lead EKG - Medication Orders Current Medication Orders: Discontinued Medications Albuterol/Ipratropium (Duoneb 3 Mg/0.5 Mg (3 Ml) Ud) 3 ml IH STAT STA Stop: 10/19/17 22:23 Last Admin: 10/19/17 22:49 Dose: 3 ml Albuterol/Ipratropium (Duoneb 3 Mg/0.5 Mg (3 Ml) Ud) 3 ml IH STAT STA Stop: 10/19/17 22:28 Last Admin: 10/19/17 22:44 Dose: 3 ml Sodium Chloride (Sodium Chloride 0.9%) 500 mls @ 999 mls/hr IV .Q31M STA Stop: 10/19/17 22:57 Last Admin: 10/19/17 22:49 Dose: 999 mls/hr eMAR Start Stop Document 10/19/17 22:49 SS (Rec: 10/19/17 22:49 SS [id number]) Intravenous Solution Start Date 10/19/17 Start Time 22:49 End Date 10/19/17 Magnesium Sulfate/Dextrose (Magnesium Sulfate 1 Gm/100 Ml D5w) 1 gm in 100 mls @ 100 mls/hr IVPB ONCE ONE Stop: 10/20/17 00:21 Last Admin: 10/19/17 23:40 Dose: 100 mls/hr eMAR Start Stop Document 10/19/17 23:40 SS (Rec: 10/19/17 23:40 SS [id number]) Intravenous Solution Start Date 10/19/17 Start Time 23:40 End Date 10/20/17 End time 00:40 Total Infusion Time 60 Sodium Chloride (Sodium Chloride 0.9%) 1,000 mls @ 250 mls/hr IV .Q4H LILIANA Lorazepam (Ativan) 1 mg IVP ONCE ONE PRN Reason: Protocol Stop: 10/19/17 22:23 Last Admin: 10/19/17 23:16 Dose: 1 mg IVP Administration Document 10/19/17 23:16 SS (Rec: 10/19/17 23:16 SS [id number]) Charges for Administration # of IVP Administrations 1 - PA / GROUP CAPTAIN / Resident Statement MD/DO has reviewed & agrees with the documentation as recorded. Disposition/Present on Arrival - Present on Arrival Any Indicators Present on Arrival: No History of DVT/PE: No History of Uncontrolled Diabetes: Yes Urinary Catheter: No History Surgical Site Infection Following: None - Disposition Have Diagnosis and Disposition been Completed?: Yes Diagnosis: Asthmaticus, status, Hyperglycemia Disposition: HOME/ ROUTINE Disposition Time: 01:13 Patient Plan: Discharge Condition: IMPROVED Additional Instructions: -Discharge home with albuterol MDI, prednisone, stay hydrated, bed rest, follow up with your own pmd and pulmonlogist within 2 days, return to the ER for any new or worsening signs or symptoms. Prescriptions: Albuterol HFA [Ventolin HFA 90 mcg/actuation (8 g)] 2 puff IH [id number] PRN #1 inhaler PRN Reason: Cough Prednisone 50 mg PO DAILY #5 tablet Referrals: Kennedi Nicole MD [Staff Provider] - Follow up with primary [facility] [place] [Outside] - Follow up with primary Forms: WORK NOTE
[2017-10-19] MEDS ORDERED: Sodium Chloride 0.9% 500 ML IV STA (22:27)
[2017-10-19 22:38] VITALS: TEMP 98.2
[2017-10-19 23:09] LABS: BASO # 0.03 K/mm3 (0.0-2.0); BASO % 0.3 % (0.0-3.0); EOS # 0.6 (0.0-0.7); EOS % 5.9 % (1.5-5.0); GRAN # 5.02 (1.4-6.5); GRAN % 53.3 % (50.0-68.0); HEMATOCRIT 38.2 % (36.0-48.0); LYMPH # 3.2 (1.2-3.4); LYMPH % 34.4 % (22.0-35.0); MEAN CELL VOLUME 88.2 fl (80.0-105.0); MEAN CORPUSCULAR HEMOGLOBIN 30.9 pg (25.0-35.0); MEAN CORPUSCULAR HGB CONC 35.1 g/dl (31.0-37.0); MEAN PLATELET VOLUME 11.1 fl (7.0-11.0); MONO # 0.6 (0.1-0.6); MONO % 6.1 % (1.0-6.0); RED CELL DISTRIBUTION WIDTH 12.2 % (11.5-14.5); WHITE BLOOD COUNT 9.4 10^3/ul (4.5-11.0)
[2017-10-19 23:17] LABS: ALB/GLOB RATIO 1.2 (1.1-1.8); ALKALINE PHOSPHATASE 139 U/L (38-126); ALT/SGPT 33 U/L (7-56); AST/SGOT 21 U/L (14-36); BILIRUBIN,TOTAL 0.4 mg/dL (0.2-1.3); BLOOD UREA NITROGEN 9 mg/dL (7-21); CALCIUM 10.2 mg/dL (8.4-10.5); CARBON DIOXIDE 25 mmol/L (21-33); CHLORIDE 96 mmol/L (98-107); GFR AFRICAN-AMERICAN > 60; MAGNESIUM 1.3 mg/dL (1.7-2.2); POTASSIUM 4.2 mmol/L (3.6-5.0); SODIUM 132 mmol/L (132-148); TOTAL PROTEIN 7.5 g/dL (5.8-8.3)
[2017-10-19 23:18] LABS: GLUCOSE,RANDOM 411 mg/dL (70-110)
[2017-10-19] MEDS ORDERED: Insulin Regular 1 UNITS/0.01 ML ML IV STA (23:21)
[2017-10-19] MEDS ORDERED: Magnesium Sulfate 1 gm in D5W 1 GM/100 ML BAG IVPB ONE (23:22)
[2017-10-19 23:56] LABS: URINE BILIRUBIN NEGATIVE (NEGATIVE); URINE BLOOD NEGATIVE (NEGATIVE); URINE GLUCOSE (UA) >=1000 mg/dL (NEGATIVE); URINE KETONE NEGATIVE (NEGATIVE); URINE LEUKOCYTE ESTERASE NEGATIVE Leu/uL (NEGATIVE); URINE PROTEIN NEGATIVE mg/dL (<30 mg/dL); URINE UROBILINOGEN 0.2 E.U./dL (<1 E.U./dL)
[2017-10-20 00:01] LABS: URINE APPEARANCE CLEAR (CLEAR); URINE COLOR YELLOW (YELLOW)
[2017-10-20] MEDS ORDERED: Sodium Chloride 0.9% 1,000 ML IV SCH (00:45)
[2017-10-20 01:11] VITALS: PULSE 96; O2SAT 99
[2017-10-20 01:17] VITALS: BP 116/72; RESP 18
--- NOTE | 2017-10-20 09:10 | RAD ---
HISTORY: cough and shortness of breath COMPARISON: 09/16/2016 FINDINGS: LUNGS: No active pulmonary disease. PLEURA: No significant pleural effusion identified, no pneumothorax apparent. CARDIOVASCULAR: Normal. OSSEOUS STRUCTURES: No significant abnormalities. VISUALIZED UPPER ABDOMEN: Normal. OTHER FINDINGS: None. IMPRESSION: No active disease.
--- NOTE | 2017-10-20 18:26 | CARD ---
APPROVED REPORT EKG Measurement Heart [id number] <Conclusion> Sinus tachycardia Otherwise normal ECG
== END 2017-10-20 01:24 | disposition home or self-care (01) ==
LOC: ED 22:16
DX: J45.902 Unspecified asthma with status asthmaticus (principal); E11.65 Type 2 diabetes mellitus with hyperglycemia; I10 Essential (primary) hypertension; F17.210 Nicotine dependence, cigarettes, uncomplicated
CPT/HCPCS: 71010; 80053; 81003; 82948; 83735; 84702; 85025; 85378; 93005; 94640; 96365; 96375; 99284; J2060; J3475; J7040

== ENCOUNTER 2017-11-19 20:58 | Emergency (ER) | payer OTHER ==
[2017-11-19 20:58] VITALS: BMI 34.0
[2017-11-19] MEDS ORDERED: Morphine 2 mg/ml ISec IVP STA (21:17)
[2017-11-19] MEDS ORDERED: Sodium Chloride 0.9% 1,000 ML IV STA (21:17)
--- NOTE | 2017-11-19 21:25 | ED PDOC ---
Arrival/HPI - General Time Seen by Provider: 11/19/17 21:04 Historian: Patient - History of Present Illness Narrative History of Present Illness (Text): 11/19/17 21:25 A 32 year old female, whose past medical history includes diabetes, hypertension , gastritis, gastroparesis and pancreatitis, presents to the emergency department complaining of left sided flank pain and left upper quadrant abdominal pain since yesterday. Patient reports pain is associated with multiple episodes of vomiting. Patient denies any history of fever. Denies any diarrhea, chest pain, shortness of breath, urinary complaints or any other complaints at this time. Time/Duration: Other (yesterday) Symptom Onset: Sudden Symptom Course: Unchanged Activities at Onset: Rest Context: Home Past Medical History - Provider Review Nursing Documentation Reviewed: Yes - Infectious Disease Hx of Infectious Diseases: None - Cardiac Hx Cardiac Disorders: Yes Hx Hypertension: Yes - Pulmonary Hx Respiratory Disorders: Yes Hx Asthma: Yes - Neurological Hx Neurological Disorder: No - HEENT Hx HEENT Disorder: No - Renal Hx Renal Disorder: No - Endocrine/Metabolic Hx Endocrine Disorders: Yes Hx Diabetes Mellitus Type 2: Yes - Hematological/Oncological Hx Blood Disorders: No Hx Blood Transfusions: No Hx Blood Transfusion Reaction: No - Integumentary Hx Dermatological Disorder: No - Musculoskeletal/Rheumatological Hx Musculoskeletal Disorders: Yes - Gastrointestinal Hx Gastrointestinal Disorders: Yes Hx Pancreatitis: Yes Other/Comment: gastroparesis - Genitourinary/Gynecological Hx Genitourinary Disorders: No - Psychiatric Hx Psychophysiologic Disorder: No Hx Substance Use: No - Surgical History Other/Comment: bartholenes cyst I and D - Anesthesia Hx Anesthesia Reactions: No Hx Malignant Hyperthermia: No Family/Social History - Physician Review Nursing Documentation Reviewed: Yes Family/Social History: No Known Family HX Smoking Status: Current Some Days Smoker Hx Alcohol Use: No (social) Hx Substance Use: No Allergies/Home Meds Allergies/Adverse Reactions: Allergies No Known Allergies Allergy (Verified 10/19/17 22:19) Home Medications: Home Meds Medication Instructions Recorded Confirmed Sertraline [Zoloft] 50 mg PO BID 06/08/17 10/19/17 Albuterol HFA [Ventolin HFA 90 1 puff IH DAILY 10/19/17 10/19/17 mcg/actuation (8 g)] Clonazepam [Klonopin] 0.5 mg PO PRN PRN 10/19/17 10/19/17 MetFORMIN [glucOPHAGE] 850 mg PO BID 10/19/17 10/19/17 Ranitidine HCl [Zantac 300] 300 mg PO DAILY 10/19/17 10/19/17 traZODone [trazodone Hydrochloride] 100 mg PO DAILY 10/19/17 10/19/17 Review of Systems - Physician Review All systems were reviewed & negative as marked: Yes - Review of Systems Constitutional: absent: Fevers Respiratory: absent: SOB Cardiovascular: absent: Chest Pain Gastrointestinal: Abdominal Pain (LUQ ), Vomiting. absent: Diarrhea Genitourinary Female: absent: Dysuria, Frequency, Hematuria, Urine Output Changes, Vaginal Bleeding, Vaginal Discharge Musculoskeletal: Other (left sided flank pain) Physical Exam Vital Signs Reviewed: Yes Vital Signs Temp Pulse Resp BP Pulse Ox 11/19/17 21:12 98.5 F 99 H 18 129/81 100 Appearance: Positive for: Well-Appearing, Non-Toxic, Comfortable Pain Distress: Mild Mental Status: Positive for: Alert and Oriented X 3 - Systems Exam Head: Present: Atraumatic, Normocephalic Pupils: Present: PERRL Extroacular Muscles: Present: EOMI Conjunctiva: Present: Normal Mouth: Present: Moist Mucous Membranes Neck: Present: Normal Range of Motion Respiratory/Chest: Present: Clear to Auscultation, Good Air Exchange. No: Respiratory Distress, Accessory Muscle Use Cardiovascular: Present: Regular Rate and Rhythm, Normal S1, S2. No: Murmurs Abdomen: Present: Tenderness (LUQ tenderness, with voluntary guarding), Normal Bowel Sounds. No: Distention, Peritoneal Signs Back: Present: Normal Inspection. No: CVA Tenderness Upper Extremity: Present: Normal Inspection. No: Cyanosis, Edema Lower Extremity: Present: Normal Inspection. No: Edema Neurological: Present: GCS=15, CN II-XII Intact, Speech Normal Skin: Present: Warm, Dry, Normal Color. No: Rashes Psychiatric: Present: Alert, Oriented x 3, Normal Insight, Normal Concentration Medical Decision Making ED Course and Treatment: 11/19/17 21:22 Impression: A 32 year old female with left sided flank pain, left upper quadrant abdominal pain and vomiting. Plan: -- CT abd/pelvis -- labs -- Urinalysis -- Morphine, IV fluids, Zofran, Dilaudid -- Reassess and disposition Prior Visits: Notes and results from previous visits were reviewed. Patient was last seen in the emergency department on 10/19/17 for evaluation of shortness of breath and cough. Progress Notes: CT Abdomen and Pelvis Without Intravenous Contrast IMPRESSION: Enlarged fatty liver, no acute solid visceral or bowel abnormality; no renal or ureteral stones Additional nonemergent findings as described above. Dictated and Authenticated by: Leatha Lester MD 11/20/2017 12:52 AM Eastern Time ([place] & [place]) 11/20/17 01:38 On re-evaluation, patient feels better and is in no acute distress. I have discussed the results and plan with the patient, who expresses understanding. Patient in agreement with plan to be discharged home. Patient is stable for discharge. Patient was instructed to follow up with physician or return if symptoms worsen or new concerning symptoms arise. - Lab Interpretations Lab Results: 11/19/17 21:50 11/19/17 21:50 Lab Results 11/19/17 21:50: WBC 8.2, RBC 4.34, Hgb 12.9, Hct 38.4, MCV 88.5, MCH 29.7, MCHC 33.6, RDW 12.6, Plt Count 235, MPV 11.2 H 11/19/17 21:50: Sodium 133, Potassium 4.0, Chloride 97 L, Carbon Dioxide 27, Anion Gap 12, BUN 7, Creatinine 0.6 L, Est GFR ( Amer) > 60, Est GFR (Non -Af Amer) > 60, Random Glucose 306 H* D, Calcium 9.3, Total Bilirubin 0.6, AST 40 H D, ALT 40, Alkaline Phosphatase 117, Total Protein 7.6, Albumin 3.9, Globulin 3.7, Albumin/Globulin Ratio 1.1, Lipase 41 11/19/17 21:50: Urine Color Yellow, Urine Appearance Sl cloudy, Urine pH 6.0, Ur Specific [place] >= 1.030, Urine Protein 30 H, Urine Glucose (UA) 250 H, Urine Ketones Trace H, Urine Blood Negative, Urine Nitrate Negative, Urine Bilirubin Small H, Urine Urobilinogen 0.2, Ur Leukocyte Esterase Negative, Urine RBC 2 - 5, Urine WBC 5 - 10, Ur Epithelial Cells 3 - 4, Urine Bacteria Many, Urine HCG, Qual Negative I have reviewed the lab results: Yes - RAD Interpretation Radiology Orders: 11/19/17 23:34 ABD & PELVIS W/O PO OR IV CONT [CT] Stat - Medication Orders Current Medication Orders: Discontinued Medications Hydromorphone HCl (Dilaudid) 1 mg IVP STAT STA Stop: 11/19/17 23:35 Last Admin: 11/20/17 00:35 Dose: Sodium Chloride (Sodium Chloride 0.9%) 1,000 mls @ 999 mls/hr IV .Q1H1M STA Stop: 11/19/17 22:17 Last Admin: 11/19/17 22:03 Dose: 999 mls/hr eMAR Start Stop Document 11/19/17 22:03 [facility] (Rec: 11/19/17 22:03 [id number]) Intravenous Solution Start Date 11/19/17 Start Time 22:03 Morphine Sulfate (Morphine) 4 mg IVP STAT STA Stop: 11/19/17 21:18 Last Admin: 11/19/17 22:03 Dose: 4 mg MAR Pain Assessment Document 11/19/17 22:03 [facility] (Rec: 11/19/17 22:04 [id number]) Pain Reassessment Is this a pain reassessment? No Sleep Is patient sleeping during reassessment? No Presence of Pain Presence of Pain Yes Pain Scale Used Pain Scale Used Numeric Location Left, Right or Bilateral Left Upper or Lower Lower Pain Location Body Site Back Description Description Acute Intensity of Pain at present 10 Acceptable Level of Pain 0 Pain Behavior Moaning Irritability Rubbing Site Aggravating Factors ADL's IVP Administration Document 11/19/17 22:03 [facility] (Rec: 11/19/17 22:04 [id number]) Charges for Administration # of IVP Administrations 1 Ondansetron HCl (Zofran Inj) 4 mg IVP ONCE ONE Stop: 11/19/17 21:18 Last Admin: 11/19/17 22:03 Dose: 4 mg IVP Administration Document 11/19/17 22:03 [facility] (Rec: 11/19/17 22:03 [id number]) Charges for Administration # of IVP Administrations 1 - Scribe Statement The provider has reviewed the documentation as recorded by the Carole Dover Provider Scribe Attestation: All medical record entries made by the Scribe were at my direction and personally dictated by me. I have reviewed the chart and agree that the record accurately reflects my personal performance of the history, physical exam, medical decision making, and the department course for this patient. I have also personally directed, reviewed, and agree with the discharge instructions and disposition. Disposition/Present on Arrival - Present on Arrival Any Indicators Present on Arrival: No History of DVT/PE: No History of Uncontrolled Diabetes: Yes Urinary Catheter: No History of Decub. Ulcer: No History Surgical Site Infection Following: None - Disposition Have Diagnosis and Disposition been Completed?: Yes Diagnosis: Abdominal pain, Gastritis Disposition: HOME/ ROUTINE Disposition Time: 01:38 Patient Plan: Discharge Patient Problems: Current Active Problems Problem Status Onset Abdominal pain Acute Gastritis Acute Condition: GOOD Discharge Instructions (ExitCare): Gastritis (ED) Additional Instructions: Small amounts of liquids at a time/advance diet slowly as tolerated/meds as prescribed/follow up with your doctor this week Prescriptions: traMADol/Acetaminophen [Ultracet 325 MG-37.5 MG] 1 tab PO Q6 PRN #12 tab PRN Reason: Pain Ondansetron [Zofran Odt] 4 mg PO Q6 PRN #12 odt PRN Reason: Nausea/Vomiting Referrals: Eddi Wang MD [Primary Care Provider] - Follow up with primary
[2017-11-19 21:33] VITALS: RESP 18
[2017-11-19 22:13] LABS: URINE BILIRUBIN SMALL (NEGATIVE); URINE BLOOD NEGATIVE (NEGATIVE); URINE GLUCOSE (UA) 250 mg/dL (NEGATIVE); URINE LEUKOCYTE ESTERASE NEGATIVE Leu/uL (NEGATIVE); URINE NITRATE NEGATIVE (NEGATIVE); URINE PROTEIN 30 mg/dL (<30 mg/dL); URINE UROBILINOGEN 0.2 E.U./dL (<1 E.U./dL)
[2017-11-19 22:14] LABS: HEMOGLOBIN 12.9 g/dL (12.0-16.0); MEAN CELL VOLUME 88.5 fl (80.0-105.0); MEAN CORPUSCULAR HEMOGLOBIN 29.7 pg (25.0-35.0); MEAN CORPUSCULAR HGB CONC 33.6 g/dl (31.0-37.0); MEAN PLATELET VOLUME 11.2 fl (7.0-11.0); RBC 4.34 10^6/uL (3.5-6.1); RED CELL DISTRIBUTION WIDTH 12.6 % (11.5-14.5); WHITE BLOOD COUNT 8.2 10^3/ul (4.5-11.0)
[2017-11-19 22:17] LABS: URINE APPEARANCE SL CLOUDY (CLEAR); URINE COLOR YELLOW (YELLOW)
[2017-11-19 22:22] LABS: HCG,QUALITATIVE URINE NEGATIVE (NEGATIVE)
[2017-11-19 22:26] LABS: ALB/GLOB RATIO 1.1 (1.1-1.8); ALBUMIN 3.9 g/dL (3.0-4.8); ALT/SGPT 40 U/L (7-56); AST/SGOT 40 U/L (14-36); BLOOD UREA NITROGEN 7 mg/dL (7-21); CALCIUM 9.3 mg/dL (8.4-10.5); GFR AFRICAN-AMERICAN > 60; GFR NON-AFRICAN AMERICAN > 60; LIPASE 41 U/L (23-300)
[2017-11-19 23:07] LABS: URINE BACTERIA MANY (NEG)
[2017-11-19] MEDS ORDERED: HYDROmorphone 0.5 mg/0.5 ml ISec IVP STA (23:34)
[2017-11-20] MEDS ORDERED: HYDROmorphone 2 mg/ml ISec ONE (00:34)
--- NOTE | 2017-11-20 00:52 | CT ---
EXAM: CT Abdomen and Pelvis Without Intravenous Contrast EXAM DATE/TIME: 11/19/2017 11:34 PM CLINICAL HISTORY: 32 years old, female; Pain; Abdominal pain; Flank; Left; Additional info: Left flank pain TECHNIQUE: Axial computed tomography images of the abdomen and pelvis without intravenous contrast. All CT scans at this facility use one or more dose reduction techniques, viz.: automated exposure control; ma/kV adjustment per patient size (including targeted exams where dose is matched to indication; i.e. head); or iterative reconstruction technique. Coronal and sagittal reformatted images were created and reviewed. COMPARISON: CT - ABD PELVIS W/O PO OR IV CONT 2017-06-08 01:14 FINDINGS: Lower thorax: Heart size is normal. There is a small ventral hernia. There is dependent atelectasis at the lung bases ABDOMEN: Liver: There is fatty infiltration of the liver. The liver is enlarged. Gallbladder and bile ducts: unremarkable Pancreas: unremarkable Spleen: unremarkable Adrenals: unremarkable Kidneys and ureters: Kidneys and ureters are unchanged compared to the prior study. There are no renal or ureteral stones. Stomach and bowel: Stomach is partially distended. Rotation is normal. There is no small bowel obstruction. Ileocecal region is unremarkable. Appendix and terminal ileum are unremarkable. Colon is incompletely distended which limits evaluation. There is minimal diverticulosis. Appendix: See stomach and bowel PELVIS: Bladder: unremarkable Reproductive: Uterus and adnexal structures are unremarkable. ABDOMEN and PELVIS: Intraperitoneal space: There is no significant fluid.There is no free air. Bones/joints: There are degenerative changes in the osseus structures. Soft tissues: unremarkable Vasculature: There are multiple phleboliths. Vascular structures are unremarkable. Lymph nodes: There is shotty adenopathy. IMPRESSION: Enlarged fatty liver, no acute solid visceral or bowel abnormality; no renal or ureteral stones Additional nonemergent findings as described above.
[2017-11-20 01:57] VITALS: BP 130/77; PULSE 81; TEMP 97.9; O2SAT 97
== END 2017-11-20 02:01 | disposition home or self-care (01) ==
LOC: ED 20:58
DX: K29.70 Gastritis, unspecified, without bleeding (principal); I10 Essential (primary) hypertension; E11.9 Type 2 diabetes mellitus without complications; F17.210 Nicotine dependence, cigarettes, uncomplicated
CPT/HCPCS: 74176; 80053; 81001; 83690; 84703; 85027; 87086; 96374; 96375; 99282; J1170; J2270; J2405; J7040

== ENCOUNTER 2018-01-24 17:14 | Emergency (ER) | payer OTHER ==
[2018-01-24 17:14] VITALS: BMI 34.0
[2018-01-24 17:48] VITALS: BP 122/93; O2SAT 98
--- NOTE | 2018-01-24 18:32 | ED PDOC ---
Arrival/HPI - General Chief Complaint: Lower Extremity Problem/Injury Time Seen by Provider: 01/24/18 18:15 Historian: Patient - History of Present Illness Narrative History of Present Illness (Text): 01/24/18 18:15 A 32 year old female, whose past medical history includes diabetes, hypertension , gastritis, gastroparesis and pancreatitis, presents to the emergency department complaining of right lower back pain that radiates to right buttock and leg x 7 days. Patient stated pain has been progressively worsen. Patient denies sob, cp, abdominal pain, pelvic pain, urinary symptoms, fever, skin rash , leg swelling, calf pain, recent travel, trauma, hormonal replacement therapy, control pill, tobacco use, recent surgical procedure, or dizziness. Time/Duration: Other (see hpi) Context: Home Past Medical History - Provider Review Nursing Documentation Reviewed: Yes - Infectious Disease Hx of Infectious Diseases: None - Cardiac Hx Cardiac Disorders: Yes Hx Hypertension: Yes - Pulmonary Hx Respiratory Disorders: Yes Hx Asthma: Yes - Neurological Hx Neurological Disorder: No - HEENT Hx HEENT Disorder: No - Renal Hx Renal Disorder: No - Endocrine/Metabolic Hx Endocrine Disorders: Yes Hx Diabetes Mellitus Type 2: Yes - Hematological/Oncological Hx Blood Disorders: No Hx Blood Transfusions: No Hx Blood Transfusion Reaction: No - Integumentary Hx Dermatological Disorder: No - Musculoskeletal/Rheumatological Hx Musculoskeletal Disorders: Yes Hx Back Pain: Yes - Gastrointestinal Hx Gastrointestinal Disorders: Yes Hx Pancreatitis: Yes Other/Comment: gastroparesis - Genitourinary/Gynecological Hx Genitourinary Disorders: No - Psychiatric Hx Psychophysiologic Disorder: Yes Hx Bipolar Disorder: Yes Hx Substance Use: No - Surgical History Other/Comment: bartholenes cyst I and D - Anesthesia Hx Anesthesia Reactions: No Hx Malignant Hyperthermia: No Family/Social History - Physician Review Nursing Documentation Reviewed: Yes Family/Social History: Other (noncontributory) Smoking Status: Current Some Days Smoker Hx Alcohol Use: No (social) Hx Substance Use: No Allergies/Home Meds Allergies/Adverse Reactions: Allergies No Known Allergies Allergy (Verified 01/24/18 17:41) Home Medications: Home Meds Medication Instructions Recorded Confirmed Sertraline [Zoloft] 50 mg PO BID 06/08/17 01/24/18 Clonazepam [Klonopin] 0.5 mg PO PRN PRN 10/19/17 01/24/18 Ranitidine HCl [Zantac 300] 300 mg PO DAILY 10/19/17 01/24/18 traZODone [trazodone Hydrochloride] 100 mg PO DAILY 10/19/17 01/24/18 Insulin Glargine,Hum.rec.anlog 35 unit SC BID 01/24/18 01/24/18 [Lantus Solostar] Review of Systems - Review of Systems Constitutional: Normal. absent: Fatigue, Weight Change, Fevers Eyes: Normal ENT: Normal Respiratory: Normal Cardiovascular: Normal Gastrointestinal: Normal Genitourinary Female: Normal Musculoskeletal: Other (right lower back pain, radiates to right buttock and leg ) Skin: Normal Neurological: Normal Endocrine: Normal Hemo/Lymphatic: Normal Psychiatric: Normal Physical Exam Vital Signs Temp Pulse Resp BP Pulse Ox 01/24/18 17:43 98.5 F 105 H 16 122/93 H 98 Temperature: Afebrile Blood Pressure: Normal Pulse: Regular Respiratory Rate: Normal Appearance: Positive for: Well-Appearing, Non-Toxic, Comfortable Pain Distress: None Mental Status: Positive for: Alert and Oriented X 3 - Systems Exam Head: Present: Atraumatic, Normocephalic Pupils: Present: PERRL Extroacular Muscles: Present: EOMI Conjunctiva: Present: Normal Mouth: Present: Moist Mucous Membranes Neck: Present: Normal Range of Motion Respiratory/Chest: Present: Clear to Auscultation, Good Air Exchange. No: Respiratory Distress, Accessory Muscle Use Cardiovascular: Present: Regular Rate and Rhythm, Normal S1, S2. No: Murmurs Abdomen: Present: Normal Bowel Sounds. No: Tenderness, Distention, Peritoneal Signs, Rebound, Guarding Back: Present: Normal Inspection, Paraspinal Tenderness (mild right paravertebral tenderness. No vertebral point tenderness. No vertebral step off ). No: CVA Tenderness, Midline Tenderness, Pain with Leg Raise Upper Extremity: Present: Normal Inspection, Normal ROM. No: Cyanosis, Edema Lower Extremity: Present: Normal Inspection, NORMAL PULSES, Normal ROM, Neurovascularly Intact, Capillary Refill < 2 s, Other (No palpable cord. No edema. ). No: Edema, CALF TENDERNESS, Cyanosis, Saman's Sign, Tenderness, Swelling, Erythema, Deformity, Temperature Abnormalties Neurological: Present: GCS=15, CN II-XII Intact, Speech Normal Skin: Present: Warm, Dry, Normal Color. No: Rashes Psychiatric: Present: Alert, Oriented x 3, Normal Insight, Normal Concentration Medical Decision Making ED Course and Treatment: 01/24/18 19:31 Re-evaluation. Patient feels better. Discussed results and plan with patient who expresses understanding. All questions answered and there is agreement with the plan to discharge home with instructions. Patient stable for discharge. Return if symptoms persist or worsen. Patient has a normal gait. No neuro focal deficits. Re-evaluation Time: 19:31 Reassessment Condition: Re-examined, Improved - Lab Interpretations Lab Results: Lab Results 01/24/18 19:31: POC Glucose (mg/dL) 217 H Interpretation: No clinic. lab abnormalty (FS 217) - Medication Orders Current Medication Orders: Discontinued Medications Ketorolac Tromethamine (Toradol) 30 mg IM STAT STA Stop: 01/24/18 18:44 Last Admin: 01/24/18 18:58 Dose: 30 mg MAR Pain Assessment Document 01/24/18 18:58 [facility] (Rec: 01/24/18 18:[id number]) Pain Reassessment Is this a pain reassessment? No Sleep Is patient sleeping during reassessment? No Presence of Pain Presence of Pain Yes Pain Scale Used Pain Scale Used Numeric Location Left, Right or Bilateral Right Upper or Lower Lower Pain Location Body Site Back Leg Description Description Constant Intensity of Pain at present 7 Pain Behavior Facial Grimacing Aggravating Factors Changing Position Alleviating Factors/Management Medication Techniques Alleviating Factors Medication IM Administration Charges Document 01/24/18 18:58 [email or web address] (Rec: 01/24/18 18:[id number]) Injection Site MAR Injection Site Right Deltoid Charges for Administration # of IM Administrations 1 Ondansetron HCl (Zofran Odt) 4 mg PO STAT STA Stop: 01/24/18 18:44 Last Admin: 01/24/18 18:58 Dose: 4 mg Oxycodone/Acetaminophen (Percocet 5/325 Mg Tab) 1 tab PO STAT STA Stop: 01/24/18 18:44 Last Admin: 01/24/18 18:58 Dose: 1 tab MAR Pain Assessment Document 01/24/18 18:58 [email or web address] (Rec: 01/24/18 18:[id number]) Pain Reassessment Is this a pain reassessment? No Sleep Is patient sleeping during reassessment? No Presence of Pain Presence of Pain Yes Pain Scale Used Pain Scale Used Numeric Location Left, Right or Bilateral Right Upper or Lower Lower Pain Location Body Site Back Leg Description Description Constant Intensity of Pain at present 7 Pain Behavior Facial Grimacing Aggravating Factors Changing Position Alleviating Factors/Management Position Change Techniques Alleviating Factors Medication Disposition/Present on Arrival - Present on Arrival Any Indicators Present on Arrival: No History of DVT/PE: No History of Uncontrolled Diabetes: Yes Urinary Catheter: No History of Decub. Ulcer: No History Surgical Site Infection Following: None - Disposition Have Diagnosis and Disposition been Completed?: Yes Diagnosis: Lumbar radiculopathy, right Disposition: HOME/ ROUTINE Disposition Time: 19:32 Patient Plan: Discharge Patient Problems: Current Active Problems Problem Status Onset Lumbar radiculopathy, right Acute Condition: GOOD Discharge Instructions (ExitCare): Sciatica (DC) Additional Instructions: Call private doctor for follow up visit in 1-2 days. Take medication as instructed. Drink a lot of fluids, and rest. Call Dr. Culver Orthopedist for further evaluation of your back pain. Prescriptions: Naproxen 500 mg PO BID PRN #14 tablet PRN Reason: Pain, Severe (8-10) oxyCODONE/Acetaminophen [Percocet 5/325 mg Tab] 1 ea PO Q4H PRN #5 tab PRN Reason: Pain, Severe (8-10) Referrals: Eddi Wang MD [Primary Care Provider] - Follow up with primary Marisela Culver MD [Staff Provider] - Follow up with primary Forms: [employer] (Uzbek)
[2018-01-24] MEDS ORDERED: Oxycodone/Acetaminophen 5/325 mg Tab PO STA (18:43)
[2018-01-24 19:42] VITALS: PULSE 79; RESP 18; TEMP 97.9
== END 2018-01-24 19:46 | disposition home or self-care (01) ==
LOC: ED 17:14
DX: M54.16 Radiculopathy, lumbar region (principal); I10 Essential (primary) hypertension; E11.9 Type 2 diabetes mellitus without complications
CPT/HCPCS: 81025; 82948; 96372; 99283; J1885

== ENCOUNTER 2018-02-14 21:04 | Emergency (ER) | payer OTHER ==
[2018-02-14 21:05] VITALS: BMI 34.0
--- NOTE | 2018-02-14 21:22 | ED PDOC ---
Arrival/HPI - General Chief Complaint: Abdominal Pain Time Seen by Provider: 02/14/18 21:18 Historian: Patient - History of Present Illness Narrative History of Present Illness (Text): 02/14/18 21:22 Bethanie Bettencourt is a 32 year old female, whose past medical history includes asthma, diabetes, hypertension, gastritis, gastroparesis, and pancreatitis, who presents to the ED complaining of abdominal pain. Patient states she has been experiencing left-sided abdominal pain with associated nausea and vomiting. Patient states symptoms are similar to previous episodes of pancreatitis, denies any alcohol abuse. Patient denies any fever, chills, chest pain, shortness of breath, diarrhea, urinary symptoms, back pain, neck pain, headache , dizziness, or any other complaints. Time/Duration: < week Symptom Onset: Gradual Symptom Course: Unchanged Activities at Onset: Light Context: Home Past Medical History - Provider Review Nursing Documentation Reviewed: Yes - Infectious Disease Hx of Infectious Diseases: None - Cardiac Hx Cardiac Disorders: Yes Hx Hypertension: Yes - Pulmonary Hx Respiratory Disorders: Yes Hx Asthma: Yes - Neurological Hx Neurological Disorder: No - HEENT Hx HEENT Disorder: No - Renal Hx Renal Disorder: No - Endocrine/Metabolic Hx Endocrine Disorders: Yes Hx Diabetes Mellitus Type 2: Yes - Hematological/Oncological Hx Blood Disorders: No Hx Blood Transfusions: No Hx Blood Transfusion Reaction: No - Integumentary Hx Dermatological Disorder: No - Musculoskeletal/Rheumatological Hx Musculoskeletal Disorders: Yes Hx Back Pain: Yes - Gastrointestinal Hx Gastrointestinal Disorders: Yes Hx Pancreatitis: Yes Other/Comment: gastroparesis - Genitourinary/Gynecological Hx Genitourinary Disorders: No - Psychiatric Hx Psychophysiologic Disorder: Yes Hx Bipolar Disorder: Yes Hx Substance Use: No - Surgical History Other/Comment: bartholenes cyst I and D - Anesthesia Hx Anesthesia Reactions: No Hx Malignant Hyperthermia: No Family/Social History - Physician Review Nursing Documentation Reviewed: Yes Family/Social History: Unknown Family HX Smoking Status: Current Some Days Smoker Hx Alcohol Use: No (social) Hx Substance Use: No Allergies/Home Meds Allergies/Adverse Reactions: Allergies No Known Allergies Allergy (Verified 02/14/18 21:07) Home Medications: Home Meds Medication Instructions Recorded Confirmed Sertraline [Zoloft] 50 mg PO BID 06/08/17 02/14/18 Clonazepam [Klonopin] 0.5 mg PO PRN PRN 10/19/17 02/14/18 traZODone [trazodone Hydrochloride] 100 mg PO DAILY 10/19/17 02/14/18 Insulin Glargine,Hum.rec.anlog 35 unit SC BID 01/24/18 02/14/18 [Lantus Solostar] Review of Systems - Physician Review All systems were reviewed & negative as marked: Yes - Review of Systems Constitutional: Normal. absent: Fevers Eyes: Normal ENT: Normal Respiratory: Normal. absent: SOB, Cough Cardiovascular: Normal. absent: Chest Pain Gastrointestinal: Abdominal Pain, Nausea, Vomiting. absent: Diarrhea Genitourinary Female: Normal. absent: Dysuria, Frequency, Hematuria, Urine Output Changes Musculoskeletal: Normal. absent: Back Pain, Neck Pain Skin: Normal. absent: Rash Neurological: Normal. absent: Headache, Dizziness Endocrine: Normal Hemo/Lymphatic: Normal Psychiatric: Normal Physical Exam Vital Signs Reviewed: Yes Vital Signs Temp Pulse Resp BP Pulse Ox 02/14/18 21:09 97.9 F 124 H 20 118/87 96 Temperature: Afebrile Blood Pressure: Normal Pulse: Regular Respiratory Rate: Normal Appearance: Positive for: Well-Appearing, Non-Toxic, Comfortable Pain Distress: None Mental Status: Positive for: Alert and Oriented X 3 - Systems Exam Head: Present: Atraumatic, Normocephalic Pupils: Present: PERRL Extroacular Muscles: Present: EOMI Conjunctiva: Present: Normal Mouth: Present: Moist Mucous Membranes Neck: Present: Normal Range of Motion Respiratory/Chest: Present: Clear to Auscultation, Good Air Exchange. No: Respiratory Distress, Accessory Muscle Use Cardiovascular: Present: Regular Rate and Rhythm, Normal S1, S2. No: Murmurs Abdomen: Present: Tenderness (LUQ tenderness). No: Distention, Peritoneal Signs Back: Present: Normal Inspection Upper Extremity: Present: Normal Inspection. No: Cyanosis, Edema Lower Extremity: Present: Normal Inspection. No: Edema Neurological: Present: GCS=15, CN II-XII Intact, Speech Normal Skin: Present: Warm, Dry, Normal Color. No: Rashes Psychiatric: Present: Alert, Oriented x 3, Normal Insight, Normal Concentration Medical Decision Making ED Course and Treatment: 02/14/18 21:22 Impression: 32 year old female c/o left-sided abdominal pain, nausea, and vomiting. Plan: -- CT Abdomen and Pelvis with IV contrast -- Labs, lipase -- UA -- IV fluids -- Zofran -- Protonix -- Morphine -- Reassess and disposition Prior Visits: Notes and results from previous visits were reviewed. On 01/24/2018, pt was seen in the Emergency department complaining of right lower back pain radiating to right buttock/leg. Pt was d/c home. Progress Notes: 02/15/18 01:10 Chest X-ray reviewed, shows no acute processes. 02/15/18 02:00 CT Abdomen and Pelvis shows: Lung bases: Mild patchy groundglass density and atelectatic changes are visualized at the lung bases. ABDOMEN: Liver: There is hypodense fatty infiltration of the liver. Hepatomegaly. Artifact limits evaluation of the right hepatic lobe posteriorly. Gallbladder and bile ducts: No calcified stones. No ductal dilation. Pancreas: Normal contour, without acute peripancreatic stranding. Spleen: No splenomegaly. Adrenals: No mass. Kidneys and ureters: There is mild left hydronephrosis, without a definitive obstructing calculus. There is no hydronephrosis of the right kidney. No renal mass. Stomach and bowel: No obstruction. No mucosal thickening. Appendix: No findings to suggest acute appendicitis. PELVIS: Bladder: No mass. Reproductive: There is a new hypodense probable left ovarian cyst measuring 1.7 x 1.2 cm. There is a hypodense dominant follicle or small cyst within the right ovary, which has decreased in size. ABDOMEN and PELVIS: Intraperitoneal space: No free air. Bones/joints: Degenerative changes are visualized within the lower thoracic spine. Vasculature: No abdominal aortic aneurysm. Lymph nodes: No enlarged lymph nodes. IMPRESSION: 1. There is hypodense fatty infiltration of the liver. Hepatomegaly. 2. There is mild left hydronephrosis, without a definitive obstructing calculus. 3. There is a hypodense probable left ovarian cyst measuring 1.7 x 1.2 cm. There is a hypodense dominant follicle or small cyst within the right ovary. This can be further evaluated with ultrasound. 4. Incidental/non-acute findings are described above. Case discussed with Dr. Wang, requests pt go to hospitalist service. 02/15/18 02:08 Case discussed with medical legal investigator education dean, who is aware and agrees with plan. 02/15/18 02:[address] Raymundo Nieves, who is aware and agrees with plan. Accepts pt in to hospitalist service. Pt will go to [facility] observation for abdominal pain. 02/15/18 02:20 Leaving Against Medical Advice (AMA): The patient is choosing to leave against medical advice. I have personally explained to the patient that choosing to do so may result in permanent bodily harm or . I have discussed at great length that without further evaluation and monitoring there may be unforeseen circumstances and/or deterioration causing permanent bodily harm or as a result of their choice. The patient is alert, oriented, and shows the mental capacity to make clear decisions regarding the patients health care at this time. The patient continues to wish to leave against medical advice. In light of the patients decision to leave against medical advice, the patient is aware of the importance to following up as instructed. The patient has been advised that they should return to the emergency room immediately if they change their mind at any time, or if their condition begins to change or worsen in any way.> - Lab Interpretations Lab Results: 02/14/18 21:40 02/14/18 21:40 Lab Results 02/14/18 21:48: POC Glucose (mg/dL) 311 H 02/14/18 21:47: Urine Color Yellow, Urine Appearance Clear, Urine pH 6.0, Ur Specific [place] 1.015, Urine Protein Negative, Urine Glucose (UA) >=1000, Urine Ketones Negative, Urine Blood Negative, Urine Nitrate Negative, Urine Bilirubin Negative, Urine Urobilinogen 0.2, Ur Leukocyte Esterase Negative, Urine HCG, Qual Negative 02/14/18 21:40: Sodium 134, Potassium 3.9, Chloride 96 L, Carbon Dioxide 26, Anion Gap 16, BUN 8, Creatinine 0.5 L, Est GFR ( Amer) > 60, Est GFR (Non -Af Amer) > 60, Random Glucose 395 H* D, Calcium 10.5, Total Bilirubin 0.6, AST 29, ALT 30, Alkaline Phosphatase 131 H, Total Protein 7.8, Albumin 4.0, Globulin 3.7, Albumin/Globulin Ratio 1.1, Lipase 80 02/14/18 21:40: PT 10.4, INR 0.91 L, APTT 34.3 02/14/18 21:40: WBC 10.8 D, RBC 4.47, Hgb 13.5, Hct 39.1, MCV 87.5, MCH 30.2, MCHC 34.5, RDW 12.4, Plt Count 308, MPV 10.7, Gran % 59.2, Lymph % (Auto) 29.7, Parker % (Auto) 4.6, Eos % (Auto) 6.1 H, Baso % (Auto) 0.4, Gran # 6.38, Lymph # ( Auto) 3.2, Parker # (Auto) 0.5, Eos # (Auto) 0.7, Baso # (Auto) 0.04 I have reviewed the lab results: Yes - RAD Interpretation Radiology Orders: 02/14/18 22:53 ABD & PELVIS IV CONTRAST ONLY [CT] Stat 02/14/18 23:55 CHEST TWO VIEWS (PA/LAT) [RAD] Stat Wool Grower: ED Physician, Radiologist - Medication Orders Current Medication Orders: Discontinued Medications Albuterol/Ipratropium (Duoneb 3 Mg/0.5 Mg (3 Ml) Ud) 3 ml IH STAT STA Stop: 02/14/18 23:57 Last Admin: 02/15/18 00:04 Dose: 3 ml Sodium Chloride (Sodium Chloride 0.9%) 1,000 mls @ 100 mls/hr IV .Q10H STA Stop: 02/15/18 07:30 Last Admin: 02/14/18 21:51 Dose: 100 mls/hr eMAR Start Stop Document 02/14/18 21:51 SS (Rec: 02/14/18 21:51 SS [id number]) Intravenous Solution Start Date 02/14/18 Start Time 21:51 Insulin Human Regular (Humulin R) 10 units SC STAT STA Stop: 02/15/18 02:10 Last Admin: 02/15/18 02:25 Dose: Not Given Non-Admin Reason: Patient Refused MAR Blood Glucose Document 02/15/18 02:25 SS (Rec: 02/15/18 02:25 SS [id number]) Blood Glucose Finger Stick Blood Glucose (70-120) 311 Subcutaneous Administrations Document 02/15/18 02:25 SS (Rec: 02/15/18 02:25 SS [id number]) Charges for Administration # of Subcutaneous Administrations 1 Morphine Sulfate (Morphine) 4 mg IVP STAT STA Stop: 02/14/18 21:32 Last Admin: 02/14/18 21:51 Dose: 4 mg MAR Pain Assessment Document 02/14/18 21:51 SS (Rec: 02/14/18 21:51 SS [id number]) Pain Reassessment Is this a pain reassessment? No Sleep Is patient sleeping during reassessment? No Presence of Pain Presence of Pain Yes Pain Scale Used Pain Scale Used Numeric Location Left, Right or Bilateral Left Upper or Lower Upper Pain Location Body Site Abdomen IVP Administration Document 02/14/18 21:51 SS (Rec: 02/14/18 21:51 SS [id number]) Charges for Administration # of IVP Administrations 1 Morphine Sulfate (Morphine) 2 mg IVP Q4H PRN PRN Reason: Pain, moderate (4-7) Last Admin: 02/15/18 02:06 Dose: 2 mg MAR Pain Assessment Document 02/15/18 02:06 SS (Rec: 02/15/18 02:07 SS [id number]) Pain Reassessment Is this a pain reassessment? Yes Sleep Is patient sleeping during reassessment? No Presence of Pain Presence of Pain Yes Pain Scale Used Pain Scale Used Numeric Location Left, Right or Bilateral Left Upper or Lower Upper Pain Location Body Site Abdomen Description Description Constant IVP Administration Document 02/15/18 02:06 SS (Rec: 02/15/18 02:07 SS [id number]) Charges for Administration # of IVP Administrations 1 Ondansetron HCl (Zofran Inj) 4 mg IVP STAT STA Stop: 02/14/18 21:32 Last Admin: 02/14/18 21:47 Dose: 4 mg IVP Administration Document 02/14/18 21:47 SS (Rec: 02/14/18 21:51 SS [id number]) Charges for Administration # of IVP Administrations 1 Pantoprazole Sodium (Protonix Inj) 40 mg IVP STAT STA Stop: 02/14/18 21:32 Last Admin: 02/14/18 21:51 Dose: 40 mg IVP Administration Document 02/14/18 21:51 SS (Rec: 02/14/18 21:51 SS [id number]) Charges for Administration # of IVP Administrations 1 - Scribe Statement The provider has reviewed the documentation as recorded by the Scribe Lakeisha Horn All medical record entries made by the Scribe were at my direction and personally dictated by me. I have reviewed the chart and agree that the record accurately reflects my personal performance of the history, physical exam, medical decision making, and the department course for this patient. I have also personally directed, reviewed, and agree with the discharge instructions and disposition. Disposition/Present on Arrival - Present on Arrival Any Indicators Present on Arrival: No History of DVT/PE: No History of Uncontrolled Diabetes: Yes Urinary Catheter: No History of Decub. Ulcer: No History Surgical Site Infection Following: None - Disposition Have Diagnosis and Disposition been Completed?: Yes Diagnosis: Abdominal pain Disposition: AGAINST MEDICAL ADVICE Disposition Time: 02:20 Condition: UNKNOWN Referrals: Divine Colindres, [Non-Staff] - Follow up with primary Forms: [employer] ([place])
[2018-02-14 21:29] VITALS: BP 118/87; PULSE 124; RESP 20; TEMP 97.9; O2SAT 96
[2018-02-14] MEDS ORDERED: Sodium Chloride 0.9% 1,000 ML IV STA (21:31)
[2018-02-14] MEDS ORDERED: Morphine 4 mg/ml ISec IVP STA (21:31)
[2018-02-14 21:51] LABS: BASO # 0.04 K/mm3 (0.0-2.0); BASO % 0.4 % (0.0-3.0); EOS # 0.7 (0.0-0.7); EOS % 6.1 % (1.5-5.0); GRAN # 6.38 (1.4-6.5); GRAN % 59.2 % (50.0-68.0); HEMOGLOBIN 13.5 g/dL (12.0-16.0); LYMPH # 3.2 (1.2-3.4); LYMPH % 29.7 % (22.0-35.0); MEAN CELL VOLUME 87.5 fl (80.0-105.0); MEAN CORPUSCULAR HEMOGLOBIN 30.2 pg (25.0-35.0); MEAN CORPUSCULAR HGB CONC 34.5 g/dl (31.0-37.0); MEAN PLATELET VOLUME 10.7 fl (7.0-11.0); MONO # 0.5 (0.1-0.6); MONO % 4.6 % (1.0-6.0); RBC 4.47 10^6/uL (3.5-6.1); RED CELL DISTRIBUTION WIDTH 12.4 % (11.5-14.5); WHITE BLOOD COUNT 10.8 10^3/ul (4.5-11.0)
[2018-02-14 21:55] LABS: URINE APPEARANCE CLEAR (CLEAR); URINE BILIRUBIN NEGATIVE (NEGATIVE); URINE BLOOD NEGATIVE (NEGATIVE); URINE COLOR YELLOW (YELLOW); URINE GLUCOSE (UA) >=1000 mg/dL (NEGATIVE); URINE LEUKOCYTE ESTERASE NEGATIVE Leu/uL (NEGATIVE); URINE PROTEIN NEGATIVE mg/dL (<30 mg/dL); URINE UROBILINOGEN 0.2 E.U./dL (<1 E.U./dL)
[2018-02-14 22:01] LABS: INR 0.91 (0.93-1.08); PARTIAL THROMBOPLASTIN TIME 34.3 Seconds (25.1-36.5); PROTHROMBIN TIME 10.4 SECONDS (9.4-12.5)
[2018-02-14 22:02] LABS: HCG,QUALITATIVE URINE NEGATIVE (NEGATIVE)
[2018-02-14 22:12] LABS: ALB/GLOB RATIO 1.1 (1.1-1.8); ALT/SGPT 30 U/L (7-56); AST/SGOT 29 U/L (14-36); BLOOD UREA NITROGEN 8 mg/dL (7-21); CALCIUM 10.5 mg/dL (8.4-10.5); GFR AFRICAN-AMERICAN > 60; GFR NON-AFRICAN AMERICAN > 60; LIPASE 80 U/L (23-300)
[2018-02-14] MEDS ORDERED: Iohexol 350 MG/100 ML VIAL ONE (23:06)
[2018-02-14] MEDS: Morphine 4 mg/ml ISec IVP PRN (23:16)
[2018-02-14] MEDS ORDERED: Albuterol-Ipratrop 3 mg / 0.5 (3 ml) UD ONE (23:40)
[2018-02-14] MEDS ORDERED: Albuterol-Ipratrop 3 mg / 0.5 (3 ml) UD IH STA (23:56)
--- NOTE | 2018-02-15 01:58 | CT ---
EXAM: CT Abdomen and Pelvis With Intravenous Contrast EXAM DATE/TIME: 02/14/2018 10:53 PM CLINICAL HISTORY: The patient age is 32 years old and is female; Pain; Abdominal pain; Flank; Left upper quadrant (luq); Additional info: Luq pain Facility exam id and description: Ct abdpelciv abd pelvis iv contrast only TECHNIQUE: Axial computed tomography images of the abdomen and pelvis with intravenous contrast. All CT scans at this facility use one or more dose reduction techniques, viz.: automated exposure control; ma/kV adjustment per patient size (including targeted exams where dose is matched to indication; i.e. head); or iterative reconstruction technique. Coronal and sagittal reformatted images were created and reviewed. CONTRAST: 96 mL of OMNI 350 administered intravenously. COMPARISON: CT - ABD PELVIS W/O PO OR IV CONT 2017-11-20 00:05 FINDINGS: Lung bases: Mild patchy groundglass density and atelectatic changes are visualized at the lung bases. ABDOMEN: Liver: There is hypodense fatty infiltration of the liver. Hepatomegaly. Artifact limits evaluation of the right hepatic lobe posteriorly. Gallbladder and bile ducts: No calcified stones. No ductal dilation. Pancreas: Normal contour, without acute peripancreatic stranding. Spleen: No splenomegaly. Adrenals: No mass. Kidneys and ureters: There is mild left hydronephrosis, without a definitive obstructing calculus. There is no hydronephrosis of the right kidney. No renal mass. Stomach and bowel: No obstruction. No mucosal thickening. Appendix: No findings to suggest acute appendicitis. PELVIS: Bladder: No mass. Reproductive: There is a new hypodense probable left ovarian cyst measuring 1.7 x 1.2 cm. There is a hypodense dominant follicle or small cyst within the right ovary, which has decreased in size. ABDOMEN and PELVIS: Intraperitoneal space: No free air. Bones/joints: Degenerative changes are visualized within the lower thoracic spine. Vasculature: No abdominal aortic aneurysm. Lymph nodes: No enlarged lymph nodes. IMPRESSION: 1. There is hypodense fatty infiltration of the liver. Hepatomegaly. 2. There is mild left hydronephrosis, without a definitive obstructing calculus. 3. There is a hypodense probable left ovarian cyst measuring 1.7 x 1.2 cm. There is a hypodense dominant follicle or small cyst within the right ovary. This can be further evaluated with ultrasound. 4. Incidental/non-acute findings are described above.
[2018-02-15] MEDS: Morphine 4 mg/ml ISec IVP PRN (02:06)
[2018-02-15] MEDS ORDERED: Insulin Regular 1 UNITS/0.01 ML ML SC STA (02:09)
--- NOTE | 2018-02-15 07:54 | RAD ---
HISTORY: cough COMPARISON: 10/19/2017 TECHNIQUE: Chest PA and lateral FINDINGS: LUNGS: No active pulmonary disease. PLEURA: No significant pleural effusion identified. No pneumothorax apparent. CARDIOVASCULAR: Normal. OSSEOUS STRUCTURES: No significant abnormalities. VISUALIZED UPPER ABDOMEN: Normal. OTHER FINDINGS: None. IMPRESSION: No active disease.
== END 2018-02-15 02:27 | disposition left against medical advice (07) ==
LOC: ED 21:04
DX: R10.9 Unspecified abdominal pain (principal); I10 Essential (primary) hypertension; E11.9 Type 2 diabetes mellitus without complications; F17.210 Nicotine dependence, cigarettes, uncomplicated
CPT/HCPCS: 71046; 74177; 80053; 81003; 82948; 83690; 84703; 85025; 85610; 85730; 96374; 96375; 96376; 99284; C9113; J2270; J2405; J7040; Q9967

== ENCOUNTER 2018-08-20 21:07 | Inpatient (IN) | payer OTHER ==
[2018-08-20] MEDS ORDERED: Sodium Chloride 0.9% 1,000 ML IV STA ×2 (22:02→22:04)
[2018-08-20] MEDS ORDERED: Insulin Regular 1 UNITS/0.01 ML ML IVP STA (22:04)
[2018-08-20 22:21] LABS: BASO # 0.05 K/mm3 (0.0-2.0); BASO % 0.5 % (0.0-3.0); EOS # 0.5 (0.0-0.7); EOS % 5.2 % (1.5-5.0); GRAN # 5.53 (1.4-6.5); GRAN % 54.5 % (50.0-68.0); HEMOGLOBIN 13.4 g/dL (12.0-16.0); LYMPH # 3.6 (1.2-3.4); MEAN CELL VOLUME 86.7 fl (80.0-105.0); MEAN CORPUSCULAR HEMOGLOBIN 30.3 pg (25.0-35.0); MEAN PLATELET VOLUME 11.1 fl (7.0-11.0); MONO # 0.5 (0.1-0.6); MONO % 4.8 % (1.0-6.0); RBC 4.42 10^6/uL (3.5-6.1); RED CELL DISTRIBUTION WIDTH 12.6 % (11.5-14.5); URINE BILIRUBIN NEGATIVE (NEGATIVE); URINE BLOOD NEGATIVE (NEGATIVE); URINE GLUCOSE (UA) >=1000 mg/dL (NEGATIVE); URINE LEUKOCYTE ESTERASE NEGATIVE Leu/uL (NEGATIVE); URINE PROTEIN NEGATIVE mg/dL (<30 mg/dL); URINE UROBILINOGEN 0.2 E.U./dL (<1 E.U./dL); WHITE BLOOD COUNT 10.2 10^3/ul (4.5-11.0)
[2018-08-20 22:26] LABS: URINE APPEARANCE CLEAR (CLEAR); URINE COLOR YELLOW (YELLOW)
--- NOTE | 2018-08-20 22:26 | ED PDOC ---
Arrival/HPI - General Chief Complaint: Back Pain Time Seen by Provider: 08/20/18 21:53 Historian: Patient - History of Present Illness Narrative History of Present Illness (Text): 08/20/18 22:22 33 year old female, whose past medical history includes diabetes, hypertension, gastritis, and pancreatitis, presents to the emergency department with right- side pain, since 6 hours ago. Patient states she has been having similar symp toms for 2 weeks, and they have worsened earlier this afternoon. Patient states she could not feel her right leg at times. Patient also informs of burning pain along her whole right side, radiating up her right arm. Patient states pain is worsened by movement, and she is barely able to move her arm. Patient informs she is a diabetic and has not used insulin for a few months. Patient denies any fevers, chills, headache, dizziness, chest pain, shortness of breath, cough, abdominal pain, nausea, vomiting, diarrhea, neck pain, urinary/bowel changes, or any other complaint. Time/Duration: 4-6 hours Symptom Onset: Gradual Symptom Course: Unchanged Activities at Onset: Light Past Medical History - Provider Review Nursing Documentation Reviewed: Yes - Infectious Disease Hx of Infectious Diseases: None - Cardiac Hx Cardiac Disorders: Yes Hx Hypertension: Yes - Pulmonary Hx Respiratory Disorders: Yes Hx Asthma: Yes - Neurological Hx Neurological Disorder: No - HEENT Hx HEENT Disorder: No - Renal Hx Renal Disorder: No - Endocrine/Metabolic Hx Endocrine Disorders: Yes Hx Diabetes Mellitus Type 2: Yes - Hematological/Oncological Hx Blood Disorders: No Hx Blood Transfusions: No Hx Blood Transfusion Reaction: No - Integumentary Hx Dermatological Disorder: No - Musculoskeletal/Rheumatological Hx Musculoskeletal Disorders: Yes Hx Back Pain: Yes - Gastrointestinal Hx Gastrointestinal Disorders: Yes Hx Pancreatitis: Yes Other/Comment: gastroparesis - Genitourinary/Gynecological Hx Genitourinary Disorders: No - Psychiatric Hx Psychophysiologic Disorder: Yes Hx Bipolar Disorder: Yes Hx Substance Use: No - Surgical History Other/Comment: bartholenes cyst I and D - Anesthesia Hx Anesthesia Reactions: No Hx Malignant Hyperthermia: No Family/Social History - Physician Review Nursing Documentation Reviewed: Yes Family/Social History: No Known Family HX Smoking Status: Current Some Days Smoker Hx Alcohol Use: No (social) Hx Substance Use: No Allergies/Home Meds Allergies/Adverse Reactions: Allergies No Known Allergies Allergy (Verified 02/14/18 21:07) Home Medications: Home Meds Medication Instructions Recorded Confirmed Sertraline [Zoloft] 50 mg PO BID 06/08/17 08/20/18 Clonazepam [Klonopin] 0.5 mg PO PRN PRN 10/19/17 08/20/18 traZODone [trazodone Hydrochloride] 100 mg PO DAILY 10/19/17 08/20/18 Insulin Glargine,Hum.rec.anlog 35 unit SC BID 01/24/18 08/20/18 [Lantus Solostar] Review of Systems - Physician Review All systems were reviewed & negative as marked: Yes - Review of Systems Constitutional: absent: Fevers, Night Sweats Respiratory: absent: SOB, Cough Cardiovascular: absent: Chest Pain Gastrointestinal: absent: Abdominal Pain, Diarrhea, Nausea, Vomiting Genitourinary Female: absent: Urine Output Changes Musculoskeletal: Back Pain (upper right back), Myalgias (right arm). absent: Neck Pain Neurological: absent: Headache, Dizziness Physical Exam - Physical Exam Narrative Physical Exam (Text): 08/20/18 22:28 Gen: VS reviewed, alert, well developed, well nourished, nontoxic, mild distress. ENT: normal pharynx. Eye: EOMI, PERRL. Neck: no JVD, supple, no adenopathy. CV: regular rate, regular rhythm, no rubs, no murmur, no gallops, S1, S2, pulses equal and strong. Pulm: no distress, clear to auscultation, no wheeze, no rhonchi, breath sounds equal, no rales. Abd: soft, nontender, no guarding, no rebound, no rigidity, normal bowel sounds. Ext: no edema. Skin: good color, no rash, no cyanosis. Psych: responds appropriately to questions, normal affect. Neuro: oriented x 3, CN2-12 intact grossly, motor intact, sensation intact. Vital Signs Reviewed: Yes Vital Signs Temp Pulse Resp BP Pulse Ox 08/20/18 21:36 99.4 F 114 H 18 122/92 H 98 Temperature: Afebrile Blood Pressure: Hypertensive Pulse: Tachycardic Respiratory Rate: Normal Appearance: Positive for: Well-Appearing, Non-Toxic, Comfortable Pain Distress: None Mental Status: Positive for: Alert and Oriented X 3 Finger Stick Blood Glucose: 500 Medical Decision Making ED Course and Treatment: 08/20/18 22:29 Impression: 33 year old female presents with right-sided pain. Plan: -- EKG -- Tylenol -- Flexeril -- HumuLIN R -- Toradol -- X-ray cervical spine -- X-ray Lumbar spine -- Urinalysis -- Reassess and disposition Prior Visits: Notes and results from previous visits were reviewed. Progress Notes: 08/21/18 00:29 admit accepted by hospitalist dr. robins. patient to be admitted for hyperglycemic control. patient has been off her medication for approx 3 months. patient physicla complaint of neck and low back pain are most consistent with radiculopathy. there is no neuro deficits to suggest cord compression at this time. - RAD Interpretation Narrative RAD Interpretations (Text): 08/21/18 00:11 xr cervical: suboptimal film, no overt fx, no destructive osseous lesions lumbar xr: no fx, no djd Radiology Orders: 08/20/18 22:05 LS SPINE WITH OBL > 18 YRS OLD [RAD] Stat 08/20/18 22:06 CERVICAL SPINE >18YR W/OBLIQUE [RAD] Stat Auditing Manager: ED Physician - EKG Interpretation EKG Interpretation (Text): 08/20/18 22:38 2223: sinus tachycardia at 108 bpm, nml qrs, nml axis, no acute sttw abn Interpreted by ED Physician: Yes - Medication Orders Current Medication Orders: Sodium Chloride (Sodium Chloride 0.9%) 1,000 mls @ 999 mls/hr IV .Q1H1M STA Stop: 08/20/18 23:02 Last Admin: 08/20/18 22:11 Dose: 999 mls/hr eMAR Start Stop Document 08/20/18 22:11 CNR (Rec: 08/20/18 22:11 CNR [id number]) Intravenous Solution Start Date 08/20/18 Start Time 22:11 End Date 08/20/18 End time 23:11 Total Infusion Time 60 Sodium Chloride (Sodium Chloride 0.9%) 1,000 mls @ 999 mls/hr IV .Q1H1M STA Stop: 08/20/18 23:04 Discontinued Medications Acetaminophen (Tylenol 325mg Tab) 975 mg PO STAT STA Stop: 08/20/18 22:04 Last Admin: 08/20/18 22:11 Dose: 975 mg Cyclobenzaprine HCl (Flexeril) 5 mg PO STAT STA Stop: 08/20/18 22:04 Last Admin: 08/20/18 22:12 Dose: 5 mg Insulin Human Regular (Humulin R) 10 units IVP STAT STA Stop: 08/20/18 22:05 Last Admin: 08/20/18 22:12 Dose: 10 u IVP Administration Document 08/20/18 22:12 CNR (Rec: 08/20/18 22:12 CNR [id number]) Charges for Administration # of IVP Administrations 1 Ketorolac Tromethamine (Toradol) 30 mg IVP STAT STA Stop: 08/20/18 22:04 Last Admin: 08/20/18 22:12 Dose: 30 mg MAR Pain Assessment Document 08/20/18 22:12 CNR (Rec: 08/20/18 22:12 CNR [id number]) Pain Reassessment Is this a pain reassessment? No IVP Administration Document 08/20/18 22:12 CNR (Rec: 08/20/18 22:12 CNR [id number]) Charges for Administration # of IVP Administrations 1 - Scribe Statement The provider has reviewed the documentation as recorded by the Carole Jefferson Provider Scribe Attestation: All medical record entries made by the Scribe were at my direction and personally dictated by me. I have reviewed the chart and agree that the record accurately reflects my personal performance of the history, physical exam, medical decision making, and the department course for this patient. I have also personally directed, reviewed, and agree with the discharge instructions and disposition. Disposition/Present on Arrival - Present on Arrival Any Indicators Present on Arrival: No History of DVT/PE: No History of Uncontrolled Diabetes: Yes Urinary Catheter: No History of Decub. Ulcer: No History Surgical Site Infection Following: None - Disposition Have Diagnosis and Disposition been Completed?: Yes Diagnosis: Hyperglycemia Disposition: HOSPITALIZED Disposition Time: 00:31 Patient Plan: Admission Condition: STABLE Forms: [employer] ([place])
[2018-08-20 22:37] LABS: ALB/GLOB RATIO 1.1 (1.1-1.8); ALBUMIN 3.9 g/dL (3.0-4.8); ALT/SGPT 18 U/L (7-56); AST/SGOT 19 U/L (14-36); BLOOD UREA NITROGEN 9 mg/dL (7-21); CALCIUM 9.2 mg/dL (8.4-10.5); GFR NON-AFRICAN AMERICAN > 60; LIPASE 89 U/L (23-300)
[2018-08-20 22:45] LABS: ARTERIAL BLOOD GAS HCO3 20.6 mmol/L (21-28); ARTERIAL BLOOD GAS HEMOGLOBIN 12.9 g/dL (11.7-17.4); ARTERIAL BLOOD GAS O2 CAPACITY 17.2 mL/dl (16-24); ARTERIAL BLOOD GAS O2 SAT 98.6 % (95-98); ARTERIAL BLOOD GAS PCO2 31 mm/Hg (35-45); ARTERIAL BLOOD GAS PH 7.43 (7.35-7.45); ARTERIAL BLOOD GAS TCO2 21.6 mmol.L (22-28)
[2018-08-20] MEDS ORDERED: Magnesium Oxide 400 mg Tab UD PO STA (23:13)
[2018-08-21] MEDS ORDERED: oxyCODONE 5 mg Immediate Release Tab PO STA (00:09)
[2018-08-21] MEDS ORDERED: Dextrose 50% SYRINGE Inj (50 ml) IV PRN (00:53)
[2018-08-21] MEDS ORDERED: Albuterol-Ipratrop 3 mg / 0.5 (3 ml) UD IH PRN (00:53)
[2018-08-21] MEDS ORDERED: Iohexol 240 (50 ml) ONE (00:59)
--- NOTE | 2018-08-21 01:07 | CP.PCM.HP ---
<Rajat Murphy - Last Filed: 08/21/18 01:56> History of Present Illness - History of Present Illness History of Present Illness: Rajat Murphy, PGY-1 History and Physical for Hospitalist Service CC: R flank pain HPI: Ms. Bettencourt is a 33 F with PMHx of pancreatitis (diagnosed 6 months ago per patient), hyperglycemia, obesity, asthma and DM (diagnosed 17 years ago) who presents with R flank pain and medication noncompliance. Patient states R flank pain began 2 weeks ago and has recently radiated to the top of her shoulder. Patient describes pain as sharp. Patient states she recently has been unable to feel her R leg and has recently developed similar feelings in her right arm. Pain is worsewith movement, and Tylenol has not helped relieve the pain. Patient reports chronic Vision changes in R eye along with dizziness and 4 episodes of watery nonbloody diarrhea daily for past two weeks. Patient denies recent antibiotic use, recent infections, travel and sick contacts. Reports polyuria with frothy "oil-like" urine but denies dysuria and hematuria. Patient has not taken any of her medications other than inhalers multiple times a day for 4 months because she ran out and her PCP no longer takes her insurance. Patient denies chest pain, SOB, nausea, vomiting, palpitations, dysuria, constipation. PMHx: IDDM, Pancreatitis, Asthma PSHx: denies All: NKDA Social Hx: 8 cigs/dx26 years, denies ETOH and substances Fam hx: grandma w pancreatic CA Meds: noncompliance Present on Admission - Present on Admission Any Indicators Present on Admission: Yes History of Uncontrolled Diabetes: Yes Review of Systems - Review of Systems Review of Systems: 12 point ROS completed and negative except as described in HPI. Past Patient History - Infectious Disease Hx of Infectious Diseases: None - Past Social History Smoking Status: Current Some Days Smoker - CARDIAC Hx Cardiac Disorders: Yes Hx Hypertension: Yes - PULMONARY Hx Respiratory Disorders: Yes Hx Asthma: Yes - NEUROLOGICAL Hx Neurological Disorder: No - HEENT Hx HEENT Problems: No - RENAL Hx Chronic Kidney Disease: No - ENDOCRINE/METABOLIC Hx Endocrine Disorders: Yes Hx Diabetes Mellitus Type 2: Yes - HEMATOLOGICAL/ONCOLOGICAL Hx Blood Disorders: No Hx Blood Transfusions: No Hx Blood Transfusion Reaction: No - INTEGUMENTARY Hx Dermatological Problems: No - MUSCULOSKELETAL/RHEUMATOLOGICAL Hx Musculoskeletal Disorders: Yes Hx Back Pain: Yes - GASTROINTESTINAL Hx Gastrointestinal Disorders: Yes Hx Pancreatitis: Yes Other/Comment: gastroparesis - GENITOURINARY/GYNECOLOGICAL Hx Genitourinary Disorders: No - PSYCHIATRIC Hx Psychophysiologic Disorder: Yes Hx Bipolar Disorder: Yes Hx Substance Use: No - SURGICAL HISTORY Other/Comment: bartholenes cyst I and D - ANESTHESIA Hx Anesthesia Reactions: No Hx Malignant Hyperthermia: No Meds Allergies/Adverse Reactions: Allergies Allergy/AdvReac Type Severity Reaction Status Date / Time No Known Allergies Allergy Verified 02/14/18 21:07 Physical Exam - Constitutional Appears: Non-toxic, No Acute Distress Additional comments: Morbidly obese - Head Exam Head Exam: ATRAUMATIC, NORMOCEPHALIC - Eye Exam Eye Exam: EOMI, Normal appearance - ENT Exam ENT Exam: Mucous Membranes Moist - Neck Exam Neck exam: Positive for: Normal Inspection - Respiratory Exam Respiratory Exam: Decreased Breath Sounds, Clear to Auscultation Bilateral, NORMAL BREATHING PATTERN. absent: Rales, Rhonchi, Wheezes - Cardiovascular Exam Cardiovascular Exam: RRR, +S1, +S2 - GI/Abdominal Exam GI & Abdominal Exam: Guarding (RUQ), Soft, Tenderness (RUQ> epigastric). absent: Distended, Rebound - Extremities Exam Extremities exam: Positive for: normal inspection. Negative for: calf tenderness, joint swelling, pedal edema - Back Exam Back exam: FULL ROM, paraspinal tenderness. absent: CVA tenderness (L), CVA tenderness (R), muscle spasm, vertebral tenderness - Neurological Exam Neurological exam: Alert, Oriented x3 - Psychiatric Exam Psychiatric exam: Agitated, Anxious - Skin Skin Exam: Dry, Intact, Normal Color, Warm Results - Vital Signs Recent Vital Signs: Last Vital Signs Temp 99.4 F 08/20/18 21:36 Pulse 89 08/20/18 23:56 Resp 18 08/20/18 23:56 BP 108/53 L 08/20/18 23:56 Pulse Ox 98 08/20/18 23:56 - Labs Result Diagrams: 08/20/18 22:16 08/20/18 22:16 Labs: Laboratory Results - last 24 hr 08/20/18 08/20/18 08/20/18 22:16 22:16 22:16 WBC 10.2 RBC 4.42 Hgb 13.4 Hct 38.3 MCV 86.7 MCH 30.3 MCHC 35.0 RDW 12.6 Plt Count 274 MPV 11.1 H Gran % 54.5 Lymph % (Auto) 35.0 [place] % (Auto) 4.8 Eos % (Auto) 5.2 H Baso % (Auto) 0.5 Gran # 5.53 Lymph # (Auto) 3.[address] [place] # (Auto) 0.5 Eos # (Auto) 0.5 Baso # (Auto) 0.05 pCO2 pO2 HCO3 ABG pH ABG Total CO2 ABG O2 Saturation ABG O2 Content ABG Base Excess ABG Hemoglobin ABG Carboxyhemoglobin POC ABG HHb (Measured) ABG Methemoglobin ABG O2 Capacity Hgb O2 Saturation FiO2 Sodium 130 L Potassium 3.8 Chloride 98 Carbon Dioxide 19 L Anion Gap 18 BUN 9 Creatinine 0.6 L Est GFR ( Amer) > 60 Est GFR (Non-Af Amer) > 60 Random Glucose 526 H* D Calcium 9.2 Magnesium 1.5 L Total Bilirubin 0.5 AST 19 ALT 18 Alkaline Phosphatase 136 H Total Creatine Kinase 37 Total Protein 7.6 Albumin 3.9 Globulin 3.6 Albumin/Globulin Ratio 1.1 Lipase 89 Urine Color Yellow Urine Appearance Clear Urine pH 6.0 Ur Specific [place] 1.010 Urine Protein Negative Urine Glucose (UA) >=1000 Urine Ketones Negative Urine Blood Negative Urine Nitrate Negative Urine Bilirubin Negative Urine Urobilinogen 0.2 Ur Leukocyte Esterase Negative 08/20/18 22:42 WBC RBC Hgb Hct MCV MCH MCHC RDW Plt Count MPV Gran % Lymph % (Auto) [place] % (Auto) Eos % (Auto) Baso % (Auto) Gran # Lymph # (Auto) [place] # (Auto) Eos # (Auto) Baso # (Auto) pCO2 31 L pO2 108.0 H HCO3 20.6 L ABG pH 7.43 ABG Total CO2 21.6 L ABG O2 Saturation 98.6 H ABG O2 Content 17.0 ABG Base Excess -2.8 L ABG Hemoglobin 12.9 ABG Carboxyhemoglobin 4.4 H POC ABG HHb (Measured) 1.3 ABG Methemoglobin 1.2 ABG O2 Capacity 17.2 Hgb O2 Saturation 93.0 L FiO2 21.0 Sodium Potassium Chloride Carbon Dioxide Anion Gap BUN Creatinine Est GFR ( Amer) Est GFR (Non-Af Amer) Random Glucose Calcium Magnesium Total Bilirubin AST ALT Alkaline Phosphatase Total Creatine Kinase Total Protein Albumin Globulin Albumin/Globulin Ratio Lipase Urine Color Urine Appearance Urine pH Ur Specific [place] Urine Protein Urine Glucose (UA) Urine Ketones Urine Blood Urine Nitrate Urine Bilirubin Urine Urobilinogen Ur Leukocyte Esterase Assessment & Plan - Assessment and Plan (Free Text) Assessment: Assessment: 33 F with PMHx of DM, Pancreatitis, obesity and asthma who presents with abdominal pain concerning for cholecystitis. Plan: Abd Pain 2/2 acute [place] vs pancreatitis vs nephrolithiasis IN ED received Duonebs, Tylenol, Flexeril, 10 units Insulin, Toradol 30 mg, oxy 5 mg and 2 L NS X-rays of Cervical Spine and Lumbar Spine - No overt fractures appreciated, no lesions and no DJD as personally read. F/u prelim and final read Alk Phos 136, Lipase 89 No CVA tenderness or dysuria Complete Abdomen U/S pending - f/u results. Will consider CT abd/pel with contrast upon results. f/u UDS Flexeril 5 mg PO TID for pain NPO, IVF NS @ 125 cc/hr Hyperglycemia 2/2 Uncontrolled DM, Medication noncompliance No insulin use in 3-4 months Random sugars 526 on admission ISS - high f/u fingersticks f/u lipid panel, hgb a1c Gabapentin 100 mg TID for neuropathy Endocrine consult placed - Dr. Neumann - recommendations appreciated Diabetes education referral HypoMg 1.5 repleted with Mg Ox 400 mg PO f/u in AM Asthma Duonebs q6 PRN GI/DVT PPx Protonix 40 mg PO daily SCDs Disposition: SW for medication compliance/insurance difficulties, PT for deconditioning and strengthening. Patient seen, case reviewed, and plan approved by Dr. Guido. Rajat Murphy, PGY-1 <Cadence Guido - Last Filed: 08/22/18 06:38> Results - Vital Signs Recent Vital Signs: Last Vital Signs Temp 98.3 F 08/21/18 23:18 Pulse 91 H 08/21/18 23:18 Resp 20 08/21/18 23:18 BP 137/102 H 08/21/18 23:18 Pulse Ox 97 08/21/18 23:18 - Labs Result Diagrams: 08/21/18 06:45 08/21/18 06:45 Labs: Laboratory Results - last 24 hr 08/20/18 08/20/18 08/21/18 21:44 23:55 06:24 WBC RBC Hgb Hct MCV MCH MCHC RDW Plt Count MPV Gran % Lymph % (Auto) [place] % (Auto) Eos % (Auto) Baso % (Auto) Gran # Lymph # (Auto) [place] # (Auto) Eos # (Auto) Baso # (Auto) Sodium Potassium Chloride Carbon Dioxide Anion Gap BUN Creatinine Est GFR ( Amer) Est GFR (Non-Af Amer) POC Glucose (mg/dL) > 500 H* 325 H 288 H Random Glucose Hemoglobin A1c Calcium Magnesium Total Bilirubin AST ALT Alkaline Phosphatase Total Protein Albumin Globulin Albumin/Globulin Ratio Triglycerides Cholesterol LDL Cholesterol Direct HDL Cholesterol 08/21/18 08/21/18 08/21/18 06:45 06:45 06:45 WBC 8.1 D RBC 3.93 Hgb 11.5 L Hct 34.3 L MCV 87.3 MCH 29.3 MCHC 33.5 RDW 12.6 Plt Count 222 MPV 11.2 H Gran % 38.7 L Lymph % (Auto) 50.[address] % (Auto) 4.5 Eos % (Auto) 6.0 H Baso % (Auto) 0.6 Gran # 3.14 Lymph # (Auto) 4.[address] [place] # (Auto) 0.4 Eos # (Auto) 0.5 Baso # (Auto) 0.05 Sodium 134 Potassium 3.9 Chloride 105 Carbon Dioxide 24 Anion Gap 9 L BUN 10 Creatinine 0.6 L Est GFR ( Amer) > 60 Est GFR (Non-Af Amer) > 60 POC Glucose (mg/dL) Random Glucose 293 H Hemoglobin A1c 13.1 H D Calcium 8.2 L Magnesium 1.7 Total Bilirubin 0.3 AST 14 D ALT 23 Alkaline Phosphatase 99 Total Protein 6.1 Albumin 3.1 Globulin 3.0 Albumin/Globulin Ratio 1.0 L Triglycerides 1325 H Cholesterol 271 H LDL Cholesterol Direct < 30 HDL Cholesterol 30 08/21/18 08/21/18 12:24 16:33 WBC RBC Hgb Hct MCV MCH MCHC RDW Plt Count MPV Gran % Lymph % (Auto) [place] % (Auto) Eos % (Auto) Baso % (Auto) Gran # Lymph # (Auto) [place] # (Auto) Eos # (Auto) Baso # (Auto) Sodium Potassium Chloride Carbon Dioxide Anion Gap BUN Creatinine Est GFR ( Amer) Est GFR (Non-Af Amer) POC Glucose (mg/dL) 183 H 148 H Random Glucose Hemoglobin A1c Calcium Magnesium Total Bilirubin AST ALT Alkaline Phosphatase Total Protein Albumin Globulin Albumin/Globulin Ratio Triglycerides Cholesterol LDL Cholesterol Direct HDL Cholesterol Attending/Attestation - Attestation I have personally seen and examined this patient.: Yes I have fully participated in the care of the patient.: Yes I have reviewed all pertinent clinical information: Yes
[2018-08-21 02:05] VITALS: BMI 34.9
[2018-08-21] MEDS: Sodium Chloride 0.9% 1,000 ML IV SCH ×2 (02:25→13:27)
[2018-08-21 02:26] LABS: BARBITURATES, UR NEGATIVE (NEGATIVE); BENZODIAZEPINES, UR NEGATIVE (NEGATIVE); OPIATES, UR NEGATIVE (NEGATIVE); PHENCYCLIDINE, UR NEGATIVE (NEGATIVE)
[2018-08-21 07:19] LABS: BASO # 0.05 K/mm3 (0.0-2.0); BASO % 0.6 % (0.0-3.0); EOS # 0.5 (0.0-0.7); GRAN # 3.14 (1.4-6.5); GRAN % 38.7 % (50.0-68.0); HEMOGLOBIN 11.5 g/dL (12.0-16.0); LYMPH # 4.1 (1.2-3.4); LYMPH % 50.2 % (22.0-35.0); MEAN CELL VOLUME 87.3 fl (80.0-105.0); MEAN CORPUSCULAR HEMOGLOBIN 29.3 pg (25.0-35.0); MEAN CORPUSCULAR HGB CONC 33.5 g/dl (31.0-37.0); MEAN PLATELET VOLUME 11.2 fl (7.0-11.0); MONO # 0.4 (0.1-0.6); MONO % 4.5 % (1.0-6.0); RBC 3.93 10^6/uL (3.5-6.1); RED CELL DISTRIBUTION WIDTH 12.6 % (11.5-14.5); WHITE BLOOD COUNT 8.1 10^3/ul (4.5-11.0)
[2018-08-21 07:42] LABS: ALBUMIN 3.1 g/dL (3.0-4.8); ALT/SGPT 23 U/L (7-56); AST/SGOT 14 U/L (14-36); BLOOD UREA NITROGEN 10 mg/dL (7-21); CALCIUM 8.2 mg/dL (8.4-10.5); GFR NON-AFRICAN AMERICAN > 60; HDL CHOLESTEROL 30 mg/dL (29-60)
[2018-08-21] MEDS: Pantoprazole 40 mg EC Tab PO SCH (07:42)
[2018-08-21] MEDS: Insulin Reg-HIGH-Coverage SC SCH ×4 (07:42→22:06)
[2018-08-21 07:45] LABS: LDL CHOLESTEROL < 30 mg/dL (0-129)
--- NOTE | 2018-08-21 09:16 | CARD ---
APPROVED REPORT Date of service: 08/20/2018 EKG Measurement Heart [id number] <Conclusion> Sinus tachycardia with premature atrial complexes Borderline ECG
--- NOTE | 2018-08-21 09:18 | CP.PCM.CON ---
<JailenemaryluNew mcrae - Last Filed: 08/21/18 16:06> History of Present Illness - History of Present Illness History of Present Illness: Carlos Spann IM Resident - GI Consult Note Consulted Reason: Chronic Abdominal Pain HPI: 33 year old female with past medical history of uncontroleld DM2, HTN, gastritis and pancreatitis who presented to [facility] [place] [facility] complaining of right sided flank pain. Patient admits that her symptoms have been ongoing for 2 weeks and on day of presentation had acute exacerbatuion. She indicates the pain to be constant and rated as 10/10. She reports associated symptoms of pain in her right arm and right leg that is burning and constant. She indicates movement and certain positions worsen her pain. Her pain is relieved with pain medication and sitting still. Patient also reports diarrhea that is non-bloody without mucous for the past two weeks. SHe reports 3-5 episodes a day. She reports that she is able to tolerate some food such as mashed potatoes and most liquids. Patient was previously seen by Dr. Wang in 06/2017 for one week history of pancreatitis with right upper abdominal pain and vomiting. At that time patient was evaluated with abdominal CT showing stable pancreas and was discaharged home after IV hydration. Most recent endososcpy is Upper EUS 04/2017 showing gastritis, duodenitis, and hyperechoic material consistent with sludge visualized endosonographically in the gallbladder. Biopsy of the gastritis was taken and was negative for malignant cells as well as negative for H. Pylori. Last abdominal/pelvis CT with contrast done 02/15/2018 showing: hepatomegaly, hypodense fatty infiltration of the liver, mild left hydronephrosis, possible ovarian cysts PMH: DM2, HTN, Gastritis, Pancreatitis, Bipolar disorder, asthma PSH: Bartholene cyst SOCHx: Tobacco: 1/2 PPD, ETOH: Denies, ID: Denies FMH: Pancreatic Cancer ALL: NKDA MEDS: PMD: Denies Review of Systems - Review of Systems All systems: reviewed and no additional remarkable complaints except (as mentioned in HPI) Past Patient History - Infectious Disease Hx of Infectious Diseases: None - Past Social History Smoking Status: Current Some Days Smoker - CARDIAC Hx Cardiac Disorders: Yes Hx Hypertension: Yes - PULMONARY Hx Respiratory Disorders: Yes Hx Asthma: Yes - NEUROLOGICAL Hx Neurological Disorder: No - HEENT Hx HEENT Problems: No - RENAL Hx Chronic Kidney Disease: No - ENDOCRINE/METABOLIC Hx Endocrine Disorders: Yes Hx Diabetes Mellitus Type 2: Yes - HEMATOLOGICAL/ONCOLOGICAL Hx Blood Disorders: No Hx Blood Transfusions: No Hx Blood Transfusion Reaction: No - INTEGUMENTARY Hx Dermatological Problems: No - MUSCULOSKELETAL/RHEUMATOLOGICAL Hx Musculoskeletal Disorders: Yes Hx Back Pain: Yes - GASTROINTESTINAL Hx Gastrointestinal Disorders: Yes Hx Pancreatitis: Yes Other/Comment: gastroparesis - GENITOURINARY/GYNECOLOGICAL Hx Genitourinary Disorders: No - PSYCHIATRIC Hx Psychophysiologic Disorder: Yes Hx Bipolar Disorder: Yes Hx Substance Use: No - SURGICAL HISTORY Other/Comment: bartholenes cyst I and D - ANESTHESIA Hx Anesthesia Reactions: No Hx Malignant Hyperthermia: No Meds Allergies/Adverse Reactions: Allergies Allergy/AdvReac Type Severity Reaction Status Date / Time No Known Allergies Allergy Verified 02/14/18 21:07 - Medications Medications: Current Medications Albuterol/Ipratropium (Duoneb 3 Mg/0.5 Mg (3 Ml) Ud) 3 ml IH Q6H PRN PRN Reason: Shortness of Breath Cyclobenzaprine HCl (Flexeril) 5 mg PO TID [facility] Last Admin: 08/21/18 09:05 Dose: 5 mg Dextrose (Dextrose 50% Inj) 0 ml IV STAT PRN; Protocol PRN Reason: Hypoglycemia Protocol Gabapentin (Neurontin) 100 mg PO TID [facility]; Protocol Last Admin: 08/21/18 09:05 Dose: 100 mg Sodium Chloride (Sodium Chloride 0.9%) 1,000 mls @ 125 mls/hr IV .Q8H [facility]ILIA[facility] Last Admin: 08/21/18 02:25 Dose: 125 mls/hr Dextrose (Dextrose 5% In Water 1000 Ml) 1,000 mls @ 0 mls/hr IV .Q0M PRN; Protocol PRN Reason: Hypoglycemia Protocol Insulin Human Regular (Humulin R High) 0 units SC ACHS [facility]; Protocol Last Admin: 08/21/18 07:42 Dose: 7 units Pantoprazole Sodium (Protonix Ec Tab) 40 mg PO 0600 [facility] Last Admin: 08/21/18 07:42 Dose: 40 mg Physical Exam - Head Exam Head Exam: ATRAUMATIC, NORMOCEPHALIC - Eye Exam Eye Exam: EOMI, PERRL - ENT Exam ENT Exam: Mucous Membranes Moist, Normal Oropharynx - Neck Exam Neck exam: Positive for: Full Rom - Respiratory Exam Respiratory Exam: Clear to Auscultation Bilateral, NORMAL BREATHING PATTERN. absent: Rhonchi, Wheezes - Cardiovascular Exam Cardiovascular Exam: REGULAR RHYTHM, +S1, +S2 - GI/Abdominal Exam GI & Abdominal Exam: Guarding, Soft, Tenderness (diffuse, most notably RUQ, Right flank ). absent: Hernia, Mass, Rigid - Rectal Exam Rectal Exam: Deferred - Extremities Exam Extremities exam: Positive for: normal inspection - Neurological Exam Neurological exam: Alert, CN II-XII Intact, Normal Gait, Oriented x3 - Psychiatric Exam Psychiatric exam: Anxious - Skin Skin Exam: Dry, Warm Results - Vital Signs Recent Vital Signs: Last Vital Signs Temp 99.4 F 08/20/18 21:36 Pulse 89 08/21/18 01:35 Resp 20 08/21/18 01:54 BP 116/62 08/21/18 01:35 Pulse Ox 98 08/21/18 01:35 - Labs Result Diagrams: 08/21/18 06:45 08/21/18 06:45 Labs: Laboratory Results - last 24 hr 08/20/18 08/20/18 08/20/18 21:44 22:16 22:16 WBC 10.2 RBC 4.42 Hgb 13.4 Hct 38.3 MCV 86.7 MCH 30.3 MCHC 35.0 RDW 12.6 Plt Count 274 MPV 11.1 H Gran % 54.5 Lymph % (Auto) 35.0 Crosby % (Auto) 4.8 Eos % (Auto) 5.2 H Baso % (Auto) 0.5 Gran # 5.53 Lymph # (Auto) 3.6 H Crosby # (Auto) 0.5 Eos # (Auto) 0.5 Baso # (Auto) 0.05 pCO2 pO2 HCO3 ABG pH ABG Total CO2 ABG O2 Saturation ABG O2 Content ABG Base Excess ABG Hemoglobin ABG Carboxyhemoglobin POC ABG HHb (Measured) ABG Methemoglobin ABG O2 Capacity Hgb O2 Saturation FiO2 Sodium 130 L Potassium 3.8 Chloride 98 Carbon Dioxide 19 L Anion Gap 18 BUN 9 Creatinine 0.6 L Est GFR ( Amer) > 60 Est GFR (Non-Af Amer) > 60 POC Glucose (mg/dL) > 500 H* Random Glucose 526 H* D Calcium 9.2 Magnesium 1.5 L Total Bilirubin 0.5 AST 19 ALT 18 Alkaline Phosphatase 136 H Total Creatine Kinase 37 Total Protein 7.6 Albumin 3.9 Globulin 3.6 Albumin/Globulin Ratio 1.1 Triglycerides Cholesterol LDL Cholesterol Direct HDL Cholesterol Lipase 89 Urine Color Urine Appearance Urine pH Ur Specific [place] Urine Protein Urine Glucose (UA) Urine Ketones Urine Blood Urine Nitrate Urine Bilirubin Urine Urobilinogen Ur Leukocyte Esterase Urine Opiates Screen Urine Methadone Screen Ur Barbiturates Screen Ur Phencyclidine Scrn Ur Amphetamines Screen U Benzodiazepines Scrn U Oth Cocaine Metabols U Cannabinoids Screen 08/20/18 08/20/18 08/20/18 22:16 22:42 23:55 WBC RBC Hgb Hct MCV MCH MCHC RDW Plt Count MPV Gran % Lymph % (Auto) Crosby % (Auto) Eos % (Auto) Baso % (Auto) Gran # Lymph # (Auto) Crosby # (Auto) Eos # (Auto) Baso # (Auto) pCO2 31 L pO2 108.0 H HCO3 20.6 L ABG pH 7.43 ABG Total CO2 21.6 L ABG O2 Saturation 98.6 H ABG O2 Content 17.0 ABG Base Excess -2.8 L ABG Hemoglobin 12.9 ABG Carboxyhemoglobin 4.4 H POC ABG HHb (Measured) 1.3 ABG Methemoglobin 1.2 ABG O2 Capacity 17.2 Hgb O2 Saturation 93.0 L FiO2 21.0 Sodium Potassium Chloride Carbon Dioxide Anion Gap BUN Creatinine Est GFR ( Amer) Est GFR (Non-Af Amer) POC Glucose (mg/dL) 325 H Random Glucose Calcium Magnesium Total Bilirubin AST ALT Alkaline Phosphatase Total Creatine Kinase Total Protein Albumin Globulin Albumin/Globulin Ratio Triglycerides Cholesterol LDL Cholesterol Direct HDL Cholesterol Lipase Urine Color Yellow Urine Appearance Clear Urine pH 6.0 Ur Specific [place] 1.010 Urine Protein Negative Urine Glucose (UA) >=1000 Urine Ketones Negative Urine Blood Negative Urine Nitrate Negative Urine Bilirubin Negative Urine Urobilinogen 0.2 Ur Leukocyte Esterase Negative Urine Opiates Screen Urine Methadone Screen Ur Barbiturates Screen Ur Phencyclidine Scrn Ur Amphetamines Screen U Benzodiazepines Scrn U Oth Cocaine Metabols U Cannabinoids Screen 08/21/18 08/21/18 08/21/18 01:35 06:45 06:45 WBC 8.1 D RBC 3.93 Hgb 11.5 L Hct 34.3 L MCV 87.3 MCH 29.3 MCHC 33.5 RDW 12.6 Plt Count 222 MPV 11.2 H Gran % 38.7 L Lymph % (Auto) 50.2 H Crosby % (Auto) 4.5 Eos % (Auto) 6.0 H Baso % (Auto) 0.6 Gran # 3.14 Lymph # (Auto) 4.1 H Crosby # (Auto) 0.4 Eos # (Auto) 0.5 Baso # (Auto) 0.05 pCO2 pO2 HCO3 ABG pH ABG Total CO2 ABG O2 Saturation ABG O2 Content ABG Base Excess ABG Hemoglobin ABG Carboxyhemoglobin POC ABG HHb (Measured) ABG Methemoglobin ABG O2 Capacity Hgb O2 Saturation FiO2 Sodium 134 Potassium 3.9 Chloride 105 Carbon Dioxide 24 Anion Gap 9 L BUN 10 Creatinine 0.6 L Est GFR ( Amer) > 60 Est GFR (Non-Af Amer) > 60 POC Glucose (mg/dL) Random Glucose 293 H Calcium 8.2 L Magnesium 1.7 Total Bilirubin 0.3 AST 14 D ALT 23 Alkaline Phosphatase 99 Total Creatine Kinase Total Protein 6.1 Albumin 3.1 Globulin 3.0 Albumin/Globulin Ratio 1.0 L Triglycerides 1325 H Cholesterol 271 H LDL Cholesterol Direct < 30 HDL Cholesterol 30 Lipase Urine Color Urine Appearance Urine pH Ur Specific [place] Urine Protein Urine Glucose (UA) Urine Ketones Urine Blood Urine Nitrate Urine Bilirubin Urine Urobilinogen Ur Leukocyte Esterase Urine Opiates Screen Negative Urine Methadone Screen Negative Ur Barbiturates Screen Negative Ur Phencyclidine Scrn Negative Ur Amphetamines Screen Negative U Benzodiazepines Scrn Negative U Oth Cocaine Metabols Negative U Cannabinoids Screen Negative Assessment & Plan - Assessment and Plan (Free Text) Assessment: 33 year old female with past medical history of uncontroleld DM2, HTN, gastritis and pancreatitis who presented to [facility] [place] [facility] complaining of right sided flank pain. Patient is seen by GI for chronic abdominal pain questionable for pancreatitis vs. gastroparesis. Plan: Exocrine Pancreatic Insufficiency Chylomicronemia Hyperglycemia Gastroparesis Hx of Pancreatitis HTN DM2 - Abdominal US ordered, f/u final report - IV hydration per primary - Abdominal/Pelvis CT with PO contrast(pancreas protocol) - Continue Liquid diet as tolerated \ - No indication for emergent endoscopy at this time, continue to re-evaluate - Further recommendations per Dr. Polo - Date & Time Date: 08/21/18 Time: 16:08 <Bobby Polo V - Last Filed: 08/21/18 20:21> Meds - Medications Medications: Current Medications Albuterol/Ipratropium (Duoneb 3 Mg/0.5 Mg (3 Ml) Ud) 3 ml IH Q6H PRN PRN Reason: Shortness of Breath Cyclobenzaprine HCl (Flexeril) 5 mg PO TID [facility] Last Admin: 08/21/18 17:20 Dose: 5 mg Dextrose (Dextrose 50% Inj) 0 ml IV STAT PRN; Protocol PRN Reason: Hypoglycemia Protocol Fenofibrate (Tricor) 145 mg PO DAILY [facility] Last Admin: 08/21/18 13:26 Dose: 145 mg Gabapentin (Neurontin) 100 mg PO TID [facility]; Protocol Last Admin: 08/21/18 17:20 Dose: 100 mg Sodium Chloride (Sodium Chloride 0.9%) 1,000 mls @ 125 mls/hr IV .Q8H [facility] Last Admin: 08/21/18 13:27 Dose: 125 mls/hr Dextrose (Dextrose 5% In Water 1000 Ml) 1,000 mls @ 0 mls/hr IV .Q0M PRN; Protocol PRN Reason: Hypoglycemia Protocol Insulin Detemir (Levemir) 12 unit SC Q12H [facility] Insulin Human Regular (Humulin R High) 0 units SC ACHS [facility] Last Admin: 08/21/18 17:21 Dose: Not Given Ketorolac Tromethamine (Toradol) 30 mg IVP Q6H PRN PRN Reason: Pain, moderate (4-7) Pantoprazole Sodium (Protonix Ec Tab) 40 mg PO 0600 [facility] Last Admin: 08/21/18 07:42 Dose: 40 mg Results - Vital Signs Recent Vital Signs: Last Vital Signs Temp 98.2 F 08/21/18 14:00 Pulse 88 08/21/18 14:00 Resp 18 08/21/18 14:00 BP 128/92 H 08/21/18 14:00 Pulse Ox 97 08/21/18 14:00 - Labs Result Diagrams: 08/21/18 06:45 08/21/18 06:45 Labs: Laboratory Results - last 24 hr 08/20/18 08/20/18 08/20/18 21:44 22:16 22:16 WBC 10.2 RBC 4.42 Hgb 13.4 Hct 38.3 MCV 86.7 MCH 30.3 MCHC 35.0 RDW 12.6 Plt Count 274 MPV 11.1 H Gran % 54.5 Lymph % (Auto) 35.0 Crosby % (Auto) 4.8 Eos % (Auto) 5.2 H Baso % (Auto) 0.5 Gran # 5.53 Lymph # (Auto) 3.6 H Crosby # (Auto) 0.5 Eos # (Auto) 0.5 Baso # (Auto) 0.05 pCO2 pO2 HCO3 ABG pH ABG Total CO2 ABG O2 Saturation ABG O2 Content ABG Base Excess ABG Hemoglobin ABG Carboxyhemoglobin POC ABG HHb (Measured) ABG Methemoglobin ABG O2 Capacity Hgb O2 Saturation FiO2 Sodium 130 L Potassium 3.8 Chloride 98 Carbon Dioxide 19 L Anion Gap 18 BUN 9 Creatinine 0.6 L Est GFR ( Amer) > 60 Est GFR (Non-Af Amer) > 60 POC Glucose (mg/dL) > 500 H* Random Glucose 526 H* D Hemoglobin A1c Calcium 9.2 Magnesium 1.5 L Total Bilirubin 0.5 AST 19 ALT 18 Alkaline Phosphatase 136 H Total Creatine Kinase 37 Total Protein 7.6 Albumin 3.9 Globulin 3.6 Albumin/Globulin Ratio 1.1 Triglycerides Cholesterol LDL Cholesterol Direct HDL Cholesterol Lipase 89 Urine Color Urine Appearance Urine pH Ur Specific [place] Urine Protein Urine Glucose (UA) Urine Ketones Urine Blood Urine Nitrate Urine Bilirubin Urine Urobilinogen Ur Leukocyte Esterase Urine Opiates Screen Urine Methadone Screen Ur Barbiturates Screen Ur Phencyclidine Scrn Ur Amphetamines Screen U Benzodiazepines Scrn U Oth Cocaine Metabols U Cannabinoids Screen 08/20/18 08/20/18 08/20/18 22:16 22:42 23:55 WBC RBC Hgb Hct MCV MCH MCHC RDW Plt Count MPV Gran % Lymph % (Auto) Crosby % (Auto) Eos % (Auto) Baso % (Auto) Gran # Lymph # (Auto) Crosby # (Auto) Eos # (Auto) Baso # (Auto) pCO2 31 L pO2 108.0 H HCO3 20.6 L ABG pH 7.43 ABG Total CO2 21.6 L ABG O2 Saturation 98.6 H ABG O2 Content 17.0 ABG Base Excess -2.8 L ABG Hemoglobin 12.9 ABG Carboxyhemoglobin 4.4 H POC ABG HHb (Measured) 1.3 ABG Methemoglobin 1.2 ABG O2 Capacity 17.2 Hgb O2 Saturation 93.0 L FiO2 21.0 Sodium Potassium Chloride Carbon Dioxide Anion Gap BUN Creatinine Est GFR ( Amer) Est GFR (Non-Af Amer) POC Glucose (mg/dL) 325 H Random Glucose Hemoglobin A1c Calcium Magnesium Total Bilirubin AST ALT Alkaline Phosphatase Total Creatine Kinase Total Protein Albumin Globulin Albumin/Globulin Ratio Triglycerides Cholesterol LDL Cholesterol Direct HDL Cholesterol Lipase Urine Color Yellow Urine Appearance Clear Urine pH 6.0 Ur Specific [place] 1.010 Urine Protein Negative Urine Glucose (UA) >=1000 Urine Ketones Negative Urine Blood Negative Urine Nitrate Negative Urine Bilirubin Negative Urine Urobilinogen 0.2 Ur Leukocyte Esterase Negative Urine Opiates Screen Urine Methadone Screen Ur Barbiturates Screen Ur Phencyclidine Scrn Ur Amphetamines Screen U Benzodiazepines Scrn U Oth Cocaine Metabols U Cannabinoids Screen 08/21/18 08/21/18 08/21/18 01:35 06:24 06:45 WBC RBC Hgb Hct MCV MCH MCHC RDW Plt Count MPV Gran % Lymph % (Auto) Crosby % (Auto) Eos % (Auto) Baso % (Auto) Gran # Lymph # (Auto) Crosby # (Auto) Eos # (Auto) Baso # (Auto) pCO2 pO2 HCO3 ABG pH ABG Total CO2 ABG O2 Saturation ABG O2 Content ABG Base Excess ABG Hemoglobin ABG Carboxyhemoglobin POC ABG HHb (Measured) ABG Methemoglobin ABG O2 Capacity Hgb O2 Saturation FiO2 Sodium Potassium Chloride Carbon Dioxide Anion Gap BUN Creatinine Est GFR ( Amer) Est GFR (Non-Af Amer) POC Glucose (mg/dL) 288 H Random Glucose Hemoglobin A1c 13.1 H D Calcium Magnesium Total Bilirubin AST ALT Alkaline Phosphatase Total Creatine Kinase Total Protein Albumin Globulin Albumin/Globulin Ratio Triglycerides Cholesterol LDL Cholesterol Direct HDL Cholesterol Lipase Urine Color Urine Appearance Urine pH Ur Specific [place] Urine Protein Urine Glucose (UA) Urine Ketones Urine Blood Urine Nitrate Urine Bilirubin Urine Urobilinogen Ur Leukocyte Esterase Urine Opiates Screen Negative Urine Methadone Screen Negative Ur Barbiturates Screen Negative Ur Phencyclidine Scrn Negative Ur Amphetamines Screen Negative U Benzodiazepines Scrn Negative U Oth Cocaine Metabols Negative U Cannabinoids Screen Negative 08/21/18 08/21/18 08/21/18 06:45 06:45 12:24 WBC 8.1 D RBC 3.93 Hgb 11.5 L Hct 34.3 L MCV 87.3 MCH 29.3 MCHC 33.5 RDW 12.6 Plt Count 222 MPV 11.2 H Gran % 38.7 L Lymph % (Auto) 50.2 H Crosby % (Auto) 4.5 Eos % (Auto) 6.0 H Baso % (Auto) 0.6 Gran # 3.14 Lymph # (Auto) 4.1 H Crosby # (Auto) 0.4 Eos # (Auto) 0.5 Baso # (Auto) 0.05 pCO2 pO2 HCO3 ABG pH ABG Total CO2 ABG O2 Saturation ABG O2 Content ABG Base Excess ABG Hemoglobin ABG Carboxyhemoglobin POC ABG HHb (Measured) ABG Methemoglobin ABG O2 Capacity Hgb O2 Saturation FiO2 Sodium 134 Potassium 3.9 Chloride 105 Carbon Dioxide 24 Anion Gap 9 L BUN 10 Creatinine 0.6 L Est GFR ( Amer) > 60 Est GFR (Non-Af Amer) > 60 POC Glucose (mg/dL) 183 H Random Glucose 293 H Hemoglobin A1c Calcium 8.2 L Magnesium 1.7 Total Bilirubin 0.3 AST 14 D ALT 23 Alkaline Phosphatase 99 Total Creatine Kinase Total Protein 6.1 Albumin 3.1 Globulin 3.0 Albumin/Globulin Ratio 1.0 L Triglycerides 1325 H Cholesterol 271 H LDL Cholesterol Direct < 30 HDL Cholesterol 30 Lipase Urine Color Urine Appearance Urine pH Ur Specific [place] Urine Protein Urine Glucose (UA) Urine Ketones Urine Blood Urine Nitrate Urine Bilirubin Urine Urobilinogen Ur Leukocyte Esterase Urine Opiates Screen Urine Methadone Screen Ur Barbiturates Screen Ur Phencyclidine Scrn Ur Amphetamines Screen U Benzodiazepines Scrn U Oth Cocaine Metabols U Cannabinoids Screen 08/21/18 16:33 WBC RBC Hgb Hct MCV MCH MCHC RDW Plt Count MPV Gran % Lymph % (Auto) Crosby % (Auto) Eos % (Auto) Baso % (Auto) Gran # Lymph # (Auto) Crosby # (Auto) Eos # (Auto) Baso # (Auto) pCO2 pO2 HCO3 ABG pH ABG Total CO2 ABG O2 Saturation ABG O2 Content ABG Base Excess ABG Hemoglobin ABG Carboxyhemoglobin POC ABG HHb (Measured) ABG Methemoglobin ABG O2 Capacity Hgb O2 Saturation FiO2 Sodium Potassium Chloride Carbon Dioxide Anion Gap BUN Creatinine Est GFR ( Amer) Est GFR (Non-Af Amer) POC Glucose (mg/dL) 148 H Random Glucose Hemoglobin A1c Calcium Magnesium Total Bilirubin AST ALT Alkaline Phosphatase Total Creatine Kinase Total Protein Albumin Globulin Albumin/Globulin Ratio Triglycerides Cholesterol LDL Cholesterol Direct HDL Cholesterol Lipase Urine Color Urine Appearance Urine pH Ur Specific [place] Urine Protein Urine Glucose (UA) Urine Ketones Urine Blood Urine Nitrate Urine Bilirubin Urine Urobilinogen Ur Leukocyte Esterase Urine Opiates Screen Urine Methadone Screen Ur Barbiturates Screen Ur Phencyclidine Scrn Ur Amphetamines Screen U Benzodiazepines Scrn U Oth Cocaine Metabols U Cannabinoids Screen Attending/Attestation - Attestation I have personally seen and examined this patient.: Yes I have fully participated in the care of the patient.: Yes I have reviewed all pertinent clinical information: Yes Notes (Text): This is an addendum to GI consult report dictated by the Document Photographer.The patient was seen and evaluated earlier. Medical records, lab studies, imagings were reviewed. Last 24 hours events reviewed. Agreed with the above treatment plan as outlined in Document Photographer 's notes with the addition of the following This 33 year old patient admitted with abdominal pain History of pancreatitis before Abdominal pain mainly epigastric and Right upper quadrant This admission pancreatic enzymes normal Elevated hb A1C 13.1 elevated TGL 1325 Sonogram reviewed no stones/sludge On examination defuse abdominal tenderness more pronounced in epigastric and right upper quadrant area Would request CT with pancreatic protocol 08/21/18 20:18
--- NOTE | 2018-08-21 09:56 | RAD ---
Date of service: 08/20/2018 PROCEDURE: Cervical Spine Radiographs. HISTORY: Pain. COMPARISON: None. FINDINGS: BONES: There is normal alignment of the cervical vertebral bodies. There is normal cervical lordosis. Vertebral height is normal. Bone mineralization is normal. There is no acute fracture or traumatic anterior listhesis. The craniocervical junction is normal. The atlantoaxial joint normal. DISC SPACES: Normal. SOFT TISSUES: Normal. No prevertebral soft tissue swelling. OTHER FINDINGS: None. IMPRESSION: Normal examination
--- NOTE | 2018-08-21 09:58 | RAD ---
Date of service: 08/20/2018 PROCEDURE: Radiographs of the Lumbar Spine. HISTORY: Right radicular COMPARISON: No prior. FINDINGS: BONES: There is normal alignment of the lumbar vertebral bodies. There is normal lumbar lordosis. There is no acute fracture, spondylolysis or spondylolisthesis. Bone mineralization is normal. DISC SPACES: There is mild degenerative disc disease at L5-S1 with reduced disc height and facet arthropathy. The remaining disc heights are maintained. OTHER FINDINGS: No pathologic soft tissue calcifications. Both sacroiliac joints are normal. IMPRESSION: No acute fracture, spondylolysis or spondylolisthesis. Mild degenerative disc disease at L5-S1.
--- NOTE | 2018-08-21 11:58 | US ---
Date of service: 08/21/2018 HISTORY: RUQ and epigastric pain, r/o acute maine COMPARISON: None. TECHNIQUE: Grayscale imaging was performed. FINDINGS: LIVER: Measures 20.3 cm. There is diffuse increased echogenicity of the liver parenchyma. No mass. No intrahepatic bile duct dilatation. GALLBLADDER: There are no gallstones, wall thickening or pericholecystic fluid. The sonographic Casey's sign is negative. COMMON BILE DUCT: Measures 6.0 mm. No stones. No dilatation. PANCREAS: Normal in size and echotexture. Mild diffuse dilatation of the common bile duct without evidence for choledocholithiasis dilatation. RIGHT KIDNEY: Measures 13.4cm. Normal echogenicity. No calculus, mass, or hydronephrosis. LEFT KIDNEY: Measures 12.5cm. Normal echogenicity. No calculus, mass, or hydronephrosis. SPLEEN: Normal in size and contour. No mass. AORTA: No aneurysmal dilatation. IVC: Unremarkable. OTHER FINDINGS: None. IMPRESSION: Mild hepatomegaly. Diffuse increased echogenicity in the liver may reflect hepatic steatosis however parenchymal infectious/ inflammatory etiologies cannot be entirely excluded. Clinical and laboratory correlation is advised. No cholelithiasis. Mild diffuse dilatation of the common bile duct without sonographic evidence for choledocholithiasis.
--- NOTE | 2018-08-21 12:23 | RAD ---
Date of service: 08/21/2018 HISTORY: cough r/o pna COMPARISON: No prior. TECHNIQUE: Chest PA and lateral FINDINGS: LUNGS: No active pulmonary disease. PLEURA: No significant pleural effusion identified. No pneumothorax apparent. CARDIOVASCULAR: Normal. OSSEOUS STRUCTURES: No significant abnormalities. VISUALIZED UPPER ABDOMEN: Normal. OTHER FINDINGS: None. IMPRESSION: No active disease.
--- NOTE | 2018-08-21 13:43 | CP.PCM.PN ---
<Anita Campbell - Last Filed: 08/21/18 16:33> Subjective - Date & Time of Evaluation Date of Evaluation: 08/21/18 Time of Evaluation: 09:10 - Subjective Subjective: Patient seen and examined this am at bedside. She is resting comfortably in bed and refuses to make eye contact during the interview. She c/o abdominal pain, right arm and right leg pain which is burning in quality and constant. It is worsened by touching the areas. She otherwise denies [place], [place], SOB and dysuria. Of note patient asked specifically for morphine during interview. it was discussed with her that t this time there is no indication for narcotic pain medication and that the neurontin she has been prescribed should help with the neuropathic pain and we will increase the dose as needed. Objective - Vital Signs/Intake and Output Vital Signs (last 24 hours): Temp Pulse Resp BP Pulse Ox 99.4 F 89 20 116/62 98 08/20/18 21:36 08/21/18 01:35 08/21/18 01:54 08/21/18 01:35 08/21/18 01:35 - Medications Medications: Current Medications Albuterol/Ipratropium (Duoneb 3 Mg/0.5 Mg (3 Ml) Ud) 3 ml IH Q6H PRN PRN Reason: Shortness of Breath Cyclobenzaprine HCl (Flexeril) 5 mg PO TID [facility] Last Admin: 08/21/18 13:26 Dose: 5 mg Dextrose (Dextrose 50% Inj) 0 ml IV STAT PRN; Protocol PRN Reason: Hypoglycemia Protocol Fenofibrate (Tricor) 145 mg PO DAILY [facility] Last Admin: 08/21/18 13:26 Dose: 145 mg Gabapentin (Neurontin) 100 mg PO TID [facility]; Protocol Last Admin: 08/21/18 13:26 Dose: 100 mg Sodium Chloride (Sodium Chloride 0.9%) 1,000 mls @ 125 mls/hr IV .Q8H [facility] Last Admin: 08/21/18 13:27 Dose: 125 mls/hr Dextrose (Dextrose 5% In Water 1000 Ml) 1,000 mls @ 0 mls/hr IV .Q0M PRN; Protocol PRN Reason: Hypoglycemia Protocol Insulin Human Regular (Humulin R High) 0 units SC ACHS [facility]; Protocol Last Admin: 08/21/18 13:25 Dose: 2 units Pantoprazole Sodium (Protonix Ec Tab) 40 mg PO 0600 [facility] Last Admin: 08/21/18 07:42 Dose: 40 mg - Labs Labs: 08/21/18 06:45 08/21/18 06:45 - Constitutional Appears: Well, Non-toxic, No Acute Distress - Head Exam Head Exam: ATRAUMATIC, NORMOCEPHALIC - Eye Exam Eye Exam: EOMI Pupil Exam: PERRL - ENT Exam ENT Exam: Mucous Membranes Moist - Respiratory Exam Respiratory Exam: NORMAL BREATHING PATTERN - Cardiovascular Exam Cardiovascular Exam: REGULAR RHYTHM - GI/Abdominal Exam GI & Abdominal Exam: Guarding, Soft, Tenderness (RLQ and RUQ tenderness with guarding). absent: Distended, Firm, Rigid - Extremities Exam Extremities Exam: absent: Calf Tenderness, Pedal Edema, Tenderness - Neurological Exam Neurological Exam: Alert, Awake, Oriented x3 - Psychiatric Exam Psychiatric exam: Depressed, Flat Affect - Skin Skin Exam: Dry, Intact, Normal Color, Warm Assessment and Plan - Assessment and Plan (Free Text) Assessment: 33 yr Female with URI, uncontrolled diabetes and medication noncompliance Plan: Abd Pain * likely 2/2 ovarian cyst rupture consistent with CT findings * all other imaging negative * pain control * GI consulted, will f/u reccomendations * referral to OBGYN Hyperglycemia 2/2 Uncontrolled DM, Medication noncompliance * ISS - high * f/u fingersticks * Gabapentin 100 mg TID for neuropathy * Endocrine consult placed - Dr. Neumann - recommendations appreciated * Diabetes education referral Hypertiglyceridemia * start tricor * encourage low fat diet * monitor for improvement Asthma * Duonebs q6 PRN * maintain O2 sats >90% GI/DVT PPx Protonix 40 mg PO daily SCDs Disposition: SW for medication compliance/insurance difficulties, PT for deconditioning and strengthening. <Portia Choi - Last Filed: 08/23/18 14:29> Objective - Vital Signs/Intake and Output Vital Signs (last 24 hours): Temp Pulse Resp BP Pulse Ox 98.3 F 84 20 143/99 H 99 08/22/18 14:00 08/22/18 14:00 08/22/18 14:00 08/22/18 14:00 08/22/18 14:00 - Labs Labs: 08/22/18 06:20 08/22/18 06:20 Attending/Attestation - Attestation I have personally seen and examined this patient.: Yes I have fully participated in the care of the patient.: Yes I have reviewed all pertinent clinical information, including history, physical exam and plan: Yes Notes (Text): 08/23/18 14:26 Attending note; Patient seen and examined with resident. Patient is alert and awake. Complaining of abdominal pain. Denies any nausea, vomiting. Denies any headache. Denies any fever, chills. Patient is a 33-year-old female with a past medical history of diabetes, i nsulin-dependent, hyperlipidemia, pancreatitis in the past is admitted with abdominal pain. Abdominal ultrasound was negative for gallstones. CT consistent with ruptured ovarian cyst. No pancreatic inflammation noted. GI evaluation appreciated. Needs outpatient SPINE SURGEON follow-up. Anxiety and depression; continue to follow up with [facility]. Continue IV fluids. Continue Toradol when necessary. Diabetes; elevated blood sugar secondary to noncompliance. Patient did not take insulin. Recently last insurance and did not get prescriptions refilled. Dietary education given. Diabetic nurse education evaluation given. Advised to follow-up with PMD closely.
--- NOTE | 2018-08-21 13:46 | CT ---
Date of service: 08/21/2018 PROCEDURE: CT Abdomen and Pelvis with and without intravenous contrast HISTORY: Abdominal pain COMPARISON: None. TECHNIQUE: Axial images of the abdomen were obtained in the pre contrast, portal venous and delayed phases of enhancement. Coronal and sagittal reformats were generated. Pancreatic protocol Contrast dose: 150 cc of Omni 350 Radiation dose: Total exam DLP = 1869 mGy-cm. This CT exam was performed using one or more of the following dose reduction techniques: Automated exposure control, adjustment of the mA and/or kV according to patient size, and/or use of iterative reconstruction technique. FINDINGS: LOWER THORAX: Unremarkable. LIVER: Unremarkable. No gross lesion or ductal dilatation. Moderate fatty infiltration of the liver GALLBLADDER AND BILE DUCTS: Unremarkable. PANCREAS: Unremarkable. No gross lesion or ductal dilatation. SPLEEN: Unremarkable. ADRENALS: Unremarkable. No mass. KIDNEYS AND URETERS: Unremarkable. No hydronephrosis. No solid mass. VASCULATURE: Unremarkable. No aortic aneurysm. BOWEL: Unremarkable. No obstruction. No gross mural thickening. APPENDIX: Normal appendix. PERITONEUM: Unremarkable. No free fluid. No free air. LYMPH NODES: Unremarkable. No enlarged lymph nodes. BLADDER: Unremarkable. REPRODUCTIVE: There is a thick-walled collapsed cyst in the right ovary consistent with recent cyst rupture. There is a small amount of fluid in the cul-de-sac. BONES: No acute fracture. OTHER FINDINGS: None. IMPRESSION: Fatty infiltration of the liver. Normal pancreas There is a thick-walled collapsed cyst in the right ovary consistent with recent cyst rupture. There is a small amount of fluid in the cul-de-sac.
[2018-08-21] MEDS: Insulin Detemir 100 units/ml Vial (Levemir) SC SCH (22:31)
[2018-08-21 23:19] VITALS: RESP 20; TEMP 98.3
[2018-08-22] MEDS: Sodium Chloride 0.9% 1,000 ML IV SCH (06:24)
[2018-08-22] MEDS: Pantoprazole 40 mg EC Tab PO SCH (06:32)
[2018-08-22 07:02] LABS: BASO # 0.03 K/mm3 (0.0-2.0); BASO % 0.4 % (0.0-3.0); EOS # 0.5 (0.0-0.7); EOS % 5.8 % (1.5-5.0); GRAN # 3.51 (1.4-6.5); GRAN % 43.3 % (50.0-68.0); LYMPH # 3.7 (1.2-3.4); LYMPH % 45.9 % (22.0-35.0); MEAN CELL VOLUME 87.8 fl (80.0-105.0); MEAN CORPUSCULAR HGB CONC 34.2 g/dl (31.0-37.0); MEAN PLATELET VOLUME 11.5 fl (7.0-11.0); MONO # 0.4 (0.1-0.6); MONO % 4.6 % (1.0-6.0); RED CELL DISTRIBUTION WIDTH 12.7 % (11.5-14.5); WHITE BLOOD COUNT 8.1 10^3/ul (4.5-11.0)
[2018-08-22 07:31] LABS: ALB/GLOB RATIO 1.1 (1.1-1.8); ALBUMIN 3.3 g/dL (3.0-4.8); ALT/SGPT 18 U/L (7-56); AST/SGOT 22 U/L (14-36); BLOOD UREA NITROGEN 10 mg/dL (7-21); GFR NON-AFRICAN AMERICAN > 60
--- NOTE | 2018-08-22 08:14 | CP.PCM.PN ---
Subjective - Date & Time of Evaluation Date of Evaluation: 08/22/18 Time of Evaluation: 08:13 - Subjective Subjective: spoke with Dr. Marques -REGISTERED DENTAL HYGIENIST on phone last night. He recommended pelvic ultrasound as CT scan may not be best test to show ovarian rupture. Should place consult if u/s is significant. Objective - Vital Signs/Intake and Output Vital Signs (last 24 hours): Temp Pulse Resp BP Pulse Ox 98.3 F 82 20 134/99 H 97 08/22/18 06:00 08/22/18 06:00 08/22/18 06:00 08/22/18 06:00 08/22/18 06:00 - Medications Medications: Current Medications Albuterol/Ipratropium (Duoneb 3 Mg/0.5 Mg (3 Ml) Ud) 3 ml IH Q6H PRN PRN Reason: Shortness of Breath Cyclobenzaprine HCl (Flexeril) 5 mg PO TID [facility] Last Admin: 08/21/18 17:20 Dose: 5 mg Dextrose (Dextrose 50% Inj) 0 ml IV STAT PRN; Protocol PRN Reason: Hypoglycemia Protocol Fenofibrate (Tricor) 145 mg PO DAILY [facility] Last Admin: 08/21/18 13:26 Dose: 145 mg Gabapentin (Neurontin) 100 mg PO TID [facility]; Protocol Last Admin: 08/21/18 17:20 Dose: 100 mg Sodium Chloride (Sodium Chloride 0.9%) 1,000 mls @ 125 mls/hr IV .Q8H [facility] Last Admin: 08/22/18 06:24 Dose: 125 mls/hr Dextrose (Dextrose 5% In Water 1000 Ml) 1,000 mls @ 0 mls/hr IV .Q0M PRN; Protocol PRN Reason: Hypoglycemia Protocol Insulin Detemir (Levemir) 12 unit SC Q12H [facility] Last Admin: 08/21/18 22:31 Dose: 12 unit Insulin Human Regular (Humulin R High) 0 units SC ACHS [facility] Last Admin: 08/21/18 22:06 Dose: Not Given Ketorolac Tromethamine (Toradol) 30 mg IVP Q6H PRN PRN Reason: Pain, moderate (4-7) Last Admin: 08/22/18 06:25 Dose: 30 mg Pantoprazole Sodium (Protonix Ec Tab) 40 mg PO 0600 [facility] Last Admin: 08/22/18 06:32 Dose: 40 mg - Labs Labs: 08/22/18 06:20 08/22/18 06:20
--- NOTE | 2018-08-22 08:26 | CON ---
DATE: 08/21/2018 ENDOCRINOLOGY CONSULTATION LOCATION: Room 564. SUBJECTIVE: This is a 33-year-old female with known history of type 1 insulin-dependent diabetes, presenting here with severe right flank pain radiating to the abdomen and right lower extremity and is now being referred for diabetic evaluation because of recent hyperglycemic accelerations with underlying marked dyslipidemia as noted thereof. PAST MEDICAL HISTORY: As mentioned above, history of type 1 insulin-dependent diabetes on a combination of given at 35 units twice a day with no rapid or short-acting insulin given at mealtimes. History of hypertension and dyslipidemia. History of chronic pancreatitis with previous admissions for exacerbations of the same. History of generalized anxiety and depression with underlying bipolar disorder, currently on psychotropic medications. History of chronic bronchial asthma. FAMILY HISTORY: Positive for diabetes and hypertension. SOCIAL HISTORY: The patient admits to smoking half a pack a day for over 10 years now. REVIEW OF SYSTEMS: Admits to generalized body weakness with episodic bouts of dizziness and lightheadedness worse on the day of admission. No chest pains or palpitations, but admits to progressive shortness of breath, especially on exertion. Her oral intake has been variable with nausea, dyspepsia, and severe right flank pain radiating to the anterior abdominal surface and the lower extremity as noted. Also admits to marked polyuria, nocturia, and polydipsia. PHYSICAL EXAMINATION: GENERAL: This is an overweight female in no apparent distress with blood pressure of 140/80, pulse of 100 beats per minute and regular, temperature 98, and respirations 20. HEENT: Head normocephalic. Eyes, anicteric with pink conjunctivae. Funduscopy not possible at this time. Ears, nose and throat, otherwise normal. NECK: Supple. Thyroid gland is normal size. No carotid bruits or cervical adenopathy. CARDIOPULMONARY: Some adynamic precordium. S1, S2 is rapid and regular. Lungs are clear to auscultation. ABDOMEN: Flat, soft with positive bowel sounds. EXTREMITIES: No peripheral edema. Pulses are +2 bilaterally. LABORATORY DATA: The chemistries showed a BUN of 10, sodium 134, potassium 3.9, chloride 105, CO2 of 24, glucose 293, and creatinine 0.6. Her glucose levels have ranged from 183 to 288 to 325 mg/dL. Her triglyceride levels are with a cholesterol of 271. Her A1c is 13.1%, which is quite elevated as noted. ASSESSMENT: This is a 33-year-old female with uncontrolled and decompensated type 1 insulin-dependent diabetes, presenting here with marked hyperglycemic accelerations with spurious hyponatremia with clearly tremendous volume deficit not only from the underlying acute pancreatitis, but also from the increased osmotic diuresis as noted thereof. Her lipase level, however, was reported as normal at 89 mg/dL. We have to exclude also the so-called familial chylomicronemia syndrome with the aforementioned biochemical presentation thereof. PLAN OF MANAGEMENT: We will obtain a lipoprotein fractionation to exclude any underlying familial combined dyslipidemia and/or familial chylomicronemia syndrome. We will keep the n.p.o. status and has been given. We will also add basal insulin with Levemir given 12 units subcu every 12 hours at 10 a.m. and 10 p.m. daily, even if the patient is n.p.o. as there is ongoing hepatic gluconeogenesis with some supervening hyperglycemic accelerations in patients who are kept n.p.o. We will obtain serial and supplement accordingly as needed. We will continue the vigorous IV hydration at this time. As her oral intake is advanced, then we will switch her over to a more physiologic basal and bolus insulin drug combination as indicated. We will follow. Cecilia Neumann MD
[2018-08-22] MEDS: Insulin Reg-HIGH-Coverage SC SCH ×2 (08:41→11:55)
[2018-08-22] MEDS: Insulin Detemir 100 units/ml Vial (Levemir) SC SCH ×3 (09:49→11:56)
--- NOTE | 2018-08-22 12:36 | US ---
Date of service: 08/22/2018 HISTORY: Ruptured ovarian cyst. LMP 07/28/2018 COMPARISON: 08/21/2018. CT abdomen and pelvis. Summary of findings on the comparison examination: Thick walled collapsed cyst right ovary consistent with recent cyst rupture. TECHNIQUE: Transabdominal only. Real-time technique with 2D, duplex and color Doppler FINDINGS: UTERUS: Measures 4.3 x 6.2 x 8.9 cm. Normal in size, heterogeneous echo characteristics. no fibroid or other mass lesion seen. ENDOMETRIUM: Measures 5.2 mm in diameter. No ultrasound findings to suggest gestational sac, fluid, debris, mass or polyp or other pathologic process within the endometrium. CERVIX: No cervical abnormality identified. RIGHT OVARY: Measures 2.3 x 3.5 x 3.4 cm. No solid mass. Normal flow. LEFT OVARY: Not visible FREE FLUID: Trace free fluid identified in the pelvis/cul de sac. OTHER FINDINGS: None. IMPRESSION: No visible remnant of previously identified right ovarian cysts. Limitations of the current examination: Nonvisualization left adnexal region
--- NOTE | 2018-08-22 12:39 | CP.PCM.PN ---
<New Spann - Last Filed: 08/22/18 12:36> Subjective - Date & Time of Evaluation Date of Evaluation: 08/22/18 Time of Evaluation: 08:20 - Subjective Subjective: Willa Spann IM Resident - GI Progress Note Patient seen and evaluated this AM. Patient is noted to be laying in bed comfortably. She reports abodminal discomfort. She is upset and directs conversation towards her work up for ruptured ovarian cyst. Patient indicates she is able to tolerate her diet, passing flatus and bowel movements with out witnessed blood. Objective - Vital Signs/Intake and Output Vital Signs (last 24 hours): Temp Pulse Resp BP Pulse Ox 98.3 F 82 20 134/99 H 97 08/22/18 06:00 08/22/18 06:00 08/22/18 06:00 08/22/18 06:00 08/22/18 06:00 - Medications Medications: Current Medications Albuterol/Ipratropium (Duoneb 3 Mg/0.5 Mg (3 Ml) Ud) 3 ml IH Q6H PRN PRN Reason: Shortness of Breath Clonazepam (Klonopin) 0.5 mg PO Q8H PRN; Protocol PRN Reason: Anxiety Cyclobenzaprine HCl (Flexeril) 5 mg PO TID [facility] Last Admin: 08/22/18 09:50 Dose: 5 mg Dextrose (Dextrose 50% Inj) 0 ml IV STAT PRN; Protocol PRN Reason: Hypoglycemia Protocol Fenofibrate (Tricor) 145 mg PO DAILY [facility] Last Admin: 08/22/18 09:50 Dose: 145 mg Gabapentin (Neurontin) 100 mg PO TID [facility]; Protocol Last Admin: 08/22/18 09:50 Dose: 100 mg Dextrose (Dextrose 5% In Water 1000 Ml) 1,000 mls @ 0 mls/hr IV .Q0M PRN; Protocol PRN Reason: Hypoglycemia Protocol Insulin Detemir (Levemir) 16 unit SC Q12H [facility] Last Admin: 08/22/18 11:56 Dose: 4 units Insulin Human Regular (Humulin R High) 0 units SC ACHS [facility] Last Admin: 08/22/18 11:55 Dose: 3 units Ketorolac Tromethamine (Toradol) 30 mg IVP Q6H PRN PRN Reason: Pain, moderate (4-7) Last Admin: 08/22/18 06:25 Dose: 30 mg Pantoprazole Sodium (Protonix Ec Tab) 40 mg PO 0600 [facility] Last Admin: 08/22/18 06:32 Dose: 40 mg Sertraline HCl (Zoloft) 50 mg PO BID [facility] Trazodone HCl (Desyrel) 100 mg PO DAILY [facility] Last Admin: 08/22/18 11:53 Dose: Not Given - Labs Labs: 08/22/18 06:20 08/22/18 06:20 - Constitutional Appears: No Acute Distress - Head Exam Head Exam: ATRAUMATIC, NORMOCEPHALIC - Eye Exam Eye Exam: EOMI, PERRL - ENT Exam ENT Exam: Mucous Membranes Moist - Neck Exam Neck Exam: Full ROM - Respiratory Exam Respiratory Exam: Clear to Ausculation Bilateral, NORMAL BREATHING PATTERN - Cardiovascular Exam Cardiovascular Exam: REGULAR RHYTHM, +S1, +S2 - GI/Abdominal Exam GI & Abdominal Exam: Soft, Tenderness, Normal Bowel Sounds - Extremities Exam Extremities Exam: Normal Inspection - Neurological Exam Neurological Exam: Alert, Awake, Normal Gait, Oriented x3 Neuro motor strength exam: Left Upper Extremity: 5, Right Upper Extremity: 5, Left Lower Extremity: 5, Right Lower Extremity: 5 - Psychiatric Exam Psychiatric exam: Agitated - Skin Skin Exam: Dry, Warm Assessment and Plan - Assessment and Plan (Free Text) Assessment: 33 year old female with past medical history of uncontroleld DM2, HTN, gastritis and pancreatitis who presented to [facility] complaining of right sided flank pain. Patient is seen by GI for chronic abdominal pain questionable for pancreatitis vs. gastroparesis. Plan: Exocrine Pancreatic Insufficiency Chylomicronemia Hyperglycemia Gastroparesis Hx of Pancreatitis HTN DM2 - Hgb A1c 13.1 - Abdominal US: No evidence of gallstones, sludge or CBD dilation - Abdominal/Pelvis CT with PO contrast(pancreas protocol):Fatty infiltration of the liver, normal pancreas, thick-walled collapsed cyst in the right ovary consistent with recent cyst rupture. small amount of fluid in cul-de-sac - Pelvic US: no visible remnant of previously identified right ovarian cysts, limited study - Abdominal pain likely secondary to ovarian cyst etiology, f/u recs from [employer] - Can advance diet to soft diet as tolerated - No indication for emergent endoscopy at this time, continue to re-evaluate - Further recommendations per Dr. Polo <Bobby Polo V - Last Filed: 08/22/18 23:14> Objective - Vital Signs/Intake and Output Vital Signs (last 24 hours): Temp Pulse Resp BP Pulse Ox 98.3 F 84 20 143/99 H 99 08/22/18 14:00 08/22/18 14:00 08/22/18 14:00 08/22/18 14:00 08/22/18 14:00 - Labs Labs: 08/22/18 06:20 08/22/18 06:20 Attending/Attestation - Attestation I have personally seen and examined this patient.: No I have fully participated in the care of the patient.: Yes I have reviewed all pertinent clinical information, including history, physical exam and plan: Yes Notes (Text): thea vice president pharmacy [facility] Hospitalist earlier 08/22/18 23:13
--- NOTE | 2018-08-22 13:06 | PN ---
DATE: 08/22/2018 LOCATION: Room 564. HISTORY: This is a 33-year-old female with recent uncontrolled type 1 insulin-dependent diabetes, now being followed closely for metabolic management. Her glycemic levels are fluctuating but improved and the chemistries today showed a BUN of 10, sodium 135, potassium 3.7, chloride 104, CO2 of 25, glucose 236 and creatinine 0.6. The glucose levels have ranged from 148-258 and 232 mg/dL overnight as noted. We will titrate her Levemir now to 20 units subcu at bedtime daily to start tonight. Would also recommend a prandial insulin be added to control the post prandial glycemic excursions as noted thereof. Would recommend at least Humalog given as 6 units t.i.d. before meals as ordered. We will modify the coverage scale to obviate hypoglycemia and detailed orders being given. We will obtain serial chemistries and supplement accordingly as needed. We will follow. Cecilia Neumann MD
--- NOTE | 2018-08-22 15:04 | CP.PCM.DIS ---
<Iona Somers - Last Filed: 08/22/18 16:35> Provider - Provider Date of Admission: 08/21/18 00:31 Attending physician: Portia Choi MD Primary care physician: NO PRIMARY CARE PROVIDER Consults: GI: Dr. Polo Psych: Dr. Worthington Endocrinology: Dr. Neumann Time Spent in preparation of Discharge (in minutes): 45 Hospital Course - Lab Results Lab Results: Most Recent Lab Values WBC 8.1 10^3/ul (4.5-11.0) 08/22/18 06:20 RBC 4.00 10^6/uL (3.5-6.1) 08/22/18 06:20 Hgb 12.0 g/dL (12.0-16.0) 08/22/18 06:20 Hct 35.1 % (36.0-48.0) L 08/22/18 06:20 MCV 87.8 fl (80.0-105.0) 08/22/18 06:20 MCH 30.0 pg (25.0-35.0) 08/22/18 06:20 MCHC 34.2 g/dl (31.0-37.0) 08/22/18 06:20 RDW 12.7 % (11.5-14.5) 08/22/18 06:20 Plt Count 230 10^3/uL (120.0-450.0) 08/22/18 06:20 MPV 11.5 fl (7.0-11.0) H 08/22/18 06:20 Gran % 43.3 % (50.0-68.0) L 08/22/18 06:20 Lymph % (Auto) 45.9 % (22.0-35.0) H 08/22/18 06:20 [place] % (Auto) 4.6 % (1.0-6.0) 08/22/18 06:20 Eos % (Auto) 5.8 % (1.5-5.0) H 08/22/18 06:20 Baso % (Auto) 0.4 % (0.0-3.0) 08/22/18 06:20 Gran # 3.51 (1.4-6.5) 08/22/18 06:20 Lymph # (Auto) 3.7 (1.2-3.4) H 08/22/18 06:20 [place] # (Auto) 0.4 (0.1-0.6) 08/22/18 06:20 Eos # (Auto) 0.5 (0.0-0.7) 08/22/18 06:20 Baso # (Auto) 0.03 K/mm3 (0.0-2.0) 08/22/18 06:20 pCO2 31 mm/Hg (35-45) L 08/20/18 22:42 pO2 108.0 mm/Hg (80-100) H 08/20/18 22:42 HCO3 20.6 mmol/L (21-28) L 08/20/18 22:42 ABG pH 7.43 (7.35-7.45) 08/20/18 22:42 ABG Total CO2 21.6 mmol.L (22-28) L 08/20/18 22:42 ABG O2 Saturation 98.6 % (95-98) H 08/20/18 22:42 ABG O2 Content 17.0 ML/dl (15-23) 08/20/18 22:42 ABG Base Excess -2.8 mmol/L (-2.0-3.0) L 08/20/18 22:42 ABG Hemoglobin 12.9 g/dL (11.7-17.4) 08/20/18 22:42 ABG Carboxyhemoglobin 4.4 % (0.5-1.5) H 08/20/18 22:42 POC ABG HHb (Measured) 1.3 % (0-5) 08/20/18 22:42 ABG Methemoglobin 1.2 % (0.0-3.0) 08/20/18 22:42 ABG O2 Capacity 17.2 mL/dl (16-24) 08/20/18 22:42 Hgb O2 Saturation 93.0 % (95.0-98.0) L 08/20/18 22:42 FiO2 21.0 % 08/20/18 22:42 Sodium 135 mmol/L (132-148) 08/22/18 06:20 Potassium 3.7 mmol/L (3.6-5.0) 08/22/18 06:20 Chloride 104 mmol/L (98-107) 08/22/18 06:20 Carbon Dioxide 25 mmol/L (21-33) 08/22/18 06:20 Anion Gap 10 (10-20) 08/22/18 06:20 BUN 10 mg/dL (7-21) 08/22/18 06:20 Creatinine 0.6 mg/dl (0.7-1.2) L 08/22/18 06:20 Est GFR ( Amer) > 60 08/22/18 06:20 Est GFR (Non-Af Amer) > 60 08/22/18 06:20 POC Glucose (mg/dL) 294 mg/dL (65-110) H 08/22/18 11:47 Random Glucose 236 mg/dL (70-110) H 08/22/18 06:20 Hemoglobin A1c 13.1 % (4.2-6.5) H D 08/21/18 06:45 Calcium 9.0 mg/dL (8.4-10.5) 08/22/18 06:20 Magnesium 1.7 mg/dL (1.7-2.2) 08/21/18 06:45 Total Bilirubin 0.5 mg/dL (0.2-1.3) 08/22/18 06:20 AST 22 U/L (14-36) 08/22/18 06:20 ALT 18 U/L (7-56) 08/22/18 06:20 Alkaline Phosphatase 95 U/L (38-126) 08/22/18 06:20 Total Creatine Kinase 37 U/L (35-230) 08/20/18 22:16 Total Protein 6.5 g/dL (5.8-8.3) 08/22/18 06:20 Albumin 3.3 g/dL (3.0-4.8) 08/22/18 06:20 Globulin 3.1 gm/dL 08/22/18 06:20 Albumin/Globulin Ratio 1.1 (1.1-1.8) 08/22/18 06:20 Triglycerides 1325 mg/dL (35-160) H 08/21/18 06:45 Cholesterol 271 mg/dL (130-200) H 08/21/18 06:45 LDL Cholesterol Direct < 30 mg/dL (0-129) 08/21/18 06:45 HDL Cholesterol 30 mg/dL (29-60) 08/21/18 06:45 Lipase 89 U/L (23-300) 08/20/18 22:16 Urine Color Yellow (YELLOW) 08/20/18 22:16 Urine Appearance Clear (CLEAR) 08/20/18 22:16 Urine pH 6.0 (4.7-8.0) 08/20/18 22:16 Ur Specific [place] 1.010 (1.005-1.035) 08/20/18 22:16 Urine Protein Negative mg/dL (<30 mg/dL) 08/20/18 22:16 Urine Glucose (UA) >=1000 mg/dL (NEGATIVE) 08/20/18 22:16 Urine Ketones Negative mg/dL (NEGATIVE) 08/20/18 22:16 Urine Blood Negative (NEGATIVE) 08/20/18 22:16 Urine Nitrate Negative (NEGATIVE) 08/20/18 22:16 Urine Bilirubin Negative (NEGATIVE) 08/20/18 22:16 Urine Urobilinogen 0.2 E.U./dL (<1 E.U./dL) 08/20/18 22:16 Ur Leukocyte Esterase Negative Bernard/uL (NEGATIVE) 08/20/18 22:16 Urine Opiates Screen Negative (NEGATIVE) 08/21/18 01:35 Urine Methadone Screen Negative (NEGATIVE) 08/21/18 01:35 Ur Barbiturates Screen Negative (NEGATIVE) 08/21/18 01:35 Ur Phencyclidine Scrn Negative (NEGATIVE) 08/21/18 01:35 Ur Amphetamines Screen Negative (NEGATIVE) 08/21/18 01:35 U Benzodiazepines Scrn Negative (NEGATIVE) 08/21/18 01:35 U Oth Cocaine Metabols Negative (NEGATIVE) 08/21/18 01:35 U Cannabinoids Screen Negative (NEGATIVE) 08/21/18 01:35 - Hospital Course Hospital Course: Upon Admission: 33 y/o F with PMHx of pancreatitis (diagnosed 6 months ago per patient), hyperglycemia, obesity, asthma and DM (diagnosed 17 years ago) who presents with R flank pain and medication noncompliance. Patient states R flank pain began 2 weeks ago and has recently radiated to the top of her shoulder. Patient describes pain as sharp. Patient states she recently has been unable to feel her R leg and has recently developed similar feelings in her right arm. Pain is worse with movement, and Tylenol has not helped relieve the pain. Patient reports chronic vision changes in R eye along with dizziness and 4 episodes of watery non-bloody diarrhea daily for past two weeks. Hospital Course: Patient was diagnosed with ruptured right ovarian cyst. On admission, the patient's lab results which include WBC, Hgb, Hct, Plt, electrolytes, AST, ALT, ALP and lipase were all within normal limits however her HgbA1c was 13.1(H), blood glucose was 183 (H) and her lipid panel showed triglycerides of 1325 (H), cholesterol 271 (H), LDL <30 and HDL of 30. Endocrinology was consulted and the patient's received IV fluids and sliding scale insulin to manage blood sugar levels. Cervical and lumbar spine x-rays showed no acute finding. An abdominal ultrasound revealed possible hepatic steatosis but no cholelithiasis. GI was consulted and recommended hydration and CT. An abdomen/pelvis CT revealed a thick-walled collapsed cyst in the right ovary consistent with recent cyst rupture. There is a small amount of fluid in the cul-de-sac, further pelvic ultrasound revealed no additional findings. Dr. Marques from sanitation manager recommended outpatient follow-up. The patient received toradol and neurontin for her pain and fenofibrate for abnormal lipid panel. Upon Discharge: vitals are stable. Patient is breathing room air and ambulating without assistance. Pt reported flank pain has significantly improved. She had no acute complaints. She was advised to follow up with PMD as well as director radio. She was instructed by diabetic instructor regarding insulin use. She was provided long and short-acting insulin pens. She was set up with an appointment at the [facility] clinic. Her 12 point ROS was negative. Discharge Exam - Head Exam Head Exam: ATRAUMATIC, NORMOCEPHALIC - Eye Exam Eye Exam: EOMI, Normal appearance - ENT Exam ENT Exam: Mucous Membranes Moist - Neck Exam Neck exam: Normal Inspection - Respiratory Exam Respiratory Exam: Clear to PA & Lateral, NORMAL BREATHING PATTERN - Cardiovascular Exam Cardiovascular Exam: REGULAR RHYTHM, +S1, +S2 - GI/Abdominal Exam GI & Abdominal Exam: Normal Bowel Sounds, Soft - Back Exam Back exam: NORMAL INSPECTION. absent: CVA tenderness (L), vertebral tenderness - Neurological Exam Neurological exam: Alert, Oriented x3 - Psychiatric Exam Psychiatric exam: Normal Affect, Normal Mood - Skin Skin Exam: Dry, Intact, Warm Discharge Plan - Discharge Medications Prescriptions: Insulin Lispro [Admelog Solostar] 6 unit SQ AC #1 insuln.pen Insulin Glargine,Hum.rec.anlog [Basaglar Kwikpen U-100] 20 unit SQ HS #1 insuln.pen Fenofibrate Nanocrystallized [Tricor] 145 mg PO DAILY #30 tablet - Follow Up Plan Condition: STABLE Disposition: HOME/ ROUTINE Instructions: Ovarian Cysts, Heart Healthy Diet, Smoking: Not Just Harmful to Your Lungs and Heart, Carbohydrate Counting Diet, Diabetes Type 1, Adult (DC), Hyperglycemia, Adult (DC), Bipolar Disorder (DC), Diabetes and Diet Additional Instructions: Please follow-up at the [facility] on 09/23/2018 at 2:30pm. Please arrive at least 15 minutes early to your appointment, late arrivals will be rescheduled. Please bring your insurance card and identification to the appointment. Please follow-up with your diesel automotive technician doctor within 1 week You will be put on insulin to help control your sugar levels for your diabetes Please follow the instructions given to you by the diabetes instructor at the hospital Please take your insulin as directed. You will be given a type of insulin called "Basaglar" which comes as a pen. This is a long acting insulin. Please inject 20 units every night. You can you use this pen at bedtime every night. You will be given a type of insulin called "Admelog" which comes as a pen. This is a short acting insulin. Please inject 6 units before every meal you eat. You should be eating 3 meals every day. Please check your blood sugar levels with your glucometer regularly. Please follow the instructions given to you if your sugar levels drop too low. If any of your symptoms return, please return to the nearest emergency room Referrals: Cecilia Neumann MD [Medical Doctor] - PCP,NO [Primary Care Provider] - Bobby Polo MD [Medical Doctor] - Radha Worthington MD [Staff Provider] - <Portia Choi - Last Filed: 08/23/18 14:42> Provider - Provider Date of Admission: 08/21/18 00:31 Attending physician: Portia Choi MD Primary care physician: JEREMIAS PRIMARY CARE PROVIDER Hospital Course - Lab Results Lab Results: Most Recent Lab Values WBC 8.1 10^3/ul (4.5-11.0) 08/22/18 06:20 RBC 4.00 10^6/uL (3.5-6.1) 08/22/18 06:20 Hgb 12.0 g/dL (12.0-16.0) 08/22/18 06:20 Hct 35.1 % (36.0-48.0) L 08/22/18 06:20 MCV 87.8 fl (80.0-105.0) 08/22/18 06:20 MCH 30.0 pg (25.0-35.0) 08/22/18 06:20 MCHC 34.2 g/dl (31.0-37.0) 08/22/18 06:20 RDW 12.7 % (11.5-14.5) 08/22/18 06:20 Plt Count 230 10^3/uL (120.0-450.0) 08/22/18 06:20 MPV 11.5 fl (7.0-11.0) H 08/22/18 06:20 Gran % 43.3 % (50.0-68.0) L 08/22/18 06:20 Lymph % (Auto) 45.9 % (22.0-35.0) H 08/22/18 06:20 [place] % (Auto) 4.6 % (1.0-6.0) 08/22/18 06:20 Eos % (Auto) 5.8 % (1.5-5.0) H 08/22/18 06:20 Baso % (Auto) 0.4 % (0.0-3.0) 08/22/18 06:20 Gran # 3.51 (1.4-6.5) 08/22/18 06:20 Lymph # (Auto) 3.7 (1.2-3.4) H 08/22/18 06:20 [place] # (Auto) 0.4 (0.1-0.6) 08/22/18 06:20 Eos # (Auto) 0.5 (0.0-0.7) 08/22/18 06:20 Baso # (Auto) 0.03 K/mm3 (0.0-2.0) 08/22/18 06:20 pCO2 31 mm/Hg (35-45) L 08/20/18 22:42 pO2 108.0 mm/Hg (80-100) H 08/20/18 22:42 HCO3 20.6 mmol/L (21-28) L 08/20/18 22:42 ABG pH 7.43 (7.35-7.45) 08/20/18 22:42 ABG Total CO2 21.6 mmol.L (22-28) L 08/20/18 22:42 ABG O2 Saturation 98.6 % (95-98) H 08/20/18 22:42 ABG O2 Content 17.0 ML/dl (15-23) 08/20/18 22:42 ABG Base Excess -2.8 mmol/L (-2.0-3.0) L 08/20/18 22:42 ABG Hemoglobin 12.9 g/dL (11.7-17.4) 08/20/18 22:42 ABG Carboxyhemoglobin 4.4 % (0.5-1.5) H 08/20/18 22:42 POC ABG HHb (Measured) 1.3 % (0-5) 08/20/18 22:42 ABG Methemoglobin 1.2 % (0.0-3.0) 08/20/18 22:42 ABG O2 Capacity 17.2 mL/dl (16-24) 08/20/18 22:42 Hgb O2 Saturation 93.0 % (95.0-98.0) L 08/20/18 22:42 FiO2 21.0 % 08/20/18 22:42 Sodium 135 mmol/L (132-148) 08/22/18 06:20 Potassium 3.7 mmol/L (3.6-5.0) 08/22/18 06:20 Chloride 104 mmol/L (98-107) 08/22/18 06:20 Carbon Dioxide 25 mmol/L (21-33) 08/22/18 06:20 Anion Gap 10 (10-20) 08/22/18 06:20 BUN 10 mg/dL (7-21) 08/22/18 06:20 Creatinine 0.6 mg/dl (0.7-1.2) L 08/22/18 06:20 Est GFR ( Amer) > 60 08/22/18 06:20 Est GFR (Non-Af Amer) > 60 08/22/18 06:20 POC Glucose (mg/dL) 294 mg/dL (65-110) H 08/22/18 11:47 Random Glucose 236 mg/dL (70-110) H 08/22/18 06:20 Hemoglobin A1c 13.1 % (4.2-6.5) H D 08/21/18 06:45 Calcium 9.0 mg/dL (8.4-10.5) 08/22/18 06:20 Magnesium 1.7 mg/dL (1.7-2.2) 08/21/18 06:45 Total Bilirubin 0.5 mg/dL (0.2-1.3) 08/22/18 06:20 AST 22 U/L (14-36) 08/22/18 06:20 ALT 18 U/L (7-56) 08/22/18 06:20 Alkaline Phosphatase 95 U/L (38-126) 08/22/18 06:20 Total Creatine Kinase 37 U/L (35-230) 08/20/18 22:16 Total Protein 6.5 g/dL (5.8-8.3) 08/22/18 06:20 Albumin 3.3 g/dL (3.0-4.8) 08/22/18 06:20 Globulin 3.1 gm/dL 08/22/18 06:20 Albumin/Globulin Ratio 1.1 (1.1-1.8) 08/22/18 06:20 Triglycerides 1325 mg/dL (35-160) H 08/21/18 06:45 Cholesterol 271 mg/dL (130-200) H 08/21/18 06:45 LDL Cholesterol Direct < 30 mg/dL (0-129) 08/21/18 06:45 HDL Cholesterol 30 mg/dL (29-60) 08/21/18 06:45 Lipase 89 U/L (23-300) 08/20/18 22:16 Urine Color Yellow (YELLOW) 08/20/18 22:16 Urine Appearance Clear (CLEAR) 08/20/18 22:16 Urine pH 6.0 (4.7-8.0) 08/20/18 22:16 Ur Specific [place] 1.010 (1.005-1.035) 08/20/18 22:16 Urine Protein Negative mg/dL (<30 mg/dL) 08/20/18 22:16 Urine Glucose (UA) >=1000 mg/dL (NEGATIVE) 08/20/18 22:16 Urine Ketones Negative mg/dL (NEGATIVE) 08/20/18 22:16 Urine Blood Negative (NEGATIVE) 08/20/18 22:16 Urine Nitrate Negative (NEGATIVE) 08/20/18 22:16 Urine Bilirubin Negative (NEGATIVE) 08/20/18 22:16 Urine Urobilinogen 0.2 E.U./dL (<1 E.U./dL) 08/20/18 22:16 Ur Leukocyte Esterase Negative [place]/uL (NEGATIVE) 08/20/18 22:16 Urine Opiates Screen Negative (NEGATIVE) 08/21/18 01:35 Urine Methadone Screen Negative (NEGATIVE) 08/21/18 01:35 Ur Barbiturates Screen Negative (NEGATIVE) 08/21/18 01:35 Ur Phencyclidine Scrn Negative (NEGATIVE) 08/21/18 01:35 Ur Amphetamines Screen Negative (NEGATIVE) 08/21/18 01:35 U Benzodiazepines Scrn Negative (NEGATIVE) 08/21/18 01:35 U Oth Cocaine Metabols Negative (NEGATIVE) 08/21/18 01:35 U Cannabinoids Screen Negative (NEGATIVE) 08/21/18 01:35 Attending/Attestation - Attestation I have personally seen and examined this patient.: Yes I have fully participated in the care of the patient.: Yes I have reviewed all pertinent clinical information, including history, physical exam and plan: Yes Notes (Text): 08/23/18 14:40 Attending note; Patient seen and examined with resident. Patient is alert and awake. Denies any abdominal pain. Tolerating diet well. Ambulating fine. Patient is a 33-year-old female with a past medical history of diabetes, insulin-dependent, hyperlipidemia, pancreatitis in the past is admitted with abdominal pain. Abdominal ultrasound was negative for gallstones. CT consistent with ruptured ovarian cyst. No pancreatic inflammation noted. GI evaluation appreciated. Needs outpatient AQUATICS SPECIALIST follow-up. Hypertriglyceridemia; will start TriCor. Anxiety and depression; continue to follow up with [facility]. Diabetes; elevated blood sugar secondary to noncompliance. Patient did not take insulin. Recently last insurance and did not get prescriptions refilled. Dietary education given. Diabetic nurse education evaluation given. Patient is strongly advised to follow-up with diabetic nurse educator. Insulin delivered by pharmacy. Patient will follow-up with [facility] clinic on 09/23/18.
[2018-08-22 15:16] VITALS: BP 143/99; PULSE 84; O2SAT 99
[2018-08-22] MEDS ORDERED: Insulin Lispro (humaLOG) LOW Coverage SC SCH (16:30)
[2018-08-22] MEDS ORDERED: Insulin Detemir 100 units/ml Vial (Levemir) SC SCH (22:00)
== END 2018-08-22 15:30 | disposition home or self-care (01) | DRG 295 ==
LOC: ED 21:07 → ERH 08-21 00:31 → 5RSO 08-21 02:22 → 5RNO 08-21 08:08
PROVIDERS: ADMIT Internal Medicine; ATTEND Internal Medicine
DX: E10.65 Type 1 diabetes mellitus with hyperglycemia (principal); E87.1 Hypo-osmolality and hyponatremia; N83.201 Unspecified ovarian cyst, right side; K86.1 Other chronic pancreatitis; E10.43 Type 1 diabetes mellitus with diabetic autonomic (poly)neuropathy; K31.84 Gastroparesis; I10 Essential (primary) hypertension; E78.1 Pure hyperglyceridemia; E78.5 Hyperlipidemia, unspecified; F31.9 Bipolar disorder, unspecified; F41.1 Generalized anxiety disorder; F17.210 Nicotine dependence, cigarettes, uncomplicated; J45.909 Unspecified asthma, uncomplicated; K29.70 Gastritis, unspecified, without bleeding; Z91.19 Patient's noncompliance with other medical treatment and regimen; Z91.14 Patient's other noncompliance with medication regimen; Z79.4 Long term (current) use of insulin; Z80.0 Family history of malignant neoplasm of digestive organs

== ENCOUNTER 2018-10-03 21:06 | Emergency (ER) | payer OTHER ==
[2018-10-03 21:33] VITALS: RESP 18; TEMP 98.2; BMI 33.6
--- NOTE | 2018-10-03 21:39 | ED PDOC ---
Arrival/HPI - General Time Seen by Provider: 10/03/18 21:22 Historian: Patient - History of Present Illness Narrative History of Present Illness (Text): 10/03/18 21:38 Bethanie Bettencourt is a 32 year old female, whose past medical history includes asthma, diabetes, hypertension, gastritis, gastroparesis, and pancreatitis, who presents to the ED complaining of abdominal pain. Patient states she has been experiencing intermittent diffuse abdominal pain, greater on the right side, with associated nausea, vomiting, and diarrhea for the past week. Patient also reports some right-sided shoulder discomfort.No hx. of any trauma. Patient denies any fever, chills, chest pain, shortness of breath, urinary symptoms, back pain, neck pain, headache, dizziness, or any other complaints. Symptom Onset: Gradual Symptom Course: Unchanged Activities at Onset: Light Context: Home Past Medical History - Provider Review Nursing Documentation Reviewed: Yes - Infectious Disease Hx of Infectious Diseases: None - Cardiac Hx Cardiac Disorders: Yes Hx Hypertension: Yes - Pulmonary Hx Respiratory Disorders: Yes Hx Asthma: Yes - Neurological Hx Neurological Disorder: No - HEENT Hx HEENT Disorder: No - Renal Hx Renal Disorder: No - Endocrine/Metabolic Hx Endocrine Disorders: Yes Hx Diabetes Mellitus Type 2: Yes - Hematological/Oncological Hx Blood Disorders: No Hx Blood Transfusions: No Hx Blood Transfusion Reaction: No - Integumentary Hx Dermatological Disorder: No - Musculoskeletal/Rheumatological Hx Musculoskeletal Disorders: Yes Hx Back Pain: Yes - Gastrointestinal Hx Gastrointestinal Disorders: Yes Hx Pancreatitis: Yes Other/Comment: gastroparesis - Genitourinary/Gynecological Hx Genitourinary Disorders: No - Psychiatric Hx Psychophysiologic Disorder: Yes Hx Bipolar Disorder: Yes Hx Substance Use: No - Surgical History Other/Comment: bartholenes cyst I and D - Anesthesia Hx Anesthesia Reactions: No Hx Malignant Hyperthermia: No Family/Social History - Physician Review Nursing Documentation Reviewed: Yes Family/Social History: Unknown Family HX Smoking Status: Current Some Days Smoker Hx Alcohol Use: No (social) Hx Substance Use: No Allergies/Home Meds Allergies/Adverse Reactions: Allergies No Known Allergies Allergy (Verified 10/03/18 21:28) Home Medications: Home Meds Medication Instructions Recorded Confirmed Sertraline [Zoloft] 50 mg PO BID 06/08/17 08/20/18 Clonazepam [Klonopin] 0.5 mg PO PRN PRN 10/19/17 08/20/18 traZODone [Desyrel] 100 mg PO DAILY 10/19/17 08/20/18 Review of Systems - Physician Review All systems were reviewed & negative as marked: Yes - Review of Systems Constitutional: Normal. absent: Fevers Eyes: Normal ENT: Normal Respiratory: Normal. absent: SOB, Cough Cardiovascular: Normal. absent: Chest Pain Gastrointestinal: Abdominal Pain, Diarrhea, Nausea, Vomiting Genitourinary Female: Normal. absent: Dysuria, Frequency, Hematuria Musculoskeletal: Arthralgias (+right shoulder pain), Other (+right leg pain). absent: Back Pain, Neck Pain Skin: Normal. absent: Rash Neurological: Normal. absent: Headache, Dizziness Endocrine: Normal Hemo/Lymphatic: Normal Psychiatric: Normal Physical Exam Vital Signs Reviewed: Yes Vital Signs Temp Pulse Resp BP Pulse Ox 10/03/18 21:30 98.2 F 113 H 18 124/88 97 Temperature: Afebrile Blood Pressure: Normal Pulse: Regular Respiratory Rate: Normal Appearance: Positive for: Well-Appearing, Non-Toxic, Comfortable Pain Distress: None Mental Status: Positive for: Alert and Oriented X 3 Finger Stick Blood Glucose: 320 - Systems Exam Head: Present: Atraumatic, Normocephalic Pupils: Present: PERRL Extroacular Muscles: Present: EOMI Conjunctiva: Present: Normal Mouth: Present: Moist Mucous Membranes Neck: Present: Normal Range of Motion Respiratory/Chest: Present: Clear to Auscultation, Good Air Exchange. No: Respiratory Distress, Accessory Muscle Use Cardiovascular: Present: Regular Rate and Rhythm, Normal S1, S2. No: Murmurs Abdomen: Present: Tenderness (mild diffuse), Normal Bowel Sounds. No: Distention, Peritoneal Signs, Rebound, Guarding, McBurney's Point Tender, Rovsing's Sign Present, Hernias Back: Present: Normal Inspection Upper Extremity: Present: Tenderness (Tenderness to right shoulder). No: Cyanosis, Edema Lower Extremity: Present: Normal Inspection, NORMAL PULSES, Normal ROM. No: Edema, CALF TENDERNESS, Saman's Sign, Tenderness, Swelling Neurological: Present: GCS=15, CN II-XII Intact, Speech Normal, Motor Func Grossly Intact, Normal Sensory Function Skin: Present: Warm, Dry, Normal Color. No: Rashes Psychiatric: Present: Alert, Oriented x 3, Normal Insight, Normal Concentration Medical Decision Making ED Course and Treatment: 10/03/18 21:38 Impression: 33 year old female complaining of diffuse abdominal pain, nausea, vomiting, diarrhea, right shoulder discomfort, and right leg discomfort. Plan: -- CT Abdomen and Pelvis IV contrast -- Labs, lipase -- Urinalysis -- XR Right Shoulder -- IV fluids -- Toradol -- Reassess and disposition Prior Visits: Notes and results from previous visits were reviewed. Progress Notes: 10/04/18 00:43 Reviewed radiology, XR Right Shoulder shows no acute processes. CT Abdomen and Pelvis: The visualized lung bases are unremarkable. Normal enhanced liver. Normal gallbladder and extrahepatic biliary system. Normal enhanced spleen. Normal pancreas. Normal bilateral adrenal glands. Normal size of the right kidney. There is no right renal mass. There are no right renal calculi. There is no right hydronephrosis. Normal visualized right ureter. Normal size of the left kidney. There is no left renal mass. There are no left renal calculi. There is no left hydronephrosis. Normal visualized left ureter. Mildly prominent left extrarenal pelvis. Normal visualized stomach. Normal small intestine. Uncomplicated diverticulosis of the colon. The appendix is visualized and appears normal. There is no demonstrated peritoneal fluid. Normal abdominal aorta. Normal inferior vena cava. Normal retroperitoneum. Normal urinary bladder. There is no pelvic mass lesion or lymphadenopathy. There is no pelvic fluid. Normal abdominal wall. Normal osseous structures. IMPRESSION: No CT evidence of acute pathology. Electronically signed on Oct 04, 2018 12:42:21 AM EST by: Yessenia Edmondson M.D., Certified by ZULLY, MSK, Neuroradiology - Lab Interpretations Lab Results: Lab Results 10/03/18 21:29: POC Glucose (mg/dL) 320 H I have reviewed the lab results: Yes - RAD Interpretation Ammonia Box Operator: ED Physician - Scribe Statement The provider has reviewed the documentation as recorded by the Carole Horn Provider Scribe Attestation: All medical record entries made by the Scribe were at my direction and personally dictated by me. I have reviewed the chart and agree that the record accurately reflects my personal performance of the history, physical exam, medical decision making, and the department course for this patient. I have also personally directed, reviewed, and agree with the discharge instructions and disposition. Disposition/Present on Arrival - Present on Arrival Any Indicators Present on Arrival: No History of DVT/PE: No History of Uncontrolled Diabetes: Yes Urinary Catheter: No History Surgical Site Infection Following: None - Disposition Have Diagnosis and Disposition been Completed?: Yes Diagnosis: Gastroenteritis Disposition: HOME/ ROUTINE Disposition Time: 00:52 Patient Plan: Discharge Patient Problems: Current Active Problems Problem Status Onset Gastroenteritis Acute Condition: GOOD Discharge Instructions (ExitCare): Gastroenteritis (ED) Additional Instructions: Drink small amounts of liquids at a time/take meds as prescribed/advance to bland diet as tolerated/follow up with your doctor this week Prescriptions: Ondansetron ODT [Zofran ODT] 4 mg PO Q6 PRN #12 odt PRN Reason: Nausea/Vomiting
[2018-10-03] MEDS ORDERED: Sodium Chloride 0.9% 1,000 ML IV STA ×2 (21:45→22:51)
[2018-10-03 22:20] LABS: HEMOGLOBIN 13.9 g/dL (12.0-16.0); MEAN CELL VOLUME 87.3 fl (80.0-105.0); MEAN CORPUSCULAR HEMOGLOBIN 30.3 pg (25.0-35.0); MEAN CORPUSCULAR HGB CONC 34.8 g/dl (31.0-37.0); MEAN PLATELET VOLUME 10.9 fl (7.0-11.0); RBC 4.58 10^6/uL (3.5-6.1); RED CELL DISTRIBUTION WIDTH 12.4 % (11.5-14.5); WHITE BLOOD COUNT 9.1 10^3/uL (4.5-11.0)
[2018-10-03 22:28] LABS: URINE BILIRUBIN NEGATIVE (NEGATIVE); URINE BLOOD MODERATE (NEGATIVE); URINE GLUCOSE (UA) >=1000 mg/dL (NEGATIVE); URINE LEUKOCYTE ESTERASE NEGATIVE Leu/uL (NEGATIVE); URINE PROTEIN NEGATIVE mg/dL (<30 mg/dL); URINE UROBILINOGEN 0.2 E.U./dL (<1 E.U./dL)
[2018-10-03 22:40] LABS: ALT/SGPT 24 U/L (7-56); AST/SGOT 21 U/L (14-36); BLOOD UREA NITROGEN 13 mg/dL (7-21); CALCIUM 9.5 mg/dL (8.4-10.5); GFR NON-AFRICAN AMERICAN > 60; LIPASE 109 U/L (23-300)
[2018-10-03 22:50] LABS: URINE APPEARANCE CLEAR (CLEAR); URINE COLOR YELLOW (YELLOW)
[2018-10-03 22:52] LABS: URINE BACTERIA FEW (NEG)
[2018-10-03] MEDS ORDERED: Insulin Regular 1 UNITS/0.01 ML ML SC STA (22:52)
[2018-10-03] MEDS ORDERED: Iohexol 350 MG/100 ML VIAL ONE (22:56)
[2018-10-03 23:08] VITALS: BP 124/82; PULSE 111; O2SAT 100
[2018-10-04] MEDS ORDERED: Morphine 4 mg/ml ISec IVP STA (00:38)
--- NOTE | 2018-10-04 07:44 | RAD ---
Date of service: 10/03/2018 PROCEDURE: Radiographs of the Right Shoulder HISTORY: pain COMPARISON: No prior. FINDINGS: BONES: No acute fracture or destructive bony lesion identified. JOINTS: Normal. Glenohumeral and acromioclavicular joints preserved. No osteoarthritis. SOFT TISSUES: Normal. OTHER FINDINGS: None. IMPRESSION: Unremarkable radiographs of the right shoulder.
--- NOTE | 2018-10-04 08:43 | CT ---
Date of service: 10/03/2018 PROCEDURE: CT Abdomen and Pelvis with contrast HISTORY: abdominal pain COMPARISON: None. TECHNIQUE: Contrast dose: 80 cc of Omni 350 Radiation dose: Total exam DLP = 709.73 mGy-cm. This CT exam was performed using one or more of the following dose reduction techniques: Automated exposure control, adjustment of the mA and/or kV according to patient size, and/or use of iterative reconstruction technique. FINDINGS: LOWER THORAX: Unremarkable. LIVER: Unremarkable. No gross lesion or ductal dilatation. GALLBLADDER AND BILE DUCTS: Unremarkable. PANCREAS: Unremarkable. No gross lesion or ductal dilatation. SPLEEN: Unremarkable. ADRENALS: Unremarkable. No mass. KIDNEYS AND URETERS: Unremarkable. No hydronephrosis. No solid mass. VASCULATURE: Unremarkable. No aortic aneurysm. No aortic atherosclerotic calcification or mural plaque present. BOWEL: Unremarkable. No obstruction. No gross mural thickening. APPENDIX: Normal appendix. PERITONEUM: Unremarkable. No free fluid. No free air. LYMPH NODES: Unremarkable. No enlarged lymph nodes. BLADDER: Unremarkable. REPRODUCTIVE: Unremarkable. BONES: No acute fracture. OTHER FINDINGS: The report concurs with the preliminary [facility] report IMPRESSION: Unremarkable contrast enhanced CT of the abdomen and pelvis.
== END 2018-10-04 01:30 | disposition home or self-care (01) ==
LOC: ED 21:06
DX: K52.9 Noninfective gastroenteritis and colitis, unspecified (principal); I10 Essential (primary) hypertension; E11.43 Type 2 diabetes mellitus with diabetic autonomic (poly)neuropathy; K31.84 Gastroparesis; K85.90 Acute pancreatitis without necrosis or infection, unspecified; F17.210 Nicotine dependence, cigarettes, uncomplicated
CPT/HCPCS: 73030; 74177; 80053; 81001; 82948; 83690; 85027; 96361; 96374; 99284; J1885; J7030; Q9967

== ENCOUNTER 2018-12-21 22:34 | Emergency (ER) | payer OTHER ==
[2018-12-21 22:45] VITALS: RESP 18; BMI 33.6
[2018-12-21] MEDS ORDERED: Sodium Chloride 0.9% 500 ML IV STA (22:57)
--- NOTE | 2018-12-21 23:08 | ED PDOC ---
Arrival/HPI - General Chief Complaint: Chest Pain Time Seen by Provider: 12/21/18 22:34 Historian: Patient - History of Present Illness Narrative History of Present Illness (Text): 12/21/18 23:04 33 year old morbidly obese female, whose past medical history includes bipolar disorder, gastritis, gastroparesis, pancreatitis, hypertension, diabetes, presents to the emergency department complaining of chest pain and vomiting since 2:00 this afternoon. Patient reports she ate hash brown before the symptoms occurred. She reports multiple episodes of vomiting and burning chest pain. Of note, patient had a negative stress test in 2016. Patient denies any fever, chills, shortness of breath, diarrhea, urinary symptoms, back pain, neck pain, headache, dizziness, or any other complaints. Time/Duration: Other (this afternoon) Symptom Onset: Gradual Symptom Course: Unchanged Activities at Onset: Light Context: Home Past Medical History - Provider Review Nursing Documentation Reviewed: Yes - Infectious Disease Hx of Infectious Diseases: None - Reproductive Currently : No - Cardiac Hx Cardiac Disorders: Yes Hx Hypertension: Yes - Pulmonary Hx Respiratory Disorders: Yes Hx Asthma: Yes - Neurological Hx Neurological Disorder: No - HEENT Hx HEENT Disorder: No - Renal Hx Renal Disorder: No - Endocrine/Metabolic Hx Endocrine Disorders: Yes Hx Diabetes Mellitus Type 2: Yes - Hematological/Oncological Hx Blood Disorders: No Hx Blood Transfusions: No Hx Blood Transfusion Reaction: No - Integumentary Hx Dermatological Disorder: No - Musculoskeletal/Rheumatological Hx Musculoskeletal Disorders: Yes Hx Back Pain: Yes - Gastrointestinal Hx Gastrointestinal Disorders: Yes Hx Pancreatitis: Yes Other/Comment: gastroparesis - Genitourinary/Gynecological Hx Genitourinary Disorders: No - Psychiatric Hx Psychophysiologic Disorder: Yes Hx Bipolar Disorder: Yes Hx Substance Use: No - Surgical History Other/Comment: bartholenes cyst I and D - Anesthesia Hx Anesthesia Reactions: No Hx Malignant Hyperthermia: No Family/Social History - Physician Review Nursing Documentation Reviewed: Yes Family/Social History: No Known Family HX Smoking Status: Current Some Days Smoker Hx Alcohol Use: No (social) Hx Substance Use: No Allergies/Home Meds Allergies/Adverse Reactions: Allergies No Known Allergies Allergy (Verified 10/03/18 21:28) Home Medications: Home Meds Medication Instructions Recorded Confirmed RX: Sertraline [Zoloft] 50 mg PO BID 08/03/17 10/15/18 RX: Clonazepam [Klonopin] 0.5 mg PO PRN PRN 10/19/17 08/20/18 RX: traZODone [Desyrel] 100 mg PO DAILY 10/19/17 08/20/18 Review of Systems - Physician Review All systems were reviewed & negative as marked: Yes - Review of Systems Constitutional: absent: Fevers, Other (chills) Respiratory: absent: SOB Cardiovascular: Chest Pain Gastrointestinal: Nausea, Vomiting. absent: Diarrhea Genitourinary Female: absent: Dysuria, Frequency, Hematuria Musculoskeletal: absent: Back Pain, Neck Pain Neurological: absent: Headache, Dizziness Physical Exam Vital Signs Reviewed: Yes Vital Signs Temp Pulse Resp BP Pulse Ox 12/21/18 22:44 98.3 F 112 H 18 117/88 97 Temperature: Afebrile Blood Pressure: Normal Pulse: Tachycardic Respiratory Rate: Normal Appearance: Positive for: Well-Appearing, Non-Toxic, Comfortable, Other (morbidly obese) Pain Distress: None Mental Status: Positive for: Alert and Oriented X 3 (anxious) - Systems Exam Head: Present: Atraumatic, Normocephalic Pupils: Present: PERRL Extroacular Muscles: Present: EOMI Conjunctiva: Present: Normal Mouth: Present: Moist Mucous Membranes Neck: Present: Normal Range of Motion Respiratory/Chest: Present: Clear to Auscultation, Good Air Exchange. No: Respiratory Distress, Accessory Muscle Use Cardiovascular: Present: Regular Rate and Rhythm, Normal S1, S2. No: Murmurs Abdomen: Present: Tenderness (mild epigastric tenderness). No: Distention, Peritoneal Signs Back: Present: Normal Inspection Upper Extremity: Present: Normal Inspection. No: Cyanosis, Edema Lower Extremity: Present: Normal Inspection. No: Edema Neurological: Present: GCS=15, Speech Normal Skin: Present: Warm, Dry, Normal Color. No: Rashes Psychiatric: Present: Alert, Oriented x 3, Normal Insight, Normal Concentration, Anxious Medical Decision Making ED Course and Treatment: 12/21/18 22:40 Impression: 33 year old female presents complaining of burning chest pain and vomiting since 2:00PM this afternoon after eating hash browns. Plan: -- EKG -- Labs -- Chest X-ray -- IV Fluids, Zofran Inj -- HCG, Qualitative Urine -- Urinalysis -- Abdomen Complete US -- Reassess and disposition Prior Visits: Notes and results from previous visits were reviewed. Progress Notes: EKG shows sinus tachycardia at [address]/T wave changes. Interpreted by me. 12/21/18 23:35 CXR Impression: As read by me, negative. Ultrasound of the abdomen, complete. Electronically signed on Dec 22, 2018 1:05:10 AM EST by: Yessenia Edmondson M.D. Impression: Hepatic steatosis. No evidence of cholelithiasis or acute cholecystitis. 12/22/18 01:23 On reevaluation, all symptoms resolved. Patient is asking for discharge home. Abdomen soft and nontender. Patient is stable for discharge. 12/22/18 02:40 atypcial cp vomiting low heart score. no ekg changes trop neg pain 6 hours from onset. less likely acs. numerous presentations with similar. abd soft not ttp s/p meds. asking numerous times for dc. blood sugar improve.d no e/o of dka. refuses abg no ketones in ua. - Lab Interpretations I have reviewed the lab results: Yes - RAD Interpretation Radiology Orders: 12/21/18 22:55 CHEST PORTABLE [RAD] Stat 12/21/18 22:58 ABDOMEN COMPLETE [US] Stat Security Site Supervisor: ED Physician - EKG Interpretation Interpreted by ED Physician: Yes Type: 12 lead EKG - Medication Orders Current Medication Orders: Sodium Chloride (Sodium Chloride 0.9%) 500 mls @ 999 mls/hr IV .Q31M STA Stop: 12/21/18 23:27 Discontinued Medications Ondansetron HCl (Zofran Inj) 4 mg IVP STAT STA Stop: 12/21/18 22:56 - Scribe Statement The provider has reviewed the documentation as recorded by the Carole Asencio Provider Scribe Attestation: All medical record entries made by the Carole were at my direction and personally dictated by me. I have reviewed the chart and agree that the record accurately reflects my personal performance of the history, physical exam, medical decision making, and the department course for this patient. I have also personally directed, reviewed, and agree with the discharge instructions and disposition. Disposition/Present on Arrival - Present on Arrival Any Indicators Present on Arrival: No History of DVT/PE: No History of Uncontrolled Diabetes: Yes Urinary Catheter: No History of Decub. Ulcer: No History Surgical Site Infection Following: None - Disposition Have Diagnosis and Disposition been Completed?: Yes Diagnosis: Chest pain, Vomiting Disposition: HOME/ ROUTINE Disposition Time: 12:00 Condition: STABLE Discharge Instructions (ExitCare): Chest Pain, Nausea and Vomiting, Adult (DC), Chest Pain (ED) Additional Instructions: follow up with specialist. return to any er with worsening. Referrals: PCP,NO [Primary Care Provider] - Follow up with primary Forms: [employer] ([place])
[2018-12-21 23:25] LABS: BASO # 0.04 K/mm3 (0.0-2.0); BASO % 0.4 % (0.0-3.0); EOS # 0.6 (0.0-0.7); EOS % 5.8 % (1.5-5.0); HEMOGLOBIN 13.8 g/dL (12.0-16.0); LYMPH % 38.5 % (22.0-35.0); MEAN CELL VOLUME 87.1 fl (80.0-105.0); MEAN CORPUSCULAR HEMOGLOBIN 30.7 pg (25.0-35.0); MEAN CORPUSCULAR HGB CONC 35.2 g/dl (31.0-37.0); MEAN PLATELET VOLUME 11.3 fl (7.0-11.0); MONO # 0.4 (0.1-0.6); MONO % 3.9 % (1.0-6.0); RBC 4.5 10^6/uL (3.5-6.1); RED CELL DISTRIBUTION WIDTH 12.4 % (11.5-14.5); WHITE BLOOD COUNT 10.4 10^3/uL (4.5-11.0)
[2018-12-21 23:30] LABS: INR 0.94; PROTHROMBIN TIME 10.4 SECONDS (9.4-12.5)
[2018-12-21 23:38] LABS: TROPONIN I < 0.01 ng/mL
[2018-12-21 23:49] LABS: ALB/GLOB RATIO 1.1 (1.1-1.8); ALT/SGPT 7 U/L (7-56); AST/SGOT 20 U/L (14-36); BILIRUBIN,DIRECT 0.3 mg/dL (0.0-0.4); BLOOD UREA NITROGEN 11 mg/dL (7-21); CALCIUM 9.9 mg/dL (8.4-10.5); GFR NON-AFRICAN AMERICAN > 60; LIPASE 93 U/L (23-300)
[2018-12-21] MEDS ORDERED: Insulin Regular 1 UNITS/0.01 ML ML IV STA (23:51)
[2018-12-22] MEDS ORDERED: Sodium Chloride 0.9% 500 ML IV STA (00:42)
[2018-12-22 00:44] LABS: URINE BILIRUBIN NEGATIVE (NEGATIVE); URINE BLOOD NEGATIVE (NEGATIVE); URINE GLUCOSE (UA) >=1000 mg/dL (NEGATIVE); URINE LEUKOCYTE ESTERASE NEGATIVE Leu/uL (NEGATIVE); URINE PROTEIN NEGATIVE mg/dL (<30 mg/dL); URINE UROBILINOGEN 0.2 E.U./dL (<1 E.U./dL)
[2018-12-22 00:45] LABS: URINE APPEARANCE CLEAR (CLEAR); URINE COLOR LIGHT YELLOW (YELLOW)
[2018-12-22 00:52] VITALS: BP 127/77; PULSE 96; TEMP 98; O2SAT 96
--- NOTE | 2018-12-22 09:29 | RAD ---
Date of service: 12/21/2018 HISTORY: Chest pain COMPARISON: Comparison chest 08/21/2018. FINDINGS: LUNGS: No active pulmonary disease. PLEURA: No significant pleural effusion identified, no pneumothorax apparent. CARDIOVASCULAR: No aortic atherosclerotic calcification present. Normal cardiac size. No pulmonary vascular congestion. OSSEOUS STRUCTURES: No significant abnormalities. VISUALIZED UPPER ABDOMEN: Normal. OTHER FINDINGS: None. IMPRESSION: No active disease.
--- NOTE | 2018-12-22 12:33 | US ---
Date of service: 12/21/2018 HISTORY: vomiting h/of cholelithiasis COMPARISON: Wendy in made with prior study dated 08/21/2018. TECHNIQUE: Sonographic evaluation of the abdomen. FINDINGS: LIVER: Liver is enlarged measuring nearly 19 cm in CC dimension. Liver demonstrates smooth contour though increased echotexture suggesting fatty infiltration however other infiltrative hepatocellular disease process not excluded. No obvious hepatic masses or collections seen on images presented. No gross intrahepatic biliary ductal dilatation. GALLBLADDER: Gallbladder appears contracted likely due to nonfasting state. No evidence of intraluminal gallbladder calculi. No pericholecystic fluid collections. No sonographic Casey sign reported COMMON BILE DUCT: Measures 6.1 mm. No stones. No dilatation. PANCREAS: Unremarkable as visualized. No mass. No ductal dilatation. RIGHT KIDNEY: Measures 12.7 x 4.4 x 4.4cm. Normal echogenicity. No calculus, mass, or hydronephrosis. LEFT KIDNEY: Measures 12.0 x 5.3 x 6.2cm. Normal echogenicity. No calculus, mass, or hydronephrosis. SPLEEN: Normal in size and contour. No mass. AORTA: No aneurysmal dilatation. IVC: Unremarkable. OTHER FINDINGS: Infiltrative hepatocellular disease process not excluded. IMPRESSION: Hepatomegaly with increased hepatic echotexture likely due to fatty infiltration however possibility of contracted gallbladder likely due to nonfasting state.. No evidence of intraluminal gallbladder calculi. No sonographic Casey sign.
--- NOTE | 2018-12-22 20:12 | CARD ---
APPROVED REPORT Date of service: 12/21/2018 EKG Measurement Heart [id number] <Conclusion> Sinus tachycardia with premature atrial complexes Anterior infarct, age undetermined Abnormal ECG
== END 2018-12-22 01:27 | disposition home or self-care (01) ==
LOC: ED 22:34
DX: R07.9 Chest pain, unspecified (principal); R11.10 Vomiting, unspecified; E66.01 Morbid (severe) obesity due to excess calories; I10 Essential (primary) hypertension; E11.43 Type 2 diabetes mellitus with diabetic autonomic (poly)neuropathy; K31.84 Gastroparesis; F31.9 Bipolar disorder, unspecified
CPT/HCPCS: 71045; 76700; 80053; 81003; 81025; 82248; 82550; 82948; 83615; 83690; 83735; 84484; 84703; 85025; 85610; 85730; 93005; 96361; 96374; 99284; J2405; J7040

== ENCOUNTER 2018-12-27 14:37 | Outpatient (CLI) | payer OTHER | END 2018-12-27 14:38 | disposition home or self-care (01) | LOC: LAB 14:37 | DX: E66.09 Other obesity due to excess calories (principal) ==

== ENCOUNTER 2018-12-27 19:37 | Emergency (ER) | payer OTHER ==
[2018-12-27 19:54] VITALS: BMI 33.0
[2018-12-27 19:55] VITALS: TEMP 98.3
[2018-12-27] MEDS ORDERED: Sodium Chloride 0.9% 1,000 ML IV STA (20:06)
[2018-12-27] MEDS ORDERED: Insulin Regular 1 UNITS/0.01 ML ML IVP STA (20:15)
[2018-12-27 20:31] LABS: BASO # 0.04 K/mm3 (0.0-2.0); BASO % 0.4 % (0.0-3.0); EOS # 0.5 (0.0-0.7); EOS % 4.7 % (1.5-5.0); HEMOGLOBIN 13.7 g/dL (12.0-16.0); LYMPH # 3.2 (1.2-3.4); LYMPH % 30.6 % (22.0-35.0); MEAN CELL VOLUME 87.1 fl (80.0-105.0); MEAN CORPUSCULAR HGB CONC 34.4 g/dl (31.0-37.0); MEAN PLATELET VOLUME 11.2 fl (7.0-11.0); MONO # 0.4 (0.1-0.6); MONO % 3.8 % (1.0-6.0); RBC 4.57 10^6/uL (3.5-6.1); RED CELL DISTRIBUTION WIDTH 12.3 % (11.5-14.5); WHITE BLOOD COUNT 10.6 10^3/uL (4.5-11.0)
--- NOTE | 2018-12-27 20:37 | ED PDOC ---
Arrival/HPI - General Chief Complaint: High Blood Sugar Time Seen by Provider: 12/27/18 19:40 Historian: Patient - History of Present Illness Narrative History of Present Illness (Text): 12/27/18 19:40 Bethanie Bettencourt is a 33 year old female, with a past medical history of diabetes, who presents to the emergency department complaining of dizziness after routine bloodwork today. Patient informs she did not eat. Patient informs taking insulin however she is unsure about her diabetic regimen. Patient informs a secondary complaint of pain on the left hip since yesterday morning. Patient does not provide specific details about pain. Patient denies fevers, chills, headache, chest pain, shortness of breath, dyspnea on exertion, cough, abdominal pain, nausea, vomiting, diarrhea, back pain, neck pain, or any other complaint. Time/Duration: 4-6 hours Symptom Onset: Sudden Symptom Course: Unchanged Activities at Onset: Light Past Medical History - Provider Review Nursing Documentation Reviewed: Yes - Infectious Disease Hx of Infectious Diseases: None - Cardiac Hx Cardiac Disorders: Yes Hx Hypertension: Yes - Pulmonary Hx Respiratory Disorders: Yes Hx Asthma: Yes - Neurological Hx Neurological Disorder: No - HEENT Hx HEENT Disorder: No - Renal Hx Renal Disorder: No - Endocrine/Metabolic Hx Endocrine Disorders: Yes Hx Diabetes Mellitus Type 2: Yes - Hematological/Oncological Hx Blood Disorders: No - Integumentary Hx Dermatological Disorder: No - Musculoskeletal/Rheumatological Hx Musculoskeletal Disorders: Yes Hx Back Pain: Yes - Gastrointestinal Hx Gastrointestinal Disorders: Yes Hx Pancreatitis: Yes Other/Comment: gastroparesis - Genitourinary/Gynecological Hx Genitourinary Disorders: No - Psychiatric Hx Psychophysiologic Disorder: Yes Hx Bipolar Disorder: Yes Hx Substance Use: No - Surgical History Other/Comment: bartholenes cyst I and D - Anesthesia Hx Anesthesia Reactions: No Hx Malignant Hyperthermia: No Family/Social History - Physician Review Nursing Documentation Reviewed: Yes Family/Social History: No Known Family HX Smoking Status: Current Some Days Smoker Hx Alcohol Use: No (social) Hx Substance Use: No Allergies/Home Meds Allergies/Adverse Reactions: Allergies No Known Allergies Allergy (Verified 10/03/18 21:28) Home Medications: Home Meds Medication Instructions Recorded Confirmed RX: Sertraline [Zoloft] 50 mg PO BID 06/08/17 08/20/18 RX: Clonazepam [Klonopin] 0.5 mg PO PRN PRN 10/19/17 08/20/18 RX: traZODone [Desyrel] 100 mg PO DAILY 10/19/17 08/20/18 Review of Systems - Physician Review All systems were reviewed & negative as marked: Yes - Review of Systems Constitutional: absent: Fevers, Night Sweats Respiratory: absent: SOB Cardiovascular: absent: Chest Pain, MAXWELL Gastrointestinal: absent: Abdominal Pain, Diarrhea, Nausea, Vomiting Musculoskeletal: absent: Back Pain, Neck Pain Neurological: Dizziness. absent: Headache Physical Exam - Physical Exam Narrative Physical Exam (Text): 12/27/18 19:40 Gen: VS reviewed, alert, well developed, well nourished, nontoxic, mild distress. ENT: normal pharynx. Eye: EOMI, PERRL. Neck: no JVD, supple, no adenopathy. CV: regular rate, regular rhythm, no rubs, no murmur, no gallops, S1, S2, pulses equal and strong. Pulm: no distress, clear to auscultation, no wheeze, no rhonchi, breath sounds equal, no rales. Abd: soft, nontender, no guarding, no rebound, no rigidity, normal bowel sounds. Ext: Tenderness to palpation with simple superficial touch in the left greater trochanter area. no edema. Skin: good color, no rash, no cyanosis. Psych: responds appropriately to questions, normal affect. Neuro: oriented x 3, CN2-12 intact grossly, motor intact, sensation intact. Vital Signs Reviewed: Yes Vital Signs Temp Pulse Resp BP Pulse Ox 12/27/18 19:54 98.3 F 101 H 19 120/76 98 Temperature: Afebrile Blood Pressure: Normal Pulse: Tachycardic Respiratory Rate: Normal Appearance: Positive for: Well-Appearing, Non-Toxic, Comfortable Pain Distress: None Mental Status: Positive for: Alert and Oriented X 3 Medical Decision Making ED Course and Treatment: 12/27/18 22:23 patient seen for uncomplicated hyperglycemia which normalized during ED course. left hip pain with unremarkable xrays, refer to follow up with pcp. - RAD Interpretation Narrative RAD Interpretations (Text): 12/27/18 22:25 xr hip my read: no fx or dislocation Radiology Orders: 12/27/18 20:11 Hip Left [HIP MIN 4V W/ PELVIS LT] [RAD] Stat Guest House Manager: ED Physician - Medication Orders Current Medication Orders: Sodium Chloride (Sodium Chloride 0.9%) 1,000 mls @ 999 mls/hr IV .Q1H1M STA Stop: 12/27/18 21:06 Discontinued Medications Insulin Human Regular (Humulin R) 10 units IVP STAT STA Stop: 12/27/18 20:16 - Scribe Statement The provider has reviewed the documentation as recorded by the Scribe Andreas Mcguire All medical record entries made by the Scribe were at my direction and personally dictated by me. I have reviewed the chart and agree that the record accurately reflects my personal performance of the history, physical exam, medical decision making, and the department course for this patient. I have also personally directed, reviewed, and agree with the discharge instructions and disposition. Disposition/Present on Arrival - Present on Arrival Any Indicators Present on Arrival: No History of DVT/PE: No History of Uncontrolled Diabetes: Yes Urinary Catheter: No History of Decub. Ulcer: No History Surgical Site Infection Following: None - Disposition Have Diagnosis and Disposition been Completed?: Yes Diagnosis: Hyperglycemia, Left hip pain Disposition: HOME/ ROUTINE Disposition Time: 22:25 Patient Plan: Discharge Condition: STABLE Discharge Instructions (ExitCare): Hyperglycemia, Adult, Hip Pain Additional Instructions: follow up with your doctor to discuss better control of your high blood sugars. Referrals: Beatrice Vallecillo MD [Primary Care Provider] - Follow up with primary Forms: [employer] (Macedonian)
[2018-12-27 20:48] LABS: ALB/GLOB RATIO 1.1 (1.1-1.8); ALBUMIN 4.1 g/dL (3.0-4.8); ALT/SGPT 10 U/L (7-56); AST/SGOT 18 U/L (14-36); BLOOD UREA NITROGEN 10 mg/dL (7-21); CALCIUM 9.5 mg/dL (8.4-10.5); GFR NON-AFRICAN AMERICAN > 60
[2018-12-27 21:56] LABS: URINE BILIRUBIN NEGATIVE (NEGATIVE); URINE BLOOD NEGATIVE (NEGATIVE); URINE GLUCOSE (UA) >=1000 mg/dL (NEGATIVE); URINE LEUKOCYTE ESTERASE NEGATIVE Leu/uL (NEGATIVE); URINE PROTEIN NEGATIVE mg/dL (<30 mg/dL); URINE UROBILINOGEN 0.2 E.U./dL (<1 E.U./dL)
[2018-12-27 21:57] LABS: URINE APPEARANCE CLEAR (CLEAR); URINE COLOR LIGHT YELLOW (YELLOW)
[2018-12-27 23:38] VITALS: BP 110/75; PULSE 85; RESP 16; O2SAT 100
--- NOTE | 2018-12-28 10:10 | RAD ---
PROCEDURE: Left Hip and pelvis x-ray Radiographs. HISTORY: lateral hip pain COMPARISON: None. FINDINGS: BONES: Normal. No fracture. JOINTS: Normal. SOFT TISSUES: Normal. OTHER FINDINGS: None. IMPRESSION: Normal left hip radiographs.
== END 2018-12-27 22:30 | disposition home or self-care (01) ==
LOC: ED 19:37
DX: E11.65 Type 2 diabetes mellitus with hyperglycemia (principal); Z79.4 Long term (current) use of insulin; M25.552 Pain in left hip; I10 Essential (primary) hypertension; F17.210 Nicotine dependence, cigarettes, uncomplicated
CPT/HCPCS: 73502; 80053; 81003; 81025; 82948; 85025; 96374; 99284; J7030

== ENCOUNTER 2019-01-29 22:21 | Emergency (ER) | payer OTHER ==
[2019-01-29 22:47] VITALS: BMI 33.4
[2019-01-29] MEDS ORDERED: Sodium Chloride 0.9% 1,000 ML IV STA (23:46)
[2019-01-30] LABS: BASO # 0.04 K/mm3 (0.0-2.0); BASO % 0.5 % (0.0-3.0); EOS # 0.5 (0.0-0.7); EOS % 5.5 % (1.5-5.0); HEMOGLOBIN 13.2 g/dL (12.0-16.0); LYMPH # 3.6 (1.2-3.4); LYMPH % 43.3 % (22.0-35.0); MEAN CELL VOLUME 88.9 fl (80.0-105.0); MEAN CORPUSCULAR HEMOGLOBIN 30.4 pg (25.0-35.0); MEAN CORPUSCULAR HGB CONC 34.2 g/dl (31.0-37.0); MEAN PLATELET VOLUME 11.4 fl (7.0-11.0); MONO # 0.4 (0.1-0.6); MONO % 4.4 % (1.0-6.0); RBC 4.34 10^6/uL (3.5-6.1); RED CELL DISTRIBUTION WIDTH 12.3 % (11.5-14.5); WHITE BLOOD COUNT 8.2 10^3/uL (4.5-11.0)
[2019-01-30 00:26] LABS: URINE BILIRUBIN NEGATIVE (NEGATIVE); URINE BLOOD LARGE (NEGATIVE); URINE GLUCOSE (UA) >=1000 mg/dL (NEGATIVE); URINE LEUKOCYTE ESTERASE NEGATIVE Leu/uL (NEGATIVE); URINE PROTEIN NEGATIVE mg/dL (<30 mg/dL); URINE UROBILINOGEN 0.2 E.U./dL (<1 E.U./dL)
[2019-01-30 00:28] LABS: ALBUMIN 3.7 g/dL (3.0-4.8); ALT/SGPT 18 U/L (7-56); AST/SGOT 19 U/L (14-36); BLOOD UREA NITROGEN 7 mg/dL (7-21); CALCIUM 9.5 mg/dL (8.4-10.5); GFR NON-AFRICAN AMERICAN > 60; LIPASE 140 U/L (23-300)
[2019-01-30 00:30] LABS: TROPONIN I < 0.01 ng/mL
[2019-01-30 00:35] LABS: URINE APPEARANCE SL CLOUDY (CLEAR); URINE COLOR PINK (YELLOW)
--- NOTE | 2019-01-30 00:44 | ED PDOC ---
Arrival/HPI - General Chief Complaint: Abnormal Labs Time Seen by Provider: 01/29/19 22:22 Historian: Patient - History of Present Illness Narrative History of Present Illness (Text): Bethanie Bettencuort is a 33 year old female, whose past medical history includes diabetes, who presents to the Emergency department sent in by Dr. Vallecillo for abnormal lab tests. Patient states is diabetic and takes insulin 2 times a day. Patient denies any headache, dizziness, weakness, chest pain, shortness of breath, or abdominal pain. Patient does reports 3 month history of lower back pain, denies any trauma or injury. Patient describes back pain as sharp and stabbing, located on both sides of her back. Patient states she has been taking Tylenol with significant improvement. 01/30/19 00:59 Symptom Onset: Gradual Symptom Course: Unchanged Activities at Onset: Light Context: Home Past Medical History - Provider Review Nursing Documentation Reviewed: Yes - Travel History Have you recently traveled outside [place] w/in the past 3 mons?: No - Infectious Disease Hx of Infectious Diseases: None - Cardiac Hx Cardiac Disorders: Yes Hx Hypertension: Yes - Pulmonary Hx Respiratory Disorders: Yes Hx Asthma: Yes - Neurological Hx Neurological Disorder: No - HEENT Hx HEENT Disorder: No - Renal Hx Renal Disorder: No - Endocrine/Metabolic Hx Endocrine Disorders: Yes Hx Diabetes Mellitus Type 2: Yes - Hematological/Oncological Hx Blood Disorders: No - Integumentary Hx Dermatological Disorder: No - Musculoskeletal/Rheumatological Hx Musculoskeletal Disorders: Yes Hx Back Pain: Yes - Gastrointestinal Hx Gastrointestinal Disorders: Yes Hx Pancreatitis: Yes Other/Comment: gastroparesis - Genitourinary/Gynecological Hx Genitourinary Disorders: No - Psychiatric Hx Psychophysiologic Disorder: Yes Hx Bipolar Disorder: Yes Hx Substance Use: No - Surgical History Other/Comment: bartholenes cyst I and D - Anesthesia Hx Anesthesia Reactions: No Hx Malignant Hyperthermia: No Family/Social History - Physician Review Nursing Documentation Reviewed: Yes Family/Social History: Unknown Family HX Smoking Status: Current Some Days Smoker Hx Alcohol Use: No (social) Hx Substance Use: No Allergies/Home Meds Allergies/Adverse Reactions: Allergies No Known Allergies Allergy (Verified 01/29/19 22:33) Home Medications: Home Meds Medication Instructions Recorded Confirmed Sertraline [Zoloft] 50 mg PO BID 06/08/17 01/29/19 Clonazepam [Klonopin] 0.5 mg PO PRN PRN 10/19/17 01/29/19 traZODone [Desyrel] 100 mg PO DAILY 10/19/17 01/29/19 Review of Systems - Physician Review All systems were reviewed & negative as marked: Yes - Review of Systems Constitutional: Normal. absent: Fatigue, Fevers Respiratory: absent: SOB, Cough Cardiovascular: absent: Chest Pain, Palpitations Gastrointestinal: Normal. absent: Abdominal Pain, Diarrhea, Nausea, Vomiting Genitourinary Female: Normal. absent: Dysuria, Frequency, Hematuria, Urine Output Changes Musculoskeletal: Back Pain. absent: Neck Pain Skin: Normal. absent: Rash Neurological: Normal. absent: Headache, Dizziness Psychiatric: absent: Anxiety, Depression Physical Exam Vital Signs Reviewed: Yes Vital Signs Temp Pulse Resp BP Pulse Ox 01/29/19 22:35 98.1 F 106 H 18 119/83 98 Temperature: Afebrile Blood Pressure: Normal Pulse: Regular Respiratory Rate: Normal Appearance: Positive for: Well-Appearing, Non-Toxic, Comfortable Pain Distress: None Mental Status: Positive for: Alert and Oriented X 3 - Systems Exam Head: Present: Atraumatic Conjunctiva: Present: Normal Mouth: Present: Moist Mucous Membranes Pharnyx: Present: Normal Nose (External): Present: Atraumatic Neck: Present: Normal Range of Motion Respiratory/Chest: Present: Clear to Auscultation, Good Air Exchange. No: Respiratory Distress, Accessory Muscle Use Cardiovascular: Present: Regular Rate and Rhythm, Normal S1, S2. No: Murmurs Abdomen: Present: Normal Bowel Sounds. No: Tenderness, Distention, Peritoneal Signs, Rebound, Guarding Back: Present: Normal Inspection, Paraspinal Tenderness (Tenderness to bilateral flank/lower paralumbar area). No: CVA Tenderness, Midline Tenderness, Pain with Leg Raise Upper Extremity: Present: Normal Inspection. No: Cyanosis, Edema Lower Extremity: Present: Normal Inspection, Normal ROM. No: Edema Neurological: Present: GCS=15, Speech Normal, Motor Func Grossly Intact, Normal Sensory Function, Gait Normal Skin: Present: Warm, Dry, Normal Color. No: Rashes Psychiatric: Present: Alert, Oriented x 3 Medical Decision Making ED Course and Treatment: Impression: 33 year old female sent in for abnormal labwork by Dr. Vallecillo, also complaining of 3 month history of back pain. Patient with a cholesterol of 444 and triglycerides of 1885 with a hemoglobin A1c of 13.2. Plan: -- EKG -- Chest X-ray -- CBC, CMP -- ABG with shock panel -- Lipase -- Urinalysis, urine cultures -- IV fluids -- Toradol -- Reassess and disposition Prior Visits: Notes and results from previous visits were reviewed. Progress Notes: pt fingerstick; 369 - 1L NS iv bolus given. cbc; wnl cmp; glucose; 423 trop; wnl ekg; NSr at 98 b/m no st elevations. normal axis normal intervals. cxr; wnl Abg; lactate 2.1 ( no signs of infection, no fever, no leukocytosis) pH:7.40, CO2: 38 repeat fingerstick after fluids; 314. 4 units regular insulin given. toradol given for pain. Ct abd/pelvis: COMMENTS: Mildly prominent left extrarenal pelvis. Mildly enlarged fatty liver. There is no intra or extrahepatic biliary ductal dilatation. The spleen is normal. The gallbladder is within normal limits. The pancreas is of normal contour and attenuation characteristics. There is no evidence of adrenal mass. Both kidneys demonstrate prompt and equal nephrograms. The kidneys are normal in size, shape and configuration. There is no evidence of renal or ureteral mass. No renal or ureteral calculi are identified. There is no hydroureter or hydronephrosis. No evidence for appendicitis. There is no bowel wall thickening. No evidence for small or large bowel obstruction. There is no evidence of abdominal ascites or lymphadenopathy. There is no evidence of intrinsic or extrinsic bladder mass. There is no pelvic ascites or lymphadenopathy. Images of the lung bases show no evidence of pleural or parenchymal mass. There are no pleural effusions. The bony structures are free of lytic or blastic lesions. IMPRESSION: No evidence of acute abdominal or pelvic pathology. Thank you for your kind referral of this patient. Electronically signed on Jan 30, 2019 1:54:25 AM EDT by: Yessenia Edmondson M.D., Certified by ABR, MSK, Neuroradiology pt reassessment; pt feeling better after toradol. repeat fingerstick; [address] Vallecillo; will d/c home to f/u with infrastructure technician. all results discussed with patient in depth; advised her to f/u with PMd and infrastructure technician and back specialist. advised immediate return if symptoms worsen,persist or if new symptoms develop. Patient verbalizes understanding of discharge instructions and need for immediate followup. All aspects of this case were discussed the attending of record. impression; hyperglycemia, elevated cholesterol, elevated triglycerides, back pain Increase fluids Check your sugar frequently Motrin every 6 hours as needed for pain Valium 1 tablet every 8 hours as needed for muscle spasms: May cause drowsiness Follow-up with the back specialist within the next 2 days Follow-up with the infrastructure technician within the next 2 days Follow-up with a primary care physician within the next 2 days Return immediately if symptoms worsen persist or if new concerning symptoms develop Reassessment Condition: Re-examined - Lab Interpretations Lab Results: Troponin I < 0.01 ng/mL 01/29/19 22:53 Total Bilirubin 0.4 mg/dL (0.2-1.3) 01/29/19 22:53 AST 19 U/L (14-36) 01/29/19 22:53 ALT 18 U/L (7-56) 01/29/19 22:53 Alkaline Phosphatase 145 U/L (38-126) H 01/29/19 22:53 Total Protein 7.4 g/dL (5.8-8.3) 01/29/19 22:53 Albumin 3.7 g/dL (3.0-4.8) 01/29/19 22:53 Globulin 3.7 gm/dL 01/29/19 22:53 Albumin/Globulin Ratio 1.0 (1.1-1.8) L 01/29/19 22:53 Lipase 140 U/L (23-300) 01/29/19 22:53 Urine Color [place] (YELLOW) 01/30/19 00:06 Urine Appearance Sl cloudy (CLEAR) 01/30/19 00:06 Urine pH 6.0 (4.7-8.0) 01/30/19 00:06 Ur Specific [place] 1.015 (1.005-1.035) 01/30/19 00:06 Urine Protein Negative mg/dL (<30 mg/dL) 01/30/19 00:06 Urine Glucose (UA) >=1000 mg/dL (NEGATIVE) 01/30/19 00:06 Urine Ketones Negative mg/dL (NEGATIVE) 01/30/19 00:06 Urine Blood Large (NEGATIVE) H 01/30/19 00:06 Urine Nitrate Negative (NEGATIVE) 01/30/19 00:06 Urine Bilirubin Negative (NEGATIVE) 01/30/19 00:06 Urine Urobilinogen 0.2 E.U./dL (<1 E.U./dL) 01/30/19 00:06 Ur Leukocyte Esterase Negative Bernard/uL (NEGATIVE) 01/30/19 00:06 - RAD Interpretation Radiology Orders: 01/29/19 23:45 CHEST PORTABLE [RAD] Stat - Medication Orders Current Medication Orders: Sodium Chloride (Sodium Chloride 0.9%) 1,000 mls @ 999 mls/hr IV .Q1H1M STA Stop: 01/30/19 00:46 Last Admin: 01/29/19 22:40 Dose: 999 mls/hr eMAR Start Stop Document 01/29/19 22:40 JOL (Rec: 01/29/19 23:51 JOL [id number]) Intravenous Solution Start Date 01/29/19 Start Time 22:40 End Date 01/29/19 End time 23:41 Total Infusion Time 61 Discontinued Medications Ketorolac Tromethamine (Toradol) 30 mg IVP STAT STA Stop: 01/30/19 00:13 - Scribe Statement The provider has reviewed the documentation as recorded by the Carole Horn Provider Scribe Attestation: All medical record entries made by the Scribe were at my direction and personally dictated by me. I have reviewed the chart and agree that the record accurately reflects my personal performance of the history, physical exam, medical decision making, and the department course for this patient. I have also personally directed, reviewed, and agree with the discharge instructions and disposition. Disposition/Present on Arrival - Present on Arrival Any Indicators Present on Arrival: Yes History of DVT/PE: No History of Uncontrolled Diabetes: Yes Urinary Catheter: No History of Decub. Ulcer: No History Surgical Site Infection Following: None - Disposition Have Diagnosis and Disposition been Completed?: Yes Diagnosis: Hyperglycemia, Back pain Disposition: HOME/ ROUTINE Disposition Time: 01:14 Patient Plan: Discharge Patient Problems: Current Active Problems Problem Status Onset Hyperglycemia Acute Condition: GOOD Discharge Instructions (ExitCare): Hyperglycemia, Adult (DC), Low Back Pain (DC) Additional Instructions: Increase fluids Check your sugar frequently Motrin every 6 hours as needed for pain Valium 1 tablet every 8 hours as needed for muscle spasms: May cause drowsiness Follow-up with the back specialist within the next 2 days Follow-up with the infrastructure technician within the next 2 days Follow-up with a primary care physician within the next 2 days Return immediately if symptoms worsen persist or if new concerning symptoms develop Prescriptions: diaZEpam [Valium] 2 mg PO Q8H PRN #6 tab PRN Reason: muscle spasms Ibuprofen [Motrin] 600 mg PO Q6H PRN #20 tab PRN Reason: pain/fever reduction Referrals: Beatrice Vallecillo MD [Primary Care Provider] - Follow up with primary Cecilia Neumann MD [Medical Doctor] - Follow up with primary Leo Adler MD [Staff Provider] - Follow up with primary Eddi Lowe MD [Staff Provider] - Follow up with primary Forms: [employer] (Ecuadorean), WORK NOTE
[2019-01-30 00:51] LABS: URINE BACTERIA FEW /hpf
[2019-01-30] MEDS ORDERED: Iohexol 350 MG/100 ML VIAL ONE (00:55)
[2019-01-30] MEDS ORDERED: Insulin Regular 1 UNITS/0.01 ML ML SC STA (00:55)
[2019-01-30 01:59] VITALS: TEMP 98
[2019-01-30 03:02] VITALS: BP 120/76; PULSE 82; RESP 18; O2SAT 100
--- NOTE | 2019-01-30 09:27 | CT ---
Date of service: 01/30/2019 PROCEDURE: CT Abdomen and Pelvis with contrast HISTORY: back pain COMPARISON: None. TECHNIQUE: Contrast dose: Radiation dose: Total exam DLP = 605.98 mGy-cm. This CT exam was performed using one or more of the following dose reduction techniques: Automated exposure control, adjustment of the mA and/or kV according to patient size, and/or use of iterative reconstruction technique. FINDINGS: LOWER THORAX: Unremarkable. LIVER: Fatty liver. No gross lesion or ductal dilatation. GALLBLADDER AND BILE DUCTS: Unremarkable. PANCREAS: Unremarkable. No gross lesion or ductal dilatation. SPLEEN: Unremarkable. ADRENALS: Unremarkable. No mass. KIDNEYS AND URETERS: Unremarkable. No hydronephrosis. No solid mass. VASCULATURE: Unremarkable. No aortic aneurysm. No aortic atherosclerotic calcification or mural plaque present. BOWEL: Unremarkable. No obstruction. No gross mural thickening. APPENDIX: Normal appendix. PERITONEUM: Unremarkable. No free fluid. No free air. LYMPH NODES: Unremarkable. No enlarged lymph nodes. BLADDER: Unremarkable. REPRODUCTIVE: Unremarkable. BONES: No acute fracture. OTHER FINDINGS: None. IMPRESSION: Unremarkable contrast enhanced CT of the abdomen and pelvis.
--- NOTE | 2019-01-30 09:32 | RAD ---
Date of service: 01/30/2019 HISTORY: dizziness COMPARISON: 12/21/2018 TECHNIQUE: 1 view obtained. FINDINGS: LUNGS: No active pulmonary disease. PLEURA: No significant pleural effusion identified, no pneumothorax apparent. CARDIOVASCULAR: No aortic atherosclerotic calcification present. Normal cardiac size. No pulmonary vascular congestion. OSSEOUS STRUCTURES: No significant abnormalities. VISUALIZED UPPER ABDOMEN: Normal. OTHER FINDINGS: None. IMPRESSION: No active disease.
--- NOTE | 2019-01-30 10:03 | CARD ---
APPROVED REPORT Date of service: 01/29/2019 EKG Measurement Heart [id number] <Conclusion> Normal sinus rhythm Normal ECG
== END 2019-01-30 02:45 | disposition home or self-care (01) ==
LOC: ED 22:21
DX: E11.65 Type 2 diabetes mellitus with hyperglycemia (principal); M54.5 Low back pain; E78.00 Pure hypercholesterolemia, unspecified; I10 Essential (primary) hypertension; Z79.4 Long term (current) use of insulin
CPT/HCPCS: 71045; 74177; 80053; 81001; 81025; 82550; 82948; 83615; 83690; 84484; 85025; 87086; 93005; 96360; 96372; 96374; 99281; J1885; J7030; Q9967

== ENCOUNTER 2019-02-18 08:50 | Inpatient (IN) | payer OTHER ==
--- NOTE | 2019-02-18 09:29 | ED PDOC ---
Arrival/HPI - General Chief Complaint: Abnormal Skin Integrity Historian: Patient - History of Present Illness Narrative History of Present Illness (Text): 02/18/19 09:26 33 y/o female, pmh including htn/insulin dm, nkda, c/o feeling fatigue and abscess x 7 days. Pt. stated that she has this painful redness abscess on the rt. groin x 7 days, seen by pmd and started on the oral antibiotics, more worsened, feeling fatigue and tired, no night sweat, no dizziness, no change in vision, no rash, no other medical or psychological complaints. Past Medical History - Provider Review Nursing Documentation Reviewed: Yes - Infectious Disease Hx of Infectious Diseases: None - Reproductive Menopause: No - Cardiac Hx Cardiac Disorders: Yes Hx Hypertension: Yes - Pulmonary Hx Respiratory Disorders: Yes Hx Asthma: Yes - Neurological Hx Neurological Disorder: No - HEENT Hx HEENT Disorder: No - Renal Hx Renal Disorder: No - Endocrine/Metabolic Hx Endocrine Disorders: Yes Hx Diabetes Mellitus Type 2: Yes - Hematological/Oncological Hx Blood Disorders: No - Integumentary Hx Dermatological Disorder: No - Musculoskeletal/Rheumatological Hx Musculoskeletal Disorders: Yes Hx Back Pain: Yes - Gastrointestinal Hx Gastrointestinal Disorders: Yes Hx Pancreatitis: Yes Other/Comment: gastroparesis - Genitourinary/Gynecological Hx Genitourinary Disorders: No - Psychiatric Hx Psychophysiologic Disorder: Yes Hx Bipolar Disorder: Yes Hx Substance Use: No - Surgical History Other/Comment: bartholenes cyst I and D - Anesthesia Hx Anesthesia Reactions: No Hx Malignant Hyperthermia: No Family/Social History - Physician Review Nursing Documentation Reviewed: Yes Family/Social History: Unknown Family HX Smoking Status: Current Some Days Smoker Hx Alcohol Use: No (social) Hx Substance Use: No Allergies/Home Meds Allergies/Adverse Reactions: Allergies No Known Allergies Allergy (Verified 01/29/19 22:33) Home Medications: Home Meds Medication Instructions Recorded Confirmed Sertraline [Zoloft] 50 mg PO BID 06/08/17 01/29/19 Clonazepam [Klonopin] 0.5 mg PO PRN PRN 10/19/17 01/29/19 traZODone [Desyrel] 100 mg PO DAILY 10/19/17 01/29/19 Review of Systems - Review of Systems Constitutional: absent: Fatigue, Fevers Eyes: absent: Vision Changes ENT: absent: Hearing Changes Respiratory: absent: SOB, Cough Cardiovascular: absent: Chest Pain Gastrointestinal: absent: Abdominal Pain, Diarrhea, Nausea, Vomiting Skin: Skin Lesions, Abscess, Cellulitis. absent: Rash, Pruritis, Laceration, Ulcer Neurological: absent: Headache, Dizziness Psychiatric: absent: Anxiety, Depression, Suicidal Ideation Physical Exam Vital Signs Reviewed: Yes Vital Signs Temp Pulse Resp BP Pulse Ox 02/18/19 09:16 98.6 F 98 H 18 120/79 99 Temperature: Afebrile Blood Pressure: Normal Pulse: Regular Respiratory Rate: Normal Appearance: Positive for: Well-Appearing, Non-Toxic, Comfortable Pain Distress: Moderate Mental Status: Positive for: Alert and Oriented X 3 - Systems Exam Head: Present: Atraumatic, Normocephalic Pupils: Present: PERRL Extroacular Muscles: Present: EOMI Conjunctiva: Present: Normal Mouth: Present: Moist Mucous Membranes Neck: Present: Normal Range of Motion Respiratory/Chest: Present: Clear to Auscultation, Good Air Exchange. No: Respiratory Distress, Accessory Muscle Use Cardiovascular: Present: Regular Rate and Rhythm, Normal S1, S2. No: Murmurs Abdomen: No: Tenderness, Distention, Peritoneal Signs Back: Present: Normal Inspection Upper Extremity: Present: Normal Inspection. No: Cyanosis, Edema Lower Extremity: Present: Normal Inspection. No: Edema Neurological: Present: GCS=15, CN II-XII Intact, Speech Normal Skin: Present: Warm, Dry, Other (Rt. lateral groin region visible approx. [id number] fluctuant abscess with erythematous surrounding noted with mild streakin. ). No: Rashes Psychiatric: Present: Alert, Oriented x 3, Normal Insight, Normal Concentration Medical Decision Making ED Course and Treatment: 02/18/19 09:28 -labs -chest xray -Observe and reassess 02/18/19 11:18 -Urine hcg is negative -Labs are nonsignificant except hyperglycemia 341 (insulin and fluid ordered). -UA show +UTI -Chest xray No active disease. -IV vancomycin and zosyn with blood cultures ordered for her cellulitis and abscess. -Paging Dr. Vallecillo for admission and she would need surgical consult for admission for IV antibiotics. 02/18/19 11:29 -I spoke to Dr. Vallecillo about this case including labs/radiology results, agreed to admit for ID Dr. De Guzman and Surgery Dr. Marcellus Grijalva for routine consults which I ordered. - RAD Interpretation Radiology Orders: 02/18/19 09:24 CHEST PORTABLE [RAD] Stat Date of service: 02/18/2019 HISTORY: admission, r/o consolidation COMPARISON: 01/30/2019 TECHNIQUE: 1 view obtained. FINDINGS: LUNGS: No active pulmonary disease. PLEURA: No significant pleural effusion identified, no pneumothorax apparent. CARDIOVASCULAR: No aortic atherosclerotic calcification present. Normal cardiac size. No pulmonary vascular congestion. OSSEOUS STRUCTURES: No significant abnormalities. VISUALIZED UPPER ABDOMEN: Normal. OTHER FINDINGS: None. IMPRESSION: No active disease. Residential Real Estate Agent: Radiologist - PA / PRODUCT DEMONSTRATOR / Resident Statement MD/DO has reviewed & agrees with the documentation as recorded. Disposition/Present on Arrival - Present on Arrival Any Indicators Present on Arrival: No History of DVT/PE: No History of Uncontrolled Diabetes: Yes Urinary Catheter: No History of Decub. Ulcer: No History Surgical Site Infection Following: None - Disposition Have Diagnosis and Disposition been Completed?: Yes Diagnosis: Abscess, Diabetes mellitus Disposition: HOSPITALIZED Disposition Time: 11:30 Patient Plan: Admission, Observation Condition: STABLE Referrals: Beatrice Vallecillo MD [Primary Care Provider] - Follow up with primary Forms: [employer] (German)
[2019-02-18 10:25] LABS: BASO # 0.05 K/mm3 (0.0-2.0); BASO % 0.5 % (0.0-3.0); EOS # 0.5 (0.0-0.7); EOS % 4.4 % (1.5-5.0); HEMOGLOBIN 14.8 g/dL (12.0-16.0); LYMPH # 3.5 (1.2-3.4); LYMPH % 31.8 % (22.0-35.0); MEAN CELL VOLUME 86.7 fl (80.0-105.0); MEAN CORPUSCULAR HEMOGLOBIN 29.9 pg (25.0-35.0); MEAN CORPUSCULAR HGB CONC 34.5 g/dl (31.0-37.0); MEAN PLATELET VOLUME 11.2 fl (7.0-11.0); MONO # 0.6 (0.1-0.6); MONO % 5.3 % (1.0-6.0); RBC 4.95 10^6/uL (3.5-6.1); RED CELL DISTRIBUTION WIDTH 12.4 % (11.5-14.5); WHITE BLOOD COUNT 10.9 10^3/uL (4.5-11.0)
[2019-02-18 10:30] LABS: URINE BILIRUBIN NEGATIVE (NEGATIVE); URINE BLOOD NEGATIVE (NEGATIVE); URINE GLUCOSE (UA) >=1000 mg/dL (NEGATIVE); URINE LEUKOCYTE ESTERASE TRACE Leu/uL (NEGATIVE); URINE PROTEIN NEGATIVE mg/dL (<30 mg/dL); URINE UROBILINOGEN 0.2 E.U./dL (<1 E.U./dL)
[2019-02-18 10:32] LABS: URINE APPEARANCE CLOUDY (CLEAR); URINE COLOR YELLOW (YELLOW)
[2019-02-18 10:37] LABS: VENOUS BLOOD GAS BASE EXCESS 3.9 mmol/L (0.0-2.0); VENOUS BLOOD GAS PO2 42 mm/Hg (30-55); VENOUS BLOOD PH 7.44 (7.32-7.43)
[2019-02-18 10:42] LABS: ALB/GLOB RATIO 1.2 (1.1-1.8); ALBUMIN 4.3 g/dL (3.0-4.8); ALT/SGPT 16 U/L (7-56); AST/SGOT 18 U/L (14-36); BLOOD UREA NITROGEN 9 mg/dL (7-21); CALCIUM 10.1 mg/dL (8.4-10.5); GFR NON-AFRICAN AMERICAN > 60
[2019-02-18 10:55] LABS: URINE BACTERIA MOD /hpf; URINE RBC 0 - 2 /hpf (0-2)
[2019-02-18 10:56] LABS: URINE AMORPHOUS SEDIMENT FEW /hpf
--- NOTE | 2019-02-18 11:15 | RAD ---
Date of service: 02/18/2019 HISTORY: admission, r/o consolidation COMPARISON: 01/30/2019 TECHNIQUE: 1 view obtained. FINDINGS: LUNGS: No active pulmonary disease. PLEURA: No significant pleural effusion identified, no pneumothorax apparent. CARDIOVASCULAR: No aortic atherosclerotic calcification present. Normal cardiac size. No pulmonary vascular congestion. OSSEOUS STRUCTURES: No significant abnormalities. VISUALIZED UPPER ABDOMEN: Normal. OTHER FINDINGS: None. IMPRESSION: No active disease.
[2019-02-18] MEDS ORDERED: Insulin Regular 1 UNITS/0.01 ML ML SC STA (11:17)
[2019-02-18] MEDS ORDERED: Sodium Chloride 0.9% 1,000 ML IV STA (11:17)
[2019-02-18] MEDS ORDERED: Vancomycin 1gm in NS 250ml 1 GM/250 ML BAG IVPB STA (11:20)
[2019-02-18] MEDS ORDERED: Piperacillin/Tazobact 3.375 gm 100 ML IVPB STA (11:20)
[2019-02-18] MEDS ORDERED: Morphine 4 mg/ml ISec IVP STA (11:21)
[2019-02-18] MEDS: Vancomycin 1.5 GM in Sodium Chloride 0.9% 500 ML IVPB SCH ×2 (15:49→20:20)
[2019-02-18] MEDS: HYDROmorphone 0.5 mg/0.5 ml ISec IVP PRN ×2 (16:06→21:12)
--- NOTE | 2019-02-18 16:06 | CP.PCM.PCO ---
Physician Communication Note - Physician Communication Note Physician Communication Note: Groin abscess/Uncontrolled DM:Needs OR(am)
[2019-02-18] MEDS: Insulin Reg-LOW-Coverage SC SCH ×2 (16:48→22:18)
--- NOTE | 2019-02-18 17:17 | CP.PCM.CON ---
<[place] Arzate - Last Filed: 02/18/19 17:13> History of Present Illness - History of Present Illness History of Present Illness: General surgery consult note for Dr. Grijalva-[place] Arzate, PGY-2 Pt seen/examined at bedside 33F w/PMH sig for recurrent groin abscesses consulted for Right sided suprapubic abscess x 2 weeks. Pt reports for recurrent abscesses to area that she usually pops herself, however this one was unsuccessful. Pt reports right suprapubic area with pain and swelling that has enlarged over past few weeks with constant, localized pain. Pt reports fevers, diaphoresis, diarhhea x 1 mos, emesis x 1 mo up to 6 episodes daily of brown non bloody emesis. Pt seen by PMD with recs for dietary changes, which did not alleviate her problems. Denies hematuria, hematemesis, melena, hematochezia, SOB, CP, dizziness, sore throat, [place], dysuria, other complaints. PMH: DM, obesity, hx pancreatitis, recurrent groin abscesses PSH: Buttock I & D All: SH: Admits to tobacco use- was 1ppd x 20 yrs, now smokes #4 daily, denies ETOH or illicit drug use FH: Non contributory Review of Systems - Review of Systems All systems: reviewed and no additional remarkable complaints except - Constitutional Constitutional: Fever. absent: Chills, Headache - EENT Nose/Mouth/Throat: absent: Sore Throat - Cardiovascular Cardiovascular: absent: Chest Pain - Gastrointestinal Gastrointestinal: Change in Bowel Habits, Diarrhea, Loose Stools, Nausea, Vomiting. absent: Abdominal Pain, Constipation, Hematemesis, Hematochezia, Melena - Genitourinary Genitourinary: absent: Change in Urinary Stream, Dysuria, Hematuria - Musculoskeletal Musculoskeletal: absent: Neck Pain - Integumentary Integumentary: Erythema, Swelling - Neurological Neurological: absent: Dizziness - Psychiatric Psychiatric: absent: Change in Appetite Past Patient History - Infectious Disease Hx of Infectious Diseases: None - Past Social History Smoking Status: Current Some Days Smoker - CARDIAC Hx Cardiac Disorders: Yes Hx Hypertension: Yes - PULMONARY Hx Respiratory Disorders: Yes Hx Asthma: Yes - NEUROLOGICAL Hx Neurological Disorder: No - HEENT Hx HEENT Problems: No - RENAL Hx Chronic Kidney Disease: No - ENDOCRINE/METABOLIC Hx Endocrine Disorders: Yes Hx Diabetes Mellitus Type 2: Yes - HEMATOLOGICAL/ONCOLOGICAL Hx Blood Disorders: No - INTEGUMENTARY Hx Dermatological Problems: No - MUSCULOSKELETAL/RHEUMATOLOGICAL Hx Musculoskeletal Disorders: Yes Hx Back Pain: Yes - GASTROINTESTINAL Hx Gastrointestinal Disorders: Yes Hx Pancreatitis: Yes Other/Comment: gastroparesis - GENITOURINARY/GYNECOLOGICAL Hx Genitourinary Disorders: No - PSYCHIATRIC Hx Psychophysiologic Disorder: Yes Hx Bipolar Disorder: Yes Hx Substance Use: No - SURGICAL HISTORY Other/Comment: bartholenes cyst I and D - ANESTHESIA Hx Anesthesia Reactions: No Hx Malignant Hyperthermia: No Meds Allergies/Adverse Reactions: Allergies Allergy/AdvReac Type Severity Reaction Status Date / Time No Known Allergies Allergy Verified 02/18/19 19:41 - Medications Medications: Current Medications Clonazepam (Klonopin) 0.5 mg PO DAILY PRN; Protocol PRN Reason: Anxiety Diazepam (Valium) 2 mg PO Q8H PRN; Protocol PRN Reason: muscle spasms Hydromorphone HCl (Dilaudid) 0.5 mg IVP Q4H PRN PRN Reason: Pain, Mild (1-3) Last Admin: 02/18/19 16:06 Dose: 0.5 mg Cefepime HCl (Maxipime 1gm) 1 gm in 100 mls @ 100 mls/hr IVPB Q12 [facility]; Protocol Vancomycin HCl 1.5 gm/ Sodium (Chloride) 500 mls @ 167 mls/hr IVPB Q12H [facility]; Protocol Dextrose (Dextrose 5% In Water 1000 Ml) 1,000 mls @ 0 mls/hr IV .Q0M PRN; Protocol PRN Reason: Hypoglycemia Protocol Ibuprofen (Motrin Tab) 600 mg PO Q6H PRN PRN Reason: Fever reduction Insulin Human Regular (Humulin R Low) 0 units SC ACHS [facility]; Protocol Insulin Glargine,Hum .Rec.Anlog [Basaglar Kwikpen U-100) ( Home) 20 unit SQ HS [facility] Ondansetron HCl (Zofran Odt) 4 mg PO Q6 PRN PRN Reason: Nausea/Vomiting Last Admin: 02/18/19 13:05 Dose: 4 mg Sertraline HCl (Zoloft) 50 mg PO BID [facility] Trazodone HCl (Desyrel) 100 mg PO DAILY [facility] Physical Exam - Constitutional Appears: Non-toxic, No Acute Distress - Head Exam Head Exam: ATRAUMATIC, NORMAL INSPECTION, NORMOCEPHALIC - Eye Exam Eye Exam: EOMI, Normal appearance - ENT Exam ENT Exam: Mucous Membranes Moist, Normal Exam - Neck Exam Neck exam: Positive for: Full Rom - Respiratory Exam Respiratory Exam: NORMAL BREATHING PATTERN - Cardiovascular Exam Cardiovascular Exam: REGULAR RHYTHM - GI/Abdominal Exam GI & Abdominal Exam: Normal Bowel Sounds, Soft, Tenderness (Right groin suprapubic area with tenderness to palpation, swelling, erythema, induration to area approximately 2 cm x 2cm large) - Extremities Exam Extremities exam: Positive for: normal inspection - Neurological Exam Neurological exam: Alert, CN II-XII Intact, Oriented x3 - Psychiatric Exam Psychiatric exam: Normal Affect, Normal Mood - Skin Skin Exam: Dry, Erythema (excluding right groin), Intact, Normal Color, Warm Results - Vital Signs Recent Vital Signs: Last Vital Signs Temp 98.5 F 02/18/19 13:50 Pulse 100 H 02/18/19 13:50 Resp 20 02/18/19 13:50 BP 123/85 02/18/19 13:50 Pulse Ox 97 02/18/19 13:50 - Labs Result Diagrams: 02/18/19 09:50 02/18/19 09:50 Labs: Laboratory Results - last 24 hr 02/18/19 02/18/19 02/18/19 09:50 09:50 10:15 WBC 10.9 D RBC 4.95 Hgb 14.8 Hct 42.9 MCV 86.7 MCH 29.9 MCHC 34.5 RDW 12.4 Plt Count 312 MPV 11.2 H Neut % (Auto) 58.0 Lymph % (Auto) 31.8 [place] % (Auto) 5.3 Eos % (Auto) 4.4 Baso % (Auto) 0.5 Lymph # (Auto) 3.5 H [place] # (Auto) 0.6 Eos # (Auto) 0.5 Baso # (Auto) 0.05 Absolute Neuts (auto) 6.32 pO2 VBG pH VBG pCO2 VBG HCO3 VBG Total CO2 VBG O2 Sat (Calc) VBG Base Excess VBG Potassium Glucose Lactate FiO2 Sodium 133 Potassium 4.4 Chloride 95 L Carbon Dioxide 24 Anion Gap 18 BUN 9 Creatinine 0.5 L Est GFR ( Amer) > 60 Est GFR (Non-Af Amer) > 60 POC Glucose (mg/dL) Random Glucose 341 H* Calcium 10.1 Total Bilirubin 0.7 AST 18 ALT 16 Alkaline Phosphatase 132 H Total Protein 7.8 Albumin 4.3 Globulin 3.6 Albumin/Globulin Ratio 1.2 Venous Blood Potassium Urine Color Yellow Urine Appearance Cloudy Urine pH 6.0 Ur Specific [place] 1.020 Urine Protein Negative Urine Glucose (UA) >=1000 Urine Ketones 15 H Urine Blood Negative Urine Nitrate Negative Urine Bilirubin Negative Urine Urobilinogen 0.2 Ur Leukocyte Esterase Trace H Urine RBC 0 - 2 Urine WBC 5 - 10 H Ur Epithelial Cells 6 - 8 H Amorphous Sediment Few Urine Bacteria Mod 02/18/19 02/18/19 10:30 16:23 WBC RBC Hgb Hct MCV MCH MCHC RDW Plt Count MPV Neut % (Auto) Lymph % (Auto) [place] % (Auto) Eos % (Auto) Baso % (Auto) Lymph # (Auto) [place] # (Auto) Eos # (Auto) Baso # (Auto) Absolute Neuts (auto) pO2 42 VBG pH 7.44 H VBG pCO2 42.0 VBG HCO3 28.5 H VBG Total CO2 29.8 H VBG O2 Sat (Calc) 82.8 H VBG Base Excess 3.9 H VBG Potassium 4.7 Glucose 380 H Lactate 1.9 FiO2 21.0 Sodium 131.0 L Potassium Chloride 96.0 L Carbon Dioxide Anion Gap BUN Creatinine Est GFR ( Amer) Est GFR (Non-Af Amer) POC Glucose (mg/dL) 312 H Random Glucose Calcium Total Bilirubin AST ALT Alkaline Phosphatase Total Protein Albumin Globulin Albumin/Globulin Ratio Venous Blood Potassium 4.7 Urine Color Urine Appearance Urine pH Ur Specific [place] Urine Protein Urine Glucose (UA) Urine Ketones Urine Blood Urine Nitrate Urine Bilirubin Urine Urobilinogen Ur Leukocyte Esterase Urine RBC Urine WBC Ur Epithelial Cells Amorphous Sediment Urine Bacteria Assessment & Plan - Assessment and Plan (Free Text) Assessment: 33F w/recurrent groin abscesses consulted for the same Plan: Plan for OR in AM Consent in chart FU AM labs Pain control Warm compresses to area Abx NPO pMN Further care as per primary DW Dr. Rudi Arzate, PGY-2 - Date & Time Date: 02/18/19 Time: 16:40 <Marcellus Grijalva - Last Filed: 02/21/19 11:13> Meds - Medications Medications: Current Medications Clonazepam (Klonopin) 0.5 mg PO DAILY PRN; Protocol PRN Reason: Anxiety Diazepam (Valium) 1 mg PO Q12H PRN; Protocol PRN Reason: muscle spasms Cefepime HCl (Maxipime 1gm) 1 gm in 100 mls @ 100 mls/hr IVPB Q12 [facility]; Protocol Last Admin: 02/21/19 09:21 Dose: 100 mls/hr Dextrose (Dextrose 5% In Water 1000 Ml) 1,000 mls @ 0 mls/hr IV .Q0M PRN; Protocol PRN Reason: Hypoglycemia Protocol Vancomycin HCl 1.5 gm/ Sodium (Chloride) 500 mls @ 167 mls/hr IVPB 0600,1800 [facility]; Protocol Last Admin: 02/21/19 05:57 Dose: 167 mls/hr Ibuprofen (Motrin Tab) 600 mg PO Q6H PRN PRN Reason: Fever reduction Last Admin: 02/20/19 09:09 Dose: 600 mg Insulin Detemir (Levemir) 20 unit SC [facility] Last Admin: 02/20/19 22:52 Dose: 20 units Insulin Human Regular (Humulin R Low) 0 units SC [facility]; Protocol Last Admin: 02/21/19 09:19 Dose: 1 units Ondansetron HCl (Zofran Odt) 4 mg PO Q6 PRN PRN Reason: Nausea/Vomiting Last Admin: 02/18/19 13:05 Dose: 4 mg Ondansetron HCl (Zofran Inj) 4 mg IVP ONCE PRN PRN Reason: Nausea/Vomiting Oxycodone HCl (Oxycodone Immediate Release Tab) 5 mg PO Q6H PRN PRN Reason: Pain, severe (8-10) Last Admin: 02/20/19 22:51 Dose: 5 mg Sertraline HCl (Zoloft) 50 mg PO BID [facility] Last Admin: 02/19/19 17:34 Dose: Not Given Trazodone HCl (Desyrel) 100 mg PO DAILY [facility] Last Admin: 02/20/19 16:16 Dose: Not Given Results - Vital Signs Recent Vital Signs: Last Vital Signs Temp 97.3 F L 02/21/19 06:00 Pulse 77 02/21/19 06:00 Resp 16 02/21/19 06:00 BP 118/81 02/21/19 06:00 Pulse Ox 97 02/21/19 06:00 - Labs Result Diagrams: 02/20/19 06:00 02/20/19 06:00 Labs: Laboratory Results - last 24 hr 02/20/19 02/20/19 02/20/19 11:08 16:26 21:51 POC Glucose (mg/dL) 264 H 287 H 274 H 02/21/19 05:59 POC Glucose (mg/dL) 189 H Assessment & Plan - Assessment and Plan (Free Text) Plan: This consult done under my direct supervision Corinne Grijalva MD FACS
--- NOTE | 2019-02-18 17:56 | CP.PCM.CON ---
History of Present Illness - History of Present Illness History of Present Illness: Infectious Disease Consultation: February 18, 2019 33 yo female with history of recurrent groin abscesses presenting with right suprapubic abscess present for one month as per the patient. The patient is complaining of worsening pain of the area. She complains of fever, diaphoresis, and diarrhea. The patient develops green every few months that she usually tries to pop or uses a warm compress on. PMHx: DM, Obesity, recurrent groin abscess, History of pancreatitis PSHx: I&D of the buttocks and groin Allergies: NKDA Social Hx: No EtOH or illicit drug use Tobacco use of 1ppd x 20 years Active Medications Clonazepam (Klonopin) 0.5 mg PO DAILY PRN; Protocol PRN Reason: Anxiety Diazepam (Valium) 2 mg PO Q8H PRN; Protocol PRN Reason: muscle spasms Hydromorphone HCl (Dilaudid) 0.5 mg IVP Q4H PRN PRN Reason: Pain, Mild (1-3) Last Admin: 02/18/19 16:06 Dose: 0.5 mg Cefepime HCl (Maxipime 1gm) 1 gm in 100 mls @ 100 mls/hr IVPB Q12 [facility]; Protocol Vancomycin HCl 1.5 gm/ Sodium (Chloride) 500 mls @ 167 mls/hr IVPB Q12H [facility]; Protocol Dextrose (Dextrose 5% In Water 1000 Ml) 1,000 mls @ 0 mls/hr IV .Q0M PRN; Protocol PRN Reason: Hypoglycemia Protocol Ibuprofen (Motrin Tab) 600 mg PO Q6H PRN PRN Reason: Fever reduction Insulin Human Regular (Humulin R Low) 0 units SC ACHS [facility]; Protocol Insulin Glargine,Hum .Rec.Anlog [Basaglar Kwikpen U-100) ( Home) 20 unit SQ HS [facility] Ondansetron HCl (Zofran Odt) 4 mg PO Q6 PRN PRN Reason: Nausea/Vomiting Last Admin: 02/18/19 13:05 Dose: 4 mg Sertraline HCl (Zoloft) 50 mg PO BID [facility] Trazodone HCl (Desyrel) 100 mg PO DAILY [facility] Family Hx: none given ROS: Fevers, chills, groin pain, nausea, diarrhea, diaphoresis. No chest pain, melena, hematuria, hematemesis, hematochezia, depression, anxiety, vision loss, hearing loss, loss of consciousness. Past Patient History - Infectious Disease Hx of Infectious Diseases: None - Past Social History Smoking Status: Current Some Days Smoker - CARDIAC Hx Cardiac Disorders: Yes Hx Hypertension: Yes - PULMONARY Hx Respiratory Disorders: Yes Hx Asthma: Yes - NEUROLOGICAL Hx Neurological Disorder: No - HEENT Hx HEENT Problems: No - RENAL Hx Chronic Kidney Disease: No - ENDOCRINE/METABOLIC Hx Endocrine Disorders: Yes Hx Diabetes Mellitus Type 2: Yes - HEMATOLOGICAL/ONCOLOGICAL Hx Blood Disorders: No - INTEGUMENTARY Hx Dermatological Problems: No - MUSCULOSKELETAL/RHEUMATOLOGICAL Hx Musculoskeletal Disorders: Yes Hx Back Pain: Yes - GASTROINTESTINAL Hx Gastrointestinal Disorders: Yes Hx Pancreatitis: Yes Other/Comment: gastroparesis - GENITOURINARY/GYNECOLOGICAL Hx Genitourinary Disorders: No - PSYCHIATRIC Hx Psychophysiologic Disorder: Yes Hx Bipolar Disorder: Yes Hx Substance Use: No - SURGICAL HISTORY Other/Comment: bartholenes cyst I and D - ANESTHESIA Hx Anesthesia Reactions: No Hx Malignant Hyperthermia: No Meds Allergies/Adverse Reactions: Allergies Allergy/AdvReac Type Severity Reaction Status Date / Time No Known Allergies Allergy Verified 02/18/19 16:59 - Medications Medications: Current Medications Clonazepam (Klonopin) 0.5 mg PO DAILY PRN; Protocol PRN Reason: Anxiety Diazepam (Valium) 2 mg PO Q8H PRN; Protocol PRN Reason: muscle spasms Hydromorphone HCl (Dilaudid) 0.5 mg IVP Q4H PRN PRN Reason: Pain, Mild (1-3) Last Admin: 02/18/19 16:06 Dose: 0.5 mg Cefepime HCl (Maxipime 1gm) 1 gm in 100 mls @ 100 mls/hr IVPB Q12 [facility]; Protocol Vancomycin HCl 1.5 gm/ Sodium (Chloride) 500 mls @ 167 mls/hr IVPB Q12H [facility]; Protocol Dextrose (Dextrose 5% In Water 1000 Ml) 1,000 mls @ 0 mls/hr IV .Q0M PRN; Protocol PRN Reason: Hypoglycemia Protocol Ibuprofen (Motrin Tab) 600 mg PO Q6H PRN PRN Reason: Fever reduction Insulin Human Regular (Humulin R Low) 0 units SC ACHS [facility]; Protocol Insulin Glargine,Hum .Rec.Anlog [Basaglar Kwikpen U-100) ( Home) 20 unit SQ HS [facility] Ondansetron HCl (Zofran Odt) 4 mg PO Q6 PRN PRN Reason: Nausea/Vomiting Last Admin: 02/18/19 13:05 Dose: 4 mg Sertraline HCl (Zoloft) 50 mg PO BID [facility] Trazodone HCl (Desyrel) 100 mg PO DAILY [facility] Physical Exam - Constitutional Appears: Non-toxic, No Acute Distress - Head Exam Head Exam: ATRAUMATIC, NORMOCEPHALIC - Eye Exam Eye Exam: EOMI, PERRL Pupil Exam: NORMAL ACCOMODATION, PERRL - ENT Exam ENT Exam: Mucous Membranes Moist, Normal External Ear Exam, TM's Normal Bilaterally - Neck Exam Neck exam: Positive for: Full Rom, Normal Inspection - Respiratory Exam Respiratory Exam: Clear to Auscultation Bilateral, NORMAL BREATHING PATTERN. absent: Rales, Rhonchi, Wheezes - Cardiovascular Exam Cardiovascular Exam: REGULAR RHYTHM, RRR, +S1, +S2 - GI/Abdominal Exam GI & Abdominal Exam: Normal Bowel Sounds, Soft. absent: Distended, Tenderness - Extremities Exam Extremities exam: Positive for: full ROM, normal inspection - Neurological Exam Neurological exam: Alert, CN II-XII Intact, Oriented x3 - Psychiatric Exam Psychiatric exam: Normal Affect, Normal Mood - Skin Additional comments: right medial groin enlargement, tenderness, and warmth. No drainage. Results - Vital Signs Recent Vital Signs: Last Vital Signs Temp 98.5 F 02/18/19 13:50 Pulse 100 H 02/18/19 13:50 Resp 20 02/18/19 13:50 BP 123/85 02/18/19 13:50 Pulse Ox 97 02/18/19 13:50 - Labs Result Diagrams: 02/18/19 09:50 02/18/19 09:50 Labs: Laboratory Results - last 24 hr 02/18/19 02/18/19 02/18/19 09:50 09:50 10:15 WBC 10.9 D RBC 4.95 Hgb 14.8 Hct 42.9 MCV 86.7 MCH 29.9 MCHC 34.5 RDW 12.4 Plt Count 312 MPV 11.2 H Neut % (Auto) 58.0 Lymph % (Auto) 31.8 [place] % (Auto) 5.3 Eos % (Auto) 4.4 Baso % (Auto) 0.5 Lymph # (Auto) 3.5 H [place] # (Auto) 0.6 Eos # (Auto) 0.5 Baso # (Auto) 0.05 Absolute Neuts (auto) 6.32 pO2 VBG pH VBG pCO2 VBG HCO3 VBG Total CO2 VBG O2 Sat (Calc) VBG Base Excess VBG Potassium Glucose Lactate FiO2 Sodium 133 Potassium 4.4 Chloride 95 L Carbon Dioxide 24 Anion Gap 18 BUN 9 Creatinine 0.5 L Est GFR ( Amer) > 60 Est GFR (Non-Af Amer) > 60 POC Glucose (mg/dL) Random Glucose 341 H* Calcium 10.1 Total Bilirubin 0.7 AST 18 ALT 16 Alkaline Phosphatase 132 H Total Protein 7.8 Albumin 4.3 Globulin 3.6 Albumin/Globulin Ratio 1.2 Venous Blood Potassium Urine Color Yellow Urine Appearance Cloudy Urine pH 6.0 Ur Specific [place] 1.020 Urine Protein Negative Urine Glucose (UA) >=1000 Urine Ketones 15 H Urine Blood Negative Urine Nitrate Negative Urine Bilirubin Negative Urine Urobilinogen 0.2 Ur Leukocyte Esterase Trace H Urine RBC 0 - 2 Urine WBC 5 - 10 H Ur Epithelial Cells 6 - 8 H Amorphous Sediment Few Urine Bacteria Mod 02/18/19 02/18/19 10:30 16:23 WBC RBC Hgb Hct MCV MCH MCHC RDW Plt Count MPV Neut % (Auto) Lymph % (Auto) [place] % (Auto) Eos % (Auto) Baso % (Auto) Lymph # (Auto) [place] # (Auto) Eos # (Auto) Baso # (Auto) Absolute Neuts (auto) pO2 42 VBG pH 7.44 H VBG pCO2 42.0 VBG HCO3 28.5 H VBG Total CO2 29.8 H VBG O2 Sat (Calc) 82.8 H VBG Base Excess 3.9 H VBG Potassium 4.7 Glucose 380 H Lactate 1.9 FiO2 21.0 Sodium 131.0 L Potassium Chloride 96.0 L Carbon Dioxide Anion Gap BUN Creatinine Est GFR ( Amer) Est GFR (Non-Af Amer) POC Glucose (mg/dL) 312 H Random Glucose Calcium Total Bilirubin AST ALT Alkaline Phosphatase Total Protein Albumin Globulin Albumin/Globulin Ratio Venous Blood Potassium 4.7 Urine Color Urine Appearance Urine pH Ur Specific [place] Urine Protein Urine Glucose (UA) Urine Ketones Urine Blood Urine Nitrate Urine Bilirubin Urine Urobilinogen Ur Leukocyte Esterase Urine RBC Urine WBC Ur Epithelial Cells Amorphous Sediment Urine Bacteria Assessment & Plan - Assessment and Plan (Free Text) Assessment: 33 yo female with right medial groin swelling and likely large abscess. Surgery planning to I&D area on 02/18/2019. Must cover for MRSA and gram negative infections at this time. No leukocytosis or fevers at this time. May need imaging study if I&D is not done. Supportive care. Thank you for allowing me to participate in the care of the patient, we will follow with you.
[2019-02-18 20:18] VITALS: BMI 33.4
[2019-02-18] MEDS ORDERED: Influenza Vaccine 60 mcg/0.5 mL SYR (4YR UP) IM ONE (20:18)
[2019-02-18] MEDS ORDERED: Pneumococcal 23-Valent Vaccine IM ONE (20:18)
[2019-02-18] MEDS: Cefepime 1gm in NS 100ml 1 GM/100 ML BAG IVPB SCH (21:12)
[2019-02-18] MEDS: INSULIN GLARGINE HUM REC ANLOG SQ SCH (22:21)
--- NOTE | 2019-02-18 22:28 | HP ---
DATE OF EXAM: 02/18/2019 This case was discussed with Dr. Vallecillo. She is in agreement with the plan. HISTORY OF PRESENT ILLNESS: Patient came into ER with right groin abscess, failure of outpatient treatment team. She has a history of diabetes mellitus, hypertension, noncompliance with diabetes, posttraumatic stress disorder, hypertension, diarrhea, nicotine dependence, obesity, bipolar disorder. I saw the patient today at the bedside having lunch, in no acute distress. Patient reported right groin pain at the site of large cyst, very red and tender to touch. She denies shortness of breath. She denies palpitations. She denies cough. She denies abdominal pain, calf pain, or dysuria. FAMILY HISTORY: No pertinent family history. SOCIAL HISTORY: Patient has a history of bipolar, posttraumatic stress disorder. She lives with family. Smokes and drinks socially. ALLERGIES: NO KNOWN ALLERGIES. PHYSICAL EXAMINATION VITAL SIGNS: Temperature 98.5, pulse rate 100, blood pressure 123/85, pulse 97, respiratory rate 20, sat 97% on room air. GENERAL APPEARANCE: In no acute distress. HEENT: Head normocephalic. NECK: Supple. Normal inspection. No JVD. LUNGS: Clear to auscultation. CARDIOVASCULAR: S1 and S2. No murmurs or gallops. ABDOMEN: Soft and nontender. EXTREMITIES: Moves all extremities. SKIN: Warm to touch, normal color. NEUROLOGIC: Patient is alert and oriented x3. No focal deficits. MEDICATIONS: Patient is on Maxipime 1g IV piggyback, Klonopin 0.5 daily for anxiety, Valium 2 mg every 8 hours for pain, Dilaudid IV piggyback for pain. Patient is on a.c. and at bedtime insulin coverage, subcu, Zofran 4 mg every 6 p.r.n., trazodone 100 mg, vancomycin IV piggyback. ASSESSMENT: This is a 33-year-old female with history of diabetes, noncompliant, bipolar, hyperlipidemia, anxiety, hyper cholesterol. Patient was seen in the office not long ago noncompliance with diabetes. She was sent to the emergency room. She was discharged after being stabilized on insulin. Patient came into the office this past over the weekend with complaints of cyst to right groin. She was treated outpatient. Patient went to the emergency room, pain got worse with that visit. PLAN: For patient to start IV piggyback and for the cyst to be removed surgically. ID and Surgery is on this case. We will follow up. PT WAS S/E AT THE BED SIDE . AGREED ALL ABOVE , D/D WITH PHLEBOTOMIST MEDICAL LAB ASSISTANT , WILL F/U Chema Auguste APN Beatrice Vallecillo MD DOMENIC
[2019-02-19] MEDS: HYDROmorphone 0.5 mg/0.5 ml ISec IVP PRN ×3 (02:13→09:38)
[2019-02-19] MEDS: Vancomycin 1.5 GM in Sodium Chloride 0.9% 500 ML IVPB SCH ×2 (02:14→17:29)
[2019-02-19 06:53] LABS: BASO # 0.02 K/mm3 (0.0-2.0); BASO % 0.2 % (0.0-3.0); EOS # 0.4 (0.0-0.7); EOS % 4.4 % (1.5-5.0); LYMPH # 3.8 (1.2-3.4); LYMPH % 44.6 % (22.0-35.0); MEAN CELL VOLUME 89.4 fl (80.0-105.0); MEAN CORPUSCULAR HEMOGLOBIN 29.3 pg (25.0-35.0); MEAN CORPUSCULAR HGB CONC 32.8 g/dl (31.0-37.0); MEAN PLATELET VOLUME 11.1 fl (7.0-11.0); MONO # 0.5 (0.1-0.6); MONO % 5.4 % (1.0-6.0); RBC 4.43 10^6/uL (3.5-6.1); RED CELL DISTRIBUTION WIDTH 12.4 % (11.5-14.5); WHITE BLOOD COUNT 8.5 10^3/uL (4.5-11.0)
[2019-02-19 07:00] LABS: INR 0.98; PARTIAL THROMBOPLASTIN TIME 36.7 Seconds (26.9-38.3); PROTHROMBIN TIME 11.1 SECONDS (9.4-12.5)
[2019-02-19 07:20] LABS: ALB/GLOB RATIO 1.1 (1.1-1.8); ALBUMIN 3.9 g/dL (3.0-4.8); ALT/SGPT 12 U/L (7-56); AST/SGOT 19 U/L (14-36); BLOOD UREA NITROGEN 15 mg/dL (7-21); CALCIUM 8.6 mg/dL (8.4-10.5); GFR NON-AFRICAN AMERICAN > 60
[2019-02-19] MEDS: Insulin Reg-LOW-Coverage SC SCH ×4 (09:29→22:08)
[2019-02-19] MEDS: Cefepime 1gm in NS 100ml 1 GM/100 ML BAG IVPB SCH ×2 (09:32→22:12)
[2019-02-19] MEDS ORDERED: Bupivacaine 0.5% 50 ML IJ ONE ×2 (12:07→12:35)
[2019-02-19] MEDS ORDERED: Midazolam 2 MG/2 ML VIAL ONE (12:30)
[2019-02-19] MEDS ORDERED: Propofol 10 mg/ml Inj (20 ML) ONE (12:36)
[2019-02-19] MEDS ORDERED: Lidocaine 1% Inj (20ml) ONE (12:36)
[2019-02-19] MEDS ORDERED: HYDROmorphone 0.5 mg/0.5 ml ISec IVP PRN (12:50)
--- NOTE | 2019-02-19 12:52 | PCM.SURG1 ---
Surgeon's Initial Post Op Note - Surgeon's Notes Surgeon: Dr. Marcellus Grijalva Neighborhood Conservation Officer: [place] Arzate, PGY-2 Type of Anesthesia: IV Sedation Anesthesia Administered By: Dr. Gates Pre-Operative Diagnosis: Right groin abscess Operative Findings: Purulent drainage from abscess Post-Operative Diagnosis: Right groin abscess Operation Performed: Incision and drainage of Right groin abscess Specimen/Specimens Removed: Purulent drainage from abscess cavity Estimated Blood Loss: EBL {In ML}: 5 Blood Products Given: N/A Drains Used: No Drains Post-Op Condition: Good Date of Surgery/Procedure: 02/19/19 Time of Surgery/Procedure: 12:51
[2019-02-19] MEDS ORDERED: Sodium Chloride 0.9% 1,000 ML IV SCH (13:00)
--- NOTE | 2019-02-19 17:07 | CP.PCM.PN ---
Subjective - Date & Time of Evaluation Date of Evaluation: 02/19/19 Time of Evaluation: 15:30 - Subjective Subjective: Infectious Disease Follow Up: February 19, 2019 33 yo female with history of recurrent groin abscesses presenting with right suprapubic abscess present for one month as per the patient. The patient is complaining of worsening pain of the area. She complains of fever, diaphoresis, and diarrhea. The patient develops green every few months that she usually tries to pop or uses a warm compress on. Taken to OR today for I&D of right groin abscess. Purulent material obtained. Objective - Vital Signs/Intake and Output Vital Signs (last 24 hours): Temp Pulse Resp BP Pulse Ox 97.5 F L 79 316 H 108/66 99 02/19/19 13:23 02/19/19 13:23 02/19/19 13:23 02/19/19 13:23 02/19/19 13:23 Intake and Output: 02/19/19 02/19/19 06:59 18:59 Intake Total 0 Balance 0 - Medications Medications: Current Medications Acetaminophen (Tylenol 325mg Tab) 650 mg PO Q6H PRN PRN Reason: Pain, moderate (4-7) Clonazepam (Klonopin) 0.5 mg PO DAILY PRN; Protocol PRN Reason: Anxiety Diazepam (Valium) 2 mg PO Q8H PRN; Protocol PRN Reason: muscle spasms Cefepime HCl (Maxipime 1gm) 1 gm in 100 mls @ 100 mls/hr IVPB Q12 [facility]; Protocol Last Admin: 02/19/19 09:32 Dose: 100 mls/hr Dextrose (Dextrose 5% In Water 1000 Ml) 1,000 mls @ 0 mls/hr IV .Q0M PRN; Protocol PRN Reason: Hypoglycemia Protocol Vancomycin HCl 1.5 gm/ Sodium (Chloride) 500 mls @ 167 mls/hr IVPB 0600,1800 [facility]; Protocol Ibuprofen (Motrin Tab) 600 mg PO Q6H PRN PRN Reason: Fever reduction Insulin Human Regular (Humulin R Low) 0 units SC ACHS [facility]; Protocol Last Admin: 02/19/19 11:30 Dose: Not Given Insulin Glargine,Hum .Rec.Anlog [Basaglar Kwikpen U-100) ( Home) 20 unit SQ HS [facility] Last Admin: 02/18/19 22:21 Dose: Not Given Ondansetron HCl (Zofran Odt) 4 mg PO Q6 PRN PRN Reason: Nausea/Vomiting Last Admin: 02/18/19 13:05 Dose: 4 mg Ondansetron HCl (Zofran Inj) 4 mg IVP ONCE PRN PRN Reason: Nausea/Vomiting Sertraline HCl (Zoloft) 50 mg PO BID [facility] Last Admin: 02/19/19 10:55 Dose: Not Given Tramadol HCl (Ultram) 50 mg PO TID PRN PRN Reason: Pain, severe (8-10) Last Admin: 02/19/19 14:18 Dose: 50 mg Trazodone HCl (Desyrel) 100 mg PO DAILY [facility] Last Admin: 02/19/19 10:54 Dose: Not Given - Labs Labs: 02/19/19 06:30 02/19/19 06:30 PT 11.1 SECONDS (9.4-12.5) 02/19/19 06:30 INR 0.98 02/19/19 06:30 APTT 36.7 Seconds (26.9-38.3) 02/19/19 06:30 - Constitutional Appears: Non-toxic, No Acute Distress, Chronically Ill - Head Exam Head Exam: ATRAUMATIC, NORMOCEPHALIC - Eye Exam Eye Exam: EOMI, PERRL Pupil Exam: NORMAL ACCOMODATION, PERRL - ENT Exam ENT Exam: Mucous Membranes Moist, Normal External Ear Exam, TM's Normal Bilater ally - Neck Exam Neck Exam: Full ROM, Normal Inspection - Respiratory Exam Respiratory Exam: Clear to Ausculation Bilateral, NORMAL BREATHING PATTERN. absent: Rales, Rhonchi, Wheezes - Cardiovascular Exam Cardiovascular Exam: REGULAR RHYTHM, RRR, +S1, +S2 - GI/Abdominal Exam GI & Abdominal Exam: Soft, Normal Bowel Sounds. absent: Distended, Tenderness - Extremities Exam Extremities Exam: Full ROM, Normal Inspection - Neurological Exam Neurological Exam: Alert, Awake, CN II-XII Intact, Oriented x3 - Psychiatric Exam Psychiatric exam: Normal Affect, Normal Mood - Skin Additional comments: right medial groin enlargement, tenderness, and warmth. No drainage. Assessment and Plan - Assessment and Plan (Free Text) Assessment: 33 yo female with right medial groin swelling and likely large abscess. Surgery planning to I&D area on 02/18/2019. Must cover for MRSA and gram negative infections at this time. No leukocytosis or fevers at this time. May need imaging study if I&D is not done. Supportive care. I&D done today by surgery. Cultures sent. As the patient was on broad spectrum antibiotics, the wound cultures could be negative for growth. Thank you for allowing me to participate in the care of the patient, we will follow with you.
[2019-02-19] MEDS ORDERED: Oxycodone/Acetaminophen 5/325 mg Tab PO STA (17:09)
[2019-02-19] MEDS: oxyCODONE 5 mg Immediate Release Tab PO PRN (20:34)
[2019-02-19] MEDS: INSULIN GLARGINE HUM REC ANLOG SQ SCH (22:09)
[2019-02-19] MEDS ORDERED: [UNRECOGNIZED DRUG - OTHER] SQ SCH (22:54)
[2019-02-19] MEDS ORDERED: INSULIN GLARGINE HUM REC ANLOG 24 UNIT SQ SCH (22:54)
--- NOTE | 2019-02-20 01:02 | PN ---
DATE: 02/19/2019 SUBJECTIVE: The patient was seen and examined at the bedside on 02/19/2019, complaining about pain in the groin area. She has abscess with the right suprapubic area. Patient has uncontrolled diabetes mellitus. No fever. No chills. No hematuria. No hematochezia. No headache. No dizziness. Patient went to OR for incision and drainage of right groin abscess with purulent material obtained. PHYSICAL EXAMINATION VITAL SIGNS: Temperature 97.5, pulse 79, respiratory rate 18, blood pressure 108/56, pulse oximetry 99%. HEENT: Head; normocephalic and atraumatic. Eyes; PERRLA. Extraocular muscles are intact. Conjunctivae clear. Nose patent. NECK: Supple. No carotid bruits, JVD, or thyromegaly. CHEST: Bilaterally symmetrical. HEART: S1 and S2 positive. LUNGS: Clear to auscultation. ABDOMEN: Soft. Bowel sounds present. No organomegaly. EXTREMITIES: No edema. No cyanosis. NEUROLOGIC: The patient is awake and alert, moving all four extremities. No focal deficits. MEDICATIONS: Tylenol, Klonopin, Valium, cefepime, dextrose, vancomycin, insulin, Zofran, tramadol. LABORATORY DATA: White blood cell 8.5, hemoglobin 13.0, hematocrit 39.6 and platelets 299. Sodium 135, potassium 4.0, BUN 50, and creatinine 0.6. Glucose 303. ASSESSMENT AND PLAN: Ms. Bethanie Bettencourt is a 33-year-old female with uncontrolled insulin-dependent diabetes mellitus, came with abscess in the right groin area. Surgery did incision and drainage, must cover for methicillin-resistant Staphylococcus aureus and gram-negative infections at this time as per Infectious Disease. No increased leukocytosis or fever at this time because this infection is partially treated as outpatient. Cultures are sent after incision and drainage. Right now, patient is getting broad spectrum antibiotics. Wound cultures were negative for growth, done on antibiotics. Discussion done with the patient. Patient is very noncompliant. History of hypertension, posttraumatic stress disorder, history of nicotine dependency, obesity, bipolar. We will continue antibiotics as per Infectious Disease. We will follow up. Beatrice Vallecillo MD [facility] # [phone]
[2019-02-20] MEDS ORDERED: Magnesium Oxide 400 mg Tab UD PO ONE (01:16)
[2019-02-20] MEDS: oxyCODONE 5 mg Immediate Release Tab PO PRN ×3 (05:26→22:51)
[2019-02-20] MEDS: Vancomycin 1.5 GM in Sodium Chloride 0.9% 500 ML IVPB SCH ×2 (06:43→19:03)
[2019-02-20 07:07] LABS: HEMOGLOBIN 11.5 g/dL (12.0-16.0); MEAN CORPUSCULAR HEMOGLOBIN 28.8 pg (25.0-35.0); MEAN CORPUSCULAR HGB CONC 32.4 g/dl (31.0-37.0); RBC 3.99 10^6/uL (3.5-6.1); RED CELL DISTRIBUTION WIDTH 12.4 % (11.5-14.5); WHITE BLOOD COUNT 8.7 10^3/uL (4.5-11.0)
[2019-02-20 08:05] LABS: BLOOD UREA NITROGEN 11 mg/dL (7-21); CALCIUM 8.3 mg/dL (8.4-10.5); GFR NON-AFRICAN AMERICAN > 60
[2019-02-20] MEDS: Insulin Reg-LOW-Coverage SC SCH ×3 (09:03→18:48)
[2019-02-20] MEDS: Cefepime 1gm in NS 100ml 1 GM/100 ML BAG IVPB SCH ×2 (09:09→22:53)
[2019-02-20] MEDS ORDERED: Insulin Detemir 100 units/ml Vial (Levemir) SC ONE (11:00)
--- NOTE | 2019-02-20 13:31 | CP.PCM.PN ---
Subjective - Date & Time of Evaluation Date of Evaluation: 02/20/19 Time of Evaluation: 10:00 - Subjective Subjective: PGY1 General surgery progress note for Dr. Grijalva Pt seen and examined at bedside. Pt is resting comfortably. No new complaints at this time. Denies fever, chills, chest pain, sob, abdominal pain, n/v/d, bleeding or increased pain from the incision site. Objective - Vital Signs/Intake and Output Vital Signs (last 24 hours): Temp Pulse Resp BP Pulse Ox 98.4 F 77 16 116/84 97 02/20/19 06:00 02/20/19 06:00 02/20/19 06:00 02/20/19 06:00 02/20/19 06:00 Intake and Output: 02/20/19 02/20/19 06:59 18:59 Intake Total 180 Balance 180 - Medications Medications: Current Medications Clonazepam (Klonopin) 0.5 mg PO DAILY PRN; Protocol PRN Reason: Anxiety Diazepam (Valium) 1 mg PO Q12H PRN; Protocol PRN Reason: muscle spasms Cefepime HCl (Maxipime 1gm) 1 gm in 100 mls @ 100 mls/hr IVPB Q12 [facility]; Protocol Last Admin: 02/20/19 09:09 Dose: 100 mls/hr Dextrose (Dextrose 5% In Water 1000 Ml) 1,000 mls @ 0 mls/hr IV .Q0M PRN; Protocol PRN Reason: Hypoglycemia Protocol Vancomycin HCl 1.5 gm/ Sodium (Chloride) 500 mls @ 167 mls/hr IVPB 0600,1800 [facility]; Protocol Last Admin: 02/20/19 06:43 Dose: 167 mls/hr Ibuprofen (Motrin Tab) 600 mg PO Q6H PRN PRN Reason: Fever reduction Last Admin: 02/20/19 09:09 Dose: 600 mg Insulin Detemir (Levemir) 20 unit SC HS [facility] Insulin Human Regular (Humulin R Low) 0 units SC ACHS [facility]; Protocol Last Admin: 02/20/19 09:03 Dose: 4 units Ondansetron HCl (Zofran Odt) 4 mg PO Q6 PRN PRN Reason: Nausea/Vomiting Last Admin: 02/18/19 13:05 Dose: 4 mg Ondansetron HCl (Zofran Inj) 4 mg IVP ONCE PRN PRN Reason: Nausea/Vomiting Oxycodone HCl (Oxycodone Immediate Release Tab) 5 mg PO Q6H PRN PRN Reason: Pain, severe (8-10) Last Admin: 02/20/19 05:26 Dose: 5 mg Sertraline HCl (Zoloft) 50 mg PO BID [facility] Last Admin: 02/19/19 17:34 Dose: Not Given Trazodone HCl (Desyrel) 100 mg PO DAILY [facility] Last Admin: 02/19/19 10:54 Dose: Not Given - Labs Labs: 02/20/19 06:00 02/20/19 06:00 PT 11.1 SECONDS (9.4-12.5) 02/19/19 06:30 INR 0.98 02/19/19 06:30 APTT 36.7 Seconds (26.9-38.3) 02/19/19 06:30 - Additional Findings Additional findings: - Constitutional Appears: Non-toxic, No Acute Distress - Head Exam Head Exam: ATRAUMATIC, NORMAL INSPECTION, NORMOCEPHALIC - Eye Exam Eye Exam: EOMI, Normal appearance - ENT Exam ENT Exam: Mucous Membranes Moist, Normal Exam - Neck Exam Neck exam: Positive for: Full Rom - Respiratory Exam Respiratory Exam: NORMAL BREATHING PATTERN - Cardiovascular Exam Cardiovascular Exam: REGULAR RHYTHM - GI/Abdominal Exam GI & Abdominal Exam: Normal Bowel Sounds, Soft, Minimal tenderness (Right groin suprapubic area s/p incisino and drainage, without induration, active drainage or bleeding, no warmth) - Extremities Exam Extremities exam: Positive for: normal inspection - Neurological Exam Neurological exam: Alert,Oriented x3 - Psychiatric Exam Psychiatric exam: Normal Affect, Normal Mood - Skin Skin Exam: Dry, Intact, Normal Color, Warm Assessment and Plan - Assessment and Plan (Free Text) Assessment: 33F w/recurrent groin abscesses consulted for the same Plan: Right suprapubic abscess Pt s/p right groin abscess I and D on 4 in the OR. POD#1 Procedure was well tolerated Pt afebrile, without tachycardia. No leukocytosis Packing was removed today, and wound was dressed with sterile 4x4 gauze Pt provided with prescription for Bactroban ointment Pt cleared for discharge home from surgical standpoint Further care as per primary Pt examined, and plan discussed with Dr. Rudi Luna PGY1 Pager# [phone]
--- NOTE | 2019-02-20 15:59 | CP.PCM.PN ---
Subjective - Date & Time of Evaluation Date of Evaluation: 02/20/19 Time of Evaluation: 15:45 - Subjective Subjective: Infectious Disease Follow Up: February 20, 2019 33 yo female with history of recurrent groin abscesses presenting with right suprapubic abscess present for one month as per the patient. The patient is complaining of worsening pain of the area. She complains of fever, diaphoresis, and diarrhea. The patient develops green every few months that she usually tries to pop or uses a warm compress on. Taken to OR for I&D of right groin abscess. Purulent material obtained. OR culture showing gram positive cocci growth. On Zosyn and Vancomycin IV for treatment. Objective - Vital Signs/Intake and Output Vital Signs (last 24 hours): Temp Pulse Resp BP Pulse Ox 98.4 F 77 16 116/84 97 02/20/19 06:00 02/20/19 06:00 02/20/19 06:00 02/20/19 06:00 02/20/19 06:00 Intake and Output: 02/20/19 02/20/19 06:59 18:59 Intake Total 180 Balance 180 - Medications Medications: Current Medications Clonazepam (Klonopin) 0.5 mg PO DAILY PRN; Protocol PRN Reason: Anxiety Diazepam (Valium) 1 mg PO Q12H PRN; Protocol PRN Reason: muscle spasms Cefepime HCl (Maxipime 1gm) 1 gm in 100 mls @ 100 mls/hr IVPB Q12 [facility]; Protocol Last Admin: 02/20/19 09:09 Dose: 100 mls/hr Dextrose (Dextrose 5% In Water 1000 Ml) 1,000 mls @ 0 mls/hr IV .Q0M PRN; Protocol PRN Reason: Hypoglycemia Protocol Vancomycin HCl 1.5 gm/ Sodium (Chloride) 500 mls @ 167 mls/hr IVPB 0600,1800 [facility]; Protocol Last Admin: 02/20/19 06:43 Dose: 167 mls/hr Ibuprofen (Motrin Tab) 600 mg PO Q6H PRN PRN Reason: Fever reduction Last Admin: 02/20/19 09:09 Dose: 600 mg Insulin Detemir (Levemir) 20 unit SC HS [facility] Insulin Human Regular (Humulin R Low) 0 units SC ACHS [facility]; Protocol Last Admin: 02/20/19 14:06 Dose: 1 units Ondansetron HCl (Zofran Odt) 4 mg PO Q6 PRN PRN Reason: Nausea/Vomiting Last Admin: 02/18/19 13:05 Dose: 4 mg Ondansetron HCl (Zofran Inj) 4 mg IVP ONCE PRN PRN Reason: Nausea/Vomiting Oxycodone HCl (Oxycodone Immediate Release Tab) 5 mg PO Q6H PRN PRN Reason: Pain, severe (8-10) Last Admin: 02/20/19 14:05 Dose: 5 mg Sertraline HCl (Zoloft) 50 mg PO BID [facility] Last Admin: 02/19/19 17:34 Dose: Not Given Trazodone HCl (Desyrel) 100 mg PO DAILY [facility] Last Admin: 02/19/19 10:54 Dose: Not Given - Labs Labs: 02/20/19 06:00 02/20/19 06:00 PT 11.1 SECONDS (9.4-12.5) 02/19/19 06:30 INR 0.98 02/19/19 06:30 APTT 36.7 Seconds (26.9-38.3) 02/19/19 06:30 - Constitutional Appears: Non-toxic, No Acute Distress, Chronically Ill - Head Exam Head Exam: ATRAUMATIC, NORMOCEPHALIC - Eye Exam Eye Exam: EOMI, PERRL Pupil Exam: NORMAL ACCOMODATION, PERRL - ENT Exam ENT Exam: Mucous Membranes Moist, Normal External Ear Exam, TM's Normal Bilaterally - Neck Exam Neck Exam: Full ROM, Normal Inspection - Respiratory Exam Respiratory Exam: Clear to Ausculation Bilateral, NORMAL BREATHING PATTERN. absent: Rales, Rhonchi, Wheezes - Cardiovascular Exam Cardiovascular Exam: REGULAR RHYTHM, RRR, +S1, +S2 - GI/Abdominal Exam GI & Abdominal Exam: Soft, Normal Bowel Sounds. absent: Distended, Tenderness - Extremities Exam Extremities Exam: Full ROM, Normal Inspection - Neurological Exam Neurological Exam: Alert, Awake, CN II-XII Intact, Oriented x3 - Psychiatric Exam Psychiatric exam: Normal Affect, Normal Mood - Skin Additional comments: right medial groin enlargement, tenderness, and warmth... now s/p I&D. Assessment and Plan - Assessment and Plan (Free Text) Assessment: 33 yo female with right medial groin swelling and likely large abscess. Surgery planning to I&D area on 02/18/2019. Must cover for MRSA and gram negati ve infections at this time. No leukocytosis or fevers at this time. May need imaging study if I&D is not done. Supportive care. I&D done by surgery. Cultures sent. As the patient was on broad spectrum antibiotics, the wound cultures could be negative for growth. OR culture with gram positive cocci growth. Would keep the patient for one more day to obtain final culture result. Likely can be discharged on 02/21/2019 from ID point of view as the cultures should have identification and sensitivities. Thank you for allowing me to participate in the care of the patient, we will follow with you.
--- NOTE | 2019-02-20 19:56 | CON ---
DATE OF CONSULTATION: 02/20/2019 HISTORY OF PRESENT ILLNESS: In short, the patient is a 33-year-old female with multiple medical issues including hypertension, insulin-dependent diabetes. The patient was admitted on the medical side for feeling of fatigue and abscess. Psych consult was called because the patient has a history of major depressive disorder. The patient was seen and examined today, presented to be alert and oriented, somewhat guarded. The patient reports that she has a history of depression. She has history of being admitted to [facility]. Her psychiatrist practices at [facility] in [place]. The patient reported being compliant with the medications. Denied any side effects from the medication, which are Zoloft, Klonopin, as well as trazodone. The patient reported no history of hearing voices. No history of seeing things. The patient reported that she feels fine, and she is ready to go home. PHYSICAL EXAMINATION: VITAL SIGNS: Reviewed. Temperature 98.4, pulse is 77, blood pressure 116/84, respirations 16, oxygen saturation is 97. MEDICATIONS: Reviewed. The patient is on cefepime, Klonopin, Valium, Motrin, Levemir, Humulin, Zofran, oxycodone, Zoloft 50 mg twice a day, trazodone, and vancomycin. The patient refused to take it, but trazodone the patient takes at the nighttime. LABORATORY DATA: Labs reviewed. Most recent was from today. Urinalysis reviewed. Microbiology and wound culture, gram-positive cocci. MENTAL STATUS EXAMINATION: The patient presented to be alert and oriented, intermittent eye contact. Mood described as okay. Affect was constricted. Thought process, coherent and goal-directed. Thought content, the patient denied visual, auditory, or tactile hallucinations. Denied paranoid ideation. The patient denied thoughts of harming herself or others, denied intent or plan. The patient denied hearing voices, denied seeing things, denied paranoid ideation. The patient denied thoughts of harming herself or others, denied intent or plan. Insight and judgment seemed to be fair. Impulses are well controlled. IMPRESSION: As per the patient, she was diagnosed with major depressive disorder. PLAN: The patient has a followup appointment with her psychiatrist, but the patient does not remember when. The patient has a psychiatrist at [facility]. The patient is compliant with the medications, such as trazodone, Zoloft, and Klonopin. The patient poses no imminent danger to self or others, was not interested to talk to psychiatrist while being in the hospital, so this grant writer will sign off. Should you have any questions give me a call back. This grant writer will sign off. Alina Billy MD
[2019-02-20] MEDS ORDERED: Insulin Detemir 100 units/ml Vial (Levemir) SC SCH (22:00)
[2019-02-21] MEDS: Vancomycin 1.5 GM in Sodium Chloride 0.9% 500 ML IVPB SCH (05:57)
[2019-02-21 07:27] VITALS: PULSE 77; RESP 16
--- NOTE | 2019-02-21 08:11 | PN ---
DATE: 02/20/[address] Vallecillo. She is in agreement with treatment plan. SUBJECTIVE: The patient came in with right groin pain and abscess. She was seen outpatient. She is currently on antibiotics, infection progressed and not getting better. She was admitted to the hospital with right groin abscess. Has past medical history of type 1 diabetes, bipolar, hypertension, gastric reflux disease, hyperlipidemia. Seen the patient today. The patient was comfortable. No acute distress. Denies shortness of breath, palpitations, abdominal pain, or dysuria. PHYSICAL EXAMINATION: VITAL SIGNS: Temperature 98.4, pulse rate 77, blood pressure 116/84, respiratory rate 16, saturation 97% on room air. HEENT: Normocephalic. PERRLA. Mucous membranes moist. NECK: Supple. Normal on inspection. RESPIRATORY: Clear to auscultation with no adventitious breath sounds. HEART: S1 and S2. No JVD. No murmur. No gallop. ABDOMEN: Soft, nontender. No organomegaly. SKIN: Normal color, intact. No cyanosis. EXTREMITIES: No edema noted. NEUROLOGIC: The patient is alert and oriented x3. Cranial nerves II through XII are intact. MEDICATIONS: Maxipime 1 g IV piggyback every 12 hours, Klonopin 0.5 mg daily, Valium 1 mg every 12 hours, Levemir 20 units subcu at bedtime, Accu-Cheks before meals at bedtime, Humalog coverage, Zofran 4 mg every 6 hours p.r.n., oxycodone 5 mg every 6 hours, Zoloft 50 mg b.i.d, Desyrel 100 mg p.o. daily. The patient is on vancomycin 1.5 g IV piggyback. LABORATORY DATA: White blood cells 8.7, hemoglobin 11.5, hematocrit 35.5, platelets 257. Sodium 136, potassium 3.6, BUN is 10, creatinine is 0.5, glucose 264. ASSESSMENT AND PLAN: This is a 33-year-old female, came in with right groin abscess, diabetes mellitus, hypertension, bipolar. The patient was seen by Infectious Disease. Went to Surgery for incision and drainage. She continues antibiotics. Plan was to discharge the patient, however, discharge had to be canceled, not cleared by Infectious Disease. We will wait for Infectious Disease , wound cultures come back negative before discharging. We will follow up. ALL ABOVE NOTED , AGREED ALL ABOVE . 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 WILL F/U Chema Auguste APN Beatrice Vallecillo MD DOMEN[facility]
[2019-02-21] MEDS: Insulin Reg-LOW-Coverage SC SCH ×2 (09:19→15:19)
[2019-02-21] MEDS: Cefepime 1gm in NS 100ml 1 GM/100 ML BAG IVPB SCH (09:21)
--- NOTE | 2019-02-21 09:21 | CP.PCM.PN ---
Subjective - Date & Time of Evaluation Date of Evaluation: 02/21/19 Time of Evaluation: 07:45 - Subjective Subjective: General surgery progress note for Dr. William Arzate, PGY-2 Pt seen/examined with surgical team Pt reports pain well controlled. Denies F & C, N & V, abdominal pain, other complaints. Dressing recently changed by nursing. Objective - Vital Signs/Intake and Output Vital Signs (last 24 hours): Temp Pulse Resp BP Pulse Ox 97.3 F L 77 16 118/81 97 02/21/19 06:00 02/21/19 06:00 02/21/19 06:00 02/21/19 06:00 02/21/19 06:00 Intake and Output: 02/21/19 02/21/19 06:59 18:59 Intake Total 480 Balance 480 - Medications Medications: Current Medications Clonazepam (Klonopin) 0.5 mg PO DAILY PRN; Protocol PRN Reason: Anxiety Diazepam (Valium) 1 mg PO Q12H PRN; Protocol PRN Reason: muscle spasms Cefepime HCl (Maxipime 1gm) 1 gm in 100 mls @ 100 mls/hr IVPB Q12 [facility]; Protocol Last Admin: 02/20/19 22:53 Dose: 100 mls/hr Dextrose (Dextrose 5% In Water 1000 Ml) 1,000 mls @ 0 mls/hr IV .Q0M PRN; Protocol PRN Reason: Hypoglycemia Protocol Vancomycin HCl 1.5 gm/ Sodium (Chloride) 500 mls @ 167 mls/hr IVPB 0600,1800 L[facility]IANA; Protocol Last Admin: 02/21/19 05:57 Dose: 167 mls/hr Ibuprofen (Motrin Tab) 600 mg PO Q6H PRN PRN Reason: Fever reduction Last Admin: 02/20/19 09:09 Dose: 600 mg Insulin Detemir (Levemir) 20 unit SC HS [facility]NA Last Admin: 02/20/19 22:52 Dose: 20 units Insulin Human Regular (Humulin R Low) 0 units SC ACHS LILIANA; Protocol Last Admin: 02/20/19 18:48 Dose: 3 units Ondansetron HCl (Zofran Odt) 4 mg PO Q6 PRN PRN Reason: Nausea/Vomiting Last Admin: 02/18/19 13:05 Dose: 4 mg Ondansetron HCl (Zofran Inj) 4 mg IVP ONCE PRN PRN Reason: Nausea/Vomiting Oxycodone HCl (Oxycodone Immediate Release Tab) 5 mg PO Q6H PRN PRN Reason: Pain, severe (8-10) Last Admin: 02/20/19 22:51 Dose: 5 mg Sertraline HCl (Zoloft) 50 mg PO BID [facility] Last Admin: 02/19/19 17:34 Dose: Not Given Trazodone HCl (Desyrel) 100 mg PO DAILY [facility] Last Admin: 02/20/19 16:16 Dose: Not Given - Labs Labs: 02/20/19 06:00 02/20/19 06:00 PT 11.1 SECONDS (9.4-12.5) 02/19/19 06:30 INR 0.98 02/19/19 06:30 APTT 36.7 Seconds (26.9-38.3) 02/19/19 06:30 - Constitutional Appears: Non-toxic, No Acute Distress - Head Exam Head Exam: ATRAUMATIC, NORMAL INSPECTION, NORMOCEPHALIC - Eye Exam Eye Exam: EOMI, Normal appearance - ENT Exam ENT Exam: Mucous Membranes Moist, Normal Exam - Neck Exam Neck Exam: Full ROM, Normal Inspection - Respiratory Exam Respiratory Exam: NORMAL BREATHING PATTERN - Cardiovascular Exam Cardiovascular Exam: REGULAR RHYTHM - GI/Abdominal Exam GI & Abdominal Exam: Soft. absent: Distended (obese), Firm, Guarding, Tenderness - Extremities Exam Additional comments: Right groin with dressing in place- clean/dry/intact, not tender - Neurological Exam Neurological Exam: Alert, Awake, CN II-XII Intact, Oriented x3 - Psychiatric Exam Psychiatric exam: Normal Affect, Normal Mood - Skin Skin Exam: Dry, Intact, Normal Color, Warm Assessment and Plan - Assessment and Plan (Free Text) Assessment: 33F w/recurrent groin abscesses POD#2 s/p I & D of right groin abscess, doing well overnight Plan: Continue ABx as per ID Local wound care prn Dressing changes PRN Bactroban ointment to area Cleared for d/c home from surgical standpoint Will OLEKSANDR Arzate, PGY-2
[2019-02-21 14:45] VITALS: BP 131/87; TEMP 98.1; O2SAT 99
--- NOTE | 2019-02-21 16:02 | CP.PCM.PN ---
Subjective - Date & Time of Evaluation Date of Evaluation: 02/21/19 Time of Evaluation: 13:00 - Subjective Subjective: Infectious Disease Follow Up: February 21, 2019 33 yo female with history of recurrent groin abscesses presenting with right suprapubic abscess present for one month as per the patient. The patient is complaining of worsening pain of the area. She complains of fever, diaphoresis, and diarrhea. The patient develops green every few months that she usually tries to pop or uses a warm compress on. Taken to OR for I&D of right groin abscess. Purulent material obtained. OR culture showing gram positive cocci growth. On Zosyn and Vancomycin IV for treatment. Staph Lugdunensis in wound culture. Objective - Vital Signs/Intake and Output Vital Signs (last 24 hours): Temp Pulse Resp BP Pulse Ox 98.1 F 77 16 131/87 99 02/21/19 14:00 02/21/19 14:00 02/21/19 14:00 02/21/19 14:00 02/21/19 14:00 Intake and Output: 02/21/19 02/21/19 06:59 18:59 Intake Total 480 Balance 480 - Labs Labs: 02/20/19 06:00 02/20/19 06:00 PT 11.1 SECONDS (9.4-12.5) 02/19/19 06:30 INR 0.98 02/19/19 06:30 APTT 36.7 Seconds (26.9-38.3) 02/19/19 06:30 - Constitutional Appears: Non-toxic, No Acute Distress, Chronically Ill - Head Exam Head Exam: ATRAUMATIC, NORMOCEPHALIC - Eye Exam Eye Exam: EOMI, PERRL Pupil Exam: NORMAL ACCOMODATION, PERRL - ENT Exam ENT Exam: Mucous Membranes Moist, Normal External Ear Exam, TM's Normal Bilaterally - Neck Exam Neck Exam: Full ROM, Normal Inspection - Respiratory Exam Respiratory Exam: Clear to Ausculation Bilateral, NORMAL BREATHING PATTERN. absent: Rales, Rhonchi, Wheezes - Cardiovascular Exam Cardiovascular Exam: REGULAR RHYTHM, RRR, +S1, +S2 - GI/Abdominal Exam GI & Abdominal Exam: Soft, Normal Bowel Sounds. absent: Distended, Tenderness - Extremities Exam Extremities Exam: Full ROM, Normal Inspection - Neurological Exam Neurological Exam: Alert, Awake, CN II-XII Intact, Oriented x3 - Psychiatric Exam Psychiatric exam: Normal Affect, Normal Mood - Skin Additional comments: right medial groin enlargement, tenderness, and warmth... now s/p I&D. Assessment and Plan - Assessment and Plan (Free Text) Assessment: 33 yo female with right medial groin swelling and likely large abscess. Surgery planning to I&D area on 02/18/2019. Must cover for MRSA and gram negative infections at this time. No leukocytosis or fevers at this time. May need imaging study if I&D is not done. Supportive care. I&D done by surgery. Cultures sent. As the patient was on broad spectrum antibiotics, the wound cultures could be negative for growth. OR culture with gram positive cocci growth. Would keep the patient for one more day to obtain final culture result. Likely can be discharged on 02/21/2019 from ID point of view as the cultures should have identification and sensitivities. Culture grew Staph Lugdunensis. Discharge with 10 days of PO Clindamycin 300mg PO Q8hrs. Thank you for allowing me to participate in the care of the patient, we will follow with you.
--- NOTE | 2019-02-25 14:21 | OP ---
PROCEDURE DATE: 02/19/2019 PREOPERATIVE DIAGNOSIS: Right groin abscess. POSTOPERATIVE DIAGNOSES: 1. Right groin abscess. 2. Right Bartholin cyst. PROCEDURE: Incision and drainage of the right groin abscess. SURGEON: Marcellus Grijalva MD HEAT SEAL OPERATOR: Indiana Arzate DO, PGY-2 ANESTHESIOLOGIST: Gregg Gates MD ANESTHESIA: MAC - Marcaine 0.5-8 mL. OPERATIVE INDICATION: The patient is a 33-year-old [place] female with a large abscess in her right groin. This has been giving her trouble for the past week and on the day of the operation she describes as a new onset of Bartholin cyst in the right labia majora. Risks, benefits, and alternatives with their anticipated outcomes were discussed with the patient and she signs the informed consent for incision and drainage with sedation. OPERATIVE NOTE: The patient was brought to the operating room from the holding area, where the lesion has been marked. She undergoes time-out procedure and is identified by her wristband, remains on the operative gurney and the right groin is prepped with Betadine and the patient was aseptically draped following IV sedation by the anesthesiologist. Field block infiltration was employed over the right groin and a cruciate incision made evacuating the abscess cavity, culturing same and then lavaging the cavity and packing with Iodoform gauze. A dry dressing was placed over the same and the patient was awakened. It was elected at this point not to open the Bartholin cyst as it is not active and topical treatment will be utilized. Marcellus Grijalva MD
== END 2019-02-21 14:58 | disposition home or self-care (01) | DRG 269 ==
LOC: ED 08:50 → ERH 11:31 → 5RNO 12:53 → OBSVTOIN 16:02
PROVIDERS: ADMIT Internal Medicine; ATTEND Internal Medicine
PROC: 0Y950ZZ Drainage of Right Inguinal Region, Open Approach (ICD-10-PCS; principal; 2019-02-19 12:15)
DX: L02.214 Cutaneous abscess of groin (principal); E10.65 Type 1 diabetes mellitus with hyperglycemia; E10.43 Type 1 diabetes mellitus with diabetic autonomic (poly)neuropathy; K31.84 Gastroparesis; I10 Essential (primary) hypertension; N75.0 Cyst of Bartholin's gland; F31.9 Bipolar disorder, unspecified; F43.10 Post-traumatic stress disorder, unspecified; Z91.19 Patient's noncompliance with other medical treatment and regimen; K21.9 Gastro-esophageal reflux disease without esophagitis; E78.5 Hyperlipidemia, unspecified; Z79.4 Long term (current) use of insulin